=== PATIENT | female | born 1935 | race American Indian/Alaskan Native ===

== ENCOUNTER 2018-01-12 03:11 | Inpatient (IN) | payer MEDICARE ==
[2018-01-12] MEDS ORDERED: NACL 0.9% 1000 ML 1,000 ML IV ONE (03:37)
[2018-01-12 04:26] LABS: Basophils % (Auto) 0.7 % (0.0-1.8); Eosinophils # (Auto) 0.2 K/mm3 (0.0-0.4); Eosinophils % (Auto) 3.3 % (0.0-4.3); Hematocrit 20.9 % (30.3-42.9); Hemoglobin 6.6 gm/dl (10.1-14.3); Lymphocytes # (Auto) 1.4 K/mm3 (1.2-5.4); Lymphocytes % (Auto) 20.7 % (13.4-35.0); Mean Corpuscular HGB Conc 32 % (30-34); Mean Corpuscular Hemoglobin 30 pg (28-32); Mean Corpuscular Volume 96 fl (79-97); Monocytes # (Auto) 0.9 K/mm3 (0.0-0.8); Monocytes % (Auto) 12.6 % (0.0-7.3); Platelet Count 210 K/mm3 (140-440); Red Blood Count 2.19 M/mm3 (3.65-5.03); Red Cell Distribution Width 17.6 % (13.2-15.2)
[2018-01-12] MEDS ORDERED: NACL 0.9% 500 ML 500 ML IV ONE (04:34)
[2018-01-12 04:39] LABS: INR 1.1 (0.87-1.13)
[2018-01-12 04:40] LABS: Partial Thromboplastin Time 26.3 Sec. (24.2-36.6)
[2018-01-12] MEDS ORDERED: NACL 0.9% 250ML 250 ML ONE (04:40)
[2018-01-12] MEDS ORDERED: NACL 0.9% 250ML 250 ML IV ONE (04:44)
[2018-01-12 04:52] LABS: Albumin 3.2 g/dL (3.9-5); Calcium 8.4 mg/dL (8.4-10.2)
--- NOTE | 2018-01-12 05:00 | Emergency Department Report ---
ED GI Bleed HPI - General Chief complaint: GI Bleed Stated complaint: BLOOD IN STOOL Time Seen by Provider: 01/12/18 03:49 Source: patient, EMS Mode of arrival: Wheelchair Limitations: No Limitations - History of Present Illness Initial comments: 82 yo female with past medical history end-stage renal disease on dialysis and hypertension presents to the hospital complaining of bloody bowel movement 5 times prior to tonight. Apparently she was diagnosed with "an inflamed colon 2 months ago" but denies history of rectal bleeding. Patient complains of some lightheadedness and dizziness and mild intermittent abdominal cramping. Previous to abdomen. No vomiting or fever reported. Patient makes very little urine output and is due for dialysis today. Complains of some dyspnea exertion, generalized weakness, and fatigue but denies orthopnea or PND. Patient takes aspirin 81 mg daily but denies other anticoagulation or antiplatelet therapy. - Related Data Allergies Allergy/AdvReac Type Severity Reaction Status Date / Time meperidine [From Demerol] Allergy Itching Verified 01/12/18 03:31 ED Review of Systems ROS: Stated complaint: BLOOD IN STOOL Other details as noted in HPI Comment: All other systems reviewed and negative ED Past Medical Hx - Past Medical History Previous Medical History?: Yes Hx Hypertension: Yes Hx Renal Disease: Yes (Renal failure, on dialysis MWF) - Surgical History Past Surgical History?: Yes Additional Surgical History: bilateral knee replacement. - Social History Smoking Status: Never Smoker Substance Use Type: None ED Physical Exam - General Limitations: No Limitations - Other Other exam information: General: No limitations, patient is alert in no acute distress Head exam: Atraumatic, normocephalic Eyes exam: Normal appearance, pale conjunctiva ENT: Moist mucous membrane, normal oropharynx Neck exam: Normal inspection, full range of motion, no meningismus nontender Respiratory exam: Clear to auscultation bilateral, no wheezes, rales, crackles Cardiovascular: Normal rate and rhythm, systolic murmur Abdomen: Soft, nondistended, very mild diffuse tenderness, with normal bowel sounds, no rebound, or guarding. Vertical suprapubic previous scar noted Rectal: No external hemorrhoids noted. OB is blood/bright red blood output from rectum with bowel movements requiring multiple diaper changes in the ED Extremity: Full range of motion normal inspection no deformity Back: Normal Inspection, full range of motion, no tenderness Neurologic: Alert, oriented x3, cranial nerves intact, no motor or sensory deficit Psychiatric: normal affect, normal mood Skin: Pale skin ED Course Vital Signs 01/12/18 01/12/18 01/12/18 03:17 03:30 03:31 Temperature 97.9 F Pulse Rate 95 H 98 H Respiratory 20 20 Rate Blood Pressure 136/52 129/59 Blood Pressure 129/59 [Right] O2 Sat by Pulse 51 L 97 Oximetry 01/12/18 01/12/18 04:00 04:31 Temperature Pulse Rate 97 H 98 H Respiratory 26 H 26 H Rate Blood Pressure 134/47 79/39 Blood Pressure [Right] O2 Sat by Pulse Oximetry - Reevaluation(s) Reevaluation #1: 01/12/18 05:11 Systolic blood pressure dropped to 79 but improved to greater than 100 with a MAP greater than 65 after 250 NS normal saline bolus. Call was placed to the lab to expedite typing cross so that we may initiate blood transfusion. - Consultations Consultation #1: 01/12/18 4:45a Case discussed with Dr. Florin Aquino. Recommend bowel prep for colonoscopy. will consult Consultation #2: 01/12/18 05:[address] Henry, pt's medical artist. Will consult and manage dialysis - EJ/Peripheral Line Neck L Indications: nurses unable to establis Skin Cleansed in Sterile Fashion: Yes Size: 20 Dressing Placed: Tegaderm Patient Tolerated Procedure: well, no complications ED Medical Decision Making - Lab Data Result diagrams: 01/12/18 04:12 01/12/18 04:12 Lab Results 01/12/18 01/12/18 01/12/18 Range/Units 04:12 04:12 04:12 WBC 6.7 (4.5-11.0) K/mm3 RBC 2.19 L (3.65-5.03) M/mm3 Hgb 6.6 L (10.1-14.3) gm/dl Hct 20.9 L (30.3-42.9) % MCV 96 (79-97) fl MCH 30 (28-32) pg MCHC 32 (30-34) % RDW 17.6 H (13.2-15.2) % Plt Count 210 (140-440) K/mm3 Lymph % (Auto) 20.7 (13.4-35.0) % [place] % (Auto) 12.6 H (0.0-7.3) % Eos % (Auto) 3.3 (0.0-4.3) % Baso % (Auto) 0.7 (0.0-1.8) % Lymph # 1.4 (1.2-5.4) K/mm3 [place] # 0.9 H (0.0-0.8) K/mm3 Eos # 0.2 (0.0-0.4) K/mm3 Baso # 0.0 (0.0-0.1) K/mm3 Seg Neutrophils % 62.7 (40.0-70.0) % Seg Neutrophils # 4.2 (1.8-7.7) K/mm3 PT 14.8 (12.2-14.9) Sec. INR 1.10 (0.87-1.13) APTT 26.3 (24.2-36.6) Sec. Sodium 142 (137-145) mmol/L Potassium 4.3 (3.6-5.0) mmol/L Chloride 98.4 (98-107) mmol/L Carbon Dioxide 26 (22-30) mmol/L Anion Gap 22 mmol/L BUN 59 H (7-17) mg/dL Creatinine 5.9 H (0.7-1.2) mg/dL Estimated GFR 8 ml/min BUN/Creatinine Ratio 10 % Glucose 144 H (65-100) mg/dL Calcium 8.4 (8.4-10.2) mg/dL Total Bilirubin 0.40 (0.1-1.2) mg/dL AST 26 (5-40) units/L ALT 22 (7-56) units/L Alkaline Phosphatase 137 H (35-129) units/L Total Protein 5.1 L (6.3-8.2) g/dL Albumin 3.2 L (3.9-5) g/dL Albumin/Globulin Ratio 1.7 % Lipase 46 (13-60) units/L - EKG Data -: EKG Interpreted by [place] EKG shows normal: sinus rhythm Rate: normal - Medical Decision Making Lower GI bleed Low H&H with associated symptomatic anemia, 2 units of PRBC initiated Hypotensive episode after a bloody bowel movement in the ED for systolic blood pressure greater 100 and may peak greater than 65 after 250 normal saline bolus. 2 units of PRBC ordered to be initiated as soon as available Case discussed with Dr. Aquino GI recommend bowel prep for colonoscopy End-stage renal disease on dialysis Stable without hyperkalemia No orthopnea or signs of volume overload Initial o2 saturation erroneously recorded as 51 on room air but actually 97 case d/w Dr henry, will manage dialysis Hospitalist informed, pt will need ICU admission - Differential Diagnosis symptomatic anemia, diverticulosis, hemorrhoids, cancer, upper GI bleed Critical Care Time: No Critical care attestation.: If time is entered above; I have spent that time in minutes in the direct care of this critically ill patient, excluding procedure time. ED Disposition Clinical Impression: Rectal bleeding, Symptomatic anemia, ESRD (end stage renal disease) on dialysis Disposition: OP ADMIT IP TO THIS HOSP Is pt being admited?: Yes Condition: Serious Time of Disposition: 05:00 (Dr Mirza/hosp)
[2018-01-12] MEDS ORDERED: ZOFRAN IV PRN (06:10)
[2018-01-12] MEDS ORDERED: NACL 0.9% 500 ML 500 ML ONE ×2 (06:41→06:47)
--- NOTE | 2018-01-12 07:29 | History and Physical Report ---
CHIEF COMPLAINT: Rectal bleeding. HISTORY OF PRESENT ILLNESS: The patient is an 82-year-old female with history of end-stage renal disease, on dialysis, who was noted to be having blood in the stool that started yesterday. The patient has had about 5 episodes of bloody stool and was recently diagnosed about 2 months ago with an inflamed colon. There is history of some abdominal cramping. Also, the patient complained of lightheadedness and nausea, but no vomiting. There is also no history of fever or chills. The patient was evaluated and found to have low hemoglobin with arrangement for blood transfusion in progress. PAST MEDICAL HISTORY: Pertinent for hypertension and end-stage renal disease, on dialysis. PAST SURGICAL HISTORY: Pertinent for and bilateral knee replacement. FAMILY HISTORY: Noncontributory. SOCIAL HISTORY: The patient does not smoke, does not drink and does not use illicit drugs. MEDICATIONS: The patient's home medications are not known at this time. ALLERGIES: THE PATIENT IS ALLERGIC TO MEPERIDINE. REVIEW OF SYSTEMS: CONSTITUTIONAL: There is no fever, no chills and no diaphoresis. HEENT: There is no headache or sore throat. CARDIOVASCULAR: There is no chest pain or orthopnea. RESPIRATORY: There is no shortness of breath or cough. GASTROINTESTINAL: Abdominal cramp noted. Nausea noted. No vomiting. Hematochezia and melena noted. No constipation. No diarrhea. NEUROLOGICAL: There is dizziness with no change in mental status. MUSCULOSKELETAL: There is no joint pain or swelling. DERMATOLOGICAL: There is no skin rash or itching. GENITOURINARY: There is no dysuria, hematuria or flank pain. Rest of system review is normal. PHYSICAL EXAMINATION: GENERAL: At the time of exam, the patient was found to be sleeping quietly on her bed and not in acute distress. VITAL SIGNS: Initially at the time of presentation shows temperature of 97.9 degrees Fahrenheit, pulse of 95, respirations 20, blood pressure 136/52 with O2 sat of 97%. HEENT: The patient's pupils were round, equal on both sides and reactive to light and accommodation. NECK: Supple with no JVD or carotid bruit. CARDIOVASCULAR: Showed normal first and second heart sounds with no gallops or murmur. RESPIRATORY: Show good air entry on both sides of the lung with no abnormal breath sounds. GASTROINTESTINAL: Show abdomen to be full, soft and nontender with no organomegaly or rigidity. NEUROLOGICAL: Shows no focal deficits. MUSCULOSKELETAL: Show no joint swelling or tenderness. DERMATOLOGICAL: Show no skin rash. GENITOURINARY: Showing no costovertebral angle tenderness. PERTINENT LABORATORY AND IMAGING STUDIES: The patient had CBC done that shows normal white count with low hemoglobin of 6.6 and low hematocrit of 20.9 with normal platelets. Coagulation studies were unremarkable. The patient's chemistry show elevated BUN of 59 with high creatinine of 5.9, consistent with end-stage renal disease on dialysis. No imaging studies were done at this time. DIAGNOSES: 1. Rectal bleeding. 2. End-stage renal disease, on dialysis. PLAN: 1. The patient will be admitted to telemetry and will continue the order for packed red blood cells transfusion. 5 rubs or sore throat. The patient will also continue the Gastroenterology consult with Dr. Florin Aquino, who will do an endoscopy. 2. The patient will continue Nephrology consult with ____ for management of end-stage renal disease with possible dialysis this morning. The patient will remain n.p.o. until evaluated by the Spinning Room Worker and will be on IV Protonix 40 mg q. 12 hours. So, the patient will be on IV Zofran 4 mg every 8 hours as needed for nausea and vomiting and will be on oxygen by nasal cannula 2 liters per minute. The patient will have hemoglobin and hematocrit monitored every 6 hours x3 more ____. JOB# [id number] OCN/NTS
--- NOTE | 2018-01-12 09:04 | Gastroenterology Consultation ---
<VERONA MACIEL SEBASTIAN - Last Filed: 01/12/18 09:04> History of Present Illness - Reason for Consult Consult date: 01/12/18 Gi bleeding Requesting physician: RAYSA FRIEND - History of Present Illness Ms. Chavez is an 82 y/o female admitted with reports of rectal bleeding x 5 starting yesterday. She denies abdominal pain, but caregiver noted that pt has been loosing weight. She has just taken over care of the patient and does not have a detailed hx. The patient states she was seen at [facility] within the last 3-4 weeks with a diagnosis of " inflamed colon", however those records are unavailable to me and no visits in our office system at this time. She was noted to have and H/H of 6.6/20.9 on admission and is currently receiving blood products. She is on a daily ASA. She states she had bleeding one time in the past that resolved. Unclear when last colonoscopy was. She has ESRD on HD. Past History Past Medical History: diabetes, hypertension Past Surgical History: , total knee replacement Social history: lives with family Family history: no significant family history Medications and Allergies Allergies Allergy/AdvReac Type Severity Reaction Status Date / Time meperidine [From Demerol] Allergy Itching Verified 01/12/18 03:31 Active Meds: Active Medications Ondansetron HCl (Zofran) 4 mg IV Q8H PRN PRN Reason: Nausea And Vomiting Pantoprazole Sodium (Protonix) 40 mg IV Q12HR CECILIO Review of Systems - Review of Systems All systems: negative Constitutional: weight loss Gastrointestinal: BRBPR Exam - Constitutional Vital Signs: Temp Pulse Resp BP Pulse Ox 97.7 F 102 H 17 123/60 98 01/12/18 08:35 01/12/18 08:35 01/12/18 08:35 01/12/18 08:35 01/12/18 08:35 General appearance: no acute distress - EENT Eyes: EOM intact ENT: hearing intact - Neck Neck: supple - Respiratory Respiratory: bilateral: diminished - Cardiovascular Rhythm: regular Heart Sounds: Present: S1 & S2, systolic murmur Extremities: pulses intact - Gastrointestinal General gastrointestinal: Present: soft, non-tender, non-distended - Integumentary Integumentary: Present: warm, dry - Neurologic Neurological: other (drowsy) - Labs CBC & Chem 7: 01/12/18 04:12 01/12/18 04:12 Lab Results: Laboratory Results - last 24 hr 01/12/18 01/12/18 01/12/18 04:12 04:12 04:12 WBC 6.7 RBC 2.19 L Hgb 6.6 L Hct 20.9 L MCV 96 MCH 30 MCHC 32 RDW 17.6 H Plt Count 210 Lymph % (Auto) 20.7 Gem % (Auto) 12.6 H Eos % (Auto) 3.3 Baso % (Auto) 0.7 Lymph # 1.4 Gem # 0.9 H Eos # 0.2 Baso # 0.0 Seg Neutrophils % 62.7 Seg Neutrophils # 4.2 PT 14.8 INR 1.10 APTT 26.3 Sodium 142 Potassium 4.3 Chloride 98.4 Carbon Dioxide 26 Anion Gap 22 BUN 59 H Creatinine 5.9 H Estimated GFR 8 BUN/Creatinine Ratio 10 Glucose 144 H Calcium 8.4 Total Bilirubin 0.40 AST 26 ALT 22 Alkaline Phosphatase 137 H Total Protein 5.1 L Albumin 3.2 L Albumin/Globulin Ratio 1.7 Lipase 46 Blood Type Antibody Screen Crossmatch 01/12/18 04:12 WBC RBC Hgb Hct MCV MCH MCHC RDW Plt Count Lymph % (Auto) Gem % (Auto) Eos % (Auto) Baso % (Auto) Lymph # Gem # Eos # Baso # Seg Neutrophils % Seg Neutrophils # PT INR APTT Sodium Potassium Chloride Carbon Dioxide Anion Gap BUN Creatinine Estimated GFR BUN/Creatinine Ratio Glucose Calcium Total Bilirubin AST ALT Alkaline Phosphatase Total Protein Albumin Albumin/Globulin Ratio Lipase Blood Type O POSITIVE Antibody Screen Negative Crossmatch See Detail Assessment and Plan 1. GI bleeding -Agree with transfusion, Monitor H/H and transfuse as needed. -PPI daily -Pt did not receive prep will plan for colonoscopy tomorrow. Prep this PM. Clear liquids today. No blood thinning meds. Hold ASA -NPO after MN. <CIRA SANABRIA - Last Filed: 01/12/18 20:19> Medications and Allergies Active Meds: Active Medications Epoetin Kristopher (Procrit) 10,000 unit SUB-Q MOWEFR CECILIO Sodium Chloride (Nacl 0.9%) 100 mls @ 999 mls/hr IV CHARI PRN PRN Reason: Hypotension Morphine Sulfate (Morphine) 2 mg IV Q4H PRN PRN Reason: Pain, Moderate (4-6) Last Admin: 01/12/18 18:21 Dose: 2 mg Ondansetron HCl (Zofran) 4 mg IV Q8H PRN PRN Reason: Nausea And Vomiting Last Admin: 01/12/18 12:20 Dose: 4 mg Pantoprazole Sodium (Protonix) 40 mg IV Q12HR CECILIO Last Admin: 01/12/18 10:15 Dose: 40 mg Exam - Constitutional Vital Signs: Temp Pulse Resp BP Pulse Ox 97.5 F L 98 H 20 149/71 97 01/12/18 13:20 01/12/18 15:08 01/12/18 16:00 01/12/18 13:20 01/12/18 16:00 - Labs CBC & Chem 7: 01/12/18 14:42 01/12/18 04:12 Lab Results: Laboratory Results - last 24 hr 01/12/18 01/12/18 01/12/18 04:12 04:12 04:12 WBC 6.7 RBC 2.19 L Hgb 6.6 L Hct 20.9 L MCV 96 MCH 30 MCHC 32 RDW 17.6 H Plt Count 210 Lymph % (Auto) 20.7 Gem % (Auto) 12.6 H Eos % (Auto) 3.3 Baso % (Auto) 0.7 Lymph # 1.4 Gem # 0.9 H Eos # 0.2 Baso # 0.0 Seg Neutrophils % 62.7 Seg Neutrophils # 4.2 PT 14.8 INR 1.10 APTT 26.3 Sodium 142 Potassium 4.3 Chloride 98.4 Carbon Dioxide 26 Anion Gap 22 BUN 59 H Creatinine 5.9 H Estimated GFR 8 BUN/Creatinine Ratio 10 Glucose 144 H Calcium 8.4 Iron TIBC Ferritin Total Bilirubin 0.40 AST 26 ALT 22 Alkaline Phosphatase 137 H Total Protein 5.1 L Albumin 3.2 L Albumin/Globulin Ratio 1.7 Lipase 46 Blood Type Antibody Screen Crossmatch 01/12/18 01/12/18 01/12/18 04:12 14:42 16:39 WBC RBC Hgb 9.6 L D Hct 30.3 D MCV MCH MCHC RDW Plt Count Lymph % (Auto) Gem % (Auto) Eos % (Auto) Baso % (Auto) Lymph # Gem # Eos # Baso # Seg Neutrophils % Seg Neutrophils # PT INR APTT Sodium Potassium Chloride Carbon Dioxide Anion Gap BUN Creatinine Estimated GFR BUN/Creatinine Ratio Glucose Calcium Iron 37 TIBC 156 L Ferritin Total Bilirubin AST ALT Alkaline Phosphatase Total Protein Albumin Albumin/Globulin Ratio Lipase Blood Type O POSITIVE Antibody Screen Negative Crossmatch See Detail 01/12/18 16:39 WBC RBC Hgb Hct MCV MCH MCHC RDW Plt Count Lymph % (Auto) [place] % (Auto) Eos % (Auto) Baso % (Auto) Lymph # Gem # Eos # Baso # Seg Neutrophils % Seg Neutrophils # PT INR APTT Sodium Potassium Chloride Carbon Dioxide Anion Gap BUN Creatinine Estimated GFR BUN/Creatinine Ratio Glucose Calcium Iron TIBC Ferritin 3520.0 H Total Bilirubin AST ALT Alkaline Phosphatase Total Protein Albumin Albumin/Globulin Ratio Lipase Blood Type Antibody Screen Crossmatch Assessment and Plan - Patient Problems (1) Rectal bleeding Current Visit: Yes Status: Acute Plan to address problem: The patient was seen and examined. She is known to me from care some years ago. She is stable and has passed no blood since yesterday. Diverticular disease is the likely cause although neoplasia cannot be excluded. After a long discussion she has decided against colonoscopy because if a cancer was present, she would not want any surgery or therapy. Will plan conservative care.
[2018-01-12] MEDS ORDERED: GOLYTELY PO NR (10:00)
[2018-01-12] MEDS: PROTONIX IV SCH ×2 (10:15→21:09)
--- NOTE | 2018-01-12 11:41 | Event Note ---
Date: 01/12/18 Patient with GI bleed with resulting anemia. recheck H/H after 2 Units PRBC. For colonoscopy tomorrow.
[2018-01-12] MEDS: MORPHINE IV PRN ×2 (12:20→18:21)
--- NOTE | 2018-01-12 14:47 | Consultation ---
History of Present Illness - Reason for Consult Consult date: 01/12/18 end stage renal disease - History of Present Illness Ms Chavez is a 82 y/o lady with a PMH of ESRD on HD via LUE AVF MWF who has been admitted to the [facility] with rectal bleeding. Pt has been found to have anemia on labs. She denies CP, SHOB, N/V, fever, cough. She was last dialyzed Monday. She is on MWF HD OP. Dr Rubio is her transliterator. ROS: As in HPI otherwise 12 point review of systems -ve Past History Past Medical History: diabetes, hypertension Past Surgical History: , total knee replacement Social history: lives with family Family history: no significant family history Medications and Allergies Allergies Allergy/AdvReac Type Severity Reaction Status Date / Time meperidine [From Demerol] Allergy Itching Verified 01/12/18 03:31 Home Medications Medication Instructions Recorded Confirmed Last Taken Type Amlodipine Besylate [Norvasc] 10 mg PO QDAY 01/12/18 01/12/18 Unknown History Aspirin [Aspirin TAB] 325 mg PO QDAY 01/12/18 01/12/18 Unknown History B Complex 11/Folic/C/Biot/Zinc 1 each PO DAILY 01/12/18 01/12/18 Unknown History [Dialyvite with Zinc Tablet] Calcitriol [Rocaltrol] 0.5 mcg PO QDAY 01/12/18 01/12/18 Unknown History Carvedilol [Coreg] 3.125 mg PO BID 01/12/18 01/12/18 Unknown History Colesevelam [Welchol] 625 mg PO DAILY 01/12/18 01/12/18 Unknown History Esomeprazole Magnesium [NexIUM] 40 mg PO QDAY 01/12/18 01/12/18 Unknown History Levothyroxine [Synthroid] 125 mcg PO QAM 01/12/18 01/12/18 Unknown History Loperamide [Imodium] 2 mg PO QID PRN 01/12/18 01/12/18 Unknown History Phosphorus #1 [K-Phos Neutral] 250 mg PO BID 01/12/18 01/12/18 Unknown History Potassium Chloride [K-Dur] 20 meq PO BID 01/12/18 01/12/18 Unknown History Silver Sulfadiazine [Silvadene] 1 applic TP DAILY 01/12/18 01/12/18 Unknown History Active Meds: Active Medications Morphine Sulfate (Morphine) 2 mg IV Q4H PRN PRN Reason: Pain, Moderate (4-6) Last Admin: 01/12/18 12:20 Dose: 2 mg Ondansetron HCl (Zofran) 4 mg IV Q8H PRN PRN Reason: Nausea And Vomiting Last Admin: 01/12/18 12:20 Dose: 4 mg Pantoprazole Sodium (Protonix) 40 mg IV Q12HR CECILIO Last Admin: 01/12/18 10:15 Dose: 40 mg Polyethylene Glycol/Electrolytes (Golytely) 4,000 ml PO ONCE NR Stop: 01/12/18 15:00 Exam - Vital Signs Vital signs: Vital Signs Pulse Ox 51 L 01/12/18 03:17 - Physical Exam Narrative exam: GE:AAOX3 HEENT:Normocephalic Neck:No JVD CVS:RRR Abd:Soft/NT/ND/BS+ Ext:trace BLE edema, LUE AVF with good thrill UG:No randall Results - Lab Results 01/12/18 14:42 01/12/18 04:12 Most recent lab results Calcium 8.4 mg/dL (8.4-10.2) 01/12/18 04:12 Assessment and Plan ESRD on HD: -MWF OP via LUE AVF -No acute HD indication today, will do HD tommorow -Eval for HD need daily -Check BMP/Mg/Phos daily GI bleed with blood loss anemia: 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 Abel Montanez MD [phone]
[2018-01-12 15:39] LABS: Hematocrit 30.3 % (30.3-42.9); Hemoglobin 9.6 gm/dl (10.1-14.3)
[2018-01-12] MEDS ORDERED: NACL 0.9% 100 ML IV PRN (16:20)
--- NOTE | 2018-01-12 16:20 | XRay Report ---
FINAL REPORT EXAM: XR CHEST 1V AP HISTORY: volume status/SOB TECHNIQUE: Single, portable chest x-ray. PRIORS: None. FINDINGS: Diffusely calcified thoracic aorta. Mild cardiomegaly. Lungs are hyperinflated, with mildly increased interstitial markings centrally. Possible mild elevation or focal eventration of right hemidiaphragm. No focal consolidation or apparent pneumothorax. Vascular stent projects over the left axillary region and/or medial upper extremity. IMPRESSION: 1. Findings which may represent pulmonary venous hypertension. No evidence of overt CHF. 2. No acute consolidation.
[2018-01-12] MEDS ORDERED: PROCRIT SUB-Q SCH (17:00)
[2018-01-12 17:27] LABS: Iron 37 ug/dL (37-170); Total Iron Binding Capacity 156 mcg/dL (250-450)
[2018-01-12 22:59] LABS: Hematocrit 27.7 % (30.3-42.9); Hemoglobin 9.2 gm/dl (10.1-14.3)
[2018-01-13 01:14] LABS: Hematocrit 24.7 % (30.3-42.9); Hemoglobin 8.1 gm/dl (10.1-14.3)
[2018-01-13] MEDS: MORPHINE IV PRN ×2 (02:50→16:46)
[2018-01-13 05:01] LABS: Hemoglobin 7.9 gm/dl (10.1-14.3)
[2018-01-13] MEDS ORDERED: NACL 0.45% 1000 ML 1,000 ML IV ONE (08:18)
[2018-01-13] MEDS ORDERED: NACL 0.9% 1000 ML 1,000 ML ONE (08:20)
[2018-01-13] MEDS: PROTONIX IV SCH (10:00)
[2018-01-13] MEDS ORDERED: BENADRYL IV ONE (11:27)
[2018-01-13] MEDS ORDERED: NACL 0.9 (PRIMING MACHINE ONLY DIALYSIS) MC ONE (11:33)
--- NOTE | 2018-01-13 14:06 | Gastroenterology Progress Note ---
Assessment and Plan 1. Gi bleed 2. ESRD 3. Anemia - no further bleeding episodes since admission, mild drop in H/H with repeat check stable. on dialysis at time of exam. pt wishes to hold off on colonoscopy as bleeding has resolved. will sign off, please call as needed or with questions. pt should f/u in gi clinic in ~ 2 weeks Subjective Date of service: 01/13/18 Principal diagnosis: gi bleed Interval history: pt seen in dialysis. no new complaints, denies further bleeding episodes since admission. denies abd pain Objective - Exam Narrative Exam: Gen: NAD, in dialysis CV: RRR Lungs: CTAB Abd: soft, nt, nd, +bs Ext: no edema - Constitutional Vitals: Temp Pulse Resp BP Pulse Ox 98.1 F 100 H 18 148/67 98 01/13/18 10:45 01/13/18 12:00 01/13/18 10:45 01/13/18 12:00 01/13/18 07:11 - Labs CBC & Chem 7: 01/13/18 04:14 01/12/18 04:12 Labs: Laboratory Results - last 24 hr 01/12/18 01/12/18 01/12/18 14:42 16:39 16:39 Hgb 9.6 L D Hct 30.3 D Iron 37 TIBC 156 L Ferritin 3520.0 H 01/12/18 01/13/18 01/13/18 22:46 00:18 04:14 Hgb 9.2 L 8.1 L 7.9 L Hct 27.7 L 24.7 L 24.0 L Iron TIBC Ferritin
[2018-01-13 15:07] VITALS: BP 148/68
[2018-01-13 15:57] LABS: Hematocrit 26.3 % (30.3-42.9); Hemoglobin 8.7 gm/dl (10.1-14.3)
--- NOTE | 2018-01-13 16:04 | Progress Note ---
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 Objective - Vital Signs Vital signs: Vital Signs - 12hr 01/13/18 01/13/18 01/13/18 07:11 10:45 11:00 Temperature 98.5 F 98.1 F Pulse Rate 104 H 102 H 95 H Respiratory 20 18 Rate Blood Pressure 136/70 123/62 Blood Pressure 146/71 [Right] O2 Sat by Pulse 98 Oximetry 01/13/18 01/13/18 01/13/18 11:15 11:30 11:45 Temperature Pulse Rate 94 H 96 H 99 H Respiratory Rate Blood Pressure 131/64 140/70 134/69 Blood Pressure [Right] O2 Sat by Pulse Oximetry 01/13/18 01/13/18 01/13/18 12:00 12:15 12:30 Temperature Pulse Rate 100 H 91 H 92 H Respiratory Rate Blood Pressure 148/67 128/75 115/64 Blood Pressure [Right] O2 Sat by Pulse Oximetry 01/13/18 01/13/18 01/13/18 12:45 13:00 13:15 Temperature Pulse Rate 94 H 96 H 94 H Respiratory Rate Blood Pressure 128/73 133/73 132/58 Blood Pressure [Right] O2 Sat by Pulse Oximetry 01/13/18 01/13/18 01/13/18 13:30 13:45 14:00 Temperature Pulse Rate 91 H 98 H 98 H Respiratory Rate Blood Pressure 140/64 148/63 144/68 Blood Pressure [Right] O2 Sat by Pulse Oximetry 01/13/18 01/13/18 14:15 15:05 Temperature 98.1 F 98.5 F Pulse Rate 98 H 103 H Respiratory 18 20 Rate Blood Pressure 138/67 Blood Pressure 148/68 [Right] O2 Sat by Pulse 99 Oximetry - General Appearance General appearance: frail EENT: ATNC Neck: no JVD Respiratory: Present: Other (Lung sounds decreased bilaterally, unlabored) Cardiology: regular, S1S2, other (ACCESS: Left AVF with positive thrill and bruit noted) Gastrointestinal: normoactive bowel sounds Integumentary: warm and dry (chronic skin rashes/eczema ) Neurologic: alert and oriented x3 Musculoskeletal: other (no edema to both lower extremities) Psychiatric: mood/affect appropriate - Lab 01/13/18 15:24 01/12/18 04:12 Most recent lab results Calcium 8.4 mg/dL (8.4-10.2) 01/12/18 04:12
--- NOTE | 2018-01-13 17:23 | Discharge Summary ---
Providers - Providers Date of Admission: 01/12/18 06:06 Date of discharge: 01/13/18 Attending physician: RAYSA FRIEND 01/12/18 04:45 Consult to Physician [CONS] Urgent Comment: DR LANDAVERDE NOTIFIED Consulting Provider: RUBI LANDAVERDE Physician Instructions: Reason For Exam: rectal bleeding, anemia, hypotension 01/12/18 05:09 Consult to Physician [CONS] Urgent Comment: DR GRIGGS NOTIFIED Consulting Provider: ARUNA GRIGGS Physician Instructions: Reason For Exam: esrd, rectal bleeding, anemia, hypotension 01/12/18 16:41 Consult to Wound/ET Nurse [CONS] Routine Reason For Exam: wound eval Primary care physician: BIOMEDICAL SCIENTIST Hospitalization Condition: Fair Disposition: DC-01 TO HOME OR SELFCARE Core Measure Documentation - Palliative Care Palliative Care/ Comfort Measures: Not Applicable Exam - Constitutional Vitals: Temp Pulse Resp BP Pulse Ox 98.5 F 103 H 20 148/68 99 01/13/18 15:05 01/13/18 15:05 01/13/18 15:05 01/13/18 15:05 01/13/18 15:05 Plan Activity: no restrictions Diet: other (soft diet) Additional Instructions: 1.Follow up with PCP in 3-5 days. 2.Follow up with Dr. Horton GI in 3-5 days in office. 3.Please go to nearest ED if any more bleeding Follow up with: PRIMARY CARE, [Primary Care Provider] - 7 Days Prescriptions: traMADol [Ultram 50 MG tab] 50 mg PO Q6HR PRN #20 tablet PRN Reason: Pain
--- NOTE | 2018-01-13 17:29 | Progress Note ---
Hospitalist Physical - Constitutional Vitals: Temp Pulse Resp BP Pulse Ox 98.5 F 103 H 20 148/68 99 01/13/18 15:05 01/13/18 15:05 01/13/18 15:05 01/13/18 15:05 01/13/18 15:05 Results - Labs CBC & Chem 7: 01/13/18 15:24 01/12/18 04:12 Labs: Laboratory Last Values WBC 6.7 K/mm3 (4.5-11.0) 01/12/18 04:12 RBC 2.19 M/mm3 (3.65-5.03) L 01/12/18 04:12 Hgb 8.7 gm/dl (10.1-14.3) L 01/13/18 15:24 Hct 26.3 % (30.3-42.9) L 01/13/18 15:24 MCV 96 fl (79-97) 01/12/18 04:12 MCH 30 pg (28-32) 01/12/18 04:12 MCHC 32 % (30-34) 01/12/18 04:12 RDW 17.6 % (13.2-15.2) H 01/12/18 04:12 Plt Count 210 K/mm3 (140-440) 01/12/18 04:12 Lymph % (Auto) 20.7 % (13.4-35.0) 01/12/18 04:12 [place] % (Auto) 12.6 % (0.0-7.3) H 01/12/18 04:12 Eos % (Auto) 3.3 % (0.0-4.3) 01/12/18 04:12 Baso % (Auto) 0.7 % (0.0-1.8) 01/12/18 04:12 Lymph # 1.4 K/mm3 (1.2-5.4) 01/12/18 04:12 [place] # 0.9 K/mm3 (0.0-0.8) H 01/12/18 04:12 Eos # 0.2 K/mm3 (0.0-0.4) 01/12/18 04:12 Baso # 0.0 K/mm3 (0.0-0.1) 01/12/18 04:12 Seg Neutrophils % 62.7 % (40.0-70.0) 01/12/18 04:12 Seg Neutrophils # 4.2 K/mm3 (1.8-7.7) 01/12/18 04:12 PT 14.8 Sec. (12.2-14.9) 01/12/18 04:12 INR 1.10 (0.87-1.13) 01/12/18 04:12 APTT 26.3 Sec. (24.2-36.6) 01/12/18 04:12 Sodium 142 mmol/L (137-145) 01/12/18 04:12 Potassium 4.3 mmol/L (3.6-5.0) 01/12/18 04:12 Chloride 98.4 mmol/L (98-107) 01/12/18 04:12 Carbon Dioxide 26 mmol/L (22-30) 01/12/18 04:12 Anion Gap 22 mmol/L 01/12/18 04:12 BUN 59 mg/dL (7-17) H 01/12/18 04:12 Creatinine 5.9 mg/dL (0.7-1.2) H 01/12/18 04:12 Estimated GFR 8 ml/min 01/12/18 04:12 BUN/Creatinine Ratio 10 % 01/12/18 04:12 Glucose 144 mg/dL (65-100) H 01/12/18 04:12 Calcium 8.4 mg/dL (8.4-10.2) 01/12/18 04:12 Iron 37 ug/dL (37-170) 01/12/18 16:39 TIBC 156 mcg/dL (250-450) L 01/12/18 16:39 Ferritin 3520.0 ng/mL (13.0-400.0) H 01/12/18 16:39 Total Bilirubin 0.40 mg/dL (0.1-1.2) 01/12/18 04:12 AST 26 units/L (5-40) 01/12/18 04:12 ALT 22 units/L (7-56) 01/12/18 04:12 Alkaline Phosphatase 137 units/L (35-129) H 01/12/18 04:12 Total Protein 5.1 g/dL (6.3-8.2) L 01/12/18 04:12 Albumin 3.2 g/dL (3.9-5) L 01/12/18 04:12 Albumin/Globulin Ratio 1.7 % 01/12/18 04:12 Lipase 46 units/L (13-60) 01/12/18 04:12 Blood Type O POSITIVE 01/12/18 04:12 Antibody Screen Negative 01/12/18 04:12 Crossmatch See Detail 01/12/18 04:12
[2018-01-13] MEDS ORDERED: GOLYTELY PO ONE (17:43)
== END 2018-01-13 19:05 | disposition home or self-care (01) | DRG 377 ==
LOC: ED 03:11 → 4A 06:06 → 2B-ACE 11:07
PROVIDERS: ADMIT Internal Medicine; ATTEND Internal Medicine
PROC: 30233N1 Transfusion of Nonautologous Red Blood Cells into Peripheral Vein, Percutaneous Approach (ICD-10-PCS; principal; 2018-01-12)
DX: K92.2 Gastrointestinal hemorrhage, unspecified (principal); N18.6 End stage renal disease; I12.0 Hypertensive chronic kidney disease with stage 5 chronic kidney disease or end stage renal disease; D62 Acute posthemorrhagic anemia; N25.81 Secondary hyperparathyroidism of renal origin; Z96.653 Presence of artificial knee joint, bilateral; E11.22 Type 2 diabetes mellitus with diabetic chronic kidney disease; D63.1 Anemia in chronic kidney disease; E03.9 Hypothyroidism, unspecified; Z88.8 Allergy status to other drugs, medicaments and biological substances; Z99.2 Dependence on renal dialysis
CPT/HCPCS: 36415; 71045; 80053; 82728; 83550; 83690; 85014; 85018; 85025; 85610; 85730; 86850; 86900; 86901; 86920; 87116; 93005; 93010; 94760; C9113; J0885; J1200; J2270; J2405; J7030; J7040; J7050; P9016

== ENCOUNTER 2018-09-24 00:57 | Inpatient (IN) | payer MEDICARE ==
[2018-09-24] MEDS ORDERED: PROVENTIL IH ONE (01:00)
[2018-09-24] MEDS ORDERED: MAGNESIUM SULFATE 2GM/50ML 2 GM/50 ML BAG IV ONE (01:00)
--- NOTE | 2018-09-24 01:00 | Emergency Department Report ---
ED Shortness of Breath HPI - General Chief Complaint: Dyspnea/Respdistress Stated Complaint: NADINE Time Seen by Provider: 09/24/18 00:59 Source: family, EMS Mode of arrival: Stretcher Limitations: Altered Mental Status - History of Present Illness MD Complaint: shortness of breath -: Sudden, This evening Known History Of: COPD Associated Symptoms: cough Treatments Prior to Arrival: oxygen, bronchodilator - Related Data Home Oxygen Therapy: Yes Home Oxygen Amount: 2 Liters Home Medications Medication Instructions Recorded Confirmed Last Taken Amlodipine Besylate [Norvasc] 10 mg PO QDAY 01/12/18 06/12/18 Unknown B Complex 11/Folic/C/Biot/Zinc 1 each PO DAILY 01/12/18 06/12/18 Unknown [Dialyvite with Zinc Tablet] Calcitriol [Rocaltrol] 0.5 mcg PO QDAY 01/12/18 06/12/18 Unknown Carvedilol [Coreg] 6.25 mg PO BID 01/12/18 06/12/18 Unknown Esomeprazole Magnesium [NexIUM] 40 mg PO QDAY 01/12/18 06/12/18 Unknown Levothyroxine [Synthroid] 125 mcg PO QAM 01/12/18 06/12/18 Unknown ALBUTEROL Inhaler(NF) 90 mcg INHALATION Q6H PRN 06/12/18 06/12/18 Unknown Cozaar 50 mg PO DAILY 06/12/18 06/12/18 Unknown Loperamide [Imodium] 4 mg PO QID PRN 06/12/18 06/12/18 Unknown Allergies Allergy/AdvReac Type Severity Reaction Status Date / Time meperidine [From Demerol] Allergy Itching Verified 01/12/18 03:31 ED Review of Systems ROS: Stated complaint: NADINE Other details as noted in HPI Comment: Unobtainable due to pts medical conditions (Patient is altered and se verely short of breath.) Constitutional: fever ED Past Medical Hx - Past Medical History Hx Hypertension: Yes Hx Diabetes: No Hx Renal Disease: Yes (Renal failure, on dialysis MWF) Hx Arthritis: Yes (ELODIA KNEES) Hx COPD: No - Surgical History Hx Pacemaker: No Additional Surgical History: bilateral knee replacement. - Social History Smoking Status: Never Smoker - Medications Home Medications: Home Medications Medication Instructions Recorded Confirmed Last Taken Type Amlodipine Besylate [Norvasc] 10 mg PO QDAY 01/12/18 06/12/18 Unknown History B Complex 11/Folic/C/Biot/Zinc 1 each PO DAILY 01/12/18 06/12/18 Unknown History [Dialyvite with Zinc Tablet] Calcitriol [Rocaltrol] 0.5 mcg PO QDAY 01/12/18 06/12/18 Unknown History Carvedilol [Coreg] 6.25 mg PO BID 01/12/18 06/12/18 Unknown History Esomeprazole Magnesium [NexIUM] 40 mg PO QDAY 01/12/18 06/12/18 Unknown History Levothyroxine [Synthroid] 125 mcg PO QAM 01/12/18 06/12/18 Unknown History ALBUTEROL Inhaler(NF) 90 mcg INHALATION Q6H PRN 06/12/18 06/12/18 Unknown History Cozaar 50 mg PO DAILY 06/12/18 06/12/18 Unknown History Loperamide [Imodium] 4 mg PO QID PRN 06/12/18 06/12/18 Unknown History ED Physical Exam - General General appearance: lethargic, in distress - Head Head exam: Present: atraumatic, normal inspection - Eye Eye exam: Present: normal appearance, PERRL - ENT ENT exam: Present: mucous membranes moist - Neck Neck exam: Present: normal inspection, full ROM - Respiratory Respiratory exam: Present: wheezes, rales, accessory muscle use, decreased breath sounds - Cardiovascular Cardiovascular Exam: Present: tachycardia - GI/Abdominal GI/Abdominal exam: Present: soft, normal bowel sounds. Absent: distended, tenderness - Extremities Exam Extremities exam: Present: full ROM, normal capillary refill, pedal edema - Back Exam Back exam: Present: normal inspection - Neurological Exam Neurological exam: Present: altered - Psychiatric Psychiatric exam: Present: flat affect - Skin Skin exam: Present: warm, dry, intact ED Course Vital Signs 09/24/18 09/24/18 09/24/18 01:04 01:06 01:50 Temperature 97.1 F L Pulse Rate 114 H 118 H Pulse Rate [ Bilateral] Respiratory 28 H 27 H 28 H Rate Respiratory Rate [Bilateral ] Blood Pressure 160/89 Blood Pressure 160/89 [Right] O2 Sat by Pulse 93 Oximetry 09/24/18 01:58 Temperature Pulse Rate Pulse Rate [ 101 H Bilateral] Respiratory Rate Respiratory 18 Rate [Bilateral ] Blood Pressure Blood Pressure [Right] O2 Sat by Pulse Oximetry - Consultations Consultation #1: 09/24/18 02:19 I consulted the Student Counselor neonatologist Dr. Villalobos. He will arrange for hemodialysis immediately. He wants patient to be admitted by the hospitalist. Patient will be admitted by Dr. Squires for further management. ED Medical Decision Making - Lab Data Result diagrams: 09/24/18 01:05 09/24/18 01:08 Lab Results 09/24/18 09/24/18 09/24/18 Range/Units 01:05 01:05 01:05 WBC 14.1 H (4.5-11.0) K/mm3 RBC 4.04 (3.65-5.03) M/mm3 Hgb 12.5 (10.1-14.3) gm/dl Hct 38.3 (30.3-42.9) % MCV 95 (79-97) fl MCH 31 (28-32) pg MCHC 33 (30-34) % RDW 18.0 H (13.2-15.2) % Plt Count 168 (140-440) K/mm3 Lymph % (Auto) 14.1 (13.4-35.0) % [place] % (Auto) 7.9 H (0.0-7.3) % Eos % (Auto) 3.4 (0.0-4.3) % Baso % (Auto) 0.4 (0.0-1.8) % Lymph # 2.0 (1.2-5.4) K/mm3 [place] # 1.1 H (0.0-0.8) K/mm3 Eos # 0.5 H (0.0-0.4) K/mm3 Baso # 0.1 (0.0-0.1) K/mm3 Seg Neutrophils % 74.2 H (40.0-70.0) % Seg Neutrophils # 10.5 H (1.8-7.7) K/mm3 PT 12.7 (12.2-14.9) Sec. INR 0.90 (0.87-1.13) APTT 22.9 L (24.2-36.6) Sec. Sodium (137-145) mmol/L Potassium (3.6-5.0) mmol/L Chloride (98-107) mmol/L Carbon Dioxide (22-30) mmol/L Anion Gap mmol/L BUN (7-17) mg/dL Creatinine (0.7-1.2) mg/dL Estimated GFR ml/min BUN/Creatinine Ratio % Glucose (65-100) mg/dL Lactic Acid (0.7-2.0) mmol/L Calcium (8.4-10.2) mg/dL Magnesium (1.7-2.3) mg/dL Total Bilirubin (0.1-1.2) mg/dL AST (5-40) units/L ALT (7-56) units/L Alkaline Phosphatase (35-129) units/L Total Creatine Kinase 69 (30-135) units/L CK-MB (CK-2) 3.4 (0.0-4.0) ng/mL CK-MB (CK-2) Rel Index 4.9 H (0-4) Troponin T 0.021 (0.00-0.029) ng/mL NT-Pro-B Natriuret Pep (0-900) pg/mL Total Protein (6.3-8.2) g/dL Albumin (3.9-5) g/dL Albumin/Globulin Ratio % Lipase (13-60) units/L 09/24/18 09/24/18 Range/Units 01:08 01:08 WBC (4.5-11.0) K/mm3 RBC (3.65-5.03) M/mm3 Hgb (10.1-14.3) gm/dl Hct (30.3-42.9) % MCV (79-97) fl MCH (28-32) pg MCHC (30-34) % RDW (13.2-15.2) % Plt Count (140-440) K/mm3 Lymph % (Auto) (13.4-35.0) % [place] % (Auto) (0.0-7.3) % Eos % (Auto) (0.0-4.3) % Baso % (Auto) (0.0-1.8) % Lymph # (1.2-5.4) K/mm3 [place] # (0.0-0.8) K/mm3 Eos # (0.0-0.4) K/mm3 Baso # (0.0-0.1) K/mm3 Seg Neutrophils % (40.0-70.0) % Seg Neutrophils # (1.8-7.7) K/mm3 PT (12.2-14.9) Sec. INR (0.87-1.13) APTT (24.2-36.6) Sec. Sodium 146 H (137-145) mmol/L Potassium 5.5 H (3.6-5.0) mmol/L Chloride 102.3 (98-107) mmol/L Carbon Dioxide 26 (22-30) mmol/L Anion Gap 23 mmol/L BUN 56 H (7-17) mg/dL Creatinine 6.1 H (0.7-1.2) mg/dL Estimated GFR 8 ml/min BUN/Creatinine Ratio 9 % Glucose 182 H (65-100) mg/dL Lactic Acid 1.10 (0.7-2.0) mmol/L Calcium 8.7 (8.4-10.2) mg/dL Magnesium 2.60 H (1.7-2.3) mg/dL Total Bilirubin 0.40 (0.1-1.2) mg/dL AST 143 H (5-40) units/L ALT 77 H (7-56) units/L Alkaline Phosphatase 311 H (35-129) units/L Total Creatine Kinase (30-135) units/L CK-MB (CK-2) (0.0-4.0) ng/mL CK-MB (CK-2) Rel Index (0-4) Troponin T (0.00-0.029) ng/mL NT-Pro-B Natriuret Pep > 50471 H (0-900) pg/mL Total Protein 6.2 L (6.3-8.2) g/dL Albumin 4.1 (3.9-5) g/dL Albumin/Globulin Ratio 2.0 % Lipase 66 H (13-60) units/L - EKG Data -: EKG Interpreted by Nv EKG shows normal: sinus rhythm Rate: tachycardia (103) - EKG Data When compared to previous EKG there are: previous EKG unavailable Interpretation: nonspecific ST-T wave max, LVH 09/24/18 02:01 Prolonged QT. Q waves in the anterior leads. No STEMI. - Radiology Data Radiology results: report reviewed, image reviewed CXR showed bilateral infiltrates and COPD. Critical Care Time: Yes Critical care time in (mins) excluding proc time.: 60 Critical care attestation.: If time is entered above; I have spent that time in minutes in the direct care of this critically ill patient, excluding procedure time. ED Disposition Clinical Impression: ESRD (end stage renal disease) on dialysis, Hypoxia, Acute respiratory failure with hypoxia, Acute hyperkalemia Bilateral pneumonia Qualifiers: Pneumonia type: due to unspecified organism Lung location: lower lobe of lung Qualified Code(s): J18.1 - Lobar pneumonia, unspecified organism Volume overload Qualifiers: Hypervolemia type: unspecified Qualified Code(s): E87.70 - Fluid overload, unspecified Pulmonary edema Qualifiers: Chronicity: acute Qualified Code(s): J81.0 - Acute pulmonary edema Disposition: 09 OP ADMIT IP TO THIS HOSP Is pt being admited?: Yes Does the pt Need Aspirin: No Condition: Stable Instructions: Pulmonary Edema (ED), Bacterial Pneumonia (ED) Time of Disposition: 02:04
[2018-09-24 01:21] LABS: Basophils # (Auto) 0.1 K/mm3 (0.0-0.1); Basophils % (Auto) 0.4 % (0.0-1.8); Eosinophils # (Auto) 0.5 K/mm3 (0.0-0.4); Eosinophils % (Auto) 3.4 % (0.0-4.3); Hematocrit 38.3 % (30.3-42.9); Hemoglobin 12.5 gm/dl (10.1-14.3); Lymphocytes % (Auto) 14.1 % (13.4-35.0); Mean Corpuscular HGB Conc 33 % (30-34); Mean Corpuscular Volume 95 fl (79-97); Monocytes # (Auto) 1.1 K/mm3 (0.0-0.8); Monocytes % (Auto) 7.9 % (0.0-7.3); Platelet Count 168 K/mm3 (140-440); Red Blood Count 4.04 M/mm3 (3.65-5.03)
[2018-09-24] MEDS ORDERED: LEVAQUIN 750MG/150ML 750 MG/150 ML BAG IV ONE (01:22)
[2018-09-24 01:34] LABS: INR 0.9 (0.87-1.13)
[2018-09-24 01:35] LABS: Partial Thromboplastin Time 22.9 Sec. (24.2-36.6)
--- NOTE | 2018-09-24 01:35 | XRay Report ---
FINAL REPORT PROCEDURE: XR CHEST 1V AP TECHNIQUE: Chest radiograph anteroposterior view. CPT 78819 HISTORY: Dyspnea COMPARISON: 06/12/2018 FINDINGS: Heart: Normal. Mediastinum/Vessels: Normal. Lungs/Pleural space: Mild infiltrates bilateral lower lungs. No effusion or pneumothorax. Mild underl kay chronic obstructive changes. Bony thorax: No acute osseous abnormality. Life support devices: None. IMPRESSION: Slight infiltrates bilateral lower lungs. Mild COPD..
[2018-09-24 01:38] LABS: Creatine Kinase MB 3.4 ng/mL (0.0-4.0)
[2018-09-24 01:48] LABS: Alanine Aminotransferase 77 units/L (7-56); Albumin 4.1 g/dL (3.9-5); BUN/Creatinine Ratio 9; Blood Urea Nitrogen 56 mg/dL (7-17); Calcium 8.7 mg/dL (8.4-10.2); Hemolysis Index 38
[2018-09-24] MEDS ORDERED: ATROVENT IH ONE (01:56)
[2018-09-24] MEDS ORDERED: HumuLIN R SUB-Q ONE (02:32)
[2018-09-24] MEDS ORDERED: D50W (25GM) Syringe IV ONE (02:32)
[2018-09-24] MEDS ORDERED: SODIUM BICARBONATE IV ONE (02:32)
[2018-09-24] MEDS ORDERED: CALCIUM CHLORIDE 1,000 MG in NACL 0.9% 100 ML IV ONE (02:33)
--- NOTE | 2018-09-24 02:34 | History and Physical Report ---
History of Present Illness Date of examination: 09/24/18 History of present illness: This is a 83-year-old lady with a history of end-stage renal disease on dialysis Monday, COPD, emergency room with complaints of shortness of breath that started at 11 PM. In the emergency room she was placed on BiPAP, her potassium was elevated and renal was consulted emergently for dialysis Review of systems Constitutional: no weight loss, chills, fever Ears, eyes, nose, mouth and throat: no nasal congestion, no nasal discharge, no sinus pressure, no vision change, no red eye. Neck: No neck pain or rigidity. Cardiovascular: no palpitations, chest pain Respiratory: no cough, +shortness of breath Gastrointestinal: no hematochezia, abdominal pain Genitourinary : no frequency , no hematuria Musculoskeletal: no joint swelling or muscle ache Integumentary: no rash, no pruritis Neurological: no parathesias, no focal weakness Endocrine: no cold or heat intolerance, no polyuria or polydipsia Hematologic/Lymphatic: no easy bruising, no easy bleeding, no gland swelling Allergic/Immunologic: no urticaria, no angioedema. PAST MEDICAL HISTORY: end-stage renal disease on dialysis Monday, COPD PAST SURGICAL HISTORY: Bilateral knee replacement SOCIAL HISTORY: Denies alcohol, drugs, tobacco FAMILY HISTORY: Hypertension Medications and Allergies Allergies Allergy/AdvReac Type Severity Reaction Status Date / Time meperidine [From Demerol] Allergy Itching Verified 01/12/18 03:31 Home Medications Medication Instructions Recorded Confirmed Last Taken Type Amlodipine Besylate [Norvasc] 10 mg PO QDAY 01/12/18 06/12/18 Unknown History B Complex 11/Folic/C/Biot/Zinc 1 each PO DAILY 01/12/18 06/12/18 Unknown History [Dialyvite with Zinc Tablet] Calcitriol [Rocaltrol] 0.5 mcg PO QDAY 01/12/18 06/12/18 Unknown History Carvedilol [Coreg] 6.25 mg PO BID 01/12/18 06/12/18 Unknown History Esomeprazole Magnesium [NexIUM] 40 mg PO QDAY 01/12/18 06/12/18 Unknown History Levothyroxine [Synthroid] 125 mcg PO QAM 01/12/18 06/12/18 Unknown History ALBUTEROL Inhaler(NF) 90 mcg INHALATION Q6H PRN 06/12/18 06/12/18 Unknown History Cozaar 50 mg PO DAILY 06/12/18 06/12/18 Unknown History Loperamide [Imodium] 4 mg PO QID PRN 06/12/18 06/12/18 Unknown History Active Meds: Active Medications Dextrose (D50w (25gm) Syringe) 50 ml IV ONCE ONE Stop: 09/24/18 02:33 Enoxaparin Sodium (Lovenox) 30 mg SUB-Q QDAY CECILIO Levofloxacin/Dextrose (Levaquin 750mg/150ml) 750 mg in 150 mls @ 100 mls/hr IV ONCE ONE Stop: 09/24/18 02:51 Last Admin: 09/24/18 02:20 Dose: 100 mls/hr Documented by: Insulin Human Regular (Humulin R) 4 units SUB-Q ONCE ONE Stop: 09/24/18 02:33 Sodium Bicarbonate (Sodium Bicarbonate 50meq Syringe) 50 meq IV ONCE ONE Stop: 09/24/18 02:33 Exam - Physical Exam Narrative exam: General Apperance: The patient lying in bed, breathing comfortable HEENT: Normocephalic, atraumatic. Pupils equally round and reactive to light, EOMI, no sclericterus or JVD or thyromegaly or nodule. , no carotid bruit, mucous membranes moist, no exudate or erythema Heart: S1-S2, regular is rhythm Lungs: Crackles at the bases bilaterally, breathing comfortable Abdomen: Positive bowel sounds, soft, nontender, nondistended, no organomegaly Extremities: No edema cyanosis clubbing Skin: no rash, nodule, warm and dry Neuro: cranial nerves 2-12 intact, speech is fluent, motor/sensory intact - Constitutional Vitals: Temp Pulse Resp BP Pulse Ox 97.1 F L 101 H 18 160/89 93 09/24/18 01:04 09/24/18 01:58 09/24/18 01:58 09/24/18 01:04 09/24/18 01:06 Results - Labs CBC & Chem 7: 09/24/18 01:05 09/24/18 01:08 Labs: Abnormal lab results 09/24/18 09/24/18 09/24/18 Range/Units 01:05 01:05 01:05 WBC 14.1 H (4.5-11.0) K/mm3 RDW 18.0 H (13.2-15.2) % [place] % (Auto) 7.9 H (0.0-7.3) % [place] # 1.1 H (0.0-0.8) K/mm3 Eos # 0.5 H (0.0-0.4) K/mm3 Seg Neutrophils % 74.2 H (40.0-70.0) % Seg Neutrophils # 10.5 H (1.8-7.7) K/mm3 APTT 22.9 L (24.2-36.6) Sec. Sodium (137-145) mmol/L Potassium (3.6-5.0) mmol/L BUN (7-17) mg/dL Creatinine (0.7-1.2) mg/dL Glucose (65-100) mg/dL Magnesium (1.7-2.3) mg/dL AST (5-40) units/L ALT (7-56) units/L Alkaline Phosphatase (35-129) units/L CK-MB (CK-2) Rel Index 4.9 H (0-4) NT-Pro-B Natriuret Pep (0-900) pg/mL Total Protein (6.3-8.2) g/dL Lipase (13-60) units/L 09/24/18 Range/Units 01:08 WBC (4.5-11.0) K/mm3 RDW (13.2-15.2) % [place] % (Auto) (0.0-7.3) % [place] # (0.0-0.8) K/mm3 Eos # (0.0-0.4) K/mm3 Seg Neutrophils % (40.0-70.0) % Seg Neutrophils # (1.8-7.7) K/mm3 APTT (24.2-36.6) Sec. Sodium 146 H (137-145) mmol/L Potassium 5.5 H (3.6-5.0) mmol/L BUN 56 H (7-17) mg/dL Creatinine 6.1 H (0.7-1.2) mg/dL Glucose 182 H (65-100) mg/dL Magnesium 2.60 H (1.7-2.3) mg/dL AST 143 H (5-40) units/L ALT 77 H (7-56) units/L Alkaline Phosphatase 311 H (35-129) units/L CK-MB (CK-2) Rel Index (0-4) NT-Pro-B Natriuret Pep > 07051 H (0-900) pg/mL Total Protein 6.2 L (6.3-8.2) g/dL Lipase 66 H (13-60) units/L - Imaging and Cardiology EKG: image reviewed Chest x-ray: report reviewed Assessment and Plan Assessment Community-acquired pneumonia Hyperkalemia Incision renal disease on dialysis COPD Plan Start IV Levaquin, renal was consulted for dialysis Check cardiac enzymes, DVT prophylaxis
[2018-09-24] MEDS ORDERED: ZOFRAN IV PRN (05:42)
[2018-09-24] MEDS ORDERED: TYLENOL PO PRN (05:42)
[2018-09-24] MEDS ORDERED: SODIUM CHLORIDE FLUSH SYRINGE 10 ML IV PRN (05:42)
[2018-09-24] MEDS ORDERED: BENADRYL IV ONE (05:44)
[2018-09-24] MEDS ORDERED: IMODIUM PO PRN (05:46)
[2018-09-24] MEDS ORDERED: SYNTHROID PO SCH (06:00)
[2018-09-24] MEDS ORDERED: NACL 0.9 (PRIMING MACHINE ONLY DIALYSIS) MC ONE (06:39)
[2018-09-24] MEDS ORDERED: NACL 0.9% 100 ML IV PRN (07:30)
[2018-09-24 09:31] LABS: Chol/HDL Ratio 2.36 %
[2018-09-24] MEDS ORDERED: LOVENOX SUB-Q SCH (10:00)
[2018-09-24] MEDS ORDERED: ROCALTROL PO SCH (10:00)
[2018-09-24] MEDS ORDERED: PROTONIX PO SCH (10:00)
[2018-09-24] MEDS ORDERED: NORVASC PO SCH (10:00)
[2018-09-24] MEDS ORDERED: NON-FORMULARY (Esomeprazole Magnesium [Nexium] 40 MG) PO SCH (10:00)
[2018-09-24] MEDS ORDERED: SODIUM CHLORIDE FLUSH SYRINGE 10 ML IV SCH (10:00)
[2018-09-24] MEDS ORDERED: COREG PO SCH (10:00)
[2018-09-24 10:27] VITALS: BP 166/89
--- NOTE | 2018-09-24 10:33 | Consultation ---
History of Present Illness - Reason for Consult Consult date: 09/24/18 end stage renal disease Requesting physician: MAX BEAVER - History of Present Illness 83-year-old lady who is known to me with history of end-stage renal disease on hemodialysis on a Monday, Monday and Monday schedule. Patient was admitted on account of shortness of breath which started since 11 AM. She went to the [facility] and then went to [facility]. When she left dialysis on Monday her weight was 44.7 kg which is 0.7 kg above her dry weight. Shortness of breath kept worsening and so she came to the hospital for evaluation. Potassium was high at 5.5 mmol per liter. I'm consulted to assist in managing this. ProBNP was also high at 135,000. Patient received dialysis early this morning and feels better already. 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 denies: smoking (ex-smoker), alcohol abuse, prescription drug abuse, IV drug use Family history: hypertension (mother had hypertension) Medications and Allergies Allergies Allergy/AdvReac Type Severity Reaction Status Date / Time meperidine [From Demerol] Allergy Itching Verified 01/12/18 03:31 Home Medications Medication Instructions Recorded Confirmed Last Taken Type Amlodipine Besylate [Norvasc] 10 mg PO QDAY 01/12/18 06/12/18 Unknown History B Complex 11/Folic/C/Biot/Zinc 1 each PO DAILY 01/12/18 06/12/18 Unknown History [Dialyvite with Zinc Tablet] Calcitriol [Rocaltrol] 0.5 mcg PO QDAY 01/12/18 06/12/18 Unknown History Carvedilol [Coreg] 6.25 mg PO BID 01/12/18 06/12/18 Unknown History Esomeprazole Magnesium [NexIUM] 40 mg PO QDAY 01/12/18 06/12/18 Unknown History Levothyroxine [Synthroid] 125 mcg PO QAM 01/12/18 06/12/18 Unknown History ALBUTEROL Inhaler(NF) 90 mcg INHALATION Q6H PRN 06/12/18 06/12/18 Unknown History Cozaar 50 mg PO DAILY 06/12/18 06/12/18 Unknown History Loperamide [Imodium] 4 mg PO QID PRN 06/12/18 06/12/18 Unknown History Acetaminophen [Acetaminophen TAB] 650 mg PO Q4H PRN #15 tablet 09/24/18 Unknown Rx Active Meds: Active Medications Acetaminophen (Tylenol) 650 mg PO Q4H PRN PRN Reason: Pain MILD(1-3)/Fever >100.5/WYNNE Last Admin: 09/24/18 08:14 Dose: 650 mg Documented by: Amlodipine Besylate (Norvasc) 10 mg PO QDAY [facility] Calcitriol (Rocaltrol) 0.5 mcg PO QDAY CECILIO Carvedilol (Coreg) 6.25 mg PO BID CECILIO Enoxaparin Sodium (Lovenox) 30 mg SUB-Q QDAY CECILIO Levofloxacin/Dextrose (Levaquin 500mg/100ml) 500 mg in 100 mls @ 100 mls/hr IV Q48HR CECILIO; Protocol Sodium Chloride (Nacl 0.9%) 100 mls @ 999 mls/hr IV CHARI PRN PRN Reason: Hypotension Levothyroxine Sodium (Synthroid) 125 mcg PO QAM@0600 CECILIO Loperamide HCl (Imodium) 4 mg PO QID PRN PRN Reason: Diarrhea Ondansetron HCl (Zofran) 4 mg IV Q8H PRN PRN Reason: Nausea And Vomiting Pantoprazole Sodium (Protonix) 40 mg PO DAILY [facility] Sodium Chloride (Sodium Chloride Flush Syringe 10 Ml) 10 ml IV BID CECILIO Sodium Chloride (Sodium Chloride Flush Syringe 10 Ml) 10 ml IV PRN PRN PRN Reason: LINE FLUSH Review of Systems All systems: negative (Constitutional: no fever or chills. No anorexia or weight loss. HEENT: No sore throat or sinus drainage no hearing or vision impairment . Cardiovascular: No chest pain, shortness of breath, palpitations, lower extremi ty swelling or dizziness. Respiratory: Admits to nonproductive cough. No sputum, shortness of breath, hemoptysis or wheezing. Gastrointestinal: No nausea, vomiting, abdominal pain, hematemesis or melena. Had diarrhea which is resolving. Genitourinary: No frequency urgency dysuria or hematuria. hematologic: No abnormal bleeding or bruising. Integumentary: Admits to itching and rash Neurological: Admits to headache no focal weakness or numbness, no syncope or seizures. Musculoskeletal: No joint pains no stiffness. Psychiatry: Admits to anxiety but no depression) Exam - Vital Signs Vital signs: Vital Signs Temp Pulse Resp BP 97.1 F L 114 H 28 H 160/89 09/24/18 01:04 09/24/18 01:04 09/24/18 01:04 09/24/18 01:04 - Physical Exam Narrative exam: Frail Elderly -Slovenian female lying in bed in no acute distress HEENT: NCAT, pink oral mucous membrane Neck: Supple, no venous distention CVS: S1S2 RRR with no murmur, rub or gallop Chest: Clear to auscultation but breath sounds diminished in the lower zones Abdomen: Protuberant, soft, nontender, no organomegaly, bowel sounds are present Extremities: No edema Neuro: Awake, alert no focal deficits Results - Lab Results 09/24/18 01:05 09/24/18 01:08 Most recent lab results Calcium 8.7 mg/dL (8.4-10.2) 09/24/18 01:08 Magnesium 2.60 mg/dL (1.7-2.3) H 09/24/18 01:08 Assessment and Plan - Patient Problems (1) Fluid overload Status: Acute Plan to address problem: End-stage renal disease with fluid overload secondary to poor adherence to sodium/fluid restriction (2) Acute pulmonary edema Status: Acute Plan to address problem: Hemodialysis for fluid removal (3) Acute respiratory failure with hypoxia Status: Acute Plan to address problem: Improved post fluid removal on dialysis (4) Anemia, chronic disease Status: Acute Plan to address problem: Give Erythropoetin on dialysis (5) ESRD (end stage renal disease) on dialysis Status: Acute Plan to address problem: Hemodialysis again in the morning and possible discharge after dialysis (6) Hypertensive chronic kidney disease with stage 5 chronic kidney disease or end stage renal disease Status: Acute Plan to address problem: Follow blood pressure on current medications after fluid removal on dialysis
[2018-09-24 11:10] LABS: Hepatitis B Surface Antigen Non-Reactive (Negative); Hepatitis C Virus Antibody Non-Reactive (NonReactive)
--- NOTE | 2018-09-24 12:16 | Discharge Summary ---
Providers - Providers Date of Admission: 09/24/18 02:30 Attending physician: YULI GONZALEZ 09/24/18 01:57 Consult to Physician [CONS] Stat Comment: Dr. Mitchell spoke to Dr. Villalobos @ [id number] Consulting Provider: CARMINE LONG Physician Instructions: Reason For Exam: ESRD on Hemodialysis Primary care physician: ANTONETTE WELLINGTON Hospitalization Condition: Fair Hospital course: Patient is a 83 yo woman with a history of ESRD on HD MWF, hypertension and COPD on home O2 prn who presented to [facility] ED today with sob. She was found have fluid overloaded with potassium level of 5.5. She was admitted for respiratory failure on bipap. pCXR showed bilateral infiltrates at the bases and mild copd. Currently, she is on NRB and treathening to go home. She refused stress test. -Acute on chronic hypoxic respiratory failure, poa: try wean down O2 -ESRD needing hemodialysis: HD with increase ultrafiltration -Hyperkalemia, mild: address with HD -Bilateral lower lobe CAP: treat with abx -Hyperglycemia, not Known to me DM: check a1c -Elevated Transaminases with elevated lipase, wide diff: recommend Abd u/s -elevated troponin, elevated proBNP: Consult Cardiology Patient leaving A, i tried to convince her otherwise, she states, "i don't like it here...I wait in dialysis one and half hours to come back to the room" She says she is going to [facility] prolonged inpatient services 31 minutes Disposition: DC-[id number] LEFT AGAINST MED ADVICE Time spent for discharge: 35 minutes Core Measure Documentation - Palliative Care Palliative Care/ Comfort Measures: Not Applicable - Core Measures Any of the following diagnoses?: none - VTE Discharge Requirements Deep Vein Thrombosis/Pulmonary Embolism Present on Admission: No Has pt received <5 days of overlap therapy or INR<2.0: No Anticoagulant overlap therapy prescribed at discharge: No Contraindication No Overlap Therapy order at DC: Not Indicated Exam - Physical Exam Narrative exam: Gen: WDWN, NAD, Awake, Alert, Orientated HEENT: NCAT, EOMI, PERRL, OP Clear Neck: supple, no adenopathy, no thyromegaly, no JVD CVS/Heart: RRR, normal S1S2, pulses present bilaterally Chest/Lungs: CTA B, Symmetrical chest expansion, good air entry bilaterally GI/Abdomen: soft, NTND, good bowel sounds, no guarding or rebound /Bladder: no suprapubic tenderness, no CVA or paraspinal tenderness Extermity/Skin: no c/c/e, no obvious rash MSK: FROM x 4 Neuro: CN 2-12 grossly intact, no new focal deficits Psych: calm - Constitutional Vitals: Temp Pulse Resp BP Pulse Ox 97.7 F 105 H 16 166/89 100 09/24/18 10:10 09/24/18 10:10 09/24/18 10:10 09/24/18 10:10 09/24/18 10:10 Plan Activity: other Diet: renal Special Instructions: record daily BP diary, record blood sugar diary Follow up with: ANTONETTE WELLINGTON MD [Primary Care Provider] - 7 Days CARMINE LONG MD [Staff Physician] - 7 Days
[2018-09-25] MEDS ORDERED: LEVAQUIN 500MG/100ML 500 MG/100 ML BAG IV SCH (10:00)
[2018-09-25] MEDS ORDERED: LEVAQUIN 250MG/50ML 250 MG/50 ML BAG IV SCH (10:00)
== END 2018-09-24 12:30 | disposition left against medical advice (07) | DRG 871 ==
LOC: ED 00:57 → 4A 02:30
PROVIDERS: ADMIT Internal Medicine; ATTEND Internal Medicine
PROC: 4A033R1 Measurement of Arterial Saturation, Peripheral, Percutaneous Approach (ICD-10-PCS; principal; 2018-09-24)
PROC: 5A09357 Assistance with Respiratory Ventilation, Less than 24 Consecutive Hours, Continuous Positive Airway Pressure (ICD-10-PCS; 2018-09-24)
PROC: 5A1D70Z Performance of Urinary Filtration, Intermittent, Less than 6 Hours Per Day (ICD-10-PCS; 2018-09-24)
DX: A41.9 Sepsis, unspecified organism (principal); N18.6 End stage renal disease; J96.21 Acute and chronic respiratory failure with hypoxia; J18.1 Lobar pneumonia, unspecified organism; Z96.653 Presence of artificial knee joint, bilateral; R73.9 Hyperglycemia, unspecified; I10 Essential (primary) hypertension; E87.70 Fluid overload, unspecified; Z53.21 Procedure and treatment not carried out due to patient leaving prior to being seen by health care provider; E87.5 Hyperkalemia; Z79.51 Long term (current) use of inhaled steroids; Z79.899 Other long term (current) drug therapy; Z88.8 Allergy status to other drugs, medicaments and biological substances; Z99.2 Dependence on renal dialysis; Z82.49 Family history of ischemic heart disease and other diseases of the circulatory system
CPT/HCPCS: 36415; 71045; 80053; 80061; 80074; 82140; 82550; 82553; 82962; 83690; 83735; 83880; 84484; 85025; 85610; 85730; 87040; 93005; 93010; 94640; G0378; J1200; J1815; J1956; J3475; J7030

== ENCOUNTER 2018-11-05 06:43 | Inpatient (IN) | payer MEDICARE ==
--- NOTE | 2018-11-05 07:04 | Emergency Department Report ---
HPI - General Chief Complaint: Dyspnea/Respdistress Time Seen by Provider: 11/05/18 06:57 - HPI HPI: Room 19 The patient is an 83-year-old female presenting with a chief complaint of respiratory failure. Per EMS the patient was at hemodialysis when she was found to be hypoxic. Dialysis was not performed and EMS was called. Per EMS the patient was satting approximately 92% on 8 L nasal cannula. Upon arrival to the ED the patient was nonverbal with guppy respirations, subsequently the decision to intubate using RSI was made. Location: [See above] Duration: [See above] Quality: [See above] Severity: [See above] Modifying factors: [see above] Context: [see above] Mode of transportation: [not driving] ED Past Medical Hx - Past Medical History Previous Medical History?: Yes Hx Hypertension: Yes Hx Renal Disease: Yes (Renal failure, on dialysis MWF) Hx Arthritis: Yes (ELODIA KNEES) Hx COPD: Yes - Surgical History Past Surgical History?: Yes Additional Surgical History: bilateral knee replacement. - Family History Family history: no significant - Social History Smoking Status: Never Smoker Substance Use Type: None - Medications Home Medications: Home Medications Medication Instructions Recorded Confirmed Last Taken Type Amlodipine Besylate [Norvasc] 10 mg PO QDAY 01/12/18 06/12/18 Unknown History B Complex 11/Folic/C/Biot/Zinc 1 each PO DAILY 01/12/18 06/12/18 Unknown History [Dialyvite with Zinc Tablet] Calcitriol [Rocaltrol] 0.5 mcg PO QDAY 01/12/18 06/12/18 Unknown History Carvedilol [Coreg] 6.25 mg PO BID 01/12/18 06/12/18 Unknown History Esomeprazole Magnesium [NexIUM] 40 mg PO QDAY 01/12/18 06/12/18 Unknown History Levothyroxine [Synthroid] 125 mcg PO QAM 01/12/18 06/12/18 Unknown History ALBUTEROL Inhaler(NF) 90 mcg INHALATION Q6H PRN 06/12/18 06/12/18 Unknown History Cozaar 50 mg PO DAILY 06/12/18 06/12/18 Unknown History Loperamide [Imodium] 4 mg PO QID PRN 06/12/18 06/12/18 Unknown History Acetaminophen [Acetaminophen TAB] 650 mg PO Q4H PRN #15 tablet 09/24/18 Unknown Rx ED Review of Systems ROS: Stated complaint: NADINE Other details as noted in HPI Comment: Unobtainable due to pts medical conditions Physical Exam - Physical Exam Physical Exam: GENERAL: The patient is well-developed well-nourished female lying on stretcher with guppy respirations, nonverbal. [] HEENT: Normocephalic. Atraumatic. Patient has moist mucous membranes. NECK: Trachea midline CHEST/LUNGS: guppy respirations HEART/CARDIOVASCULAR: Regular. There is tachycardia. There is no gallop rub or murmur. ABDOMEN: Abdomen is soft, nontender. Patient has normal bowel sounds. There is no abdominal distention. SKIN: There is no edema. NEURO: The patient is obtunded MUSCULOSKELETAL: There is no evidence of acute injury. ED Course - Consultations Consultation #1: 11/05/18 08:23 Nephrology paged 11/05/18 08:[address] Villalobos - Intubation Time Out Performed: No Sedative: Etomidate Mg Given: 20 Paralytic: Succinylcholine Mg Given: 100 Laryngoscope: Beena Size: 3 ET Tube Size: 7 Tube Secured Depth (cm): 21 Tube Secured Location: lips Tube Placement Confirmation: visualized tube passing t, equal breath sounds bilat, no breath sounds over epi, confirmation by capnometr Patient Tolerated Procedure: no complications Intubation Complications: none ED Medical Decision Making - Lab Data Result diagrams: 11/05/18 07:09 11/05/18 07:09 Laboratory Tests 11/05/18 11/05/18 11/05/18 07:09 07:09 07:09 WBC 14.7 H RBC 3.42 L Hgb 10.6 Hct 34.0 MCV 99 H MCH 31 MCHC 31 RDW 20.1 H Plt Count 344 Lymph % (Auto) 16.1 [place] % (Auto) 9.3 H Eos % (Auto) 3.3 Baso % (Auto) 1.2 Lymph # 2.4 [place] # 1.4 H Eos # 0.5 H Baso # 0.2 H Seg Neutrophils % 70.1 H Seg Neutrophils # 10.3 H PT 13.2 INR 0.95 APTT 27.7 Sodium 145 Potassium 6.8 H* Chloride 99.1 Carbon Dioxide 27 Anion Gap 26 BUN 74 H Creatinine 6.9 H Estimated GFR 7 BUN/Creatinine Ratio 11 Glucose 226 H POC Glucose Calcium 9.5 Total Bilirubin 0.40 AST 80 H ALT 46 Alkaline Phosphatase 236 H CK-MB (CK-2) 3.3 Troponin T 0.224 H* Total Protein 7.0 Albumin 3.9 Albumin/Globulin Ratio 1.3 11/05/18 07:09 WBC RBC Hgb Hct MCV MCH MCHC RDW Plt Count Lymph % (Auto) [place] % (Auto) Eos % (Auto) Baso % (Auto) Lymph # [place] # Eos # Baso # Seg Neutrophils % Seg Neutrophils # PT INR APTT Sodium Potassium Chloride Carbon Dioxide Anion Gap BUN Creatinine Estimated GFR BUN/Creatinine Ratio Glucose POC Glucose 206 H Calcium Total Bilirubin AST ALT Alkaline Phosphatase CK-MB (CK-2) Troponin T Total Protein Albumin Albumin/Globulin Ratio - EKG Data -: EKG Interpreted by Me EKG shows normal: sinus rhythm Rate: tachycardia (116 bpm) - EKG Data When compared to previous EKG there are: previous EKG unavailable Interpretation: nonspecific ST-T wave max (ST depression in leads V4, V5, V6. T-wave inversions in leads 1, V2 and aVL) - Radiology Data Radiology results: report reviewed (chest x-ray), image reviewed (chest x-ray) interpreted by me: Chest x-ray-ET tube in appropriate position. Interstitial edema [address] [address] XRay Report Signed Patient: ERIC CALVERT MR#: [id number] : 1935 Acct:[id number] Age/Sex: 83 / F ADM Date: 11/05/18 Loc: ED Attending Dr: Ordering Physician: HIEU CHATMAN MD Date of Service: 11/05/18 Procedure(s): XR chest 1V ap Accession Number(s): [id number] cc: HIEU CHATMAN MD Fluoro Time In Minutes: PROCEDURE: XR CHEST 1V AP TECHNIQUE: A portable supine view of the chest was obtained. HISTORY: respiratory failure. Status post intubation COMPARISONS: 01/12/2018 FINDINGS: The heart is mild to moderately enlarged. The lungs are congested with extensive bilateral interstitial edema and airspace disease. Pleural fluid is not seen. The tip of the ET tube is 3 cm above the roberth. The skeletal structures do not show any acute changes. IMPRESSION: Cardiomegaly with pulmonary congestion and interstitial edema. Superimposed pneumonia cannot be excluded.. Satisfactory intubation.. This document is electronically signed by Edison Farias MD., November 05 2018 07:17:33 AM ET Transcribed By: AJIT Dictated By: EDISON FARIAS MD Electronically Authenticated By: EDISON FARIAS MD Signed Date/Time: 11/05/18718 DD/ 1 TD/TT: 11/05/18711 - Differential Diagnosis respiratory failure, volume overload Critical care attestation.: If time is entered above; I have spent that time in minutes in the direct care of this critically ill patient, excluding procedure time. ED Disposition Clinical Impression: Respiratory failure, Hyperkalemia Disposition: 09 OP ADMIT IP TO THIS HOSP Is pt being admited?: Yes Does the pt Need Aspirin: Yes Condition: Serious Referrals: PRIMARY CARE, [Primary Care Provider] - 3-5 Days Time of Disposition: 08:43 (hospitalist paged)
--- NOTE | 2018-11-05 07:19 | XRay Report ---
PROCEDURE: XR CHEST 1V AP TECHNIQUE: A portable supine view of the chest was obtained. HISTORY: respiratory failure. Status post intubation COMPARISONS: 01/12/2018 FINDINGS: The heart is mild to moderately enlarged. The lungs are congested with extensive bilateral interstiti al edema and airspace disease. Pleural fluid is not seen. The tip of the ET tube is 3 cm above the ca nicol. The skeletal structures do not show any acute changes. IMPRESSION: Cardiomegaly with pulmonary congestion and interstitial edema. Superimposed pneumonia cannot be exclu ded.. Satisfactory intubation.. This document is electronically signed by Leland Farias MD., November 05 2018 07:17:33 AM ET
[2018-11-05] MEDS ORDERED: VERSED IV PRN (07:28)
[2018-11-05] MEDS ORDERED: VASELINE LIP THERAPY TP PRN (07:28)
[2018-11-05 07:53] LABS: Basophils # (Auto) 0.2 K/mm3 (0.0-0.1); Basophils % (Auto) 1.2 % (0.0-1.8); Eosinophils # (Auto) 0.5 K/mm3 (0.0-0.4); Eosinophils % (Auto) 3.3 % (0.0-4.3); Hemoglobin 10.6 gm/dl (10.1-14.3); Lymphocytes # (Auto) 2.4 K/mm3 (1.2-5.4); Lymphocytes % (Auto) 16.1 % (13.4-35.0); Mean Corpuscular HGB Conc 31 % (30-34); Mean Corpuscular Volume 99 fl (79-97); Monocytes # (Auto) 1.4 K/mm3 (0.0-0.8); Monocytes % (Auto) 9.3 % (0.0-7.3); Platelet Count 344 K/mm3 (140-440); Red Blood Count 3.42 M/mm3 (3.65-5.03)
[2018-11-05] MEDS ORDERED: MIDAZOLAM 100 MG in NACL 0.9% 80 ML IV SCH (08:00)
[2018-11-05 08:04] LABS: INR 0.95 (0.87-1.13)
[2018-11-05 08:05] LABS: Partial Thromboplastin Time 27.7 Sec. (24.2-36.6); Red Cell Distribution Width 20.1 % (13.2-15.2)
[2018-11-05 08:07] LABS: Creatine Kinase MB 3.3 ng/mL (0.0-4.0)
[2018-11-05 08:09] LABS: Alanine Aminotransferase 46 units/L (7-56); Albumin 3.9 g/dL (3.9-5); BUN/Creatinine Ratio 11; Blood Urea Nitrogen 74 mg/dL (7-17); Calcium 9.5 mg/dL (8.4-10.2); Hemolysis Index 9
[2018-11-05] MEDS ORDERED: D50W (25GM) Syringe IV ONE (08:21)
[2018-11-05] MEDS ORDERED: HumuLIN R IV ONE (08:21)
[2018-11-05] MEDS ORDERED: ASPIRIN PR ONE (08:24)
[2018-11-05] MEDS ORDERED: CALCIUM GLUCONATE 1,000 MG in NACL 0.9% 100 ML IV ONE (09:00)
[2018-11-05 09:01] LABS: LDL Cholesterol,Direct 116 mg/dL (50-130)
--- NOTE | 2018-11-05 09:24 | History and Physical Report ---
History of Present Illness Date of examination: 11/05/18 Date of admission: 11/05/18 Chief complaint: Worsening shortness of breath /Acute respiratory failure History of present illness: 83-year-old -M[place] female patient with significant history of end- stage renal disease on hemodialysis hypertension dyslipidemia hypothyroidism went to her usual dialysis, today she suddenly developed severe respiratory distress with hypoxia. Dialysis was canceled and patient was brought to the emergency room. Noted to be hypoxic in severe distress, promptly intubated placed on ventilatory support Patient has severe hyperkalemia Past History Past Medical History: COPD, diabetes, ESRD, hypertension, hypothyroidism Past Surgical History: Other (AV graft) Social history: lives with family, full code. denies: smoking, alcohol abuse Family history: hypertension Medications and Allergies Allergies Allergy/AdvReac Type Severity Reaction Status Date / Time meperidine [From Demerol] Allergy Itching Verified 01/12/18 03:31 Home Medications Medication Instructions Recorded Confirmed Last Taken Type Amlodipine Besylate [Norvasc] 10 mg PO QDAY 01/12/18 06/12/18 Unknown History B Complex 11/Folic/C/Biot/Zinc 1 each PO DAILY 01/12/18 06/12/18 Unknown History [Dialyvite with Zinc Tablet] Calcitriol [Rocaltrol] 0.5 mcg PO QDAY 01/12/18 06/12/18 Unknown History Carvedilol [Coreg] 6.25 mg PO BID 01/12/18 06/12/18 Unknown History Esomeprazole Magnesium [NexIUM] 40 mg PO QDAY 01/12/18 06/12/18 Unknown History Levothyroxine [Synthroid] 125 mcg PO QAM 01/12/18 06/12/18 Unknown History ALBUTEROL Inhaler(NF) 90 mcg INHALATION Q6H PRN 06/12/18 06/12/18 Unknown History Cozaar 50 mg PO DAILY 06/12/18 06/12/18 Unknown History Loperamide [Imodium] 4 mg PO QID PRN 06/12/18 06/12/18 Unknown History Acetaminophen [Acetaminophen TAB] 650 mg PO Q4H PRN #15 tablet 09/24/18 Unknown Rx Active Meds: Active Medications Hydrophilic Ointment (Vaseline Lip Therapy) 1 applic TP Q2HR PRN PRN Reason: Dry Lips Midazolam HCl 100 mg/ Sodium (Chloride) 100 mls @ 2 mls/hr IV TITR CECILIO; Protocol Last Titration: 11/05/18 08:52 Dose: 3 mg/hr, 3 mls/hr Documented by: Midazolam HCl (Versed) 2 mg IV Q10MIN PRN PRN Reason: Sedation Review of Systems ROS unobtainable: due to mental status Exam - Constitutional Vitals: Temp Pulse Resp BP Pulse Ox 97.8 F 109 H 20 144/70 100 11/05/18 08:02 11/05/18 08:15 11/05/18 08:15 11/05/18 08:15 11/05/18 08:15 General appearance: Present: mild distress, cachectic, other (intubated on ventilatory support) - EENT Eyes: Present: PERRL, EOM intact - Neck Neck: Present: supple, normal ROM - Respiratory Respiratory effort: normal Respiratory: bilateral: diminished, rales, negative: rhonchi, wheezing - Cardiovascular Rhythm: regular - Extremities Extremities: no ischemia, No edema - Abdominal General gastrointestinal: Present: soft, non-tender, non-distended, normal bowel sounds - Integumentary Integumentary: Present: clear, warm - Musculoskeletal Musculoskeletal: strength equal bilaterally - Psychiatric Psychiatric: other (intubated on vent) - Neurologic Neurologic: other (intubated on vent) Results - Labs CBC & Chem 7: 11/05/18 07:09 11/05/18 07:09 Labs: Abnormal lab results 11/05/18 11/05/18 11/05/18 Range/Units 07:09 07:09 07:09 WBC 14.7 H (4.5-11.0) K/mm3 RBC 3.42 L (3.65-5.03) M/mm3 MCV 99 H (79-97) fl RDW 20.1 H (13.2-15.2) % [place] % (Auto) 9.3 H (0.0-7.3) % [place] # 1.4 H (0.0-0.8) K/mm3 Eos # 0.5 H (0.0-0.4) K/mm3 Baso # 0.2 H (0.0-0.1) K/mm3 Seg Neutrophils % 70.1 H (40.0-70.0) % Seg Neutrophils # 10.3 H (1.8-7.7) K/mm3 Potassium 6.8 H* (3.6-5.0) mmol/L BUN 74 H (7-17) mg/dL Creatinine 6.9 H (0.7-1.2) mg/dL Glucose 226 H (65-100) mg/dL POC Glucose 206 H (70-105) AST 80 H (5-40) units/L Alkaline Phosphatase 236 H (35-129) units/L CK-MB (CK-2) Rel Index 8.2 H (0-4) Troponin T 0.224 H* (0.00-0.029) ng/mL NT-Pro-B Natriuret Pep > 14378 H (0-900) pg/mL Assessment and Plan --Acute hypoxic respiratory failure; requiring intubation Secondary to fluid overload ,Ventilatory support, nebulizers, IV steroids, antibiotics Pulmonary critical evaluation Wean as tolerated and extubate --Severe hyperkalemia; secondary to end-stage renal disease Stat hemodialysis, nephrology consultation --End-stage renal disease; hemodialysis per schedule Nephrology following --Hypertension; moderate control, continue current antihypertensives and when necessary medications --Hyperglycemia/type 2 diabetes mellitus. Accu-Chek sliding scale coverage and ADA diet Insulin As Needed, hemoglobin A1c --History of hypothyroidism; resume Synthroid --DVT prophylaxis; heparin renal dose --Full CODE STATUS Admit to ICU, consult pulmonary critical nephrology Critical care time 35 minutes
[2018-11-05 09:53] LABS: Chol/HDL Ratio 2.95 %; HDL Cholesterol 61 mg/dL (40-59)
[2018-11-05] MEDS ORDERED: SODIUM BICARBONATE FEEDTUBE PRN ×2 (10:00→11:27)
[2018-11-05] MEDS ORDERED: PANCREAZE DR 10,500 UNIT FEEDTUBE PRN ×2 (10:00→11:27)
[2018-11-05] MEDS ORDERED: SIMPLE SYRUP FEEDTUBE PRN ×3 (10:00→11:27)
[2018-11-05] MEDS ORDERED: COZAAR 50 MG PO SCH (10:00)
[2018-11-05] MEDS ORDERED: COREG PO SCH (10:00)
[2018-11-05] MEDS ORDERED: PROVENTIL IH PRN (12:00)
--- NOTE | 2018-11-05 12:22 | Consultation ---
History of Present Illness Consult date: 11/05/18 Requesting physician: AIDA TANG History of present illness: 83-year-old -Thai female patient with significant history of end-stag e renal disease on hemodialysis hypertension dyslipidemia hypothyroidism went to her usual dialysis, today she suddenly developed severe respiratory distress with hypoxia. Dialysis was canceled and patient was brought to the emergency room. Noted to be hypoxic in severe distress, promptly intubated placed on ventilatory support Patient has severe hyperkalemia I have been consulted for critical care and ventilator management. History as documented. Patient seen and examined. Vitals, labs, medications, chart and imaging reviewed Orally intubated, getting HD Past History Past Medical History: COPD, diabetes, ESRD, hypertension, hypothyroidism Past Surgical History: Other (AV graft) Social history: lives with family, full code. denies: smoking, alcohol abuse Family history: hypertension Medications and Allergies Allergies Allergy/AdvReac Type Severity Reaction Status Date / Time meperidine [From Demerol] Allergy Itching Verified 01/12/18 03:31 Home Medications Medication Instructions Recorded Confirmed Last Taken Type Amlodipine Besylate [Norvasc] 10 mg PO QDAY 01/12/18 06/12/18 Unknown History B Complex 11/Folic/C/Biot/Zinc 1 each PO DAILY 01/12/18 06/12/18 Unknown History [Dialyvite with Zinc Tablet] Calcitriol [Rocaltrol] 0.5 mcg PO QDAY 01/12/18 06/12/18 Unknown History Carvedilol [Coreg] 6.25 mg PO BID 01/12/18 06/12/18 Unknown History Esomeprazole Magnesium [NexIUM] 40 mg PO QDAY 01/12/18 06/12/18 Unknown History Levothyroxine [Synthroid] 125 mcg PO QAM 01/12/18 06/12/18 Unknown History ALBUTEROL Inhaler(NF) 90 mcg INHALATION Q6H PRN 06/12/18 06/12/18 Unknown History Cozaar 50 mg PO DAILY 06/12/18 06/12/18 Unknown History Loperamide [Imodium] 4 mg PO QID PRN 06/12/18 06/12/18 Unknown History Acetaminophen [Acetaminophen TAB] 650 mg PO Q4H PRN #15 tablet 09/24/18 Unknown Rx Active Meds: Active Medications Albuterol (Proventil) 2.5 mg IH QIDRT [facility] Albuterol (Proventil) 2.5 mg IH Q4HRT PRN PRN Reason: Shortness Of Breath Amlodipine Besylate (Norvasc) 10 mg PO QDAY [facility] Lipase/Protease/Amylase (Pancreaze Dr 10,500 Unit) 1 each FEEDTUBE PRN PRN PRN Reason: For Clogged Feeding Tube Lipase/Protease/Amylase (Pancreaze Dr 10,500 Unit) 1 each FEEDTUBE PRN PRN PRN Reason: For Clogged Feeding Tube Calcitriol (Rocaltrol) 0.5 mcg PO QDAY REPLACED BY [facility] Carvedilol (Coreg) 6.25 mg PO BID REPLACED BY [facility] Hydrophilic Ointment (Vaseline Lip Therapy) 1 applic TP Q2HR PRN PRN Reason: Dry Lips Midazolam HCl 100 mg/ Sodium (Chloride) 100 mls @ 2 mls/hr IV TITR CECILIO; Protocol Last Titration: 11/05/18 08:52 Dose: 3 mg/hr, 3 mls/hr Documented by: Levothyroxine Sodium (Synthroid) 125 mcg PO DAILY@0600 REPLACED BY [facility] Losartan Potassium (Cozaar) 50 mg PO QDAY REPLACED BY [facility] Midazolam HCl (Versed) 2 mg IV Q10MIN PRN PRN Reason: Sedation Pneumococcal Polyvalent Vaccine (Pneumovax 23) 0.5 ml IM .ONCE ONE Stop: 11/06/18 12:01 Simple Syrup (Simple Syrup) 15 ml FEEDTUBE PRN PRN PRN Reason: Hypoglycemia Simple Syrup (Simple Syrup) 30 ml FEEDTUBE PRN PRN PRN Reason: Hypoglycemia Simple Syrup (Simple Syrup) 15 ml FEEDTUBE PRN PRN PRN Reason: Hypoglycemia Simple Syrup (Simple Syrup) 30 ml FEEDTUBE PRN PRN PRN Reason: Hypoglycemia Sodium Bicarbonate (Sodium Bicarbonate) 325 mg FEEDTUBE PRN PRN PRN Reason: For Clogged Feeding Tube Sodium Bicarbonate (Sodium Bicarbonate) 325 mg FEEDTUBE PRN PRN PRN Reason: For Clogged Feeding Tube Review of Systems ROS unobtainable: due to endotracheal tube, due to mental status Physical Examination Vital signs: Vital Signs Pulse Resp BP Pulse Ox 115 H 13 168/89 100 11/05/18 06:51 11/05/18 06:51 11/05/18 06:51 11/05/18 06:51 General appearance: no acute distress, other (sedated, thin chronically ill looking) Eyes: non-icteric ENT: oropharynx moist, other (ETT in place, 23cm at the lips, frothy pink trach eal secretions) Neck: supple, no lymphadenopathy Effort: normal Ascultation: Bilateral: diminished breath sounds, rales, rhonchi Cardiovascular: regular rate and rhythm, other (s1, s2, ) Gastrointestinal: normoactive bowel sounds, soft, non-tender, non-distended, other (no guarding, no hepato-splenomegaly) Extremities: no cyanosis, no edema, no ischemia or petechiae other (sedated) other (sedated) Results - Laboratory Findings CBC and BMP: 11/06/18 06:59 11/06/18 06:59 ABG POC ABG pH 7.367 (7.35-7.45) 11/05/18 08:03 POC ABG pCO2 51.2 (35-45) H 11/05/18 08:03 POC ABG pO2 167 (80-105) H 11/05/18 08:03 POC ABG HCO3 29.4 (22-26 mml/L) 11/05/18 08:03 POC ABG Total CO2 31 (23-27mmol/L) 11/05/18 08:03 POC ABG O2 Sat 99 11/05/18 08:03 PT/INR, D-dimer PT 13.2 Sec. (12.2-14.9) 11/05/18 07:09 INR 0.95 (0.87-1.13) 11/05/18 07:09 Abnormal lab findings: Abnormal Labs 11/05/18 11/05/18 11/05/18 07:09 07:09 07:09 WBC 14.7 H RBC 3.42 L MCV 99 H RDW 20.1 H E[place] % (Auto) 9.3 H [place] # 1.4 H Eos # 0.5 H Baso # 0.2 H Seg Neutrophils % 70.1 H Seg Neutrophils # 10.3 H POC ABG pCO2 POC ABG pO2 Potassium 6.8 H* BUN 74 H Creatinine 6.9 H Glucose 226 H POC Glucose 206 H AST 80 H Alkaline Phosphatase 236 H CK-MB (CK-2) Rel Index 8.2 H Troponin T 0.224 H* NT-Pro-B Natriuret Pep > 50382 H HDL Cholesterol 61 H 11/05/18 08:03 WBC RBC MCV RDW Erie % (Auto) Erie # Eos # Baso # Seg Neutrophils % Seg Neutrophils # POC ABG pCO2 51.2 H POC ABG pO2 167 H Potassium BUN Creatinine Glucose POC Glucose AST Alkaline Phosphatase CK-MB (CK-2) Rel Index Troponin T NT-Pro-B Natriuret Pep HDL Cholesterol Assessment and Plan -Acute hypercapnic-hypoxic respiratory failure -Hyperkalemia -Pulmonary edema -BNP 3500 -Troponinemia, possible NSTEMI -ESRD on HD -Type 2 DM,poorly controlled -h/o Hypothyroidism -Continue full MVS -Lung protective strategies -Wean supplemental oxygen to keep O2 sats >90% -VAP bundle addressed -Daily SAT's & SBT's -daily ABG and CXR for 3 days, then PRN -Sedation target for RASS 0 to -1, avoid benzodiazepines -Fentanyl, discontinue midazolam infusion -Stress ulcer prophylaxis -VTE prophylaxis -Place NGT/OGT for medications and initiation of enteral feeding -Nutrition consult for tube feedings -Aspiration precautions, HOB>40 -Accuchecks with glycemic control. Target glucose of 140-180 mg/dL -Continue bronchodilators with pulmonary hygiene per RT -Supportive HD/UF -Serial troponin with EKG -Maintenance of sleep -wake cycle -Get 2D echocardiogram to evaluate LVEF, pulm HTN and wall motion abnormalities PROGNOSIS: GUARDERD CONDITION: CRITICAL CODE STATUS: FULL CODE The high probability of a clinically significant, sudden or life-threatening deterioration of the [respiratory,renal, cardiovascular] system(s) required my full and direct attention, intervention and personal management. The aggregate critical care time was [65] minutes without overlap. Time includes spent on; [x] Data Review and interpretation [x] Patient assessment and monitoring of vital signs [x] Documentation [x] Medication orders and management
--- NOTE | 2018-11-05 14:31 | Consultation ---
History of Present Illness - Reason for Consult chronic renal failure, end stage renal disease, hyperkalemia - History of Present Illness Elderly female well known to our practice, with h/o ESRD in the setting of HTN, presented to the ER secondary to worsening shortness of breath, and evidence of pulmonary edema on initial chest xray. She was promptly intubated secondary to worsening shortness of breath. Labs also indicated significant hyperkalemia. Nephrology consulted for chronic dialysis needs. Patient dialyzes on a MWF schedule. She was evaluated in the ER as she was receiving dialysis session. She remains intubated, on versed. No acute issues per title i teacher, but UF goal had to be decreased to 2.5L UF from 3L goal based on drop in blood pressure. Past History Past Medical History: COPD, diabetes, ESRD, hypertension, hypothyroidism Past Surgical History: Other (AV graft) Social history: lives with family, full code. denies: smoking, alcohol abuse Family history: hypertension Medications and Allergies Allergies Allergy/AdvReac Type Severity Reaction Status Date / Time meperidine [From Demerol] Allergy Itching Verified 01/12/18 03:31 Home Medications Medication Instructions Recorded Confirmed Last Taken Type Amlodipine Besylate [Norvasc] 10 mg PO QDAY 01/12/18 06/12/18 Unknown History B Complex 11/Folic/C/Biot/Zinc 1 each PO DAILY 01/12/18 06/12/18 Unknown History [Dialyvite with Zinc Tablet] Calcitriol [Rocaltrol] 0.5 mcg PO QDAY 01/12/18 06/12/18 Unknown History Carvedilol [Coreg] 6.25 mg PO BID 01/12/18 06/12/18 Unknown History Esomeprazole Magnesium [NexIUM] 40 mg PO QDAY 01/12/18 06/12/18 Unknown History Levothyroxine [Synthroid] 125 mcg PO QAM 01/12/18 06/12/18 Unknown History ALBUTEROL Inhaler(NF) 90 mcg INHALATION Q6H PRN 06/12/18 06/12/18 Unknown History Cozaar 50 mg PO DAILY 06/12/18 06/12/18 Unknown History Loperamide [Imodium] 4 mg PO QID PRN 06/12/18 06/12/18 Unknown History Acetaminophen [Acetaminophen TAB] 650 mg PO Q4H PRN #15 tablet 09/24/18 Unknown Rx Active Meds: Active Medications Albuterol (Proventil) 2.5 mg IH QIDRT CECILIO Albuterol (Proventil) 2.5 mg IH Q4HRT PRN PRN Reason: Shortness Of Breath Amlodipine Besylate (Norvasc) 10 mg PO QDAY [facility] Lipase/Protease/Amylase (Pancreaze Dr 10,500 Unit) 1 each FEEDTUBE PRN PRN PRN Reason: For Clogged Feeding Tube Lipase/Protease/Amylase (Pancreaze Dr 10,500 Unit) 1 each FEEDTUBE PRN PRN PRN Reason: For Clogged Feeding Tube Calcitriol (Rocaltrol) 0.5 mcg PO QDAY [facility] Carvedilol (Coreg) 6.25 mg PO BID [facility] Hydrophilic Ointment (Vaseline Lip Therapy) 1 applic TP Q2HR PRN PRN Reason: Dry Lips Midazolam HCl 100 mg/ Sodium (Chloride) 100 mls @ 2 mls/hr IV TITR CECILIO; Protocol Last Titration: 11/05/18 08:52 Dose: 3 mg/hr, 3 mls/hr Documented by: Levothyroxine Sodium (Synthroid) 125 mcg PO DAILY@0600 [facility] Losartan Potassium (Cozaar) 50 mg PO QDAY [facility] Midazolam HCl (Versed) 2 mg IV Q10MIN PRN PRN Reason: Sedation Pneumococcal Polyvalent Vaccine (Pneumovax 23) 0.5 ml IM .ONCE ONE Stop: 11/06/18 12:01 Simple Syrup (Simple Syrup) 15 ml FEEDTUBE PRN PRN PRN Reason: Hypoglycemia Simple Syrup (Simple Syrup) 30 ml FEEDTUBE PRN PRN PRN Reason: Hypoglycemia Simple Syrup (Simple Syrup) 15 ml FEEDTUBE PRN PRN PRN Reason: Hypoglycemia Simple Syrup (Simple Syrup) 30 ml FEEDTUBE PRN PRN PRN Reason: Hypoglycemia Sodium Bicarbonate (Sodium Bicarbonate) 325 mg FEEDTUBE PRN PRN PRN Reason: For Clogged Feeding Tube Sodium Bicarbonate (Sodium Bicarbonate) 325 mg FEEDTUBE PRN PRN PRN Reason: For Clogged Feeding Tube Review of Systems ROS unobtainable: due to endotracheal tube Exam - Vital Signs Vital signs: Vital Signs Pulse Resp BP Pulse Ox 115 H 13 168/89 100 11/05/18 06:51 11/05/18 06:51 11/05/18 06:51 11/05/18 06:51 - General Appearance General appearance: appears stated age, chronically ill, intubated, frail EENT: ATNC, PERRL Neck: Present: neck supple, trachea midline Respiratory: Decreased Breath Sounds Heart: regular, S1S2 Gastrointestinal: Present: normal, normoactive bowel sounds Integumentary: no rash, warm and dry Neurologic: no focal deficit Musculoskeletal: Present: other (-edema) Psychiatric: cooperative Results - Lab Results 11/05/18 07:09 11/05/18 07:09 Most recent lab results Calcium 9.5 mg/dL (8.4-10.2) 11/05/18 07:09 Assessment and Plan - Patient Problems (1) ESRD (end stage renal disease) on dialysis Current Visit: No Status: Chronic Plan to address problem: Orders wrote for HD session today. Will maintain on MWF inpatient schedule, with daily assessment for extra isolated UF sessions to optimize her volume status. (2) Fluid overload Current Visit: No Status: Acute Plan to address problem: Challenge with UF removal during HD sessions. Assess daily for needs of extra sessions for optimal UF removal. (3) Acute and chronic respiratory failure with hypoxia Current Visit: Yes Status: Acute Plan to address problem: Patient intubated at present time. Further management per pulmonology/ICU attending. Optimize UF with HD session today. (4) Hyperkalemia Current Visit: Yes Status: Acute Plan to address problem: Will dialyze today on a low 2K bath. (5) Hypertensive chronic kidney disease with stage 5 chronic kidney disease or end stage renal disease Current Visit: No Status: Acute Plan to address problem: Maintain on current antihypertensive regimen. (6) Anemia, chronic disease Current Visit: No Status: Chronic Plan to address problem: Epogen with HD (7) Secondary hyperparathyroidism (of renal origin) Current Visit: No Status: Chronic Plan to address problem: Maintain on home phosphate binders.
--- NOTE | 2018-11-05 15:20 | XRay Report ---
AP ABDOMEN: HISTORY: Placement of OG tube. No OG tube is identified in the lower chest or abdomen. The abdominal gas pattern is unremarkable. No masses or organomegaly is identified and there is no gross evidence of free air or fluid. Diffuse arterial calcifications are noted. IMPRESSION: Unremarkable abdomen. The OG tube is not identified. Recommend replacement and reverification.
[2018-11-05] MEDS: NORVASC PO SCH (15:27)
[2018-11-05] MEDS: COREG PO SCH ×2 (15:27→22:10)
[2018-11-05] MEDS: COZAAR PO SCH (15:27)
[2018-11-05] MEDS: SYNTHROID PO SCH (15:28)
[2018-11-05] MEDS: ROCALTROL PO SCH (15:28)
[2018-11-05] MEDS ORDERED: DUONEB *Not for PRN Use IH ONE (16:15)
[2018-11-05] MEDS: PROVENTIL IH SCH ×4 (16:17→23:28)
[2018-11-05] MEDS ORDERED: PROVENTIL IH ONE (16:17)
[2018-11-05] MEDS ORDERED: VERSED IV ONE (16:18)
--- NOTE | 2018-11-05 17:43 | XRay Report ---
PROCEDURE: Abdomen. TECHNIQUE: Portable AP supine view. HISTORY: Orogastric tube placement. COMPARISONS: Abdomen done earlier today. FINDINGS: There is a tube that terminates in the stomach. The bowel gas pattern is unremarkable. There is dense atherosclerotic calcification in the aortoiliac system. The regional skeleton appears intact. IMPRESSION: Tube entering stomach. This document is electronically signed by Damaso Zarco MD., November 05 2018 05:41:18 PM ET
[2018-11-05 21:06] LABS: Creatine Kinase MB 5.6 ng/mL (0.0-4.0)
[2018-11-06] MEDS: SYNTHROID PO SCH (05:45)
[2018-11-06 07:28] LABS: Hematocrit 35.5 % (30.3-42.9); Hemoglobin 11.4 gm/dl (10.1-14.3); Mean Corpuscular HGB Conc 32 % (30-34); Mean Corpuscular Volume 96 fl (79-97); Platelet Count 225 K/mm3 (140-440); Red Blood Count 3.72 M/mm3 (3.65-5.03); Red Cell Distribution Width 19.2 % (13.2-15.2)
[2018-11-06 07:59] LABS: Creatine Kinase MB 3.2 ng/mL (0.0-4.0)
[2018-11-06 08:01] LABS: Albumin 3.7 g/dL (3.9-5); Calcium 9.6 mg/dL (8.4-10.2)
--- NOTE | 2018-11-06 08:16 | Progress Note ---
Assessment and Plan -Acute hypercapnic-hypoxic respiratory failure -Right upper lobe atelectasis -Hyperkalemia -Pulmonary edema -BNP 3500 -Troponinemia, possible NSTEMI -ESRD on HD -Type 2 DM,poorly controlled -h/o Hypothyroidism -Continue full MVS -Lung protective strategies -Medical management of atelectasis -Wean supplemental oxygen to keep O2 sats >90% -VAP bundle addressed -Daily SAT's & SBT's -daily ABG and CXR for 3 days, then PRN -Sedation target for RASS 0 to -1, avoid benzodiazepines -Fentanyl, discontinue midazolam infusion -Stress ulcer prophylaxis -VTE prophylaxis -Place NGT/OGT to LIS, keep NPO for the next 24 hours -Nutrition consult for tube feedings -Aspiration precautions, HOB>40 -Accuchecks with glycemic control. Target glucose of 140-180 mg/dL -Continue bronchodilators with pulmonary hygiene per RT -Supportive HD/UF -Serial troponin with EKG -Maintenance of sleep -wake cycle -Follow 2D echocardiogram to evaluate LVEF, pulm HTN and wall motion abnormalities PROGNOSIS: GUARDERD CONDITION: CRITICAL CODE STATUS: FULL CODE The high probability of a clinically significant, sudden or life-threatening deterioration of the [respiratory,renal, cardiovascular] system(s) required my full and direct attention, intervention and personal management. The aggregate critical care time was [35] minutes without overlap. Time includes spent on; [x] Data Review and interpretation [x] Patient assessment and monitoring of vital signs [x] Documentation [x] Medication orders and management Subjective Date of service: 11/06/18 Interval history: Patient is seen today for: acute hypoxic-hypercapnic respiratory failure, Pul monary edema, ESRD on HD, Elevated troponin, Seen and examined at bedside; 24hour events reviewed; nursing and respiratory care staff consulted; no adverse overnight events reported to me; No fevers, had tube feeding in the oral cavity, feedings held for fear of aspiration. No vomiting. Remains of full mechanical ventilatory support, for HD today. Objective - Exam Narrative Exam: General appearance: no acute distress, other (sedated, thin chronically ill looking) Eyes: non-icteric ENT: oropharynx moist, other (ETT in place, 23cm at the lips, frothy pink tracheal secretions) Neck: supple, no lymphadenopathy Effort: normal Ascultation: Bilateral: diminished breath sounds, rales, rhonchi Cardiovascular: regular rate and rhythm, other (s1, s2, ) Gastrointestinal: normoactive bowel sounds, soft, non-tender, non-distended, other (no guarding, no hepato-splenomegaly) Extremities: no cyanosis, no edema, no ischemia or petechiae other (sedated) other (sedated) Vital Signs - 12hr 11/05/18 11/05/18 11/05/18 20:30 20:45 21:00 Pulse Rate 109 H 105 H 108 H Pulse Rate [ Anterior Bilateral Throughout] Respiratory 20 20 19 Rate Respiratory Rate [Anterior Bilateral Throughout] Blood Pressure 155/74 145/70 154/73 O2 Sat by Pulse 99 100 100 Oximetry 11/05/18 11/05/18 11/05/18 21:15 21:30 21:45 Pulse Rate 104 H 107 H 113 H Pulse Rate [ Anterior Bilateral Throughout] Respiratory 20 19 12 Rate Respiratory Rate [Anterior Bilateral Throughout] Blood Pressure 137/64 151/75 159/78 O2 Sat by Pulse 100 100 100 Oximetry 11/05/18 11/05/18 11/05/18 22:00 22:15 22:30 Pulse Rate 111 H 111 H 109 H Pulse Rate [ Anterior Bilateral Throughout] Respiratory 20 19 11 L Rate Respiratory Rate [Anterior Bilateral Throughout] Blood Pressure 161/80 161/81 158/76 O2 Sat by Pulse 100 94 100 Oximetry 11/05/18 11/05/18 11/05/18 22:45 23:00 23:04 Pulse Rate 107 H 106 H Pulse Rate [ Anterior Bilateral Throughout] Respiratory 17 Rate Respiratory Rate [Anterior Bilateral Throughout] Blood Pressure 160/78 165/82 165/82 O2 Sat by Pulse 100 100 100 Oximetry 11/05/18 11/05/18 11/05/18 23:15 23:17 23:30 Pulse Rate 108 H 108 H 104 H Pulse Rate [ Anterior Bilateral Throughout] Respiratory 20 21 20 Rate Respiratory Rate [Anterior Bilateral Throughout] Blood Pressure 158/80 153/77 O2 Sat by Pulse 100 100 100 Oximetry 11/05/18 11/06/18 11/06/18 23:45 00:00 00:15 Pulse Rate 99 H 106 H 100 H Pulse Rate [ 126 H Anterior Bilateral Throughout] Respiratory 20 21 20 Rate Respiratory 20 Rate [Anterior Bilateral Throughout] Blood Pressure 153/72 163/85 135/69 O2 Sat by Pulse 100 100 100 Oximetry 11/06/18 11/06/18 11/06/18 00:30 00:45 01:00 Pulse Rate 103 H 111 H 108 H Pulse Rate [ Anterior Bilateral Throughout] Respiratory 20 18 19 Rate Respiratory Rate [Anterior Bilateral Throughout] Blood Pressure 148/75 167/89 169/89 O2 Sat by Pulse 100 100 100 Oximetry 11/06/18 11/06/18 11/06/18 01:15 01:30 01:45 Pulse Rate 111 H 108 H 108 H Pulse Rate [ Anterior Bilateral Throughout] Respiratory 21 20 20 Rate Respiratory Rate [Anterior Bilateral Throughout] Blood Pressure 170/89 165/80 155/80 O2 Sat by Pulse Oximetry 11/06/18 11/06/18 11/06/18 02:00 02:15 02:30 Pulse Rate 110 H 111 H 113 H Pulse Rate [ Anterior Bilateral Throughout] Respiratory 20 20 20 Rate Respiratory Rate [Anterior Bilateral Throughout] Blood Pressure 169/89 170/88 166/88 O2 Sat by Pulse 100 100 Oximetry 11/06/18 11/06/18 11/06/18 02:45 03:00 03:15 Pulse Rate 114 H 109 H 108 H Pulse Rate [ Anterior Bilateral Throughout] Respiratory 20 20 20 Rate Respiratory Rate [Anterior Bilateral Throughout] Blood Pressure 164/86 154/75 148/77 O2 Sat by Pulse 100 Oximetry 11/06/18 11/06/18 11/06/18 03:30 03:45 04:00 Pulse Rate 122 H 113 H 111 H Pulse Rate [ 124 H Anterior Bilateral Throughout] Respiratory 20 20 20 Rate Respiratory 20 Rate [Anterior Bilateral Throughout] Blood Pressure 177/96 153/79 153/79 O2 Sat by Pulse 95 96 98 Oximetry 11/06/18 11/06/18 11/06/18 04:30 04:45 05:00 Pulse Rate 119 H 120 H 116 H Pulse Rate [ Anterior Bilateral Throughout] Respiratory 21 19 17 Rate Respiratory Rate [Anterior Bilateral Throughout] Blood Pressure 170/91 172/92 168/90 O2 Sat by Pulse 97 Oximetry 11/06/18 11/06/18 11/06/18 05:15 05:30 05:45 Pulse Rate 119 H 122 H 116 H Pulse Rate [ Anterior Bilateral Throughout] Respiratory 20 20 20 Rate Respiratory Rate [Anterior Bilateral Throughout] Blood Pressure 173/91 177/94 158/81 O2 Sat by Pulse 97 Oximetry 11/06/18 11/06/18 06:00 06:15 Pulse Rate 135 H 117 H Pulse Rate [ Anterior Bilateral Throughout] Respiratory 20 20 Rate Respiratory Rate [Anterior Bilateral Throughout] Blood Pressure 168/94 158/85 O2 Sat by Pulse 97 Oximetry CBC and BMP: 11/06/18 06:59 11/06/18 06:59 ABG, PT/INR, D-dimer: ABG POC ABG pH 7.612 (7.35-7.45) H 11/06/18 03:29 POC ABG pCO2 31.3 (35-45) L 11/06/18 03:29 POC ABG pO2 117 (80-105) H 11/06/18 03:29 POC ABG HCO3 31.6 (22-26 mml/L) 11/06/18 03:29 POC ABG Total CO2 33 (23-27mmol/L) 11/06/18 03:29 POC ABG O2 Sat 99 11/06/18 03:29 PT/INR, D-dimer PT 13.2 Sec. (12.2-14.9) 11/05/18 07:09 INR 0.95 (0.87-1.13) 11/05/18 07:09 Abnormal lab findings: Abnormal Labs 11/05/18 11/05/18 11/05/18 07:09 07:09 07:09 WBC 14.7 H RBC 3.42 L MCV 99 H RDW 20.1 H [place] % (Auto) 9.3 H Garrett # 1.4 H Eos # 0.5 H Baso # 0.2 H Seg Neutrophils % 70.1 H Seg Neutrophils # 10.3 H POC ABG pH POC ABG pCO2 POC ABG pO2 Potassium 6.8 H* BUN 74 H Creatinine 6.9 H Glucose 226 H POC Glucose 206 H AST 80 H Alkaline Phosphatase 236 H CK-MB (CK-2) CK-MB (CK-2) Rel Index 8.2 H Troponin T 0.224 H* NT-Pro-B Natriuret Pep > 21568 H Albumin HDL Cholesterol 61 H 11/05/18 11/05/18 11/06/18 08:03 19:45 03:29 WBC RBC MCV RDW [place] % (Auto) Garrett # Eos # Baso # Seg Neutrophils % Seg Neutrophils # POC ABG pH 7.612 H POC ABG pCO2 51.2 H 31.3 L POC ABG pO2 167 H 117 H Potassium BUN Creatinine Glucose POC Glucose AST Alkaline Phosphatase CK-MB (CK-2) 5.6 H CK-MB (CK-2) Rel Index 5.2 H Troponin T 0.321 H* D NT-Pro-B Natriuret Pep Albumin HDL Cholesterol 11/06/18 11/06/18 06:59 06:59 WBC RBC MCV RDW 19.2 H Garrett % (Auto) Garrett # Eos # Baso # Seg Neutrophils % Seg Neutrophils # POC ABG pH POC ABG pCO2 POC ABG pO2 Potassium 5.2 H D BUN 33 H Creatinine 4.4 H Glucose POC Glucose AST 52 H Alkaline Phosphatase 170 H CK-MB (CK-2) CK-MB (CK-2) Rel Index Troponin T 0.289 H* NT-Pro-B Natriuret Pep Albumin 3.7 L HDL Cholesterol Chest x-ray: image reviewed (right upper lobe atelectasis)
[2018-11-06 08:17] LABS: Basophils % (Manual) 0 % (0.0-1.8); Eosinophils % (Manual) 0 % (0.0-4.3); Total Cells Counted 100
[2018-11-06 08:19] LABS: Anisocytosis Few; Ovalocytes Rare; Platelet Estimate Consistent w Auto; Poikilocytosis Few; Target Cells Rare
--- NOTE | 2018-11-06 08:27 | Progress Note ---
Assessment and Plan Assessment and plan: --Acute hypoxic respiratory failure; requiring intubation Secondary to fluid overload ,Ventilatory support, nebulizers, IV steroids, antibiotics Pulmonary critical evaluation Wean as tolerated and extubate --Severe hyperkalemia; secondary to end-stage renal disease Stat hemodialysis, nephrology consultation --End-stage renal disease; hemodialysis per schedule Nephrology following --Hypertension; moderate control, continue current antihypertensives and when necessary medications --Hyperglycemia/type 2 diabetes mellitus. Accu-Chek sliding scale coverage and ADA diet Insulin As Needed, hemoglobin A1c --History of hypothyroidism; resume Synthroid --DVT prophylaxis; heparin renal dose --Full CODE STATUS Awaiting ICU admission, Pulmonary critical nephrology following Critical care time 32 minutes History Interval history: Patient seen and examined medical records reviewed Patient remains intubated on ventilatory support No new events reported by the nursing staff Vital signs noted Hospitalist Physical - Constitutional Vitals: Temp Pulse Resp BP Pulse Ox 97.8 F 117 H 20 158/85 97 11/05/18 14:14 11/06/18 06:15 11/06/18 06:15 11/06/18 06:15 11/06/18 06:00 General appearance: Present: mild distress, cachectic, other (intubated on ventilatory support) - EENT Eyes: Present: PERRL, EOM intact - Neck Neck: Present: supple, normal ROM - Respiratory Respiratory effort: normal Respiratory: bilateral: diminished, negative: rales, rhonchi, wheezing - Cardiovascular Rhythm: regular Heart Sounds: Present: S1 & S2 - Extremities Extremities: no ischemia Extremity abnormal: edema - Abdominal General gastrointestinal: soft, non-tender, non-distended, normal bowel sounds - Integumentary Integumentary: Present: clear, warm - Psychiatric Psychiatric: other (intubated on vent) - Neurologic Neurologic: other (intubated on vent) Results - Labs CBC & Chem 7: 11/06/18 06:59 11/06/18 06:59 Labs: Laboratory Last Values WBC 10.4 K/mm3 (4.5-11.0) 11/06/18 06:59 RBC 3.72 M/mm3 (3.65-5.03) 11/06/18 06:59 Hgb 11.4 gm/dl (10.1-14.3) 11/06/18 06:59 Hct 35.5 % (30.3-42.9) 11/06/18 06:59 MCV 96 fl (79-97) 11/06/18 06:59 MCH 31 pg (28-32) 11/06/18 06:59 MCHC 32 % (30-34) 11/06/18 06:59 RDW 19.2 % (13.2-15.2) H 11/06/18 06:59 Plt Count 225 K/mm3 (140-440) 11/06/18 06:59 Lymph % (Auto) 16.1 % (13.4-35.0) 11/05/18 07:09 [place] % (Auto) [employer] 11/06/18 06:59 Eos % (Auto) 3.3 % (0.0-4.3) 11/05/18 07:09 Baso % (Auto) 1.2 % (0.0-1.8) 11/05/18 07:09 Lymph # 2.4 K/mm3 (1.2-5.4) 11/05/18 07:09 [place] # 1.4 K/mm3 (0.0-0.8) H 11/05/18 07:09 Eos # 0.5 K/mm3 (0.0-0.4) H 11/05/18 07:09 Baso # 0.2 K/mm3 (0.0-0.1) H 11/05/18 07:09 Add Manual Diff Complete 11/06/18 06:59 Total Counted 100 11/06/18 06:59 Seg Neutrophils % 70.1 % (40.0-70.0) H 11/05/18 07:09 Seg Neuts % (Manual) 82.0 % (40.0-70.0) H 11/06/18 06:59 Band Neutrophils % 0 % 11/06/18 06:59 Lymphocytes % (Manual) 5.0 % (13.4-35.0) L 11/06/18 06:59 Reactive Lymphs % (Man) 0 % 11/06/18 06:59 Monocytes % (Manual) 13.0 % (0.0-7.3) H 11/06/18 06:59 Eosinophils % (Manual) 0 % (0.0-4.3) 11/06/18 06:59 Basophils % (Manual) 0 % (0.0-1.8) 11/06/18 06:59 Metamyelocytes % 0 % 11/06/18 06:59 Myelocytes % 0 % 11/06/18 06:59 Promyelocytes % 0 % 11/06/18 06:59 Blast Cells % 0 % 11/06/18 06:59 Nucleated RBC % Not Reportable 11/06/18 06:59 Seg Neutrophils # 10.3 K/mm3 (1.8-7.7) H 11/05/18 07:09 Seg Neutrophils # Man 8.5 K/mm3 (1.8-7.7) H 11/06/18 06:59 Band Neutrophils # 0.0 K/mm3 11/06/18 06:59 Lymphocytes # (Manual) 0.5 K/mm3 (1.2-5.4) L 11/06/18 06:59 Abs React Lymphs (Man) 0.0 K/mm3 11/06/18 06:59 Monocytes # (Manual) 1.4 K/mm3 (0.0-0.8) H 11/06/18 06:59 Eosinophils # (Manual) 0.0 K/mm3 (0.0-0.4) 11/06/18 06:59 Basophils # (Manual) 0.0 K/mm3 (0.0-0.1) 11/06/18 06:59 Metamyelocytes # 0.0 K/mm3 11/06/18 06:59 Myelocytes # 0.0 K/mm3 11/06/18 06:59 Promyelocytes # 0.0 K/mm3 11/06/18 06:59 Blast Cells # 0.0 K/mm3 11/06/18 06:59 WBC Morphology Not Reportable 11/06/18 06:59 Hypersegmented Neuts Not Reportable 11/06/18 06:59 Hyposegmented Neuts Not Reportable 11/06/18 06:59 Hypogranular Neuts Not Reportable 11/06/18 06:59 Smudge Cells Not Reportable 11/06/18 06:59 Toxic Granulation Not Reportable 11/06/18 06:59 Toxic Vacuolation Not Reportable 11/06/18 06:59 Dohle Bodies Not Reportable 11/06/18 06:59 Pelger-Huet Anomaly Not Reportable 11/06/18 06:59 Omar Rods Not Reportable 11/06/18 06:59 Platelet Estimate Consistent w auto 11/06/18 06:59 Clumped Platelets Not Reportable 11/06/18 06:59 Plt Clumps, EDTA Not Reportable 11/06/18 06:59 Large Platelets Not Reportable 11/06/18 06:59 Giant Platelets Not Reportable 11/06/18 06:59 Platelet Satelliting Not Reportable 11/06/18 06:59 Plt Morphology Comment Not Reportable 11/06/18 06:59 RBC Morphology Not Reportable 11/06/18 06:59 Dimorphic RBCs Not Reportable 11/06/18 06:59 Polychromasia Not Reportable 11/06/18 06:59 Hypochromasia Not Reportable 11/06/18 06:59 Poikilocytosis Few 11/06/18 06:59 Anisocytosis Few 11/06/18 06:59 Microcytosis Not Reportable 11/06/18 06:59 Macrocytosis Not Reportable 11/06/18 06:59 Spherocytes Not Reportable 11/06/18 06:59 Pappenheimer Bodies Not Reportable 11/06/18 06:59 Sickle Cells Not Reportable 11/06/18 06:59 Target Cells Rare 11/06/18 06:59 Tear Drop Cells Not Reportable 11/06/18 06:59 Ovalocytes Rare 11/06/18 06:59 Helmet Cells Not Reportable 11/06/18 06:59 Espinal-Lucas Bodies Not Reportable 11/06/18 06:59 [place] Rings Not Reportable 11/06/18 06:59 Mackenzie Cells Not Reportable 11/06/18 06:59 Bite Cells Not Reportable 11/06/18 06:59 Crenated Cell Not Reportable 11/06/18 06:59 Elliptocytes Not Reportable 11/06/18 06:59 Acanthocytes (Spur) Not Reportable 11/06/18 06:59 Rouleaux Not Reportable 11/06/18 06:59 Hemoglobin C Crystals Not Reportable 11/06/18 06:59 Schistocytes Not Reportable 11/06/18 06:59 Malaria parasites Not Reportable 11/06/18 06:59 Evangelista Bodies Not Reportable 11/06/18 06:59 Hem Pathologist Commnt No 11/06/18 06:59 PT 13.2 Sec. (12.2-14.9) 11/05/18 07:09 INR 0.95 (0.87-1.13) 11/05/18 07:09 APTT 27.7 Sec. (24.2-36.6) 11/05/18 07:09 POC ABG pH 7.612 (7.35-7.45) H 11/06/18 03:29 POC ABG pCO2 31.3 (35-45) L 11/06/18 03:29 POC ABG pO2 117 (80-105) H 11/06/18 03:29 POC ABG HCO3 31.6 (22-26 mml/L) 11/06/18 03:29 POC ABG Total CO2 33 (23-27mmol/L) 11/06/18 03:29 POC ABG O2 Sat 99 11/06/18 03:29 POC ABG Base Excess 10 ((-2) - (+3)mmol/L) 11/06/18 03:29 FiO2 50 % 11/06/18 03:29 Sodium 145 mmol/L (137-145) 11/06/18 06:59 Potassium 5.2 mmol/L (3.6-5.0) H D 11/06/18 06:59 Chloride 98.3 mmol/L (98-107) 11/06/18 06:59 Carbon Dioxide 26 mmol/L (22-30) 11/06/18 06:59 Anion Gap 26 mmol/L 11/06/18 06:59 BUN 33 mg/dL (7-17) H 11/06/18 06:59 Creatinine 4.4 mg/dL (0.7-1.2) H 11/06/18 06:59 Estimated GFR 12 ml/min 11/06/18 06:59 BUN/Creatinine Ratio 8 % 11/06/18 06:59 Glucose 99 mg/dL (65-100) 11/06/18 06:59 POC Glucose 206 (70-105) H 11/05/18 07:09 Calcium 9.6 mg/dL (8.4-10.2) 11/06/18 06:59 Total Bilirubin 0.60 mg/dL (0.1-1.2) 11/06/18 06:59 AST 52 units/L (5-40) H 11/06/18 06:59 ALT 33 units/L (7-56) 11/06/18 06:59 Alkaline Phosphatase 170 units/L (35-129) H 11/06/18 06:59 Total Creatine Kinase 104 units/L (30-135) 11/06/18 06:59 CK-MB (CK-2) 3.2 ng/mL (0.0-4.0) 11/06/18 06:59 CK-MB (CK-2) Rel Index 3.0 (0-4) 11/06/18 06:59 Troponin T 0.289 ng/mL (0.00-0.029) H* 11/06/18 06:59 NT-Pro-B Natriuret Pep > 91246 pg/mL (0-900) H 11/05/18 07:09 Total Protein 6.8 g/dL (6.3-8.2) 11/06/18 06:59 Albumin 3.7 g/dL (3.9-5) L 11/06/18 06:59 Albumin/Globulin Ratio 1.2 % 11/06/18 06:59 Triglycerides 101 mg/dL (2-149) 11/05/18 07:09 Cholesterol 180 mg/dL (50-199) 11/05/18 07:09 LDL Cholesterol Direct 116 mg/dL (50-130) 11/05/18 07:09 HDL Cholesterol 61 mg/dL (40-59) H 11/05/18 07:09 Cholesterol/HDL Ratio 2.95 % 11/05/18 07:09 Active Medications - Current Medications Current Medications: Generic Name Dose Route Start Last Admin Trade Name Freq PRN Reason Stop Dose Admin Albuterol 2.5 mg 11/05/18 12:00 11/05/18 23:28 Proventil IH 2.5 mg QIDRT CECILIO Administration Albuterol 2.5 mg 11/05/18 12:00 Proventil IH Q4HRT PRN Shortness Of Breath Amlodipine Besylate 10 mg 11/05/18 11:00 11/05/18 15:27 Norvasc PO Not Given QDAY CECILIO Lipase/Protease/Amylase 1 each 11/05/18 10:00 Roque He 10,500 Unit FEEDTUBE PRN PRN For Clogged Feeding Tube Lipase/Protease/Amylase 1 each 11/05/18 11:27 Pancreaze 10,500 Unit FEEDTUBE PRN PRN For Clogged Feeding Tube Calcitriol 0.5 mcg 11/05/18 11:00 11/05/18 15:28 Rocaltrol PO Not Given QDAY [facility] Carvedilol 6.25 mg 11/05/18 11:00 11/05/18 22:10 Coreg PO Not Given BID CECILIO Hydrophilic Ointment 1 applic 11/05/18 07:28 Vaseline Lip Therapy TP Q2HR PRN Dry Lips Midazolam HCl 100 mg/ Sodium 100 mls @ 2 mls/hr 11/05/18 08:00 11/05/18 08:52 Chloride IV 3 mg/hr TITR CECILIO 3 mls/hr Titration Protocol 2 MG/HR Levothyroxine Sodium 125 mcg 11/05/18 11:00 11/06/18 05:45 Synthroid PO Not Given DAILY@0600 CECILIO Losartan Potassium 50 mg 11/05/18 11:00 11/05/18 15:27 Cozaar PO Not Given QDAY [facility] Midazolam HCl 2 mg 11/05/18 07:28 11/05/18 16:15 Versed IV 2 mg Q10MIN PRN Administration Sedation Pneumococcal Polyvalent Vaccine 0.5 ml 11/06/18 12:00 Pneumovax 23 IM 11/06/18 12:01 .ONCE ONE Simple Syrup 15 ml 11/05/18 10:00 Simple Syrup FEEDTUBE PRN PRN Hypoglycemia Simple Syrup 30 ml 11/05/18 10:00 Simple Syrup FEEDTUBE PRN PRN Hypoglycemia Simple Syrup 15 ml 11/05/18 11:27 Simple Syrup FEEDTUBE PRN PRN Hypoglycemia Simple Syrup 30 ml 11/05/18 11:27 Simple Syrup FEEDTUBE PRN PRN Hypoglycemia Sodium Bicarbonate 325 mg 11/05/18 10:00 Sodium Bicarbonate FEEDTUBE PRN PRN For Clogged Feeding Tube Sodium Bicarbonate 325 mg 11/05/18 11:27 Sodium Bicarbonate FEEDTUBE PRN PRN For Clogged Feeding Tube Nutrition/Malnutrition Assess - Dietary Evaluation Nutrition/Malnutrition Findings: Nutrition Notes Start: 11/05/18 11:22 Freq: Status: Active Protocol: Document 11/05/18 11:22 OL (Rec: 11/05/18 11:26 OL [id number]) Nutrition Notes Need for Assessment generated from: MD Order Initial or Follow up Assessment Current Diagnosis CKD (stage V CKD),Hypertension Other Pertinent Diagnosis dyslipidemia Current Diet TF Labs/Tests K 6.8 BUN 74 Cr 6.9 glucose 226 Pertinent Medications Reviewed Height 5 ft 5 in Weight 49.895 kg [place] Body Weight (kg) 56.81 BMI 18.3 Subjective/Other Information RD consult for TF. Pt. on vent . #1 Nutrition Diagnosis Inadequate oral intake [facility] As Evidenced by Signs and Symptoms TF consult, NPO status Is patient on ventilator? Yes Is Patient Ambulatory and/or Out of Bed No REE-([facility]-confined to bed) 1141.356 Kcal/Kg value to use for calculation 30 Approximate Energy Requirements Using 1497 kcal/Kg Calculation Used for Recommendations [facility] Additional Notes protein (1.2-2g/kg): 60-100g fluid: 1mL/kcal or per Nutrition Intervention Change Diet Order: TF Nutrition Support: Nepro at 35mL/hr with 150mL flush q4h or per MD Kcal 1,512 Protein (gm) 68 Fluid (mL) 611 Goal #1 TF to meet 75-100% of estimated kcal and protein needs Goal #2 TF tolerance Anticipated Discharge Needs: Unable to determine at this time. Follow-Up By: 11/07/18 Additional Comments f/u: new TF
[2018-11-06] MEDS ORDERED: DUONEB *Not for PRN Use IH ONE (08:53)
[2018-11-06] MEDS: PROVENTIL IH SCH ×3 (08:54→21:13)
--- NOTE | 2018-11-06 09:30 | Progress Note ---
Assessment and Plan - Patient Problems (1) ESRD (end stage renal disease) on dialysis Current Visit: No Status: Chronic Plan to address problem: Orders wrote for isolated UF session today. Will maintain on MWF inpatient schedule, with daily assessment for extra isolated UF sessions to optimize her volume status. (2) Fluid overload Current Visit: No Status: Acute Plan to address problem: Challenge with UF removal during HD sessions. Plan for extra session of isolated UF today. (3) Acute and chronic respiratory failure with hypoxia Current Visit: Yes Status: Acute Plan to address problem: Patient remains intubated at present time. Further management per pulmonology/ICU attending. Optimize fluid removal/volume status with isolated UF session today. (4) Hyperkalemia Current Visit: Yes Status: Acute Plan to address problem: Will dialyze today on a low 2K bath during her HD sessions. (5) Hypertensive chronic kidney disease with stage 5 chronic kidney disease or end stage renal disease Current Visit: No Status: Acute Plan to address problem: Maintain on current antihypertensive regimen. (6) Anemia, chronic disease Current Visit: No Status: Chronic Plan to address problem: Epogen with HD (7) Secondary hyperparathyroidism (of renal origin) Current Visit: No Status: Chronic Plan to address problem: Maintain on home phosphate binders. Subjective Date of service: 11/06/18 Interval history: No acute events overnight, she remains intubated in the ER awaiting ICU bed. She was dialyzed yesterday with removal of 2.5L UF. Objective - Vital Signs Vital signs: Vital Signs - 12hr 11/05/18 11/05/18 11/05/18 21:30 21:45 22:00 Pulse Rate 107 H 113 H 111 H Pulse Rate [ Anterior Bilateral Throughout] Respiratory 19 12 20 Rate Respiratory Rate [Anterior Bilateral Throughout] Blood Pressure 151/75 159/78 161/80 O2 Sat by Pulse 100 100 100 Oximetry 11/05/18 11/05/18 11/05/18 22:15 22:30 22:45 Pulse Rate 111 H 109 H 107 H Pulse Rate [ Anterior Bilateral Throughout] Respiratory 19 11 L 17 Rate Respiratory Rate [Anterior Bilateral Throughout] Blood Pressure 161/81 158/76 160/78 O2 Sat by Pulse 94 100 100 Oximetry 11/05/18 11/05/18 11/05/18 23:00 23:04 23:15 Pulse Rate 106 H 108 H Pulse Rate [ Anterior Bilateral Throughout] Respiratory 20 Rate Respiratory Rate [Anterior Bilateral Throughout] Blood Pressure 165/82 165/82 158/80 O2 Sat by Pulse 100 100 100 Oximetry 11/05/18 11/05/18 11/05/18 23:17 23:30 23:45 Pulse Rate 108 H 104 H 99 H Pulse Rate [ Anterior Bilateral Throughout] Respiratory 21 20 20 Rate Respiratory Rate [Anterior Bilateral Throughout] Blood Pressure 153/77 153/72 O2 Sat by Pulse 100 100 100 Oximetry 11/06/18 11/06/18 11/06/18 00:00 00:15 00:30 Pulse Rate 106 H 100 H 103 H Pulse Rate [ 126 H Anterior Bilateral Throughout] Respiratory 21 20 20 Rate Respiratory 20 Rate [Anterior Bilateral Throughout] Blood Pressure 163/85 135/69 148/75 O2 Sat by Pulse 100 100 100 Oximetry 11/06/18 11/06/18 11/06/18 00:45 01:00 01:15 Pulse Rate 111 H 108 H 111 H Pulse Rate [ Anterior Bilateral Throughout] Respiratory 18 19 21 Rate Respiratory Rate [Anterior Bilateral Throughout] Blood Pressure 167/89 169/89 170/89 O2 Sat by Pulse 100 100 Oximetry 11/06/18 11/06/18 11/06/18 01:30 01:45 02:00 Pulse Rate 108 H 108 H 110 H Pulse Rate [ Anterior Bilateral Throughout] Respiratory 20 20 20 Rate Respiratory Rate [Anterior Bilateral Throughout] Blood Pressure 165/80 155/80 169/89 O2 Sat by Pulse 100 Oximetry 11/06/18 11/06/18 11/06/18 02:15 02:30 02:45 Pulse Rate 111 H 113 H 114 H Pulse Rate [ Anterior Bilateral Throughout] Respiratory 20 20 20 Rate Respiratory Rate [Anterior Bilateral Throughout] Blood Pressure 170/88 166/88 164/86 O2 Sat by Pulse 100 Oximetry 11/06/18 11/06/18 11/06/18 03:00 03:15 03:30 Pulse Rate 109 H 108 H 122 H Pulse Rate [ Anterior Bilateral Throughout] Respiratory 20 20 20 Rate Respiratory Rate [Anterior Bilateral Throughout] Blood Pressure 154/75 148/77 177/96 O2 Sat by Pulse 100 95 Oximetry 11/06/18 11/06/18 11/06/18 03:45 04:00 04:30 Pulse Rate 113 H 111 H 119 H Pulse Rate [ 124 H Anterior Bilateral Throughout] Respiratory 20 20 21 Rate Respiratory 20 Rate [Anterior Bilateral Throughout] Blood Pressure 153/79 153/79 170/91 O2 Sat by Pulse 96 98 Oximetry 11/06/18 11/06/18 11/06/18 04:45 05:00 05:15 Pulse Rate 120 H 116 H 119 H Pulse Rate [ Anterior Bilateral Throughout] Respiratory 19 17 20 Rate Respiratory Rate [Anterior Bilateral Throughout] Blood Pressure 172/92 168/90 173/91 O2 Sat by Pulse 97 Oximetry 11/06/18 11/06/18 11/06/18 05:30 05:45 06:00 Pulse Rate 122 H 116 H 135 H Pulse Rate [ Anterior Bilateral Throughout] Respiratory 20 20 20 Rate Respiratory Rate [Anterior Bilateral Throughout] Blood Pressure 177/94 158/81 168/94 O2 Sat by Pulse 97 97 Oximetry 11/06/18 11/06/18 11/06/18 06:15 07:00 08:00 Pulse Rate 117 H 121 H Pulse Rate [ 121 H Anterior Bilateral Throughout] Respiratory 20 Rate Respiratory 20 Rate [Anterior Bilateral Throughout] Blood Pressure 158/85 171/90 O2 Sat by Pulse 98 Oximetry 11/06/18 08:58 Pulse Rate Pulse Rate [ 121 H Anterior Bilateral Throughout] Respiratory Rate Respiratory 20 Rate [Anterior Bilateral Throughout] Blood Pressure O2 Sat by Pulse Oximetry - General Appearance General appearance: chronically ill, intubated, frail EENT: ATNC, PERRL Neck: no JVD Respiratory: Present: Decreased Breath Sounds Cardiology: regular, S1S2 Gastrointestinal: normal, normoactive bowel sounds Integumentary: no rash, warm and dry Neurologic: other (minimally responsive ) - Lab 11/06/18 06:59 11/06/18 06:59 Most recent lab results Calcium 9.6 mg/dL (8.4-10.2) 11/06/18 06:59 - Imaging Chest x-ray: report reviewed - Allied health notes Allied health notes reviewed: nursing Medications & Allergies - Medications Allergies/Adverse Reactions: Allergies meperidine [From Demerol] Allergy (Verified 01/12/18 03:31) Itching Home Medications: Home Medications Medication Instructions Recorded Confirmed Last Taken Type Amlodipine Besylate [Norvasc] 10 mg PO QDAY 01/12/18 06/12/18 Unknown History B Complex 11/Folic/C/Biot/Zinc 1 each PO DAILY 01/12/18 06/12/18 Unknown History [Dialyvite with Zinc Tablet] Calcitriol [Rocaltrol] 0.5 mcg PO QDAY 01/12/18 06/12/18 Unknown History Carvedilol [Coreg] 6.25 mg PO BID 01/12/18 06/12/18 Unknown History Esomeprazole Magnesium [NexIUM] 40 mg PO QDAY 01/12/18 06/12/18 Unknown History Levothyroxine [Synthroid] 125 mcg PO QAM 01/12/18 06/12/18 Unknown History ALBUTEROL Inhaler(NF) 90 mcg INHALATION Q6H PRN 06/12/18 06/12/18 Unknown History Cozaar 50 mg PO DAILY 06/12/18 06/12/18 Unknown History Loperamide [Imodium] 4 mg PO QID PRN 06/12/18 06/12/18 Unknown History Acetaminophen [Acetaminophen TAB] 650 mg PO Q4H PRN #15 tablet 09/24/18 Unknown Rx Active Medications: Generic Name Dose Route Start Last Admin Trade Name Freq PRN Reason Stop Dose Admin Albuterol 2.5 mg 11/05/18 12:00 11/06/18 08:54 Proventil IH 2.5 mg QIDRT CECILIO Administration Albuterol 2.5 mg 11/05/18 12:00 Proventil IH Q4HRT PRN Shortness Of Breath Amlodipine Besylate 10 mg 11/05/18 11:00 11/05/18 15:27 Norvasc PO Not Given QDAY CECILIO Lipase/Protease/Amylase 1 each 11/05/18 10:00 Roque He 10,500 Unit FEEDTUBE PRN PRN For Clogged Feeding Tube Lipase/Protease/Amylase 1 each 11/05/18 11:27 Roque He 10,500 Unit FEEDTUBE PRN PRN For Clogged Feeding Tube Calcitriol 0.5 mcg 11/05/18 11:00 11/05/18 15:28 Rocaltrol PO Not Given QDAY CECILIO Carvedilol 6.25 mg 11/05/18 11:00 11/05/18 22:10 Coreg PO Not Given BID [facility] Hydrophilic Ointment 1 applic 11/05/18 07:28 Vaseline Lip Therapy TP Q2HR PRN Dry Lips Midazolam HCl 100 mg/ Sodium 100 mls @ 2 mls/hr 11/05/18 08:00 11/05/18 08:52 Chloride IV 3 mg/hr TITR CECILIO 3 mls/hr Titration Protocol 2 MG/HR Levothyroxine Sodium 125 mcg 11/05/18 11:00 11/06/18 05:45 Synthroid PO Not Given DAILY@0600 CECILIO Losartan Potassium 50 mg 11/05/18 11:00 11/05/18 15:27 Cozaar PO Not Given QDAY CECILIO Midazolam HCl 2 mg 11/05/18 07:28 11/05/18 16:15 Versed IV 2 mg Q10MIN PRN Administration Sedation Pneumococcal Polyvalent Vaccine 0.5 ml 11/06/18 12:00 Pneumovax 23 IM 11/06/18 12:01 .ONCE ONE Simple Syrup 15 ml 11/05/18 10:00 Simple Syrup FEEDTUBE PRN PRN Hypoglycemia Simple Syrup 30 ml 11/05/18 10:00 Simple Syrup FEEDTUBE PRN PRN Hypoglycemia Simple Syrup 15 ml 11/05/18 11:27 Simple Syrup FEEDTUBE PRN PRN Hypoglycemia Simple Syrup 30 ml 11/05/18 11:27 Simple Syrup FEEDTUBE PRN PRN Hypoglycemia Sodium Bicarbonate 325 mg 11/05/18 10:00 Sodium Bicarbonate FEEDTUBE PRN PRN For Clogged Feeding Tube Sodium Bicarbonate 325 mg 11/05/18 11:27 Sodium Bicarbonate FEEDTUBE PRN PRN For Clogged Feeding Tube
[2018-11-06] MEDS ORDERED: SUBLIMAZE ONE (09:38)
[2018-11-06] MEDS ORDERED: fentaNYL DRIP Premix 2,000 MCG/100 ML BAG IV ONE (09:38)
[2018-11-06] MEDS ORDERED: SUBLIMAZE IV ONE (10:00)
[2018-11-06] MEDS ORDERED: NACL 0.9% 100 ML IV PRN (10:00)
[2018-11-06] MEDS ORDERED: VASELINE LIP THERAPY TP PRN (10:00)
[2018-11-06] MEDS: fentaNYL DRIP Premix 2,000 MCG/100 ML BAG IV SCH (10:17)
--- NOTE | 2018-11-06 10:53 | XRay Report ---
AP CHEST: HISTORY: Endotracheal tube placement Compared to 11/05/18. The endotracheal tube terminates 3.5 cm superior to the roberth. A nasogastric tube is followed to the stomach. Patchy infiltrates or edema in the lower lungs lungs has nearly resolved since 11/05/18 at 0700 hrs. There is new partial atelectasis of the right upper lobe. No evidence for pleural effusion or pneumothorax. Mild cardiomegaly is stable. Pulmonary venous congestion has resolved. IMPRESSION: There is better aeration of both lungs suggesting decrease pulmonary edema or infiltrate since yesterday's exam. However, there is new partial atelectasis in the right upper lobe. Stable mild cardiomegaly. Adequate endotracheal tube placement and nasogastric tube.
[2018-11-06] MEDS ORDERED: AFLURIA QUAD 2018-2019 SYRINGE IM ONE (12:00)
[2018-11-06] MEDS ORDERED: PNEUMOVAX 23 IM ONE (12:00)
[2018-11-06] MEDS: COREG PO SCH (12:01)
[2018-11-06] MEDS: COZAAR PO SCH (12:01)
[2018-11-06] MEDS: NORVASC PO SCH (12:02)
[2018-11-06] MEDS: ROCALTROL PO SCH (12:02)
[2018-11-06] MEDS ORDERED: PROVENTIL IH ONE (13:59)
[2018-11-06] MEDS ORDERED: LEVOPHED DRIP 4 MG/NS 250 ML 4 MG/250 ML BAG IV ONE (17:30)
[2018-11-06] MEDS: LEVOPHED DRIP 4 MG/NS 250 ML 4 MG/250 ML BAG IV SCH (17:39)
[2018-11-06] MEDS ORDERED: VERSED IV ONE (18:20)
--- NOTE | 2018-11-06 18:26 | Procedure Note ---
Date of procedure: 11/06/18 - Central Line Placement Right Femoral Consent Obtained: emergent situation Time Out Performed: Yes Patient Placed on Monitor/Pulse Ox: Yes MD Prep: mask, gown, gloves Central Line Prep: Chlorhexidine scrub, sterile drapes applied Local Anesthesia Used: Lidocaine 1% Amount of Anesthesia Used (mls): 5 Ultrasound Used for Placement: Yes Central Line Lumen Inserted: triple Central Line Position: good blood return, sutured in place with nyl Dressing Applied: Tegaderm Patient Tolerated Procedure: well Complications: none
--- NOTE | 2018-11-06 18:38 | Event Note ---
Date: 11/06/18 Patient is hypertensive, requiring pressors ER physician placed a central line, start levo fed per protocol Discussed with patient's nurse and critical care physician
--- NOTE | 2018-11-07 04:40 | XRay Report ---
PROCEDURE: XR CHEST 1V AP TECHNIQUE: A portable upright view the chest was obtained. HISTORY: follow up respiratory failure COMPARISONS: 11/06/2018 FINDINGS: The heart is mildly enlarged. The lungs are not congested. Pleural fluid is not seen. There are atele ctatic changes in the right upper lobe the ET tube is in good position above the roberth. The NG tube is coursing well into the stomach. The skeletal structures do not show any acute changes. IMPRESSION: Atelectatic changes in the right upper lobe with slight improvement since the previous study. No new infiltrates or effusions.. This document is electronically signed by Leland Farias MD., November 07 2018 04:37:33 AM ET
[2018-11-07 04:46] LABS: Basophils # (Auto) 0.1 K/mm3 (0.0-0.1); Basophils % (Auto) 0.6 % (0.0-1.8); Eosinophils # (Auto) 0.1 K/mm3 (0.0-0.4); Eosinophils % (Auto) 1.2 % (0.0-4.3); Hemoglobin 10.3 gm/dl (10.1-14.3); Lymphocytes # (Auto) 0.9 K/mm3 (1.2-5.4); Lymphocytes % (Auto) 8.9 % (13.4-35.0); Mean Corpuscular HGB Conc 32 % (30-34); Mean Corpuscular Volume 97 fl (79-97); Monocytes # (Auto) 1.5 K/mm3 (0.0-0.8); Monocytes % (Auto) 14.6 % (0.0-7.3); Platelet Count 260 K/mm3 (140-440); Red Blood Count 3.31 M/mm3 (3.65-5.03); Red Cell Distribution Width 18.9 % (13.2-15.2)
[2018-11-07 05:13] LABS: Albumin 3.3 g/dL (3.9-5)
[2018-11-07] MEDS: PROVENTIL IH SCH ×5 (07:34→21:07)
[2018-11-07] MEDS ORDERED: PROVENTIL IH ONE ×3 (08:21→17:54)
--- NOTE | 2018-11-07 08:59 | Progress Note ---
Assessment and Plan -Acute hypercapnic-hypoxic respiratory failure -Right upper lobe atelectasis -Hyperkalemia -Pulmonary edema -BNP 3500 -Troponinemia, possible NSTEMI -ESRD on HD -Type 2 DM,poorly controlled -h/o Hypothyroidism -Continue full MVS -Vasopressor support to keep MAP >65 -Lung protective strategies -Medical management of atelectasis, CXR shows re-expansion -Wean supplemental oxygen to keep O2 sats >90% -VAP bundle addressed -Daily SAT's & SBT's -daily ABG and CXR for 3 days, then PRN -Sedation target for RASS 0 to -1, avoid benzodiazepines -Fentanyl, -Stress ulcer prophylaxis -VTE prophylaxis -Place NGT/OGT to LIS, keep NPO for the next 24 hours -Nutrition consult for tube feedings -Aspiration precautions, HOB>40 -Accuchecks with glycemic control. Target glucose of 140-180 mg/dL -Continue bronchodilators with pulmonary hygiene per RT -Supportive HD/UF -Serial troponin with EKG -Maintenance of sleep -wake cycle -Follow 2D echocardiogram to evaluate LVEF, pulm HTN and wall motion abnormalities PROGNOSIS: GUARDERD CONDITION: CRITICAL CODE STATUS: FULL CODE Spent 30 minutes with the 2 daughters and the son in law, discussing prognosis and all their questions were answered. The high probability of a clinically significant, sudden or life-threatening deterioration of the [respiratory,renal, cardiovascular] system(s) required my full and direct attention, intervention and personal management. The aggregate critical care time was [35] minutes without overlap. Time includes spent on; [x] Data Review and interpretation [x] Patient assessment and monitoring of vital signs [x] Documentation [x] Medication orders and management Subjective Date of service: 11/07/18 Interval history: Patient is seen today for: acute hypoxic-hypercapnic respiratory failure, Pulmonary edema, ESRD on HD, Elevated troponin, Seen and examined at bedside; 24hour events reviewed; nursing and respiratory care staff consulted; no adverse overnight events reported to me; No fevers, had tube feeding in the oral cavity, feedings held for fear of aspiration. No vomiting. Remains of full mechanical ventilatory support, for HD today. Central venous access placed yesterday for vasopressor support Objective Vital Signs - 12hr 11/06/18 11/06/18 11/06/18 21:07 21:17 22:15 Temperature Pulse Rate 102 H 105 H Pulse Rate [ 102 H 103 H Anterior Bilateral Throughout] Respiratory 20 Rate Respiratory 19 18 Rate [Anterior Bilateral Throughout] Blood Pressure 121/61 134/72 O2 Sat by Pulse 100 Oximetry 11/06/18 11/06/18 11/06/18 22:20 22:25 22:30 Temperature Pulse Rate 106 H 107 H 115 H Pulse Rate [ Anterior Bilateral Throughout] Respiratory 18 19 14 Rate Respiratory Rate [Anterior Bilateral Throughout] Blood Pressure 139/70 137/71 137/71 O2 Sat by Pulse 95 Oximetry 11/06/18 11/06/18 11/06/18 22:35 22:40 22:45 Temperature Pulse Rate 110 H 105 H 109 H Pulse Rate [ Anterior Bilateral Throughout] Respiratory 20 16 21 Rate Respiratory Rate [Anterior Bilateral Throughout] Blood Pressure 158/80 142/71 118/63 O2 Sat by Pulse 100 100 92 Oximetry 11/06/18 11/06/18 11/06/18 22:50 22:55 23:00 Temperature Pulse Rate 107 H 105 H 105 H Pulse Rate [ Anterior Bilateral Throughout] Respiratory 16 15 16 Rate Respiratory Rate [Anterior Bilateral Throughout] Blood Pressure 118/63 120/62 112/58 O2 Sat by Pulse 92 94 94 Oximetry 11/06/18 11/06/18 11/06/18 23:05 23:10 23:15 Temperature Pulse Rate 105 H 107 H 108 H Pulse Rate [ Anterior Bilateral Throughout] Respiratory 20 20 20 Rate Respiratory Rate [Anterior Bilateral Throughout] Blood Pressure 118/62 117/64 106/70 O2 Sat by Pulse 93 94 Oximetry 11/06/18 11/06/18 11/06/18 23:20 23:25 23:30 Temperature Pulse Rate 106 H 109 H 108 H Pulse Rate [ Anterior Bilateral Throughout] Respiratory 20 20 20 Rate Respiratory Rate [Anterior Bilateral Throughout] Blood Pressure 113/60 109/60 117/63 O2 Sat by Pulse 93 93 94 Oximetry 11/06/18 11/06/18 11/06/18 23:35 23:40 23:45 Temperature Pulse Rate 108 H 107 H 107 H Pulse Rate [ Anterior Bilateral Throughout] Respiratory 20 20 20 Rate Respiratory Rate [Anterior Bilateral Throughout] Blood Pressure 117/62 108/59 109/62 O2 Sat by Pulse 96 Oximetry 11/06/18 11/06/18 11/07/18 23:50 23:55 00:00 Temperature Pulse Rate 107 H 107 H 106 H Pulse Rate [ Anterior Bilateral Throughout] Respiratory 20 20 20 Rate Respiratory Rate [Anterior Bilateral Throughout] Blood Pressure 114/61 114/66 119/63 O2 Sat by Pulse 95 98 Oximetry 11/07/18 11/07/18 11/07/18 00:05 00:10 00:15 Temperature Pulse Rate 105 H 106 H 104 H Pulse Rate [ Anterior Bilateral Throughout] Respiratory 20 20 20 Rate Respiratory Rate [Anterior Bilateral Throughout] Blood Pressure 116/63 134/68 121/66 O2 Sat by Pulse 96 98 96 Oximetry 11/07/18 11/07/18 11/07/18 00:20 00:25 00:30 Temperature Pulse Rate 104 H 104 H 104 H Pulse Rate [ Anterior Bilateral Throughout] Respiratory 20 20 20 Rate Respiratory Rate [Anterior Bilateral Throughout] Blood Pressure 120/63 122/65 126/68 O2 Sat by Pulse 98 100 98 Oximetry 11/07/18 11/07/18 11/07/18 00:35 00:40 00:45 Temperature Pulse Rate 103 H 104 H 104 H Pulse Rate [ Anterior Bilateral Throughout] Respiratory 20 20 20 Rate Respiratory Rate [Anterior Bilateral Throughout] Blood Pressure 122/63 123/63 125/66 O2 Sat by Pulse 100 100 Oximetry 11/07/18 11/07/18 11/07/18 00:50 00:55 00:57 Temperature Pulse Rate 108 H 104 H 101 H Pulse Rate [ Anterior Bilateral Throughout] Respiratory 20 20 Rate Respiratory Rate [Anterior Bilateral Throughout] Blood Pressure 125/66 124/64 O2 Sat by Pulse 78 L 98 99 Oximetry 11/07/18 11/07/18 11/07/18 01:00 01:05 01:10 Temperature Pulse Rate 104 H 103 H 103 H Pulse Rate [ Anterior Bilateral Throughout] Respiratory 20 20 20 Rate Respiratory Rate [Anterior Bilateral Throughout] Blood Pressure 128/65 119/59 112/62 O2 Sat by Pulse 98 98 98 Oximetry 11/07/18 11/07/18 11/07/18 01:15 01:20 01:25 Temperature Pulse Rate 104 H 103 H 104 H Pulse Rate [ Anterior Bilateral Throughout] Respiratory 20 20 20 Rate Respiratory Rate [Anterior Bilateral Throughout] Blood Pressure 105/62 115/63 116/62 O2 Sat by Pulse 97 97 Oximetry 11/07/18 11/07/18 11/07/18 01:30 01:36 01:40 Temperature Pulse Rate 103 H 112 H 117 H Pulse Rate [ Anterior Bilateral Throughout] Respiratory 20 22 20 Rate Respiratory Rate [Anterior Bilateral Throughout] Blood Pressure 113/63 113/63 193/116 O2 Sat by Pulse 96 41 L 97 Oximetry 11/07/18 11/07/18 11/07/18 01:46 01:50 01:55 Temperature Pulse Rate 108 H 111 H 111 H Pulse Rate [ Anterior Bilateral Throughout] Respiratory 20 20 20 Rate Respiratory Rate [Anterior Bilateral Throughout] Blood Pressure 71/43 62/40 69/47 O2 Sat by Pulse 98 97 95 Oximetry 11/07/18 11/07/18 11/07/18 02:00 02:05 02:10 Temperature Pulse Rate 110 H 105 H 102 H Pulse Rate [ Anterior Bilateral Throughout] Respiratory 20 20 20 Rate Respiratory Rate [Anterior Bilateral Throughout] Blood Pressure 105/58 107/58 100/55 O2 Sat by Pulse 97 Oximetry 11/07/18 11/07/18 11/07/18 02:15 02:20 04:06 Temperature Pulse Rate 101 H 99 H 103 H Pulse Rate [ Anterior Bilateral Throughout] Respiratory 20 24 Rate Respiratory Rate [Anterior Bilateral Throughout] Blood Pressure 94/53 103/59 O2 Sat by Pulse 98 Oximetry 11/07/18 11/07/18 11/07/18 04:50 07:00 07:05 Temperature Pulse Rate 96 H 100 H 102 H Pulse Rate [ Anterior Bilateral Throughout] Respiratory 20 20 20 Rate Respiratory Rate [Anterior Bilateral Throughout] Blood Pressure 106/57 103/51 99/50 O2 Sat by Pulse 98 98 Oximetry 11/07/18 11/07/18 11/07/18 07:10 07:15 07:20 Temperature Pulse Rate 101 H 100 H 102 H Pulse Rate [ Anterior Bilateral Throughout] Respiratory 20 20 20 Rate Respiratory Rate [Anterior Bilateral Throughout] Blood Pressure 106/52 96/51 97/54 O2 Sat by Pulse 98 Oximetry 11/07/18 11/07/18 11/07/18 07:25 07:30 07:35 Temperature Pulse Rate 101 H 103 H 101 H Pulse Rate [ Anterior Bilateral Throughout] Respiratory 20 20 20 Rate Respiratory Rate [Anterior Bilateral Throughout] Blood Pressure 101/51 100/54 107/54 O2 Sat by Pulse 98 Oximetry 11/07/18 11/07/18 11/07/18 07:40 07:45 07:50 Temperature Pulse Rate 103 H 101 H 102 H Pulse Rate [ Anterior Bilateral Throughout] Respiratory 20 20 20 Rate Respiratory Rate [Anterior Bilateral Throughout] Blood Pressure 107/54 106/56 92/49 O2 Sat by Pulse 96 97 98 Oximetry 11/07/18 11/07/18 11/07/18 07:55 08:00 08:05 Temperature Pulse Rate 101 H 101 H 101 H Pulse Rate [ 107 H Anterior Bilateral Throughout] Respiratory 21 20 21 Rate Respiratory 21 Rate [Anterior Bilateral Throughout] Blood Pressure 97/50 102/48 90/51 O2 Sat by Pulse 98 97 Oximetry 11/07/18 11/07/18 11/07/18 08:10 08:15 08:20 Temperature Pulse Rate 102 H 101 H 104 H Pulse Rate [ Anterior Bilateral Throughout] Respiratory 20 20 19 Rate Respiratory Rate [Anterior Bilateral Throughout] Blood Pressure 95/52 102/53 102/53 O2 Sat by Pulse 97 99 Oximetry 11/07/18 11/07/18 11/07/18 08:21 08:25 08:29 Temperature 100.2 F H Pulse Rate 102 H Pulse Rate [ 108 H Anterior Bilateral Throughout] Respiratory 20 Rate Respiratory 20 Rate [Anterior Bilateral Throughout] Blood Pressure 106/53 O2 Sat by Pulse 99 Oximetry Constitutional: no acute distress, other (sedated, thin chronically ill looking) Eyes: non-icteric ENT: oropharynx moist, other (ETT in place, 23cm at the lips, frothy pink tracheal secretions) Neck: supple, no lymphadenopathy Effort: normal Ascultation: Bilateral: diminished breath sounds, rales, rhonchi Cardiovascular: regular rate and rhythm, other (s1, s2, ) Gastrointestinal: normoactive bowel sounds, soft, non-tender, non-distended, ot her (no guarding, no hepato-splenomegaly) Extremities: no cyanosis, no edema, no ischemia or petechiae, other (right femoral CVC) Neurologic: other (sedated) Psychiatric: other (sedated) CBC and BMP: 11/16/18 07:56 11/16/18 07:56 ABG, PT/INR, D-dimer: ABG POC ABG pH 7.550 (7.35-7.45) H 11/07/18 05:39 POC ABG pCO2 32.6 (35-45) L 11/07/18 05:39 POC ABG pO2 63 (80-105) L 11/07/18 05:39 POC ABG HCO3 28.6 (22-26 mml/L) 11/07/18 05:39 POC ABG Total CO2 30 (23-27mmol/L) 11/07/18 05:39 POC ABG O2 Sat 95 11/07/18 05:39 PT/INR, D-dimer PT 13.2 Sec. (12.2-14.9) 11/05/18 07:09 INR 0.95 (0.87-1.13) 11/05/18 07:09 Abnormal lab findings: Abnormal Labs 11/05/18 11/05/18 11/05/18 07:09 07:09 07:09 WBC 14.7 H RBC 3.42 L MCV 99 H RDW 20.1 H Lymph % (Auto) [place] % (Auto) 9.3 H Lymph # [place] # 1.4 H Eos # 0.5 H Baso # 0.2 H Seg Neutrophils % 70.1 H Seg Neuts % (Manual) Lymphocytes % (Manual) Monocytes % (Manual) Seg Neutrophils # 10.3 H Seg Neutrophils # Man Lymphocytes # (Manual) Monocytes # (Manual) POC ABG pH POC ABG pCO2 POC ABG pO2 Sodium Potassium 6.8 H* BUN 74 H Creatinine 6.9 H Glucose 226 H POC Glucose 206 H AST 80 H Alkaline Phosphatase 236 H CK-MB (CK-2) CK-MB (CK-2) Rel Index 8.2 H Troponin T 0.224 H* NT-Pro-B Natriuret Pep > 17856 H Total Protein Albumin HDL Cholesterol 61 H 11/05/18 11/05/18 11/06/18 08:03 19:45 03:29 WBC RBC MCV RDW Lymph % (Auto) [place] % (Auto) Lymph # [place] # Eos # Baso # Seg Neutrophils % Seg Neuts % (Manual) Lymphocytes % (Manual) Monocytes % (Manual) Seg Neutrophils # Seg Neutrophils # Man Lymphocytes # (Manual) Monocytes # (Manual) POC ABG pH 7.612 H POC ABG pCO2 51.2 H 31.3 L POC ABG pO2 167 H 117 H Sodium Potassium BUN Creatinine Glucose POC Glucose AST Alkaline Phosphatase CK-MB (CK-2) 5.6 H CK-MB (CK-2) Rel Index 5.2 H Troponin T 0.321 H* D NT-Pro-B Natriuret Pep Total Protein Albumin HDL Cholesterol 11/06/18 11/06/18 11/06/18 06:59 06:59 14:16 WBC RBC MCV RDW 19.2 H Lymph % (Auto) [place] % (Auto) Lymph # [place] # Eos # Baso # Seg Neutrophils % Seg Neuts % (Manual) 82.0 H Lymphocytes % (Manual) 5.0 L Monocytes % (Manual) 13.0 H Seg Neutrophils # Seg Neutrophils # Man 8.5 H Lymphocytes # (Manual) 0.5 L Monocytes # (Manual) 1.4 H POC ABG pH POC ABG pCO2 POC ABG pO2 Sodium Potassium 5.2 H D BUN 33 H Creatinine 4.4 H Glucose POC Glucose 139 H AST 52 H Alkaline Phosphatase 170 H CK-MB (CK-2) CK-MB (CK-2) Rel Index Troponin T 0.289 H* NT-Pro-B Natriuret Pep Total Protein Albumin 3.7 L HDL Cholesterol 11/07/18 11/07/18 11/07/18 04:11 04:11 05:39 WBC RBC 3.31 L MCV RDW 18.9 H Lymph % (Auto) 8.9 L [place] % (Auto) 14.6 H Lymph # 0.9 L [place] # 1.5 H Eos # Baso # Seg Neutrophils % 74.7 H Seg Neuts % (Manual) Lymphocytes % (Manual) Monocytes % (Manual) Seg Neutrophils # 7.9 H Seg Neutrophils # Man Lymphocytes # (Manual) Monocytes # (Manual) POC ABG pH 7.550 H POC ABG pCO2 32.6 L POC ABG pO2 63 L Sodium 146 H Potassium BUN 36 H Creatinine 4.7 H Glucose 109 H POC Glucose AST 42 H Alkaline Phosphatase 138 H CK-MB (CK-2) CK-MB (CK-2) Rel Index Troponin T NT-Pro-B Natriuret Pep Total Protein 5.8 L Albumin 3.3 L HDL Cholesterol Chest x-ray: image reviewed Allied health notes reviewed: nursing
--- NOTE | 2018-11-07 10:15 | Progress Note ---
Assessment and Plan - Patient Problems (1) ESRD (end stage renal disease) on dialysis Current Visit: No Status: Chronic Plan to address problem: . Will maintain on MWF inpatient schedule, with daily assessment for extra isolated UF sessions to optimize her volume status. (2) Fluid overload Current Visit: No Status: Acute Plan to address problem: Challenge with UF removal during HD sessions. . (3) Acute and chronic respiratory failure with hypoxia Current Visit: Yes Status: Acute Plan to address problem: Patient remains intubated at present time. Further management per pulmonology/ICU attending. (4) Hyperkalemia Current Visit: Yes Status: Acute Plan to address problem: Will dialyze today on a low 2K bath during her HD sessions. (5) Hypertensive chronic kidney disease with stage 5 chronic kidney disease or end stage renal disease Current Visit: No Status: Acute Plan to address problem: Maintain on current antihypertensive regimen. (6) Anemia, chronic disease Current Visit: No Status: Chronic Plan to address problem: Epogen with HD (7) Secondary hyperparathyroidism (of renal origin) Current Visit: No Status: Chronic Plan to address problem: Maintain on home phosphate binders. Subjective Date of service: 11/07/18 Interval history: Patient unable to tolerate extra session of isolated UF yesterday with blood pressure drop noted. Will plan for HD today and will decrease UF goal to 2L as tolerated. Objective - Vital Signs Vital signs: Vital Signs - 12hr 11/06/18 11/06/18 11/06/18 22:15 22:20 22:25 Temperature Pulse Rate 105 H 106 H 107 H Pulse Rate [ Anterior Bilateral Throughout] Respiratory 20 18 19 Rate Respiratory Rate [Anterior Bilateral Throughout] Blood Pressure 134/72 139/70 137/71 O2 Sat by Pulse Oximetry 11/06/18 11/06/18 11/06/18 22:30 22:35 22:40 Temperature Pulse Rate 115 H 110 H 105 H Pulse Rate [ Anterior Bilateral Throughout] Respiratory 14 20 16 Rate Respiratory Rate [Anterior Bilateral Throughout] Blood Pressure 137/71 158/80 142/71 O2 Sat by Pulse 95 100 100 Oximetry 11/06/18 11/06/18 11/06/18 22:45 22:50 22:55 Temperature Pulse Rate 109 H 107 H 105 H Pulse Rate [ Anterior Bilateral Throughout] Respiratory 21 16 15 Rate Respiratory Rate [Anterior Bilateral Throughout] Blood Pressure 118/63 118/63 120/62 O2 Sat by Pulse 92 92 94 Oximetry 11/06/18 11/06/18 11/06/18 23:00 23:05 23:10 Temperature Pulse Rate 105 H 105 H 107 H Pulse Rate [ Anterior Bilateral Throughout] Respiratory 16 20 20 Rate Respiratory Rate [Anterior Bilateral Throughout] Blood Pressure 112/58 118/62 117/64 O2 Sat by Pulse 94 93 94 Oximetry 11/06/18 11/06/18 11/06/18 23:15 23:20 23:25 Temperature Pulse Rate 108 H 106 H 109 H Pulse Rate [ Anterior Bilateral Throughout] Respiratory 20 20 20 Rate Respiratory Rate [Anterior Bilateral Throughout] Blood Pressure 106/70 113/60 109/60 O2 Sat by Pulse 93 93 Oximetry 11/06/18 11/06/18 11/06/18 23:30 23:35 23:40 Temperature Pulse Rate 108 H 108 H 107 H Pulse Rate [ Anterior Bilateral Throughout] Respiratory 20 20 20 Rate Respiratory Rate [Anterior Bilateral Throughout] Blood Pressure 117/63 117/62 108/59 O2 Sat by Pulse 94 96 Oximetry 11/06/18 11/06/18 11/06/18 23:45 23:50 23:55 Temperature Pulse Rate 107 H 107 H 107 H Pulse Rate [ Anterior Bilateral Throughout] Respiratory 20 20 20 Rate Respiratory Rate [Anterior Bilateral Throughout] Blood Pressure 109/62 114/61 114/66 O2 Sat by Pulse 95 Oximetry 11/07/18 11/07/18 11/07/18 00:00 00:05 00:10 Temperature Pulse Rate 106 H 105 H 106 H Pulse Rate [ Anterior Bilateral Throughout] Respiratory 20 20 20 Rate Respiratory Rate [Anterior Bilateral Throughout] Blood Pressure 119/63 116/63 134/68 O2 Sat by Pulse 98 96 98 Oximetry 11/07/18 11/07/18 11/07/18 00:15 00:20 00:25 Temperature Pulse Rate 104 H 104 H 104 H Pulse Rate [ Anterior Bilateral Throughout] Respiratory 20 20 20 Rate Respiratory Rate [Anterior Bilateral Throughout] Blood Pressure 121/66 120/63 122/65 O2 Sat by Pulse 96 98 100 Oximetry 11/07/18 11/07/18 11/07/18 00:30 00:35 00:40 Temperature Pulse Rate 104 H 103 H 104 H Pulse Rate [ Anterior Bilateral Throughout] Respiratory 20 20 20 Rate Respiratory Rate [Anterior Bilateral Throughout] Blood Pressure 126/68 122/63 123/63 O2 Sat by Pulse 98 100 100 Oximetry 11/07/18 11/07/18 11/07/18 00:45 00:50 00:55 Temperature Pulse Rate 104 H 108 H 104 H Pulse Rate [ Anterior Bilateral Throughout] Respiratory 20 20 20 Rate Respiratory Rate [Anterior Bilateral Throughout] Blood Pressure 125/66 125/66 124/64 O2 Sat by Pulse 78 L 98 Oximetry 11/07/18 11/07/18 11/07/18 00:57 01:00 01:05 Temperature Pulse Rate 101 H 104 H 103 H Pulse Rate [ Anterior Bilateral Throughout] Respiratory 20 20 Rate Respiratory Rate [Anterior Bilateral Throughout] Blood Pressure 128/65 119/59 O2 Sat by Pulse 99 98 98 Oximetry 11/07/18 11/07/18 11/07/18 01:10 01:15 01:20 Temperature Pulse Rate 103 H 104 H 103 H Pulse Rate [ Anterior Bilateral Throughout] Respiratory 20 20 20 Rate Respiratory Rate [Anterior Bilateral Throughout] Blood Pressure 112/62 105/62 115/63 O2 Sat by Pulse 98 97 Oximetry 11/07/18 11/07/18 11/07/18 01:25 01:30 01:36 Temperature Pulse Rate 104 H 103 H 112 H Pulse Rate [ Anterior Bilateral Throughout] Respiratory 20 20 22 Rate Respiratory Rate [Anterior Bilateral Throughout] Blood Pressure 116/62 113/63 113/63 O2 Sat by Pulse 97 96 41 L Oximetry 11/07/18 11/07/18 11/07/18 01:40 01:46 01:50 Temperature Pulse Rate 117 H 108 H 111 H Pulse Rate [ Anterior Bilateral Throughout] Respiratory 20 20 20 Rate Respiratory Rate [Anterior Bilateral Throughout] Blood Pressure 193/116 71/43 62/40 O2 Sat by Pulse 97 98 97 Oximetry 11/07/18 11/07/18 11/07/18 01:55 02:00 02:05 Temperature Pulse Rate 111 H 110 H 105 H Pulse Rate [ Anterior Bilateral Throughout] Respiratory 20 20 20 Rate Respiratory Rate [Anterior Bilateral Throughout] Blood Pressure 69/47 105/58 107/58 O2 Sat by Pulse 95 Oximetry 11/07/18 11/07/18 11/07/18 02:10 02:15 02:20 Temperature Pulse Rate 102 H 101 H 99 H Pulse Rate [ Anterior Bilateral Throughout] Respiratory 20 20 24 Rate Respiratory Rate [Anterior Bilateral Throughout] Blood Pressure 100/55 94/53 103/59 O2 Sat by Pulse 97 Oximetry 11/07/18 11/07/18 11/07/18 04:06 04:50 07:00 Temperature Pulse Rate 103 H 96 H 100 H Pulse Rate [ Anterior Bilateral Throughout] Respiratory 20 20 Rate Respiratory Rate [Anterior Bilateral Throughout] Blood Pressure 106/57 103/51 O2 Sat by Pulse 98 98 Oximetry 11/07/18 11/07/18 11/07/18 07:05 07:10 07:15 Temperature Pulse Rate 102 H 101 H 100 H Pulse Rate [ Anterior Bilateral Throughout] Respiratory 20 20 20 Rate Respiratory Rate [Anterior Bilateral Throughout] Blood Pressure 99/50 106/52 96/51 O2 Sat by Pulse 98 98 Oximetry 11/07/18 11/07/18 11/07/18 07:20 07:25 07:30 Temperature Pulse Rate 102 H 101 H 103 H Pulse Rate [ Anterior Bilateral Throughout] Respiratory 20 20 20 Rate Respiratory Rate [Anterior Bilateral Throughout] Blood Pressure 97/54 101/51 100/54 O2 Sat by Pulse Oximetry 11/07/18 11/07/18 11/07/18 07:35 07:40 07:45 Temperature Pulse Rate 101 H 103 H 101 H Pulse Rate [ Anterior Bilateral Throughout] Respiratory 20 20 20 Rate Respiratory Rate [Anterior Bilateral Throughout] Blood Pressure 107/54 107/54 106/56 O2 Sat by Pulse 98 96 97 Oximetry 11/07/18 11/07/18 11/07/18 07:50 07:55 08:00 Temperature Pulse Rate 102 H 101 H 101 H Pulse Rate [ 107 H Anterior Bilateral Throughout] Respiratory 20 21 20 Rate Respiratory 21 Rate [Anterior Bilateral Throughout] Blood Pressure 92/49 97/50 102/48 O2 Sat by Pulse 98 98 97 Oximetry 11/07/18 11/07/18 11/07/18 08:05 08:10 08:15 Temperature Pulse Rate 101 H 102 H 101 H Pulse Rate [ Anterior Bilateral Throughout] Respiratory 21 20 20 Rate Respiratory Rate [Anterior Bilateral Throughout] Blood Pressure 90/51 95/52 102/53 O2 Sat by Pulse 97 Oximetry 11/07/18 11/07/18 11/07/18 08:20 08:21 08:25 Temperature Pulse Rate 104 H 102 H Pulse Rate [ 108 H Anterior Bilateral Throughout] Respiratory 19 20 Rate Respiratory 20 Rate [Anterior Bilateral Throughout] Blood Pressure 102/53 106/53 O2 Sat by Pulse 99 99 Oximetry 11/07/18 11/07/18 11/07/18 08:29 08:30 08:36 Temperature 100.2 F H Pulse Rate 102 H 119 H Pulse Rate [ Anterior Bilateral Throughout] Respiratory 20 13 Rate Respiratory Rate [Anterior Bilateral Throughout] Blood Pressure 103/56 155/79 O2 Sat by Pulse 98 Oximetry 11/07/18 11/07/18 11/07/18 08:40 08:45 08:50 Temperature Pulse Rate Pulse Rate [ Anterior Bilateral Throughout] Respiratory Rate Respiratory Rate [Anterior Bilateral Throughout] Blood Pressure 185/89 168/81 147/77 O2 Sat by Pulse 98 98 93 Oximetry 11/07/18 11/07/18 11/07/18 08:55 09:00 09:05 Temperature Pulse Rate 122 H 123 H 124 H Pulse Rate [ Anterior Bilateral Throughout] Respiratory 14 15 15 Rate Respiratory Rate [Anterior Bilateral Throughout] Blood Pressure 155/80 167/85 165/86 O2 Sat by Pulse Oximetry 11/07/18 11/07/18 11/07/18 09:10 09:15 09:20 Temperature Pulse Rate 122 H 120 H 119 H Pulse Rate [ Anterior Bilateral Throughout] Respiratory 15 13 11 L Rate Respiratory Rate [Anterior Bilateral Throughout] Blood Pressure 163/81 157/74 147/72 O2 Sat by Pulse Oximetry 11/07/18 11/07/18 11/07/18 09:25 09:30 09:35 Temperature Pulse Rate 118 H 119 H 123 H Pulse Rate [ Anterior Bilateral Throughout] Respiratory 12 11 L 15 Rate Respiratory Rate [Anterior Bilateral Throughout] Blood Pressure 135/66 136/68 128/74 O2 Sat by Pulse 98 Oximetry 11/07/18 11/07/18 11/07/18 09:40 09:45 09:50 Temperature Pulse Rate 130 H 124 H 125 H Pulse Rate [ Anterior Bilateral Throughout] Respiratory 13 10 L 11 L Rate Respiratory Rate [Anterior Bilateral Throughout] Blood Pressure 128/74 133/63 116/59 O2 Sat by Pulse 98 99 98 Oximetry 11/07/18 11/07/18 11/07/18 09:55 10:00 10:05 Temperature Pulse Rate 126 H 127 H 127 H Pulse Rate [ Anterior Bilateral Throughout] Respiratory 15 12 12 Rate Respiratory Rate [Anterior Bilateral Throughout] Blood Pressure 115/60 114/61 104/55 O2 Sat by Pulse 96 96 96 Oximetry 11/07/18 10:10 Temperature Pulse Rate 130 H Pulse Rate [ Anterior Bilateral Throughout] Respiratory 15 Rate Respiratory Rate [Anterior Bilateral Throughout] Blood Pressure 114/55 O2 Sat by Pulse 95 Oximetry - General Appearance General appearance: intubated, frail EENT: ATNC, PERRL Neck: no JVD Respiratory: Present: Decreased Breath Sounds Cardiology: regular, S1S2 Gastrointestinal: normal Integumentary: warm and dry Neurologic: no focal deficit Musculoskeletal: other (-edema ) - Lab 11/07/18 04:11 11/07/18 04:11 Most recent lab results Calcium 9.0 mg/dL (8.4-10.2) 11/07/18 04:11 - Imaging Chest x-ray: image reviewed - Allied health notes Allied health notes reviewed: nursing Medications & Allergies - Medications Allergies/Adverse Reactions: Allergies meperidine [From Demerol] Allergy (Verified 01/12/18 03:31) Itching Home Medications: Home Medications Medication Instructions Recorded Confirmed Last Taken Type Amlodipine Besylate [Norvasc] 10 mg PO QDAY 01/12/18 06/12/18 Unknown History B Complex 11/Folic/C/Biot/Zinc 1 each PO DAILY 01/12/18 06/12/18 Unknown History [Dialyvite with Zinc Tablet] Calcitriol [Rocaltrol] 0.5 mcg PO QDAY 01/12/18 06/12/18 Unknown History Carvedilol [Coreg] 6.25 mg PO BID 01/12/18 06/12/18 Unknown History Esomeprazole Magnesium [NexIUM] 40 mg PO QDAY 01/12/18 06/12/18 Unknown History Levothyroxine [Synthroid] 125 mcg PO QAM 01/12/18 06/12/18 Unknown History ALBUTEROL Inhaler(NF) 90 mcg INHALATION Q6H PRN 06/12/18 06/12/18 Unknown History Cozaar 50 mg PO DAILY 06/12/18 06/12/18 Unknown History Loperamide [Imodium] 4 mg PO QID PRN 06/12/18 06/12/18 Unknown History Acetaminophen [Acetaminophen TAB] 650 mg PO Q4H PRN #15 tablet 09/24/18 Unknown Rx Active Medications: Generic Name Dose Route Start Last Admin Trade Name Freq PRN Reason Stop Dose Admin Albuterol 2.5 mg 11/05/18 12:00 11/07/18 08:20 Proventil IH 2.5 mg QIDRT CECILIO Administration Albuterol 2.5 mg 11/05/18 12:00 Proventil IH Q4HRT PRN Shortness Of Breath Amlodipine Besylate 10 mg 11/05/18 11:00 11/06/18 12:02 Norvasc PO Not Given QDAY [facility] Lipase/Protease/Amylase 1 each 11/05/18 11:[address] 10,500 Unit FEEDTUBE PRN PRN For Clogged Feeding Tube Calcitriol 0.5 mcg 11/05/18 11:00 11/06/18 12:02 Rocaltrol PO Not Given QDAY [facility] Carvedilol 6.25 mg 11/05/18 11:00 11/06/18 12:01 Coreg PO Not Given BID [facility] Fentanyl 50 mcg 11/06/18 10:00 Sublimaze IV Q10MIN PRN ANALGESIA Hydrophilic Ointment 1 applic 11/06/18 10:00 Vaseline Lip Therapy TP Q2HR PRN Dry Lips Midazolam HCl 100 mg/ Sodium 100 mls @ 2 mls/hr 11/05/18 08:00 11/06/18 17:10 Chloride IV 0 mg/hr TITR CECILIO 0 mls/hr Titration Protocol 2 MG/HR Sodium Chloride 100 mls @ 999 mls/hr 11/06/18 10:00 Nacl 0.9% IV CHARI PRN Hypotension Fentanyl Citrate 2,000 mcg in 100 mls @ 2.495 mls/hr 11/06/18 10:00 11/07/18 08:25 Fentanyl Drip Premix IV 0 mcg/kg/hr TITR CECILIO 0 mls/hr Titration Protocol 1 MCG/KG/HR Norepinephrine 4 mg in 250 mls @ 7.5 mls/hr 11/06/18 19:00 11/07/18 09:42 Levophed Drip 4 Mg/Ns 250 Ml IV 0 mcg/min TITR CECILIO 0 mls/hr Titration Protocol 2 MCG/MIN Levothyroxine Sodium 125 mcg 11/05/18 11:00 11/06/18 05:45 Synthroid PO Not Given DAILY@0600 [facility] Losartan Potassium 50 mg 11/05/18 11:00 11/06/18 12:01 Cozaar PO Not Given QDAY [facility] Midazolam HCl 2 mg 11/05/18 07:28 11/05/18 16:15 Versed IV 2 mg Q10MIN PRN Administration Sedation Multi-Ingred Cream/Lotion/Oil/Oint 1 applic 11/06/18 10:00 Artificial Tears Ophth Oint OU Q4HR PRN Dry Eye(s) Simple Syrup 15 ml 11/05/18 11:27 Simple Syrup FEEDTUBE PRN PRN Hypoglycemia Simple Syrup 30 ml 11/05/18 11:27 Simple Syrup FEEDTUBE PRN PRN Hypoglycemia Sodium Bicarbonate 325 mg 11/05/18 11:27 Sodium Bicarbonate FEEDTUBE PRN PRN For Clogged Feeding Tube
[2018-11-07] MEDS: COREG PO SCH (10:28)
[2018-11-07] MEDS: SYNTHROID PO SCH (10:28)
[2018-11-07] MEDS: NORVASC PO SCH (10:29)
[2018-11-07] MEDS: COZAAR PO SCH (10:29)
[2018-11-07] MEDS ORDERED: NACL 0.9% 100 ML IV PRN (10:30)
[2018-11-07] MEDS: ROCALTROL PO SCH (10:30)
[2018-11-07] MEDS ORDERED: fentaNYL DRIP Premix 2,000 MCG/100 ML BAG IV ONE (12:17)
--- NOTE | 2018-11-07 17:11 | Progress Note ---
Assessment and Plan Assessment and plan: --Acute hypoxic respiratory failure; intubated on vent Secondary to fluid overload ,nebulizers, antibiotics Pulmonary critical following Wean as tolerated and extubate --Right atelectasis versus pneumonia; Empiric antibiotics flank associated, cultures --Possible septic shock; continue Levophed Cultures, empiric IV antibiotics --Nonspecific elevation of troponin; probably secondary to End-stage renal disease, closely monitor, consider cardiology evaluation If needed --Severe hyperkalemia; resolved --End-stage renal disease; hemodialysis per schedule Nephrology following --History of Hypertension; patient is hypotensive and in shock Hold all the blood pressure medications --Hyperglycemia/type 2 diabetes mellitus. Accu-Chek sliding scale coverage and ADA diet Insulin As Needed, hemoglobin A1c --History of hypothyroidism; resume Synthroid --DVT prophylaxis; heparin renal dose --Tube feeds per protocol --Full CODE STATUS Patient is critically ill, with very poor prognosis Discussed with daughter and friend at the bedside They verbalized understanding Awaiting ICU bed assignment Consults and recommendations noted and appreciated Critical care time 33 minutes History Interval history: Patient Seen and examined medical records reviewed Remains intubated on ventilator support Family members at the bedside Vital signs noted Hospitalist Physical - Constitutional Vitals: Temp Pulse Resp BP Pulse Ox 99.0 F 114 H 12 102/49 96 11/07/18 14:48 11/07/18 16:00 11/07/18 16:00 11/07/18 16:00 11/07/18 15:45 General appearance: Present: mild distress, cachectic, other (intubated on ventilatory support) - EENT Eyes: Present: PERRL, EOM intact - Neck Neck: Present: supple, normal ROM - Respiratory Respiratory effort: normal Respiratory: bilateral: diminished, rhonchi, negative: rales, wheezing - Cardiovascular Rhythm: regular Heart Sounds: Present: S1 & S2 - Extremities Extremities: no ischemia, No edema - Abdominal General gastrointestinal: soft, non-tender, non-distended, normal bowel sounds - Integumentary Integumentary: Present: clear, warm - Psychiatric Psychiatric: other (intubated on vent) - Neurologic Neurologic: other ( intubated on vent) Results - Labs CBC & Chem 7: 11/07/18 04:11 11/07/18 04:11 Labs: Laboratory Last Values WBC 10.6 K/mm3 (4.5-11.0) 11/07/18 04:11 RBC 3.31 M/mm3 (3.65-5.03) L 11/07/18 04:11 Hgb 10.3 gm/dl (10.1-14.3) 11/07/18 04:11 Hct 32.0 % (30.3-42.9) 11/07/18 04:11 MCV 97 fl (79-97) 11/07/18 04:11 MCH 31 pg (28-32) 11/07/18 04:11 MCHC 32 % (30-34) 11/07/18 04:11 RDW 18.9 % (13.2-15.2) H 11/07/18 04:11 Plt Count 260 K/mm3 (140-440) 11/07/18 04:11 Lymph % (Auto) 8.9 % (13.4-35.0) L 11/07/18 04:11 [place] % (Auto) 14.6 % (0.0-7.3) H 11/07/18 04:11 Eos % (Auto) 1.2 % (0.0-4.3) 11/07/18 04:11 Baso % (Auto) 0.6 % (0.0-1.8) 11/07/18 04:11 Lymph # 0.9 K/mm3 (1.2-5.4) L 11/07/18 04:11 [place] # 1.5 K/mm3 (0.0-0.8) H 11/07/18 04:11 Eos # 0.1 K/mm3 (0.0-0.4) 11/07/18 04:11 Baso # 0.1 K/mm3 (0.0-0.1) 11/07/18 04:11 Add Manual Diff Complete 11/06/18 06:59 Total Counted 100 11/06/18 06:59 Seg Neutrophils % 74.7 % (40.0-70.0) H 11/07/18 04:11 Seg Neuts % (Manual) 82.0 % (40.0-70.0) H 11/06/18 06:59 Band Neutrophils % 0 % 11/06/18 06:59 Lymphocytes % (Manual) 5.0 % (13.4-35.0) L 11/06/18 06:59 Reactive Lymphs % (Man) 0 % 11/06/18 06:59 Monocytes % (Manual) 13.0 % (0.0-7.3) H 11/06/18 06:59 Eosinophils % (Manual) 0 % (0.0-4.3) 11/06/18 06:59 Basophils % (Manual) 0 % (0.0-1.8) 11/06/18 06:59 Metamyelocytes % 0 % 11/06/18 06:59 Myelocytes % 0 % 11/06/18 06:59 Promyelocytes % 0 % 11/06/18 06:59 Blast Cells % 0 % 11/06/18 06:59 Nucleated RBC % Not Reportable 11/06/18 06:59 Seg Neutrophils # 7.9 K/mm3 (1.8-7.7) H 11/07/18 04:11 Seg Neutrophils # Man 8.5 K/mm3 (1.8-7.7) H 11/06/18 06:59 Band Neutrophils # 0.0 K/mm3 11/06/18 06:59 Lymphocytes # (Manual) 0.5 K/mm3 (1.2-5.4) L 11/06/18 06:59 Abs React Lymphs (Man) 0.0 K/mm3 11/06/18 06:59 Monocytes # (Manual) 1.4 K/mm3 (0.0-0.8) H 11/06/18 06:59 Eosinophils # (Manual) 0.0 K/mm3 (0.0-0.4) 11/06/18 06:59 Basophils # (Manual) 0.0 K/mm3 (0.0-0.1) 11/06/18 06:59 Metamyelocytes # 0.0 K/mm3 11/06/18 06:59 Myelocytes # 0.0 K/mm3 11/06/18 06:59 Promyelocytes # 0.0 K/mm3 11/06/18 06:59 Blast Cells # 0.0 K/mm3 11/06/18 06:59 WBC Morphology Not Reportable 11/06/18 06:59 Hypersegmented Neuts Not Reportable 11/06/18 06:59 Hyposegmented Neuts Not Reportable 11/06/18 06:59 Hypogranular Neuts Not Reportable 11/06/18 06:59 Smudge Cells Not Reportable 11/06/18 06:59 Toxic Granulation Not Reportable 11/06/18 06:59 Toxic Vacuolation Not Reportable 11/06/18 06:59 Dohle Bodies Not Reportable 11/06/18 06:59 Pelger-Huet Anomaly Not Reportable 11/06/18 06:59 Omar Rods Not Reportable 11/06/18 06:59 Platelet Estimate Consistent w auto 11/06/18 06:59 Clumped Platelets Not Reportable 11/06/18 06:59 Plt Clumps, EDTA Not Reportable 11/06/18 06:59 Large Platelets Not Reportable 11/06/18 06:59 Giant Platelets Not Reportable 11/06/18 06:59 Platelet Satelliting Not Reportable 11/06/18 06:59 Plt Morphology Comment Not Reportable 11/06/18 06:59 RBC Morphology Not Reportable 11/06/18 06:59 Dimorphic RBCs Not Reportable 11/06/18 06:59 Polychromasia Not Reportable 11/06/18 06:59 Hypochromasia Not Reportable 11/06/18 06:59 Poikilocytosis Few 11/06/18 06:59 Anisocytosis Few 11/06/18 06:59 Microcytosis Not Reportable 11/06/18 06:59 Macrocytosis Not Reportable 11/06/18 06:59 Spherocytes Not Reportable 11/06/18 06:59 Pappenheimer Bodies Not Reportable 11/06/18 06:59 Sickle Cells Not Reportable 11/06/18 06:59 Target Cells Rare 11/06/18 06:59 Tear Drop Cells Not Reportable 11/06/18 06:59 Ovalocytes Rare 11/06/18 06:59 Helmet Cells Not Reportable 11/06/18 06:59 Espinal-[place] Bodies Not Reportable 11/06/18 06:59 [place] Rings Not Reportable 11/06/18 06:59 Mackenzie Cells Not Reportable 11/06/18 06:59 Bite Cells Not Reportable 11/06/18 06:59 Crenated Cell Not Reportable 11/06/18 06:59 Elliptocytes Not Reportable 11/06/18 06:59 Acanthocytes (Spur) Not Reportable 11/06/18 06:59 Rouleaux Not Reportable 11/06/18 06:59 Hemoglobin C Crystals Not Reportable 11/06/18 06:59 Schistocytes Not Reportable 11/06/18 06:59 Malaria parasites Not Reportable 11/06/18 06:59 Evangelista Bodies Not Reportable 11/06/18 06:59 Hem Pathologist Commnt No 11/06/18 06:59 PT 13.2 Sec. (12.2-14.9) 11/05/18 07:09 INR 0.95 (0.87-1.13) 11/05/18 07:09 APTT 27.7 Sec. (24.2-36.6) 11/05/18 07:09 POC ABG pH 7.550 (7.35-7.45) H 11/07/18 05:39 POC ABG pCO2 32.6 (35-45) L 11/07/18 05:39 POC ABG pO2 63 (80-105) L 11/07/18 05:39 POC ABG HCO3 28.6 (22-26 mml/L) 11/07/18 05:39 POC ABG Total CO2 30 (23-27mmol/L) 11/07/18 05:39 POC ABG O2 Sat 95 11/07/18 05:39 POC ABG Base Excess 6 ((-2) - (+3)mmol/L) 11/07/18 05:39 FiO2 40 % 11/07/18 05:39 Sodium 146 mmol/L (137-145) H 11/07/18 04:11 Potassium 4.7 mmol/L (3.6-5.0) 11/07/18 04:11 Chloride 100.3 mmol/L (98-107) 11/07/18 04:11 Carbon Dioxide 25 mmol/L (22-30) 11/07/18 04:11 Anion Gap 25 mmol/L 11/07/18 04:11 BUN 36 mg/dL (7-17) H 11/07/18 04:11 Creatinine 4.7 mg/dL (0.7-1.2) H 11/07/18 04:11 Estimated GFR 11 ml/min 11/07/18 04:11 BUN/Creatinine Ratio 8 % 11/07/18 04:11 Glucose 109 mg/dL (65-100) H 11/07/18 04:11 POC Glucose 139 (70-105) H 11/06/18 14:16 Calcium 9.0 mg/dL (8.4-10.2) 11/07/18 04:11 Total Bilirubin 0.50 mg/dL (0.1-1.2) 11/07/18 04:11 AST 42 units/L (5-40) H 11/07/18 04:11 ALT 24 units/L (7-56) 11/07/18 04:11 Alkaline Phosphatase 138 units/L (35-129) H 11/07/18 04:11 Total Creatine Kinase 104 units/L (30-135) 11/06/18 06:59 CK-MB (CK-2) 3.2 ng/mL (0.0-4.0) 11/06/18 06:59 CK-MB (CK-2) Rel Index 3.0 (0-4) 11/06/18 06:59 Troponin T 0.289 ng/mL (0.00-0.029) H* 11/06/18 06:59 NT-Pro-B Natriuret Pep > 13295 pg/mL (0-900) H 11/05/18 07:09 Total Protein 5.8 g/dL (6.3-8.2) L 11/07/18 04:11 Albumin 3.3 g/dL (3.9-5) L 11/07/18 04:11 Albumin/Globulin Ratio 1.3 % 11/07/18 04:11 Triglycerides 101 mg/dL (2-149) 11/05/18 07:09 Cholesterol 180 mg/dL (50-199) 11/05/18 07:09 LDL Cholesterol Direct 116 mg/dL (50-130) 11/05/18 07:09 HDL Cholesterol 61 mg/dL (40-59) H 11/05/18 07:09 Cholesterol/HDL Ratio 2.95 % 11/05/18 07:09 Active Medications - Current Medications Current Medications: Generic Name Dose Route Start Last Admin Trade Name Freq PRN Reason Stop Dose Admin Albuterol 2.5 mg 11/05/18 12:00 11/07/18 14:06 Proventil IH 2.5 mg QIDRT CECILIO Administration Albuterol 2.5 mg 11/05/18 12:00 Proventil IH Q4HRT PRN Shortness Of Breath Amlodipine Besylate 10 mg 11/05/18 11:00 11/07/18 10:29 Norvasc PO Not Given QDAY [facility] Lipase/Protease/Amylase 1 each 11/05/18 11:[address] 10,500 Unit FEEDTUBE PRN PRN For Clogged Feeding Tube Calcitriol 0.5 mcg 11/05/18 11:00 11/07/18 10:30 Rocaltrol PO Not Given QDAY [facility] Carvedilol 6.25 mg 11/05/18 11:00 11/07/18 10:28 Coreg PO Not Given BID [facility] Fentanyl 50 mcg 11/06/18 10:00 Sublimaze IV Q10MIN PRN ANALGESIA Hydrophilic Ointment 1 applic 11/06/18 10:00 Vaseline Lip Therapy TP Q2HR PRN Dry Lips Midazolam HCl 100 mg/ Sodium 100 mls @ 2 mls/hr 11/05/18 08:00 11/06/18 17:10 Chloride IV 0 mg/hr TITR CECILIO 0 mls/hr Titration Protocol 2 MG/HR Fentanyl Citrate 2,000 mcg in 100 mls @ 2.495 mls/hr 11/06/18 10:00 11/07/18 12:25 Fentanyl Drip Premix IV 3 mcg/kg/hr TITR CECILIO 7.484 mls/hr Titration Protocol 1 MCG/KG/HR Norepinephrine 4 mg in 250 mls @ 7.5 mls/hr 11/06/18 19:00 11/07/18 16:05 Levophed Drip 4 Mg/Ns 250 Ml IV 6 mcg/min TITR CECILIO 22.5 mls/hr Titration Protocol 2 MCG/MIN Sodium Chloride 100 mls @ 999 mls/hr 11/07/18 10:30 Nacl 0.9% IV CHARI PRN Hypotension Levothyroxine Sodium 125 mcg 11/05/18 11:00 11/07/18 10:28 Synthroid PO Not Given DAILY@0600 [facility] Losartan Potassium 50 mg 11/05/18 11:00 11/07/18 10:29 Cozaar PO Not Given QDAY [facility] Midazolam HCl 2 mg 11/05/18 07:28 11/05/18 16:15 Versed IV 2 mg Q10MIN PRN Administration Sedation Multi-Ingred Cream/Lotion/Oil/Oint 1 applic 11/06/18 10:00 Artificial Tears Ophth Oint OU Q4HR PRN Dry Eye(s) Simple Syrup 15 ml 11/05/18 11:27 Simple Syrup FEEDTUBE PRN PRN Hypoglycemia Simple Syrup 30 ml 11/05/18 11:27 Simple Syrup FEEDTUBE PRN PRN Hypoglycemia Sodium Bicarbonate 325 mg 11/05/18 11:27 Sodium Bicarbonate FEEDTUBE PRN PRN For Clogged Feeding Tube Nutrition/Malnutrition Assess - Dietary Evaluation Nutrition/Malnutrition Findings: Nutrition Notes Start: 11/05/18 11:22 Freq: Status: Active Protocol: Document 11/07/18 13:43 OL (Rec: 11/07/18 13:44 OL [id number]) Nutrition Notes Initial or Follow up Brief Note Current Diet Nepro at 35mL/hr Subjective/Other Information TF on hold for possible extubation. Nutrition Intervention Follow-Up By: 11/08/18 Additional Comments f/u: TF status
[2018-11-07] MEDS ORDERED: LEVOPHED DRIP 4 MG/NS 250 ML 4 MG/250 ML BAG IV ONE (17:35)
[2018-11-07] MEDS: LEVOPHED DRIP 4 MG/NS 250 ML 4 MG/250 ML BAG IV SCH (17:37)
[2018-11-07] MEDS ORDERED: VANCOMYCIN/NS 1 GM/250 ML 1 GM/250 ML BAG IV ONE (19:14)
[2018-11-07] MEDS ORDERED: VANCOMYCIN PHARMACY TO DOSE IV SCH (20:00)
[2018-11-08] MEDS ORDERED: LEVOPHED DRIP 4 MG/NS 250 ML 4 MG/250 ML BAG IV ONE ×2 (02:01→11:22)
[2018-11-08] MEDS: LEVOPHED DRIP 4 MG/NS 250 ML 4 MG/250 ML BAG IV SCH ×2 (02:06→22:01)
[2018-11-08] MEDS: COREG PO SCH ×2 (02:16→10:15)
[2018-11-08] MEDS: NACL 0.9% IV SCH (02:17)
[2018-11-08] MEDS: ZOSYN/NS 2.25 GM/50ML 2.25 GM/50 ML BAG IV SCH ×3 (02:17→18:00)
[2018-11-08] MEDS: ZOSYN IV SCH (02:17)
--- NOTE | 2018-11-08 03:15 | XRay Report ---
PROCEDURE: XR CHEST 1V AP TECHNIQUE: A portable upright view the chest was obtained. HISTORY: follow up respiratory failure COMPARISONS: 11/07/2018 FINDINGS: The heart is slightly enlarged. The lungs are clear and expanded. There are no infiltrates, effusions or pneumothoraces. The endotracheal tube is in the mid trachea. NG tube is in the stomach. Bony and soft tissue structures are normal. IMPRESSION: Lungs are expanded and clear. ET tube and NG tube are in proper position. This document is electronically signed by Joe Osborne MD., November 08 2018 03:13:12 AM ET
[2018-11-08 03:59] LABS: Calcium 8.3 mg/dL (8.4-10.2)
[2018-11-08] MEDS: SYNTHROID PO SCH (07:07)
[2018-11-08] MEDS ORDERED: fentaNYL DRIP Premix 2,000 MCG/100 ML BAG IV ONE ×2 (07:10→15:25)
--- NOTE | 2018-11-08 08:36 | Progress Note ---
Assessment and Plan Assessment and plan: --Acute hypoxic respiratory failure; intubated on vent Secondary to fluid overload ,nebulizers, antibiotics Pulmonary critical following Wean as tolerated and extubate --Right atelectasis versus pneumonia; Empiric antibiotics flank associated, cultures --Possible septic shock; continue Levophed Cultures, empiric IV antibiotics --Nonspecific elevation of troponin; probably secondary to End-stage renal disease, closely monitor, consider cardiology evaluation If needed --Severe hyperkalemia; resolved --End-stage renal disease; hemodialysis per schedule Nephrology following --History of Hypertension; patient is hypotensive and in shock Hold all the blood pressure medications --Hyperglycemia/type 2 diabetes mellitus. Accu-Chek sliding scale coverage and ADA diet Insulin As Needed, hemoglobin A1c --History of hypothyroidism; resume Synthroid --DVT prophylaxis; heparin renal dose --Tube feeds per protocol --Full CODE STATUS Patient is critically ill, with very poor prognosis Discussed with daughter and friend at the bedside They verbalized understanding Awaiting ICU bed assignment Consults and recommendations noted and appreciated Critical care time 33 minutes History Interval history: patient seen and examined medical records reviewed No new events reported by the nursing Remains intubated on ventilatory support Mild distress Vital signs noted Hospitalist Physical - Constitutional Vitals: Temp Pulse Resp BP Pulse Ox 99.0 F 90 20 135/57 100 11/07/18 14:48 11/08/18 07:00 11/08/18 07:00 11/08/18 07:00 11/08/18 07:00 General appearance: Present: mild distress, cachectic, other (intubated on ventilatory support) - EENT Eyes: Present: PERRL, EOM intact - Neck Neck: Present: supple, normal ROM - Respiratory Respiratory effort: normal Respiratory: bilateral: diminished, rhonchi, negative: rales, wheezing - Cardiovascular Rhythm: regular Heart Sounds: Present: S1 & S2 - Extremities Extremities: no ischemia, No edema - Abdominal General gastrointestinal: soft, non-tender, non-distended, normal bowel sounds - Integumentary Integumentary: Present: clear, warm - Psychiatric Psychiatric: other (intubated on vent) - Neurologic Neurologic: other (intubated on vent) Results - Labs CBC & Chem 7: 11/07/18 04:11 11/08/18 03:19 Labs: Laboratory Last Values WBC 10.6 K/mm3 (4.5-11.0) 11/07/18 04:11 RBC 3.31 M/mm3 (3.65-5.03) L 11/07/18 04:11 Hgb 10.3 gm/dl (10.1-14.3) 11/07/18 04:11 Hct 32.0 % (30.3-42.9) 11/07/18 04:11 MCV 97 fl (79-97) 11/07/18 04:11 MCH 31 pg (28-32) 11/07/18 04:11 MCHC 32 % (30-34) 11/07/18 04:11 RDW 18.9 % (13.2-15.2) H 11/07/18 04:11 Plt Count 260 K/mm3 (140-440) 11/07/18 04:11 Lymph % (Auto) 8.9 % (13.4-35.0) L 11/07/18 04:11 [place] % (Auto) 14.6 % (0.0-7.3) H 11/07/18 04:11 Eos % (Auto) 1.2 % (0.0-4.3) 11/07/18 04:11 Baso % (Auto) 0.6 % (0.0-1.8) 11/07/18 04:11 Lymph # 0.9 K/mm3 (1.2-5.4) L 11/07/18 04:11 [place] # 1.5 K/mm3 (0.0-0.8) H 11/07/18 04:11 Eos # 0.1 K/mm3 (0.0-0.4) 11/07/18 04:11 Baso # 0.1 K/mm3 (0.0-0.1) 11/07/18 04:11 Add Manual Diff Complete 11/06/18 06:59 Total Counted 100 11/06/18 06:59 Seg Neutrophils % 74.7 % (40.0-70.0) H 11/07/18 04:11 Seg Neuts % (Manual) 82.0 % (40.0-70.0) H 11/06/18 06:59 Band Neutrophils % 0 % 11/06/18 06:59 Lymphocytes % (Manual) 5.0 % (13.4-35.0) L 11/06/18 06:59 Reactive Lymphs % (Man) 0 % 11/06/18 06:59 Monocytes % (Manual) 13.0 % (0.0-7.3) H 11/06/18 06:59 Eosinophils % (Manual) 0 % (0.0-4.3) 11/06/18 06:59 Basophils % (Manual) 0 % (0.0-1.8) 11/06/18 06:59 Metamyelocytes % 0 % 11/06/18 06:59 Myelocytes % 0 % 11/06/18 06:59 Promyelocytes % 0 % 11/06/18 06:59 Blast Cells % 0 % 11/06/18 06:59 Nucleated RBC % Not Reportable 11/06/18 06:59 Seg Neutrophils # 7.9 K/mm3 (1.8-7.7) H 11/07/18 04:11 Seg Neutrophils # Man 8.5 K/mm3 (1.8-7.7) H 11/06/18 06:59 Band Neutrophils # 0.0 K/mm3 11/06/18 06:59 Lymphocytes # (Manual) 0.5 K/mm3 (1.2-5.4) L 11/06/18 06:59 Abs React Lymphs (Man) 0.0 K/mm3 11/06/18 06:59 Monocytes # (Manual) 1.4 K/mm3 (0.0-0.8) H 11/06/18 06:59 Eosinophils # (Manual) 0.0 K/mm3 (0.0-0.4) 11/06/18 06:59 Basophils # (Manual) 0.0 K/mm3 (0.0-0.1) 11/06/18 06:59 Metamyelocytes # 0.0 K/mm3 11/06/18 06:59 Myelocytes # 0.0 K/mm3 11/06/18 06:59 Promyelocytes # 0.0 K/mm3 11/06/18 06:59 Blast Cells # 0.0 K/mm3 11/06/18 06:59 WBC Morphology Not Reportable 11/06/18 06:59 Hypersegmented Neuts Not Reportable 11/06/18 06:59 Hyposegmented Neuts Not Reportable 11/06/18 06:59 Hypogranular Neuts Not Reportable 11/06/18 06:59 Smudge Cells Not Reportable 11/06/18 06:59 Toxic Granulation Not Reportable 11/06/18 06:59 Toxic Vacuolation Not Reportable 11/06/18 06:59 Dohle Bodies Not Reportable 11/06/18 06:59 Pelger-Huet Anomaly Not Reportable 11/06/18 06:59 Omar Rods Not Reportable 11/06/18 06:59 Platelet Estimate Consistent w auto 11/06/18 06:59 Clumped Platelets Not Reportable 11/06/18 06:59 Plt Clumps, EDTA Not Reportable 11/06/18 06:59 Large Platelets Not Reportable 11/06/18 06:59 Giant Platelets Not Reportable 11/06/18 06:59 Platelet Satelliting Not Reportable 11/06/18 06:59 Plt Morphology Comment Not Reportable 11/06/18 06:59 RBC Morphology Not Reportable 11/06/18 06:59 Dimorphic RBCs Not Reportable 11/06/18 06:59 Polychromasia Not Reportable 11/06/18 06:59 Hypochromasia Not Reportable 11/06/18 06:59 Poikilocytosis Few 11/06/18 06:59 Anisocytosis Few 11/06/18 06:59 Microcytosis Not Reportable 11/06/18 06:59 Macrocytosis Not Reportable 11/06/18 06:59 Spherocytes Not Reportable 11/06/18 06:59 Pappenheimer Bodies Not Reportable 11/06/18 06:59 Sickle Cells Not Reportable 11/06/18 06:59 Target Cells Rare 11/06/18 06:59 Tear Drop Cells Not Reportable 11/06/18 06:59 Ovalocytes Rare 11/06/18 06:59 Helmet Cells Not Reportable 11/06/18 06:[address] [place] Bodies Not Reportable 11/06/18 06:59 [place] Rings Not Reportable 11/06/18 06:59 [place] Cells Not Reportable 11/06/18 06:59 Bite Cells Not Reportable 11/06/18 06:59 Crenated Cell Not Reportable 11/06/18 06:59 Elliptocytes Not Reportable 11/06/18 06:59 Acanthocytes (Spur) Not Reportable 11/06/18 06:59 Rouleaux Not Reportable 11/06/18 06:59 Hemoglobin C Crystals Not Reportable 11/06/18 06:59 Schistocytes Not Reportable 11/06/18 06:59 Malaria parasites Not Reportable 11/06/18 06:59 Evangelista Bodies Not Reportable 11/06/18 06:59 Hem Pathologist Commnt No 11/06/18 06:59 PT 13.2 Sec. (12.2-14.9) 11/05/18 07:09 INR 0.95 (0.87-1.13) 11/05/18 07:09 APTT 27.7 Sec. (24.2-36.6) 11/05/18 07:09 POC ABG pH 7.468 (7.35-7.45) H 11/08/18 04:38 POC ABG pCO2 34.3 (35-45) L 11/08/18 04:38 POC ABG pO2 132 (80-105) H 11/08/18 04:38 POC ABG HCO3 24.9 (22-26 mml/L) 11/08/18 04:38 POC ABG Total CO2 26 (23-27mmol/L) 11/08/18 04:38 POC ABG O2 Sat 99 11/08/18 04:38 POC ABG Base Excess 1 ((-2) - (+3)mmol/L) 11/08/18 04:38 FiO2 40 % 11/08/18 04:38 Sodium 148 mmol/L (137-145) H 11/08/18 03:19 Potassium 5.2 mmol/L (3.6-5.0) H 11/08/18 03:19 Chloride 102.0 mmol/L (98-107) 11/08/18 03:19 Carbon Dioxide 23 mmol/L (22-30) 11/08/18 03:19 Anion Gap 28 mmol/L 11/08/18 03:19 BUN 50 mg/dL (7-17) H 11/08/18 03:19 Creatinine 6.4 mg/dL (0.7-1.2) H 11/08/18 03:19 Estimated GFR 7 ml/min 11/08/18 03:19 BUN/Creatinine Ratio 8 % 11/08/18 03:19 Glucose 89 mg/dL (65-100) 11/08/18 03:19 POC Glucose 139 (70-105) H 11/06/18 14:16 Calcium 8.3 mg/dL (8.4-10.2) L 11/08/18 03:19 Total Bilirubin 0.50 mg/dL (0.1-1.2) 11/07/18 04:11 AST 42 units/L (5-40) H 11/07/18 04:11 ALT 24 units/L (7-56) 11/07/18 04:11 Alkaline Phosphatase 138 units/L (35-129) H 11/07/18 04:11 Total Creatine Kinase 104 units/L (30-135) 11/06/18 06:59 CK-MB (CK-2) 3.2 ng/mL (0.0-4.0) 11/06/18 06:59 CK-MB (CK-2) Rel Index 3.0 (0-4) 11/06/18 06:59 Troponin T 0.289 ng/mL (0.00-0.029) H* 11/06/18 06:59 NT-Pro-B Natriuret Pep > 66226 pg/mL (0-900) H 11/05/18 07:09 Total Protein 5.8 g/dL (6.3-8.2) L 11/07/18 04:11 Albumin 3.3 g/dL (3.9-5) L 11/07/18 04:11 Albumin/Globulin Ratio 1.3 % 11/07/18 04:11 Triglycerides 101 mg/dL (2-149) 11/05/18 07:09 Cholesterol 180 mg/dL (50-199) 11/05/18 07:09 LDL Cholesterol Direct 116 mg/dL (50-130) 11/05/18 07:09 HDL Cholesterol 61 mg/dL (40-59) H 11/05/18 07:09 Cholesterol/HDL Ratio 2.95 % 11/05/18 07:09 Active Medications - Current Medications Current Medications: Generic Name Dose Route Start Last Admin Trade Name Freq PRN Reason Stop Dose Admin Albuterol 2.5 mg 11/05/18 12:00 11/07/18 21:07 Proventil IH 2.5 mg QIDRT CECILIO Administration Albuterol 2.5 mg 11/05/18 12:00 Proventil IH Q4HRT PRN Shortness Of Breath Amlodipine Besylate 10 mg 11/05/18 11:00 11/07/18 10:29 Norvasc PO Not Given QDAY [facility] Lipase/Protease/Amylase 1 each 11/05/18 11:27 Pancrerosey He 10,500 Unit FEEDTUBE PRN PRN For Clogged Feeding Tube Calcitriol 0.5 mcg 11/05/18 11:00 11/07/18 10:30 Rocaltrol PO Not Given QDAY [facility] Carvedilol 6.25 mg 11/05/18 11:00 11/08/18 02:16 Coreg PO Not Given BID [facility] Fentanyl 50 mcg 11/06/18 10:00 Sublimaze IV Q10MIN PRN ANALGESIA Hydrophilic Ointment 1 applic 11/06/18 10:00 Vaseline Lip Therapy TP Q2HR PRN Dry Lips Midazolam HCl 100 mg/ Sodium 100 mls @ 2 mls/hr 11/05/18 08:00 11/06/18 17:10 Chloride IV 0 mg/hr TITR CECILIO 0 mls/hr Titration Protocol 2 MG/HR Fentanyl Citrate 2,000 mcg in 100 mls @ 2.495 mls/hr 11/06/18 10:00 11/07/18 12:25 Fentanyl Drip Premix IV 3 mcg/kg/hr TITR CECILIO 7.484 mls/hr Titration Protocol 1 MCG/KG/HR Norepinephrine 4 mg in 250 mls @ 7.5 mls/hr 11/06/18 19:00 11/08/18 07:55 Levophed Drip 4 Mg/Ns 250 Ml IV 6 mcg/min TITR CECILIO 22.5 mls/hr Titration Protocol 2 MCG/MIN Sodium Chloride 100 mls @ 999 mls/hr 11/07/18 10:30 Nacl 0.9% IV CHARI PRN Hypotension Piperacillin Sod/Tazobactam 50 mls @ 100 mls/hr 11/07/18 22:00 11/08/18 02:17 Sod 0.75 gm/ Sodium Chloride IV Not Given [id number] [facility] Protocol Piperacillin Sod/Tazobactam Sod 2.25 gm in 50 mls @ 100 mls/hr 11/07/18 22:00 11/08/18 02:17 Zosyn/Ns 2.25 Gm/50ml IV 100 mls/hr Q8HR CECILIO Administration Vancomycin HCl 750 mg/ Sodium 265 mls @ 166.667 mls/hr 11/09/18 22:00 Chloride IV MoWeFr [facility] Levothyroxine Sodium 125 mcg 11/05/18 11:00 11/08/18 07:07 Synthroid PO Not Given DAILY@0600 [facility] Losartan Potassium 50 mg 11/05/18 11:00 11/07/18 10:29 Cozaar PO Not Given QDAY [facility] Midazolam HCl 2 mg 11/05/18 07:28 11/05/18 16:15 Versed IV 2 mg Q10MIN PRN Administration Sedation Multi-Ingred Cream/Lotion/Oil/Oint 1 applic 11/06/18 10:00 Artificial Tears Ophth Oint OU Q4HR PRN Dry Eye(s) Simple Syrup 15 ml 11/05/18 11:27 Simple Syrup FEEDTUBE PRN PRN Hypoglycemia Simple Syrup 30 ml 11/05/18 11:27 Simple Syrup FEEDTUBE PRN PRN Hypoglycemia Sodium Bicarbonate 325 mg 11/05/18 11:27 Sodium Bicarbonate FEEDTUBE PRN PRN For Clogged Feeding Tube Nutrition/Malnutrition Assess - Dietary Evaluation Nutrition/Malnutrition Findings: Nutrition Notes Start: 11/05/18 1 1:22 Freq: Status: Active Protocol: Document 11/07/18 13:43 OL (Rec: 11/07/18 13:44 OL [id number]) Nutrition Notes Initial or Follow up Brief Note Current Diet Nepro at 35mL/hr Subjective/Other Information TF on hold for possible extubation. Nutrition Intervention Follow-Up By: 11/08/18 Additional Comments f/u: TF status
[2018-11-08] MEDS: PROVENTIL IH SCH ×4 (08:50→19:50)
[2018-11-08] MEDS ORDERED: PROVENTIL IH ONE ×3 (09:13→16:21)
--- NOTE | 2018-11-08 10:13 | Progress Note ---
Assessment and Plan - Patient Problems (1) ESRD (end stage renal disease) on dialysis Current Visit: No Status: Chronic Plan to address problem: . Will maintain on MWF inpatient schedule, with daily assessment for extra isolated UF sessions to optimize her volume status. (2) Fluid overload Current Visit: No Status: Acute Plan to address problem: Challenge with UF removal during HD sessions. . (3) Acute and chronic respiratory failure with hypoxia Current Visit: Yes Status: Acute Plan to address problem: Patient remains intubated at present time. Further management per pulmonology/ICU attending. (4) Hyperkalemia Current Visit: Yes Status: Acute Plan to address problem: Will dialyze on a low 2K bath during her HD sessions. (5) Hypertensive chronic kidney disease with stage 5 chronic kidney disease or end stage renal disease Current Visit: No Status: Acute Plan to address problem: Currently on levophed, off all antihypertensive medications, would recommend ordering 2D ECHO for further evaluation. (6) Anemia, chronic disease Current Visit: No Status: Chronic Plan to address problem: Epogen with HD (7) Secondary hyperparathyroidism (of renal origin) Current Visit: No Status: Chronic Plan to address problem: Maintain on home phosphate binders. Subjective Date of service: 11/08/18 Interval history: Patient was able to be dialyzed for 2 hours before becoming hypotensive again, and was only able to remove 2L fluid. She will likely need ECHO evaluation given her persistent issues with hypotension on dialysis during this admission. remains intubated. Objective - Vital Signs Vital signs: Vital Signs - 12hr 11/07/18 11/07/18 11/07/18 22:15 22:30 22:45 Pulse Rate 105 H 107 H 107 H Pulse Rate [ Anterior Bilateral Throughout] Respiratory 20 20 20 Rate Respiratory Rate [Anterior Bilateral Throughout] Blood Pressure 119/56 105/55 126/53 O2 Sat by Pulse 82 L 80 L 100 Oximetry 11/07/18 11/07/18 11/07/18 23:00 23:15 23:31 Pulse Rate 105 H 102 H 101 H Pulse Rate [ Anterior Bilateral Throughout] Respiratory 20 20 20 Rate Respiratory Rate [Anterior Bilateral Throughout] Blood Pressure 100/51 104/50 115/53 O2 Sat by Pulse 100 100 100 Oximetry 11/07/18 11/08/18 11/08/18 23:45 00:01 00:15 Pulse Rate 100 H 99 H 98 H Pulse Rate [ Anterior Bilateral Throughout] Respiratory 20 20 20 Rate Respiratory Rate [Anterior Bilateral Throughout] Blood Pressure 126/53 107/51 119/51 O2 Sat by Pulse 100 100 100 Oximetry 11/08/18 11/08/18 11/08/18 00:31 00:45 00:55 Pulse Rate 97 H 107 H 100 H Pulse Rate [ Anterior Bilateral Throughout] Respiratory 20 20 Rate Respiratory Rate [Anterior Bilateral Throughout] Blood Pressure 115/52 73/40 116/56 O2 Sat by Pulse 100 100 100 Oximetry 11/08/18 11/08/18 11/08/18 01:01 01:15 01:31 Pulse Rate 99 H 98 H 97 H Pulse Rate [ Anterior Bilateral Throughout] Respiratory 20 20 20 Rate Respiratory Rate [Anterior Bilateral Throughout] Blood Pressure 124/54 109/56 126/55 O2 Sat by Pulse 100 100 100 Oximetry 11/08/18 11/08/18 11/08/18 01:45 02:00 02:15 Pulse Rate 116 H 103 H 102 H Pulse Rate [ Anterior Bilateral Throughout] Respiratory 22 18 20 Rate Respiratory Rate [Anterior Bilateral Throughout] Blood Pressure 124/56 136/55 108/54 O2 Sat by Pulse 100 100 100 Oximetry 11/08/18 11/08/18 11/08/18 02:30 02:45 03:00 Pulse Rate 99 H 97 H 96 H Pulse Rate [ Anterior Bilateral Throughout] Respiratory 20 20 20 Rate Respiratory Rate [Anterior Bilateral Throughout] Blood Pressure 101/49 111/50 120/51 O2 Sat by Pulse 100 100 100 Oximetry 11/08/18 11/08/18 11/08/18 03:15 03:30 03:45 Pulse Rate 96 H 96 H 96 H Pulse Rate [ Anterior Bilateral Throughout] Respiratory 20 24 20 Rate Respiratory Rate [Anterior Bilateral Throughout] Blood Pressure 111/51 126/56 122/55 O2 Sat by Pulse 100 100 100 Oximetry 11/08/18 11/08/18 11/08/18 04:00 04:15 04:20 Pulse Rate 94 H 93 H 92 H Pulse Rate [ Anterior Bilateral Throughout] Respiratory 20 20 Rate Respiratory Rate [Anterior Bilateral Throughout] Blood Pressure 119/51 129/55 129/56 O2 Sat by Pulse 100 100 100 Oximetry 11/08/18 11/08/18 11/08/18 04:30 04:45 05:00 Pulse Rate 112 H 101 H 97 H Pulse Rate [ Anterior Bilateral Throughout] Respiratory 18 22 20 Rate Respiratory Rate [Anterior Bilateral Throughout] Blood Pressure 178/76 92/50 108/51 O2 Sat by Pulse 87 79 L Oximetry 11/08/18 11/08/18 11/08/18 05:15 05:30 05:45 Pulse Rate 94 H 92 H 92 H Pulse Rate [ Anterior Bilateral Throughout] Respiratory 20 20 20 Rate Respiratory Rate [Anterior Bilateral Throughout] Blood Pressure 114/52 121/52 121/51 O2 Sat by Pulse 78 L Oximetry 11/08/18 11/08/18 11/08/18 06:00 06:15 06:31 Pulse Rate 92 H 91 H 91 H Pulse Rate [ Anterior Bilateral Throughout] Respiratory 20 20 20 Rate Respiratory Rate [Anterior Bilateral Throughout] Blood Pressure 136/54 131/54 137/58 O2 Sat by Pulse 75 L 100 100 Oximetry 11/08/18 11/08/18 11/08/18 06:45 07:00 08:50 Pulse Rate 93 H 90 Pulse Rate [ 96 H Anterior Bilateral Throughout] Respiratory 20 20 Rate Respiratory 20 Rate [Anterior Bilateral Throughout] Blood Pressure 133/56 135/57 O2 Sat by Pulse 100 100 Oximetry - General Appearance General appearance: cachectic, chronically ill, frail EENT: ATNC Neck: no JVD, no thyromegaly Respiratory: Present: Decreased Breath Sounds Cardiology: regular, S1S2 Gastrointestinal: normal, normoactive bowel sounds Integumentary: warm and dry Neurologic: other (sedated on ventilator ) Musculoskeletal: other (-edema ) Psychiatric: other (sedated on ventilator) - Lab 11/07/18 04:11 11/08/18 03:19 Most recent lab results Calcium 8.3 mg/dL (8.4-10.2) L 11/08/18 03:19 - Imaging Chest x-ray: report reviewed - Allied health notes Allied health notes reviewed: nursing Medications & Allergies - Medications Allergies/Adverse Reactions: Allergies meperidine [From Demerol] Allergy (Verified 01/12/18 03:31) Itching Home Medications: Home Medications Medication Instructions Recorded Confirmed Last Taken Type Amlodipine Besylate [Norvasc] 10 mg PO QDAY 01/12/18 06/12/18 Unknown History B Complex 11/Folic/C/Biot/Zinc 1 each PO DAILY 01/12/18 06/12/18 Unknown History [Dialyvite with Zinc Tablet] Calcitriol [Rocaltrol] 0.5 mcg PO QDAY 01/12/18 06/12/18 Unknown History Carvedilol [Coreg] 6.25 mg PO BID 01/12/18 06/12/18 Unknown History Esomeprazole Magnesium [NexIUM] 40 mg PO QDAY 01/12/18 06/12/18 Unknown History Levothyroxine [Synthroid] 125 mcg PO QAM 01/12/18 06/12/18 Unknown History ALBUTEROL Inhaler(NF) 90 mcg INHALATION Q6H PRN 06/12/18 06/12/18 Unknown History Cozaar 50 mg PO DAILY 06/12/18 06/12/18 Unknown History Loperamide [Imodium] 4 mg PO QID PRN 06/12/18 06/12/18 Unknown History Acetaminophen [Acetaminophen TAB] 650 mg PO Q4H PRN #15 tablet 09/24/18 Unknown Rx Active Medications: Generic Name Dose Route Start Last Admin Trade Name Freq PRN Reason Stop Dose Admin Albuterol 2.5 mg 11/05/18 12:00 11/08/18 08:50 Proventil IH 2.5 mg QIDRT [facility] Administration Albuterol 2.5 mg 11/05/18 12:00 Proventil IH Q4HRT PRN Shortness Of Breath Amlodipine Besylate 10 mg 11/05/18 11:00 11/07/18 10:29 Norvasc PO Not Given QDAY [facility] Lipase/Protease/Amylase 1 each 11/05/18 11:[address] 10,500 Unit FEEDTUBE PRN PRN For Clogged Feeding Tube Calcitriol 0.5 mcg 11/05/18 11:00 11/07/18 10:30 Rocaltrol PO Not Given QDAY [facility] Carvedilol 6.25 mg 11/05/18 11:00 11/08/18 02:16 Coreg PO Not Given BID [facility] Fentanyl 50 mcg 11/06/18 10:00 Sublimaze IV Q10MIN PRN ANALGESIA Hydrophilic Ointment 1 applic 11/06/18 10:00 Vaseline Lip Therapy TP Q2HR PRN Dry Lips Midazolam HCl 100 mg/ Sodium 100 mls @ 2 mls/hr 11/05/18 08:00 11/06/18 17:10 Chloride IV 0 mg/hr TITR CECILIO 0 mls/hr Titration Protocol 2 MG/HR Fentanyl Citrate 2,000 mcg in 100 mls @ 2.495 mls/hr 11/06/18 10:00 11/07/18 12:25 Fentanyl Drip Premix IV 3 mcg/kg/hr TITR CECILIO 7.484 mls/hr Titration Protocol 1 MCG/KG/HR Norepinephrine 4 mg in 250 mls @ 7.5 mls/hr 11/06/18 19:00 11/08/18 07:55 Levophed Drip 4 Mg/Ns 250 Ml IV 6 mcg/min TITR CECILIO 22.5 mls/hr Titration Protocol 2 MCG/MIN Sodium Chloride 100 mls @ 999 mls/hr 11/07/18 10:30 Nacl 0.9% IV CHARI PRN Hypotension Piperacillin Sod/Tazobactam 50 mls @ 100 mls/hr 11/07/18 22:00 11/08/18 02:17 Sod 0.75 gm/ Sodium Chloride IV Not Given [id number] [facility] Protocol Piperacillin Sod/Tazobactam Sod 2.25 gm in 50 mls @ 100 mls/hr 11/07/18 22:00 11/08/18 08:20 Zosyn/Ns 2.25 Gm/50ml IV 100 mls/hr Q8HR [facility] Administration Vancomycin HCl 750 mg/ Sodium 265 mls @ 166.667 mls/hr 11/09/18 22:00 Chloride IV MoWeFr [facility] Levothyroxine Sodium 125 mcg 11/05/18 11:00 11/08/18 07:07 Synthroid PO Not Given DAILY@0600 [facility] Losartan Potassium 50 mg 11/05/18 11:00 11/07/18 10:29 Cozaar PO Not Given QDAY [facility] Midazolam HCl 2 mg 11/05/18 07:28 11/05/18 16:15 Versed IV 2 mg Q10MIN PRN Administration Sedation Multi-Ingred Cream/Lotion/Oil/Oint 1 applic 11/06/18 10:00 Artificial Tears Ophth Oint OU Q4HR PRN Dry Eye(s) Simple Syrup 15 ml 11/05/18 11:27 Simple Syrup FEEDTUBE PRN PRN Hypoglycemia Simple Syrup 30 ml 11/05/18 11:27 Simple Syrup FEEDTUBE PRN PRN Hypoglycemia Sodium Bicarbonate 325 mg 11/05/18 11:27 Sodium Bicarbonate FEEDTUBE PRN PRN For Clogged Feeding Tube
[2018-11-08] MEDS: COZAAR PO SCH (10:15)
[2018-11-08] MEDS: NORVASC PO SCH (10:15)
[2018-11-08] MEDS ORDERED: SUBLIMAZE ONE ×3 (10:38→18:01)
[2018-11-08] MEDS: SUBLIMAZE IV PRN ×3 (10:48→18:10)
--- NOTE | 2018-11-08 13:31 | Progress Note ---
Assessment and Plan -Acute hypercapnic-hypoxic respiratory failure -Right upper lobe atelectasis -Hyperkalemia -Pulmonary edema -BNP 3500 -Troponinemia, possible NSTEMI -ESRD on HD -Type 2 DM,poorly controlled -h/o Hypothyroidism -Wean vasopressor support for MAP>65 -Continue full MVS -Lung protective strategies -Medical management of atelectasis, resolved -Wean supplemental oxygen to keep O2 sats >90% -VAP bundle addressed -Daily SAT's & SBT's -ABG and CXR as indicated -Sedation target for RASS 0 to -1 -Fentanyl infusion -Stress ulcer prophylaxis -VTE prophylaxis -Tube feedings with aspiration precautions -Aspiration precautions, HOB>40 -Accuchecks with glycemic control. Target glucose of 140-180 mg/dL -Continue bronchodilators with pulmonary hygiene per RT -Supportive HD/UF as tolerated by hemodynamics -Maintenance of sleep -wake cycle -Delirium prevention Updated daughter at the bedside PROGNOSIS: GUARDED CONDITION: CRITICAL CODE STATUS: FULL CODE The high probability of a clinically significant, sudden or life-threatening deterioration of the [respiratory,renal, cardiovascular] system(s) required my full and direct attention, intervention and personal management. The aggregate critical care time was [35] minutes without overlap. Time includes spent on; [x] Data Review and interpretation [x] Patient assessment and monitoring of vital signs [x] Documentation [x] Medication orders and management Subjective Date of service: 11/08/18 Interval history: Patient is seen today for: acute hypoxic-hypercapnic respiratory failure, Pulmonary edema, ESRD on HD, Elevated troponin, Seen and examined at bedside; 24hour events reviewed; nursing and respiratory care staff consulted; no adverse overnight events reported to me; No fevers, had tube feeding in the oral cavity, feedings held for fear of aspiration. No vomiting. Remains of full mechanical ventilatory support, continues to require vasopressor support, antibiotics per ID Objective Vital Signs - 12hr 11/08/18 11/08/18 11/08/18 01:31 01:45 02:00 Pulse Rate 97 H 116 H 103 H Pulse Rate [ Anterior Bilateral Throughout] Respiratory 20 22 18 Rate Respiratory Rate [Anterior Bilateral Throughout] Blood Pressure 126/55 124/56 136/55 O2 Sat by Pulse 100 100 100 Oximetry 11/08/18 11/08/18 11/08/18 02:15 02:30 02:45 Pulse Rate 102 H 99 H 97 H Pulse Rate [ Anterior Bilateral Throughout] Respiratory 20 20 20 Rate Respiratory Rate [Anterior Bilateral Throughout] Blood Pressure 108/54 101/49 111/50 O2 Sat by Pulse 100 100 100 Oximetry 11/08/18 11/08/18 11/08/18 03:00 03:15 03:30 Pulse Rate 96 H 96 H 96 H Pulse Rate [ Anterior Bilateral Throughout] Respiratory 20 20 24 Rate Respiratory Rate [Anterior Bilateral Throughout] Blood Pressure 120/51 111/51 126/56 O2 Sat by Pulse 100 100 100 Oximetry 11/08/18 11/08/18 11/08/18 03:45 04:00 04:15 Pulse Rate 96 H 94 H 93 H Pulse Rate [ Anterior Bilateral Throughout] Respiratory 20 20 20 Rate Respiratory Rate [Anterior Bilateral Throughout] Blood Pressure 122/55 119/51 129/55 O2 Sat by Pulse 100 100 100 Oximetry 11/08/18 11/08/18 11/08/18 04:20 04:30 04:45 Pulse Rate 92 H 112 H 101 H Pulse Rate [ Anterior Bilateral Throughout] Respiratory 18 22 Rate Respiratory Rate [Anterior Bilateral Throughout] Blood Pressure 129/56 178/76 92/50 O2 Sat by Pulse 100 87 Oximetry 11/08/18 11/08/18 11/08/18 05:00 05:15 05:30 Pulse Rate 97 H 94 H 92 H Pulse Rate [ Anterior Bilateral Throughout] Respiratory 20 20 20 Rate Respiratory Rate [Anterior Bilateral Throughout] Blood Pressure 108/51 114/52 121/52 O2 Sat by Pulse 79 L 78 L Oximetry 11/08/18 11/08/18 11/08/18 05:45 06:00 06:15 Pulse Rate 92 H 92 H 91 H Pulse Rate [ Anterior Bilateral Throughout] Respiratory 20 20 20 Rate Respiratory Rate [Anterior Bilateral Throughout] Blood Pressure 121/51 136/54 131/54 O2 Sat by Pulse 75 L 100 Oximetry 11/08/18 11/08/18 11/08/18 06:31 06:45 07:00 Pulse Rate 91 H 93 H 90 Pulse Rate [ Anterior Bilateral Throughout] Respiratory 20 20 20 Rate Respiratory Rate [Anterior Bilateral Throughout] Blood Pressure 137/58 133/56 135/57 O2 Sat by Pulse 100 100 100 Oximetry 11/08/18 11/08/18 11/08/18 08:50 09:05 10:15 Pulse Rate 127 H 99 H Pulse Rate [ 96 H 93 H Anterior Bilateral Throughout] Respiratory Rate Respiratory 20 20 Rate [Anterior Bilateral Throughout] Blood Pressure 148/62 112/52 O2 Sat by Pulse 98 Oximetry 11/08/18 11/08/18 12:27 12:33 Pulse Rate 91 H Pulse Rate [ 91 H Anterior Bilateral Throughout] Respiratory Rate Respiratory 20 Rate [Anterior Bilateral Throughout] Blood Pressure 118/45 O2 Sat by Pulse 95 Oximetry Constitutional: no acute distress, other (sedated, thin chronically ill looking) Eyes: non-icteric ENT: oropharynx moist, other (ETT in place, 23cm at the lips, frothy pink tracheal secretions) Neck: supple, no lymphadenopathy Effort: normal Ascultation: Bilateral: diminished breath sounds, rales, rhonchi Cardiovascular: regular rate and rhythm, other (s1, s2, ) Gastrointestinal: normoactive bowel sounds, soft, non-tender, non-distended, other (no guarding, no hepato-splenomegaly) Extremities: no cyanosis, no edema, no ischemia or petechiae Neurologic: other (sedated) Psychiatric: other (sedated) CBC and BMP: 11/16/18 07:56 11/16/18 07:56 ABG, PT/INR, D-dimer: ABG POC ABG pH 7.468 (7.35-7.45) H 11/08/18 04:38 POC ABG pCO2 34.3 (35-45) L 11/08/18 04:38 POC ABG pO2 132 (80-105) H 11/08/18 04:38 POC ABG HCO3 24.9 (22-26 mml/L) 11/08/18 04:38 POC ABG Total CO2 26 (23-27mmol/L) 11/08/18 04:38 POC ABG O2 Sat 99 11/08/18 04:38 PT/INR, D-dimer PT 13.2 Sec. (12.2-14.9) 11/05/18 07:09 INR 0.95 (0.87-1.13) 11/05/18 07:09 Abnormal lab findings: Abnormal Labs 11/05/18 11/05/18 11/05/18 07:09 07:09 07:09 WBC 14.7 H RBC 3.42 L MCV 99 H RDW 20.1 H Lymph % (Auto) Clark % (Auto) 9.3 H Lymph # Clark # 1.4 H Eos # 0.5 H Baso # 0.2 H Seg Neutrophils % 70.1 H Seg Neuts % (Manual) Lymphocytes % (Manual) Monocytes % (Manual) Seg Neutrophils # 10.3 H Seg Neutrophils # Man Lymphocytes # (Manual) Monocytes # (Manual) POC ABG pH POC ABG pCO2 POC ABG pO2 Sodium Potassium 6.8 H* BUN 74 H Creatinine 6.9 H Glucose 226 H POC Glucose 206 H Calcium AST 80 H Alkaline Phosphatase 236 H CK-MB (CK-2) CK-MB (CK-2) Rel Index 8.2 H Troponin T 0.224 H* NT-Pro-B Natriuret Pep > 62078 H Total Protein Albumin HDL Cholesterol 61 H 11/05/18 11/05/18 11/06/18 08:03 19:45 03:29 WBC RBC MCV RDW Lymph % (Auto) Clark % (Auto) Lymph # Clark # Eos # Baso # Seg Neutrophils % Seg Neuts % (Manual) Lymphocytes % (Manual) Monocytes % (Manual) Seg Neutrophils # Seg Neutrophils # Man Lymphocytes # (Manual) Monocytes # (Manual) POC ABG pH 7.612 H POC ABG pCO2 51.2 H 31.3 L POC ABG pO2 167 H 117 H Sodium Potassium BUN Creatinine Glucose POC Glucose Calcium AST Alkaline Phosphatase CK-MB (CK-2) 5.6 H CK-MB (CK-2) Rel Index 5.2 H Troponin T 0.321 H* D NT-Pro-B Natriuret Pep Total Protein Albumin HDL Cholesterol 11/06/18 11/06/18 11/06/18 06:59 06:59 14:16 WBC RBC MCV RDW 19.2 H Lymph % (Auto) Clark % (Auto) Lymph # Clark # Eos # Baso # Seg Neutrophils % Seg Neuts % (Manual) 82.0 H Lymphocytes % (Manual) 5.0 L Monocytes % (Manual) 13.0 H Seg Neutrophils # Seg Neutrophils # Man 8.5 H Lymphocytes # (Manual) 0.5 L Monocytes # (Manual) 1.4 H POC ABG pH POC ABG pCO2 POC ABG pO2 Sodium Potassium 5.2 H D BUN 33 H Creatinine 4.4 H Glucose POC Glucose 139 H Calcium AST 52 H Alkaline Phosphatase 170 H CK-MB (CK-2) CK-MB (CK-2) Rel Index Troponin T 0.289 H* NT-Pro-B Natriuret Pep Total Protein Albumin 3.7 L HDL Cholesterol 11/07/18 11/07/18 11/07/18 04:11 04:11 05:39 WBC RBC 3.31 L MCV RDW 18.9 H Lymph % (Auto) 8.9 L Clark % (Auto) 14.6 H Lymph # 0.9 L Clark # 1.5 H Eos # Baso # Seg Neutrophils % 74.7 H Seg Neuts % (Manual) Lymphocytes % (Manual) Monocytes % (Manual) Seg Neutrophils # 7.9 H Seg Neutrophils # Man Lymphocytes # (Manual) Monocytes # (Manual) POC ABG pH 7.550 H POC ABG pCO2 32.6 L POC ABG pO2 63 L Sodium 146 H Potassium BUN 36 H Creatinine 4.7 H Glucose 109 H POC Glucose Calcium AST 42 H Alkaline Phosphatase 138 H CK-MB (CK-2) CK-MB (CK-2) Rel Index Troponin T NT-Pro-B Natriuret Pep Total Protein 5.8 L Albumin 3.3 L HDL Cholesterol 11/08/18 11/08/18 03:19 04:38 WBC RBC MCV RDW Lymph % (Auto) Clark % (Auto) Lymph # Clark # Eos # Baso # Seg Neutrophils % Seg Neuts % (Manual) Lymphocytes % (Manual) Monocytes % (Manual) Seg Neutrophils # Seg Neutrophils # Man Lymphocytes # (Manual) Monocytes # (Manual) POC ABG pH 7.468 H POC ABG pCO2 34.3 L POC ABG pO2 132 H Sodium 148 H Potassium 5.2 H BUN 50 H Creatinine 6.4 H Glucose POC Glucose Calcium 8.3 L AST Alkaline Phosphatase CK-MB (CK-2) CK-MB (CK-2) Rel Index Troponin T NT-Pro-B Natriuret Pep Total Protein Albumin HDL Cholesterol Allied health notes reviewed: nursing
[2018-11-08] MEDS: ROCALTROL PO SCH (14:23)
--- NOTE | 2018-11-08 20:19 | XRay Report ---
PROCEDURE: XR ABDOMEN 1V AP TECHNIQUE: AP portable view of the upper abdomen HISTORY: Ajay Veliz OGT COMPARISONS: 11/05/2018 FINDINGS: Enteric tube tip projects over the lower left abdomen, likely within the stomach. Bowel gas pattern i s nonobstructive. No infiltrates are seen in the lower lungs. IMPRESSION: Enteric tube tip is in the abdomen, likely within the stomach. This document is electronically signed by Debbie Farr MD., November 08 2018 08:17:13 PM ET
--- NOTE | 2018-11-09 04:44 | XRay Report ---
PROCEDURE: XR CHEST 1V AP TECHNIQUE: A portable upright view the chest was obtained. HISTORY: follow up respiratory failure COMPARISONS: 11/07/2018 FINDINGS: There are new infiltrates at the right lung base. The lungs are well expanded. There is no pleural ef fusion or pneumothorax. The heart size is normal. Endotracheal tube is in the mid trachea. NG tube is in the stomach. Bony and soft tissue structures are normal. IMPRESSION: There are new infiltrates at the right lung base. The lungs are well expanded. There is no pleural ef fusion or pneumothorax. The heart size is normal. Endotracheal tube is in the mid trachea. NG tube is in the stomach. Bony and soft tissue structures are normal. This document is electronically signed by Joe Osborne MD., November 09 2018 04:42:20 AM ET
[2018-11-09] MEDS: SYNTHROID PO SCH (06:10)
[2018-11-09] MEDS: ZOSYN/NS 2.25 GM/50ML 2.25 GM/50 ML BAG IV SCH ×4 (06:10→23:14)
[2018-11-09] MEDS: fentaNYL DRIP Premix 2,000 MCG/100 ML BAG IV SCH ×2 (06:44→23:12)
--- NOTE | 2018-11-09 07:57 | Progress Note ---
Assessment and Plan - Patient Problems (1) ESRD (end stage renal disease) on dialysis Current Visit: No Status: Chronic Plan to address problem: . Will maintain on MWF inpatient schedule, with daily assessment for extra isolated UF sessions to optimize her volume status. (2) Fluid overload Current Visit: No Status: Acute Plan to address problem: Challenge with UF removal during HD sessions. . (3) Acute and chronic respiratory failure with hypoxia Current Visit: Yes Status: Acute Plan to address problem: Patient remains intubated at present time. Further management per pulmonology/ICU attending. (4) Hyperkalemia Current Visit: Yes Status: Acute Plan to address problem: Will dialyze on a low 2K bath during her HD sessions. (5) Hypertensive chronic kidney disease with stage 5 chronic kidney disease or end stage renal disease Current Visit: No Status: Acute Plan to address problem: Currently off levophed, off all antihypertensive medications, would recommend ordering 2D ECHO for further evaluation. (6) Anemia, chronic disease Current Visit: No Status: Chronic Plan to address problem: Epogen with HD (7) Secondary hyperparathyroidism (of renal origin) Current Visit: No Status: Chronic Plan to address problem: Maintain on home phosphate binders. Subjective Date of service: 11/09/18 Interval history: Remains intubated, on fentanyl. Levophed on hold. Chest xray noted, plan for HD today. Objective - Vital Signs Vital signs: Vital Signs - 12hr 11/08/18 11/08/18 11/08/18 19:58 20:00 22:00 Temperature 98.1 F Pulse Rate 100 H Pulse Rate [ 97 H Anterior Bilateral Throughout] Pulse Rate [ 99 H From Monitor] Respiratory 20 Rate [Anterior Bilateral Throughout] O2 Sat by Pulse 100 Oximetry 11/08/18 11/09/18 11/09/18 23:06 00:00 03:41 Temperature 97.2 F L Pulse Rate 109 H 103 H Pulse Rate [ Anterior Bilateral Throughout] Pulse Rate [ From Monitor] Respiratory Rate [Anterior Bilateral Throughout] O2 Sat by Pulse 98 98 98 Oximetry 11/09/18 11/09/18 11/09/18 04:00 04:23 05:09 Temperature 97.4 F L Pulse Rate Pulse Rate [ Anterior Bilateral Throughout] Pulse Rate [ 96 H From Monitor] Respiratory Rate [Anterior Bilateral Throughout] O2 Sat by Pulse 98 96 Oximetry - General Appearance General appearance: cachectic, sedated on ventilator, intubated, frail EENT: ATNC Neck: no JVD, no thyromegaly Respiratory: Present: Decreased Breath Sounds Cardiology: regular, S1S2 Gastrointestinal: normal, normoactive bowel sounds Integumentary: warm and dry Neurologic: other (sedated on ventilator ) Musculoskeletal: other (-edema ) - Lab 11/07/18 04:11 11/08/18 03:19 Most recent lab results Calcium 8.3 mg/dL (8.4-10.2) L 11/08/18 03:19 - Imaging Chest x-ray: report reviewed - Allied health notes Allied health notes reviewed: nursing Medications & Allergies - Medications Allergies/Adverse Reactions: Allergies meperidine [From Demerol] Allergy (Verified 01/12/18 03:31) Itching Home Medications: Home Medications Medication Instructions Recorded Confirmed Last Taken Type Amlodipine Besylate [Norvasc] 10 mg PO QDAY 01/12/18 06/12/18 Unknown History B Complex 11/Folic/C/Biot/Zinc 1 each PO DAILY 01/12/18 06/12/18 Unknown History [Dialyvite with Zinc Tablet] Calcitriol [Rocaltrol] 0.5 mcg PO QDAY 01/12/18 06/12/18 Unknown History Carvedilol [Coreg] 6.25 mg PO BID 01/12/18 06/12/18 Unknown History Esomeprazole Magnesium [NexIUM] 40 mg PO QDAY 01/12/18 06/12/18 Unknown History Levothyroxine [Synthroid] 125 mcg PO QAM 01/12/18 06/12/18 Unknown History ALBUTEROL Inhaler(NF) 90 mcg INHALATION Q6H PRN 06/12/18 06/12/18 Unknown His tory Cozaar 50 mg PO DAILY 06/12/18 06/12/18 Unknown History Loperamide [Imodium] 4 mg PO QID PRN 06/12/18 06/12/18 Unknown History Acetaminophen [Acetaminophen TAB] 650 mg PO Q4H PRN #15 tablet 09/24/18 Unknown Rx Active Medications: Generic Name Dose Route Start Last Admin Trade Name Freq PRN Reason Stop Dose Admin Albuterol 2.5 mg 11/05/18 12:00 11/08/18 19:50 Proventil IH 2.5 mg QIDRT CECILIO Administration Albuterol 2.5 mg 11/05/18 12:00 Proventil IH Q4HRT PRN Shortness Of Breath Amlodipine Besylate 10 mg 11/05/18 11:00 11/08/18 10:15 Norvasc PO Not Given QDAY CECILIO Lipase/Protease/Amylase 1 each 11/05/18 11:[address] 10,500 Unit FEEDTUBE PRN PRN For Clogged Feeding Tube Calcitriol 0.5 mcg 11/05/18 11:00 11/08/18 14:23 Rocaltrol PO 0.5 mcg QDAY [facility] Administration Carvedilol 6.25 mg 11/05/18 11:00 11/08/18 10:15 Coreg PO Not Given BID [facility] Fentanyl 50 mcg 11/06/18 10:00 11/08/18 18:10 Sublimaze IV 50 mcg Q10MIN PRN Administration ANALGESIA Hydrophilic Ointment 1 applic 11/06/18 10:00 Vaseline Lip Therapy TP Q2HR PRN Dry Lips Midazolam HCl 100 mg/ Sodium 100 mls @ 2 mls/hr 11/05/18 08:00 11/06/18 17:10 Chloride IV 0 mg/hr TITR CECILIO 0 mls/hr Titration Protocol 2 MG/HR Fentanyl Citrate 2,000 mcg in 100 mls @ 2.495 mls/hr 11/06/18 10:00 11/09/18 06:44 Fentanyl Drip Premix IV 3 mcg/kg/hr TITR CECILIO 7.484 mls/hr Administration Protocol 1 MCG/KG/HR Norepinephrine 4 mg in 250 mls @ 7.5 mls/hr 11/06/18 19:00 11/09/18 06:35 Levophed Drip 4 Mg/Ns 250 Ml IV 0 mcg/min TITR CECILIO 0 mls/hr Titration Protocol 2 MCG/MIN Sodium Chloride 100 mls @ 999 mls/hr 11/07/18 10:30 Nacl 0.9% IV CHARI PRN Hypotension Piperacillin Sod/Tazobactam 50 mls @ 100 mls/hr 11/07/18 22:00 11/08/18 02:17 Sod 0.75 gm/ Sodium Chloride IV Not Given MoWeFr@2200 CECILIO Protocol Vancomycin HCl 750 mg/ Sodium 265 mls @ 166.667 mls/hr 11/09/18 22:00 Chloride IV MoWeFr CECILIO Piperacillin Sod/Tazobactam Sod 2.25 gm in 50 mls @ 100 mls/hr 11/08/18 18:00 11/09/18 06:10 Zosyn/Ns 2.25 Gm/50ml IV 100 mls/hr Q8HR CECILIO Administration Levothyroxine Sodium 125 mcg 11/05/18 11:00 11/09/18 06:10 Synthroid PO 125 mcg DAILY@0600 CECILIO Administration Losartan Potassium 50 mg 11/05/18 11:00 11/08/18 10:15 Cozaar PO Not Given QDAY CECILIO Midazolam HCl 2 mg 11/05/18 07:28 11/05/18 16:15 Versed IV 2 mg Q10MIN PRN Administration Sedation Multi-Ingred Cream/Lotion/Oil/Oint 1 applic 11/06/18 10:00 Artificial Tears Ophth Oint OU Q4HR PRN Dry Eye(s) Simple Syrup 15 ml 11/05/18 11:27 Simple Syrup FEEDTUBE PRN PRN Hypoglycemia Simple Syrup 30 ml 11/05/18 11:27 Simple Syrup FEEDTUBE PRN PRN Hypoglycemia Sodium Bicarbonate 325 mg 11/05/18 11:27 Sodium Bicarbonate FEEDTUBE PRN PRN For Clogged Feeding Tube
[2018-11-09] MEDS: PROVENTIL IH SCH ×4 (08:58→20:10)
[2018-11-09] MEDS: NORVASC PO SCH (09:40)
[2018-11-09] MEDS: COZAAR PO SCH (09:41)
[2018-11-09] MEDS: COREG PO SCH ×3 (10:16→23:30)
[2018-11-09] MEDS: ROCALTROL PO SCH (10:25)
--- NOTE | 2018-11-09 10:45 | Progress Note ---
Assessment and Plan Assessment and plan: --Right lower lobe pneumonia/aspiration pneumonia Continue vancomycin and Zosyn, add Flagyl F/u cultures, consider ID evaluation if needed --Sepsis secondary to pneumonia, --Septic shock; continue Levophed Titrate systolic blood pressure to 100 --Acute hypoxic respiratory failure; intubated on vent Secondary to fluid overload , pneumonia ,nebulizers, antibiotics Pulmonary critical following Wean as tolerated and extubate --Nonspecific elevation of troponin; probably secondary to End-stage renal disease, medical management --Severe hyperkalemia; resolved --End-stage renal disease; hemodialysis per schedule Nephrology following --History of Hypertension; patient is hypotensive and in shock Hold all the blood pressure medications --Hyperglycemia/type 2 diabetes mellitus. Accu-Chek sliding scale coverage and ADA diet Insulin As Needed, hemoglobin A1c --History of hypothyroidism; resume Synthroid --DVT prophylaxis; heparin renal dose --Tube feeds per protocol --Full CODE STATUS Patient is critically ill, with very poor prognosis Family aware, Critical care time 32 minutes History Interval history: Patient seen and examined this morning medical records reviewed Admitted with acute respiratory failure intubated on ventilator support Also has aspiration pneumonia and septic shock on Levophed No new events reported by the nursing staff Patient is comfortable sedated and not in acute distress Vital signs reviewed, mild tachycardia Hospitalist Physical - Constitutional Vitals: Temp Pulse Resp BP Pulse Ox 97.4 F L 90 20 113/63 96 11/09/18 04:00 11/09/18 09:15 11/09/18 09:15 11/09/18 09:02 11/09/18 09:02 General appearance: Present: no acute distress, cachectic, disheveled, other (intubated on ventilatory support) - EENT Eyes: Present: PERRL, EOM intact - Neck Neck: Present: supple, normal ROM - Respiratory Respiratory effort: normal Respiratory: bilateral: diminished, negative: rales, rhonchi, wheezing - Cardiovascular Rhythm: regular Heart Sounds: Present: S1 & S2 (tachycardia) - Extremities Extremities: no ischemia, No edema - Abdominal General gastrointestinal: soft, non-tender, non-distended, normal bowel sounds - Integumentary Integumentary: Present: clear, warm - Psychiatric Psychiatric: other (intubated and sedated) - Neurologic Neurologic: other (intubated and sedated) Results - Labs CBC & Chem 7: 11/10/18 04:37 11/10/18 04:37 Labs: Laboratory Last Values WBC 10.6 K/mm3 (4.5-11.0) 11/07/18 04:11 RBC 3.31 M/mm3 (3.65-5.03) L 11/07/18 04:11 Hgb 10.3 gm/dl (10.1-14.3) 11/07/18 04:11 Hct 32.0 % (30.3-42.9) 11/07/18 04:11 MCV 97 fl (79-97) 11/07/18 04:11 MCH 31 pg (28-32) 11/07/18 04:11 MCHC 32 % (30-34) 11/07/18 04:11 RDW 18.9 % (13.2-15.2) H 11/07/18 04:11 Plt Count 260 K/mm3 (140-440) 11/07/18 04:11 Lymph % (Auto) 8.9 % (13.4-35.0) L 11/07/18 04:11 [place] % (Auto) 14.6 % (0.0-7.3) H 11/07/18 04:11 Eos % (Auto) 1.2 % (0.0-4.3) 11/07/18 04:11 Baso % (Auto) 0.6 % (0.0-1.8) 11/07/18 04:11 Lymph # 0.9 K/mm3 (1.2-5.4) L 11/07/18 04:11 [place] # 1.5 K/mm3 (0.0-0.8) H 11/07/18 04:11 Eos # 0.1 K/mm3 (0.0-0.4) 11/07/18 04:11 Baso # 0.1 K/mm3 (0.0-0.1) 11/07/18 04:11 Add Manual Diff Complete 11/06/18 06:59 Total Counted 100 11/06/18 06:59 Seg Neutrophils % 74.7 % (40.0-70.0) H 11/07/18 04:11 Seg Neuts % (Manual) 82.0 % (40.0-70.0) H 11/06/18 06:59 Band Neutrophils % 0 % 11/06/18 06:59 Lymphocytes % (Manual) 5.0 % (13.4-35.0) L 11/06/18 06:59 Reactive Lymphs % (Man) 0 % 11/06/18 06:59 Monocytes % (Manual) 13.0 % (0.0-7.3) H 11/06/18 06:59 Eosinophils % (Manual) 0 % (0.0-4.3) 11/06/18 06:59 Basophils % (Manual) 0 % (0.0-1.8) 11/06/18 06:59 Metamyelocytes % 0 % 11/06/18 06:59 Myelocytes % 0 % 11/06/18 06:59 Promyelocytes % 0 % 11/06/18 06:59 Blast Cells % 0 % 11/06/18 06:59 Nucleated RBC % Not Reportable 11/06/18 06:59 Seg Neutrophils # 7.9 K/mm3 (1.8-7.7) H 11/07/18 04:11 Seg Neutrophils # Man 8.5 K/mm3 (1.8-7.7) H 11/06/18 06:59 Band Neutrophils # 0.0 K/mm3 11/06/18 06:59 Lymphocytes # (Manual) 0.5 K/mm3 (1.2-5.4) L 11/06/18 06:59 Abs React Lymphs (Man) 0.0 K/mm3 11/06/18 06:59 Monocytes # (Manual) 1.4 K/mm3 (0.0-0.8) H 11/06/18 06:59 Eosinophils # (Manual) 0.0 K/mm3 (0.0-0.4) 11/06/18 06:59 Basophils # (Manual) 0.0 K/mm3 (0.0-0.1) 11/06/18 06:59 Metamyelocytes # 0.0 K/mm3 11/06/18 06:59 Myelocytes # 0.0 K/mm3 11/06/18 06:59 Promyelocytes # 0.0 K/mm3 11/06/18 06:59 Blast Cells # 0.0 K/mm3 11/06/18 06:59 WBC Morphology Not Reportable 11/06/18 06:59 Hypersegmented Neuts Not Reportable 11/06/18 06:59 Hyposegmented Neuts Not Reportable 11/06/18 06:59 Hypogranular Neuts Not Reportable 11/06/18 06:59 Smudge Cells Not Reportable 11/06/18 06:59 Toxic Granulation Not Reportable 11/06/18 06:59 Toxic Vacuolation Not Reportable 11/06/18 06:59 Dohle Bodies Not Reportable 11/06/18 06:59 Pelger-Huet Anomaly Not Reportable 11/06/18 06:59 Omar Rods Not Reportable 11/06/18 06:59 Platelet Estimate Consistent w auto 11/06/18 06:59 Clumped Platelets Not Reportable 11/06/18 06:59 Plt Clumps, EDTA Not Reportable 11/06/18 06:59 Large Platelets Not Reportable 11/06/18 06:59 Giant Platelets Not Reportable 11/06/18 06:59 Platelet Satelliting Not Reportable 11/06/18 06:59 Plt Morphology Comment Not Reportable 11/06/18 06:59 RBC Morphology Not Reportable 11/06/18 06:59 Dimorphic RBCs Not Reportable 11/06/18 06:59 Polychromasia Not Reportable 11/06/18 06:59 Hypochromasia Not Reportable 11/06/18 06:59 Poikilocytosis Few 11/06/18 06:59 Anisocytosis Few 11/06/18 06:59 Microcytosis Not Reportable 11/06/18 06:59 Macrocytosis Not Reportable 11/06/18 06:59 Spherocytes Not Reportable 11/06/18 06:59 Pappenheimer Bodies Not Reportable 11/06/18 06:59 Sickle Cells Not Reportable 11/06/18 06:59 Target Cells Rare 11/06/18 06:59 Tear Drop Cells Not Reportable 11/06/18 06:59 Ovalocytes Rare 11/06/18 06:59 Helmet Cells Not Reportable 11/06/18 06:59 Espinal-[place]ala[place] Bodies Not Reportable 11/06/18 06:59 [place] Rings Not Reportable 11/06/18 06:59 [place] Cells Not Reportable 11/06/18 06:59 Bite Cells Not Reportable 11/06/18 06:59 Crenated Cell Not Reportable 11/06/18 06:59 Elliptocytes Not Reportable 11/06/18 06:59 Acanthocytes (Spur) Not Reportable 11/06/18 06:59 Rouleaux Not Reportable 11/06/18 06:59 Hemoglobin C Crystals Not Reportable 11/06/18 06:59 Schistocytes Not Reportable 11/06/18 06:59 Malaria parasites Not Reportable 11/06/18 06:59 Evangelista Bodies Not Reportable 11/06/18 06:59 Hem Pathologist Commnt No 11/06/18 06:59 PT 13.2 Sec. (12.2-14.9) 11/05/18 07:09 INR 0.95 (0.87-1.13) 11/05/18 07:09 APTT 27.7 Sec. (24.2-36.6) 11/05/18 07:09 POC ABG pH 7.301 (7.35-7.45) L 11/09/18 04:56 POC ABG pCO2 46.3 (35-45) H 11/09/18 04:56 POC ABG pO2 63 (80-105) L 11/09/18 04:56 POC ABG HCO3 22.8 (22-26 mml/L) 11/09/18 04:56 POC ABG Total CO2 24 (23-27mmol/L) 11/09/18 04:56 POC ABG O2 Sat 89 11/09/18 04:56 POC ABG Base Excess -4 ((-2) - (+3)mmol/L) 11/09/18 04:56 FiO2 40 % 11/09/18 04:56 Sodium 148 mmol/L (137-145) H 11/08/18 03:19 Potassium 5.2 mmol/L (3.6-5.0) H 11/08/18 03:19 Chloride 102.0 mmol/L (98-107) 11/08/18 03:19 Carbon Dioxide 23 mmol/L (22-30) 11/08/18 03:19 Anion Gap 28 mmol/L 11/08/18 03:19 BUN 50 mg/dL (7-17) H 11/08/18 03:19 Creatinine 6.4 mg/dL (0.7-1.2) H 11/08/18 03:19 Estimated GFR 7 ml/min 11/08/18 03:19 BUN/Creatinine Ratio 8 % 11/08/18 03:19 Glucose 89 mg/dL (65-100) 11/08/18 03:19 POC Glucose 139 (70-105) H 11/06/18 14:16 Calcium 8.3 mg/dL (8.4-10.2) L 11/08/18 03:19 Total Bilirubin 0.50 mg/dL (0.1-1.2) 11/07/18 04:11 AST 42 units/L (5-40) H 11/07/18 04:11 ALT 24 units/L (7-56) 11/07/18 04:11 Alkaline Phosphatase 138 units/L (35-129) H 11/07/18 04:11 Total Creatine Kinase 104 units/L (30-135) 11/06/18 06:59 CK-MB (CK-2) 3.2 ng/mL (0.0-4.0) 11/06/18 06:59 CK-MB (CK-2) Rel Index 3.0 (0-4) 11/06/18 06:59 Troponin T 0.289 ng/mL (0.00-0.029) H* 11/06/18 06:59 NT-Pro-B Natriuret Pep > 65584 pg/mL (0-900) H 11/05/18 07:09 Total Protein 5.8 g/dL (6.3-8.2) L 11/07/18 04:11 Albumin 3.3 g/dL (3.9-5) L 11/07/18 04:11 Albumin/Globulin Ratio 1.3 % 11/07/18 04:11 Triglycerides 101 mg/dL (2-149) 11/05/18 07:09 Cholesterol 180 mg/dL (50-199) 11/05/18 07:09 LDL Cholesterol Direct 116 mg/dL (50-130) 11/05/18 07:09 HDL Cholesterol 61 mg/dL (40-59) H 11/05/18 07:09 Cholesterol/HDL Ratio 2.95 % 11/05/18 07:09 Active Medications - Current Medications Current Medications: Generic Name Dose Route Start Last Admin Trade Name Freq PRN Reason Stop Dose Admin Albuterol 2.5 mg 11/05/18 12:00 11/09/18 08:58 Proventil IH 2.5 mg QIDRT CECILIO Administration Albuterol 2.5 mg 11/05/18 12:00 Proventil IH Q4HRT PRN Shortness Of Breath Amlodipine Besylate 10 mg 11/05/18 11:00 11/09/18 09:40 Norvasc PO Not Given QDAY CECILIO Lipase/Protease/Amylase 1 each 11/05/18 11:[address] 10,500 Unit FEEDTUBE PRN PRN For Clogged Feeding Tube Calcitriol 0.5 mcg 11/05/18 11:00 11/08/18 14:23 Rocaltrol PO 0.5 mcg QDAY COUNTS INCLUDE 234 BEDS AT THE [facility] Administration Carvedilol 6.25 mg 11/05/18 11:00 11/08/18 10:15 Coreg PO Not Given BID COUNTS INCLUDE 234 BEDS AT THE [facility] Epoetin Kristopher 5,000 unit 11/09/18 08:00 Procrit IV CHARI CECILIO Fentanyl 50 mcg 11/06/18 10:00 11/08/18 18:10 Sublimaze IV 50 mcg Q10MIN PRN Administration ANALGESIA Hydrophilic Ointment 1 applic 11/06/18 10:00 Vaseline Lip Therapy TP Q2HR PRN Dry Lips Midazolam HCl 100 mg/ Sodium 100 mls @ 2 mls/hr 11/05/18 08:00 11/06/18 17:10 Chloride IV 0 mg/hr TITR CECILIO 0 mls/hr Titration Protocol 2 MG/HR Fentanyl Citrate 2,000 mcg in 100 mls @ 2.495 mls/hr 11/06/18 10:00 11/09/18 06:44 Fentanyl Drip Premix IV 3 mcg/kg/hr TITR CECILIO 7.484 mls/hr Administration Protocol 1 MCG/KG/HR Norepinephrine 4 mg in 250 mls @ 7.5 mls/hr 11/06/18 19:00 11/09/18 10:17 Levophed Drip 4 Mg/Ns 250 Ml IV 2 mcg/min TITR CECILIO 7.5 mls/hr Titration Protocol 2 MCG/MIN Sodium Chloride 100 mls @ 999 mls/hr 11/07/18 10:30 Nacl 0.9% IV CHARI PRN Hypotension Piperacillin Sod/Tazobactam 50 mls @ 100 mls/hr 11/07/18 22:00 11/08/18 02:17 Sod 0.75 gm/ Sodium Chloride IV Not Given MoWeFr@2200 COUNTS INCLUDE 234 BEDS AT THE [facility] Protocol Vancomycin HCl 750 mg/ Sodium 265 mls @ 166.667 mls/hr 11/09/18 22:00 Chloride IV MoWeFr COUNTS INCLUDE 234 BEDS AT THE [facility] Piperacillin Sod/Tazobactam Sod 2.25 gm in 50 mls @ 100 mls/hr 11/08/18 18:00 11/09/18 06:10 Zosyn/Ns 2.25 Gm/50ml IV 100 mls/hr Q8HR CECILIO Administration Metronidazole 500 mg in 100 mls @ 100 mls/hr 11/09/18 14:00 Flagyl 500 Mg/100 Ml IV Q8HR COUNTS INCLUDE 234 BEDS AT THE [facility] Protocol Levothyroxine Sodium 125 mcg 11/05/18 11:00 11/09/18 06:10 Synthroid PO 125 mcg DAILY@0600 COUNTS INCLUDE 234 BEDS AT THE [facility] Administration Losartan Potassium 50 mg 11/05/18 11:00 11/09/18 09:41 Cozaar PO Not Given QDAY CECILIO Midazolam HCl 2 mg 11/05/18 07:28 11/05/18 16:15 Versed IV 2 mg Q10MIN PRN Administration Sedation Multi-Ingred Cream/Lotion/Oil/Oint 1 applic 11/06/18 10:00 Artificial Tears Ophth Oint OU Q4HR PRN Dry Eye(s) Simple Syrup 15 ml 11/05/18 11:27 Simple Syrup FEEDTUBE PRN PRN Hypoglycemia Simple Syrup 30 ml 11/05/18 11:27 Simple Syrup FEEDTUBE PRN PRN Hypoglycemia Sodium Bicarbonate 325 mg 11/05/18 11:27 Sodium Bicarbonate FEEDTUBE PRN PRN For Clogged Feeding Tube Nutrition/Malnutrition Assess - Dietary Evaluation Nutrition/Malnutrition Findings: Nutrition Notes Start: 11/05/18 11:22 Freq: Status: Active Protocol: Document 11/08/18 15:34 OL (Rec: 11/08/18 15:35 OL [id number]) Nutrition Notes Initial or Follow up Brief Note Current Diet Nepro at 35mL/hr Subjective/Other Information Pt. with transfer orders to CCU. Pt. still in ED this afternoon. RD will continue to follow. Nutrition Intervention Follow-Up By: 11/09/18 Additional Comments f/u: TF status
[2018-11-09] MEDS ORDERED: D50W (25GM) Syringe IV PRN (11:03)
[2018-11-09 11:43] LABS: Basophils # (Auto) 0.1 K/mm3 (0.0-0.1); Basophils % (Auto) 0.5 % (0.0-1.8); Eosinophils # (Auto) 0.2 K/mm3 (0.0-0.4); Eosinophils % (Auto) 1.3 % (0.0-4.3); Hematocrit 31.6 % (30.3-42.9); Lymphocytes # (Auto) 0.8 K/mm3 (1.2-5.4); Lymphocytes % (Auto) 5.3 % (13.4-35.0); Mean Corpuscular HGB Conc 32 % (30-34); Mean Corpuscular Volume 95 fl (79-97); Monocytes # (Auto) 1.1 K/mm3 (0.0-0.8); Monocytes % (Auto) 7.3 % (0.0-7.3); Platelet Count 197 K/mm3 (140-440); Red Blood Count 3.33 M/mm3 (3.65-5.03); Red Cell Distribution Width 19.1 % (13.2-15.2)
[2018-11-09 12:00] LABS: Calcium 7.6 mg/dL (8.4-10.2)
--- NOTE | 2018-11-09 13:41 | Progress Note ---
Assessment and Plan -Acute hypercapnic-hypoxic respiratory failure -Right upper lobe atelectasis -Hyperkalemia -Pulmonary edema -BNP 3500 -Troponinemia, possible NSTEMI -ESRD on HD -Type 2 DM,poorly controlled -h/o Hypothyroidism Hypernatrmia -Continue full MVS -Lung protective strategies -Wean supplemental oxygen to keep O2 sats >90% -VAP bundle addressed -Daily SAT's & SBT's from today -daily ABG and CXR PRN -Sedation target for RASS 0 to -1, avoid benzodiazepines -Fentanyl, discontinue midazolam infusion -Stress ulcer prophylaxis -VTE prophylaxis -Continue tube feeding -Femoral CVC care -Aspiration precautions, HOB>40 -Accuchecks with glycemic control. Target glucose of 140-180 mg/dL -Continue bronchodilators with pulmonary hygiene per RT -Supportive HD/UF -Maintenance of sleep -wake cycle PROGNOSIS: GUARDED CONDITION: CRITICAL CODE STATUS: FULL CODE The high probability of a clinically significant, sudden or life-threatening deterioration of the [respiratory,renal, cardiovascular] system(s) required my full and direct attention, intervention and personal management. The aggregate critical care time was [35] minutes without overlap. Time includes spent on; [x] Data Review and interpretation [x] Patient assessment and monitoring of vital signs [x] Documentation [x] Medication orders and management Subjective Date of service: 11/09/18 Interval history: Patient is seen today for: acute hypoxic-hypercapnic respiratory failure, Pulmonary edema, ESRD on HD, Elevated troponin, Seen and examined at bedside; 24hour events reviewed; nursing and respiratory care staff consulted; no adverse overnight events reported to me; No fevers, remains on vasopressor support, No vomiting, no new overnight events. Remains critically ill, on full mechanical ventilatory support. Objective - Exam Narrative Exam: General appearance: no acute distress, other (sedated, thin chronically ill looking) Flaking, peeling skin Eyes: non-icteric ENT: oropharynx moist, other (ETT in place, 23cm at the lips, frothy pink tracheal secretions) Neck: supple, no lymphadenopathy Effort: normal Ascultation: Bilateral: diminished breath sounds, rales, rhonchi Cardiovascular: regular rate and rhythm, other (s1, s2, ) Gastrointestinal: normoactive bowel sounds, soft, non-tender, non-distended, other (no guarding, no hepato-splenomegaly) Extremities: no cyanosis, no edema, no ischemia or petechiae other (sedated) other (sedated) Vital Signs - 12hr 11/09/18 11/09/18 11/09/18 03:41 04:00 04:23 Temperature 97.4 F L Pulse Rate 103 H Pulse Rate [ Anterior Bilateral Throughout] Pulse Rate [ 96 H From Monitor] Respiratory Rate [Anterior Bilateral Throughout] Blood Pressure O2 Sat by Pulse 98 98 Oximetry 11/09/18 11/09/18 11/09/18 05:09 08:00 08:58 Temperature Pulse Rate Pulse Rate [ 85 Anterior Bilateral Throughout] Pulse Rate [ 96 H From Monitor] Respiratory 21 Rate [Anterior Bilateral Throughout] Blood Pressure O2 Sat by Pulse 96 98 Oximetry 11/09/18 11/09/18 11/09/18 09:02 09:15 10:00 Temperature Pulse Rate 95 H 103 H Pulse Rate [ 90 Anterior Bilateral Throughout] Pulse Rate [ From Monitor] Respiratory 20 Rate [Anterior Bilateral Throughout] Blood Pressure 113/63 O2 Sat by Pulse 96 Oximetry 11/09/18 12:00 Temperature 97.8 F Pulse Rate Pulse Rate [ Anterior Bilateral Throughout] Pulse Rate [ 96 H From Monitor] Respiratory Rate [Anterior Bilateral Throughout] Blood Pressure O2 Sat by Pulse 98 Oximetry Constitutional: no acute distress, other (sedated, thin chronically ill looking) Eyes: non-icteric ENT: oropharynx moist, other (ETT in place, 23cm at the lip) Neck: supple, no lymphadenopathy Effort: normal Ascultation: Bilateral: diminished breath sounds, rales, rhonchi Cardiovascular: regular rate and rhythm, other (s1, s2, ) Gastrointestinal: normoactive bowel sounds, soft, non-tender, non-distended, other (no guarding, no hepato-splenomegaly) Extremities: no cyanosis, no edema, no ischemia or petechiae Neurologic: other (sedated) Psychiatric: other (sedated) CBC and BMP: 11/16/18 07:56 11/16/18 07:56 ABG, PT/INR, D-dimer: ABG POC ABG pH 7.301 (7.35-7.45) L 11/09/18 04:56 POC ABG pCO2 46.3 (35-45) H 11/09/18 04:56 POC ABG pO2 63 (80-105) L 11/09/18 04:56 POC ABG HCO3 22.8 (22-26 mml/L) 11/09/18 04:56 POC ABG Total CO2 24 (23-27mmol/L) 11/09/18 04:56 POC ABG O2 Sat 89 11/09/18 04:56 PT/INR, D-dimer PT 13.2 Sec. (12.2-14.9) 11/05/18 07:09 INR 0.95 (0.87-1.13) 11/05/18 07:09 Abnormal lab findings: Abnormal Labs 11/05/18 11/05/18 11/05/18 07:09 07:09 07:09 WBC 14.7 H RBC 3.42 L Hgb MCV 99 H RDW 20.1 H Lymph % (Auto) [place] % (Auto) 9.3 H Lymph # [place] # 1.4 H Eos # 0.5 H Baso # 0.2 H Seg Neutrophils % 70.1 H Seg Neuts % (Manual) Lymphocytes % (Manual) Monocytes % (Manual) Seg Neutrophils # 10.3 H Seg Neutrophils # Man Lymphocytes # (Manual) Monocytes # (Manual) POC ABG pH POC ABG pCO2 POC ABG pO2 Sodium Potassium 6.8 H* Chloride Carbon Dioxide BUN 74 H Creatinine 6.9 H Glucose 226 H POC Glucose 206 H Calcium AST 80 H Alkaline Phosphatase 236 H CK-MB (CK-2) CK-MB (CK-2) Rel Index 8.2 H Troponin T 0.224 H* NT-Pro-B Natriuret Pep > 38560 H Total Protein Albumin HDL Cholesterol 61 H 11/05/18 11/05/18 11/06/18 08:03 19:45 03:29 WBC RBC Hgb MCV RDW Lymph % (Auto) [place] % (Auto) Lymph # [place] # Eos # Baso # Seg Neutrophils % Seg Neuts % (Manual) Lymphocytes % (Manual) Monocytes % (Manual) Seg Neutrophils # Seg Neutrophils # Man Lymphocytes # (Manual) Monocytes # (Manual) POC ABG pH 7.612 H POC ABG pCO2 51.2 H 31.3 L POC ABG pO2 167 H 117 H Sodium Potassium Chloride Carbon Dioxide BUN Creatinine Glucose POC Glucose Calcium AST Alkaline Phosphatase CK-MB (CK-2) 5.6 H CK-MB (CK-2) Rel Index 5.2 H Troponin T 0.321 H* D NT-Pro-B Natriuret Pep Total Protein Albumin HDL Cholesterol 11/06/18 11/06/18 11/06/18 06:59 06:59 14:16 WBC RBC Hgb MCV RDW 19.2 H Lymph % (Auto) [place] % (Auto) Lymph # [place] # Eos # Baso # Seg Neutrophils % Seg Neuts % (Manual) 82.0 H Lymphocytes % (Manual) 5.0 L Monocytes % (Manual) 13.0 H Seg Neutrophils # Seg Neutrophils # Man 8.5 H Lymphocytes # (Manual) 0.5 L Monocytes # (Manual) 1.4 H POC ABG pH POC ABG pCO2 POC ABG pO2 Sodium Potassium 5.2 H D Chloride Carbon Dioxide BUN 33 H Creatinine 4.4 H Glucose POC Glucose 139 H Calcium AST 52 H Alkaline Phosphatase 170 H CK-MB (CK-2) CK-MB (CK-2) Rel Index Troponin T 0.289 H* NT-Pro-B Natriuret Pep Total Protein Albumin 3.7 L HDL Cholesterol 11/07/18 11/07/18 11/07/18 04:11 04:11 05:39 WBC RBC 3.31 L Hgb MCV RDW 18.9 H Lymph % (Auto) 8.9 L [place] % (Auto) 14.6 H Lymph # 0.9 L [place] # 1.5 H Eos # Baso # Seg Neutrophils % 74.7 H Seg Neuts % (Manual) Lymphocytes % (Manual) Monocytes % (Manual) Seg Neutrophils # 7.9 H Seg Neutrophils # Man Lymphocytes # (Manual) Monocytes # (Manual) POC ABG pH 7.550 H POC ABG pCO2 32.6 L POC ABG pO2 63 L Sodium 146 H Potassium Chloride Carbon Dioxide BUN 36 H Creatinine 4.7 H Glucose 109 H POC Glucose Calcium AST 42 H Alkaline Phosphatase 138 H CK-MB (CK-2) CK-MB (CK-2) Rel Index Troponin T NT-Pro-B Natriuret Pep Total Protein 5.8 L Albumin 3.3 L HDL Cholesterol 11/08/18 11/08/18 11/09/18 03:19 04:38 04:56 WBC RBC Hgb MCV RDW Lymph % (Auto) [place] % (Auto) Lymph # [place] # Eos # Baso # Seg Neutrophils % Seg Neuts % (Manual) Lymphocytes % (Manual) Monocytes % (Manual) Seg Neutrophils # Seg Neutrophils # Man Lymphocytes # (Manual) Monocytes # (Manual) POC ABG pH 7.468 H 7.301 L POC ABG pCO2 34.3 L 46.3 H POC ABG pO2 132 H 63 L Sodium 148 H Potassium 5.2 H Chloride Carbon Dioxide BUN 50 H Creatinine 6.4 H Glucose POC Glucose Calcium 8.3 L AST Alkaline Phosphatase CK-MB (CK-2) CK-MB (CK-2) Rel Index Troponin T NT-Pro-B Natriuret Pep Total Protein Albumin HDL Cholesterol 11/09/18 11/09/18 11/09/18 11:26 11:26 12:54 WBC 15.0 H RBC 3.33 L Hgb 10.0 L MCV RDW 19.1 H Lymph % (Auto) 5.3 L [place] % (Auto) Lymph # 0.8 L [place] # 1.1 H Eos # Baso # Seg Neutrophils % 85.6 H Seg Neuts % (Manual) Lymphocytes % (Manual) Monocytes % (Manual) Seg Neutrophils # 12.8 H Seg Neutrophils # Man Lymphocytes # (Manual) Monocytes # (Manual) POC ABG pH POC ABG pCO2 POC ABG pO2 Sodium 150 H Potassium 5.3 H Chloride 108.4 H Carbon Dioxide 20 L BUN 79 H Creatinine 7.6 H Glucose 111 H POC Glucose 115 H Calcium 7.6 L AST Alkaline Phosphatase CK-MB (CK-2) CK-MB (CK-2) Rel Index Troponin T NT-Pro-B Natriuret Pep Total Protein Albumin HDL Cholesterol Chest x-ray: image reviewed (Resolved atelectasis, right lower lobe infiltrates, ETT in good position) Allied health notes reviewed: RT
[2018-11-09] MEDS: FLAGYL 500 MG/100 ML 500 MG/100 ML BAG IV SCH ×2 (14:45→23:14)
[2018-11-09] MEDS: HumuLIN R SUB-Q SCH (20:00)
[2018-11-09] MEDS ORDERED: VANCOMYCIN 750 MG in NACL 0.9% 250ML 250 ML IV SCH (22:00)
[2018-11-09] MEDS: LEVOPHED DRIP 4 MG/NS 250 ML 4 MG/250 ML BAG IV SCH (23:13)
[2018-11-09] MEDS: ZOSYN IV SCH (23:33)
[2018-11-09] MEDS: NACL 0.9% IV SCH (23:33)
[2018-11-10 05:01] LABS: Basophils # (Auto) 0.1 K/mm3 (0.0-0.1); Basophils % (Auto) 0.4 % (0.0-1.8); Eosinophils # (Auto) 0.4 K/mm3 (0.0-0.4); Eosinophils % (Auto) 2.5 % (0.0-4.3); Hematocrit 29.8 % (30.3-42.9); Hemoglobin 9.5 gm/dl (10.1-14.3); Lymphocytes # (Auto) 0.5 K/mm3 (1.2-5.4); Lymphocytes % (Auto) 3.9 % (13.4-35.0); Mean Corpuscular HGB Conc 32 % (30-34); Mean Corpuscular Volume 96 fl (79-97); Monocytes # (Auto) 1.4 K/mm3 (0.0-0.8); Monocytes % (Auto) 9.9 % (0.0-7.3); Platelet Count 238 K/mm3 (140-440); Red Blood Count 3.13 M/mm3 (3.65-5.03); Red Cell Distribution Width 19.2 % (13.2-15.2)
[2018-11-10] MEDS: ZOSYN/NS 2.25 GM/50ML 2.25 GM/50 ML BAG IV SCH ×5 (07:36→21:58)
[2018-11-10] MEDS: SYNTHROID PO SCH (07:37)
[2018-11-10] MEDS: FLAGYL 500 MG/100 ML 500 MG/100 ML BAG IV SCH ×3 (07:37→21:49)
--- NOTE | 2018-11-10 07:53 | XRay Report ---
PROCEDURE: XR CHEST 1V AP TECHNIQUE: A portable upright view the chest was obtained. HISTORY: follow up respiratory failure COMPARISONS: 11/09/2018 FINDINGS: The lungs are well expanded. There are currently no acute infiltrates. There is no pleural effusion o r pneumothorax. The heart size is normal. Endotracheal tube is in the mid trachea. NG tube is in the stomach. Bony and soft tissue structures are normal. IMPRESSION: The lungs are well expanded. There are currently no acute infiltrates. There is no pleural effusion o r pneumothorax. The heart size is normal. Endotracheal tube is in the mid trachea. NG tube is in the stomach. This document is electronically signed by Joe Osborne MD., November 10 2018 07:51:56 AM ET
[2018-11-10] MEDS: PROVENTIL IH SCH ×4 (08:24→19:45)
[2018-11-10] MEDS: ROCALTROL PO SCH (10:14)
--- NOTE | 2018-11-10 10:19 | Progress Note ---
Assessment and Plan Assessment and plan: --Acute hypoxic respiratory failure; intubated on vent Secondary to fluid overload , pneumonia ,nebulizers, antibiotics Pulmonary critical following Wean as tolerated and extubate --Right lower lobe pneumonia/aspiration pneumonia Follow-up chest x-ray today; pneumonia /infiltrates resolved Continue vancomycin and Zosyn, add Flagyl F/u cultures, consider ID evaluation if needed --Sepsis secondary to pneumonia, --Septic shock; continue Levophed Titrate systolic blood pressure to 100 --Nonspecific elevation of troponin; probably secondary to End-stage renal disease, medical management --Severe hyperkalemia; resolved --End-stage renal disease; hemodialysis per schedule Nephrology following --History of Hypertension; patient is hypotensive and in shock Hold all the blood pressure medications --Hyperglycemia/type 2 diabetes mellitus. Accu-Chek sliding scale coverage and ADA diet Insulin As Needed, hemoglobin A1c --History of hypothyroidism; resume Synthroid --DVT prophylaxis; heparin renal dose --Tube feeds per protocol --Full CODE STATUS Patient is critically ill, with very poor prognosis Family aware, Patient's condition. Poor prognosis and treatment plan discussed in detail With the daughter Percy Louise , and another daughter, they had many questions, I answered all of them I also discussed the CODE STATUS, they reported that they would discuss with the family and inform. Patient is full code . Critical care time 32 minutes History Interval history: Patient seen and examined medical records reviewed Remains intubated on ventilator support Patient looks chronically ill and cachectic On Levophed, remains hypotensive Mild distress Vital signs noted Hospitalist Physical - Constitutional Vitals: Temp Pulse Resp BP Pulse Ox 97.3 F L 93 H 20 129/51 100 11/10/18 08:00 11/10/18 09:06 11/10/18 09:06 11/10/18 08:14 11/10/18 08:14 General appearance: Present: no acute distress, cachectic, disheveled, other (intubated on ventilatory support) - EENT Eyes: Present: PERRL ENT: other (ET tube and Dobbhoff in place) - Neck Neck: Present: supple, normal ROM - Respiratory Respiratory effort: normal Respiratory: bilateral: diminished, negative: rales, rhonchi, wheezing - Cardiovascular Rhythm: regular Heart Sounds: Present: S1 & S2 - Extremities Extremities: no ischemia, pulses intact - Abdominal General gastrointestinal: soft, non-tender, non-distended, normal bowel sounds - Integumentary Integumentary: Present: clear, warm - Psychiatric Psychiatric: other (intubated on vent) - Neurologic Neurologic: other (intubated on vent) Results - Labs CBC & Chem 7: 11/10/18 04:37 11/10/18 04:37 Labs: Laboratory Last Values WBC 14.2 K/mm3 (4.5-11.0) H 11/10/18 04:37 RBC 3.13 M/mm3 (3.65-5.03) L 11/10/18 04:37 Hgb 9.5 gm/dl (10.1-14.3) L 11/10/18 04:37 Hct 29.8 % (30.3-42.9) L 11/10/18 04:37 MCV 96 fl (79-97) 11/10/18 04:37 MCH 31 pg (28-32) 11/10/18 04:37 MCHC 32 % (30-34) 11/10/18 04:37 RDW 19.2 % (13.2-15.2) H 11/10/18 04:37 Plt Count 238 K/mm3 (140-440) 11/10/18 04:37 Lymph % (Auto) 3.9 % (13.4-35.0) L 11/10/18 04:37 [place] % (Auto) 9.9 % (0.0-7.3) H 11/10/18 04:37 Eos % (Auto) 2.5 % (0.0-4.3) 11/10/18 04:37 Baso % (Auto) 0.4 % (0.0-1.8) 11/10/18 04:37 Lymph # 0.5 K/mm3 (1.2-5.4) L 11/10/18 04:37 [place] # 1.4 K/mm3 (0.0-0.8) H 11/10/18 04:37 Eos # 0.4 K/mm3 (0.0-0.4) 11/10/18 04:37 Baso # 0.1 K/mm3 (0.0-0.1) 11/10/18 04:37 Add Manual Diff Complete 11/06/18 06:59 Total Counted 100 11/06/18 06:59 Seg Neutrophils % 83.3 % (40.0-70.0) H 11/10/18 04:37 Seg Neuts % (Manual) 82.0 % (40.0-70.0) H 11/06/18 06:59 Band Neutrophils % 0 % 11/06/18 06:59 Lymphocytes % (Manual) 5.0 % (13.4-35.0) L 11/06/18 06:59 Reactive Lymphs % (Man) 0 % 11/06/18 06:59 Monocytes % (Manual) 13.0 % (0.0-7.3) H 11/06/18 06:59 Eosinophils % (Manual) 0 % (0.0-4.3) 11/06/18 06:59 Basophils % (Manual) 0 % (0.0-1.8) 11/06/18 06:59 Metamyelocytes % 0 % 11/06/18 06:59 Myelocytes % 0 % 11/06/18 06:59 Promyelocytes % 0 % 11/06/18 06:59 Blast Cells % 0 % 11/06/18 06:59 Nucleated RBC % Not Reportable 11/06/18 06:59 Seg Neutrophils # 11.8 K/mm3 (1.8-7.7) H 11/10/18 04:37 Seg Neutrophils # Man 8.5 K/mm3 (1.8-7.7) H 11/06/18 06:59 Band Neutrophils # 0.0 K/mm3 11/06/18 06:59 Lymphocytes # (Manual) 0.5 K/mm3 (1.2-5.4) L 11/06/18 06:59 Abs React Lymphs (Man) 0.0 K/mm3 11/06/18 06:59 Monocytes # (Manual) 1.4 K/mm3 (0.0-0.8) H 11/06/18 06:59 Eosinophils # (Manual) 0.0 K/mm3 (0.0-0.4) 11/06/18 06:59 Basophils # (Manual) 0.0 K/mm3 (0.0-0.1) 11/06/18 06:59 Metamyelocytes # 0.0 K/mm3 11/06/18 06:59 Myelocytes # 0.0 K/mm3 11/06/18 06:59 Promyelocytes # 0.0 K/mm3 11/06/18 06:59 Blast Cells # 0.0 K/mm3 11/06/18 06:59 WBC Morphology Not Reportable 11/06/18 06:59 Hypersegmented Neuts Not Reportable 11/06/18 06:59 Hyposegmented Neuts Not Reportable 11/06/18 06:59 Hypogranular Neuts Not Reportable 11/06/18 06:59 Smudge Cells Not Reportable 11/06/18 06:59 Toxic Granulation Not Reportable 11/06/18 06:59 Toxic Vacuolation Not Reportable 11/06/18 06:59 Dohle Bodies Not Reportable 11/06/18 06:59 Pelger-Huet Anomaly Not Reportable 11/06/18 06:59 Omar Rods Not Reportable 11/06/18 06:59 Platelet Estimate Consistent w auto 11/06/18 06:59 Clumped Platelets Not Reportable 11/06/18 06:59 Plt Clumps, EDTA Not Reportable 11/06/18 06:59 Large Platelets Not Reportable 11/06/18 06:59 Giant Platelets Not Reportable 11/06/18 06:59 Platelet Satelliting Not Reportable 11/06/18 06:59 Plt Morphology Comment Not Reportable 11/06/18 06:59 RBC Morphology Not Reportable 11/06/18 06:59 Dimorphic RBCs Not Reportable 11/06/18 06:59 Polychromasia Not Reportable 11/06/18 06:59 Hypochromasia Not Reportable 11/06/18 06:59 Poikilocytosis Few 11/06/18 06:59 Anisocytosis Few 11/06/18 06:59 Microcytosis Not Reportable 11/06/18 06:59 Macrocytosis Not Reportable 11/06/18 06:59 Spherocytes Not Reportable 11/06/18 06:59 Pappenheimer Bodies Not Reportable 11/06/18 06:59 Sickle Cells Not Reportable 11/06/18 06:59 Target Cells Rare 11/06/18 06:59 Tear Drop Cells Not Reportable 11/06/18 06:59 Ovalocytes Rare 11/06/18 06:59 Helmet Cells Not Reportable 11/06/18 06:59 [place] Bodies Not Reportable 11/06/18 06:59 [place] Rings Not Reportable 11/06/18 06:59 [place] Cells Not Reportable 11/06/18 06:59 Bite Cells Not Reportable 11/06/18 06:59 Crenated Cell Not Reportable 11/06/18 06:59 Elliptocytes Not Reportable 11/06/18 06:59 Acanthocytes (Spur) Not Reportable 11/06/18 06:59 Rouleaux Not Reportable 11/06/18 06:59 Hemoglobin C Crystals Not Reportable 11/06/18 06:59 Schistocytes Not Reportable 11/06/18 06:59 Malaria parasites Not Reportable 11/06/18 06:59 Evangelista Bodies Not Reportable 11/06/18 06:59 Hem Pathologist Commnt No 11/06/18 06:59 PT 13.2 Sec. (12.2-14.9) 11/05/18 07:09 INR 0.95 (0.87-1.13) 11/05/18 07:09 APTT 27.7 Sec. (24.2-36.6) 11/05/18 07:09 POC ABG pH 7.475 (7.35-7.45) H 11/10/18 05:51 POC ABG pCO2 35.1 (35-45) 11/10/18 05:51 POC ABG pO2 67 (80-105) L 11/10/18 05:51 POC ABG HCO3 25.8 (22-26 mml/L) 11/10/18 05:51 POC ABG Total CO2 27 (23-27mmol/L) 11/10/18 05:51 POC ABG O2 Sat 94 11/10/18 05:51 POC ABG Base Excess 2 ((-2) - (+3)mmol/L) 11/10/18 05:51 FiO2 45 % 11/10/18 05:51 Sodium 150 mmol/L (137-145) H 11/10/18 04:37 Potassium 5.0 mmol/L (3.6-5.0) 11/10/18 04:37 Chloride 106.0 mmol/L (98-107) 11/10/18 04:37 Carbon Dioxide 23 mmol/L (22-30) 11/10/18 04:37 Anion Gap 26 mmol/L 11/10/18 04:37 BUN 65 mg/dL (7-17) H 11/10/18 04:37 Creatinine 6.8 mg/dL (0.7-1.2) H 11/10/18 04:37 Estimated GFR 7 ml/min 11/10/18 04:37 BUN/Creatinine Ratio 10 % 11/10/18 04:37 Glucose 111 mg/dL (65-100) H 11/10/18 04:37 POC Glucose 110 (70-105) H 11/10/18 04:24 Calcium 8.0 mg/dL (8.4-10.2) L 11/10/18 04:37 Total Bilirubin 0.50 mg/dL (0.1-1.2) 11/07/18 04:11 AST 42 units/L (5-40) H 11/07/18 04:11 ALT 24 units/L (7-56) 11/07/18 04:11 Alkaline Phosphatase 138 units/L (35-129) H 11/07/18 04:11 Total Creatine Kinase 104 units/L (30-135) 11/06/18 06:59 CK-MB (CK-2) 3.2 ng/mL (0.0-4.0) 11/06/18 06:59 CK-MB (CK-2) Rel Index 3.0 (0-4) 11/06/18 06:59 Troponin T 0.289 ng/mL (0.00-0.029) H* 11/06/18 06:59 NT-Pro-B Natriuret Pep > 03503 pg/mL (0-900) H 11/05/18 07:09 Total Protein 5.8 g/dL (6.3-8.2) L 11/07/18 04:11 Albumin 3.3 g/dL (3.9-5) L 11/07/18 04:11 Albumin/Globulin Ratio 1.3 % 11/07/18 04:11 Triglycerides 101 mg/dL (2-149) 11/05/18 07:09 Cholesterol 180 mg/dL (50-199) 11/05/18 07:09 LDL Cholesterol Direct 116 mg/dL (50-130) 11/05/18 07:09 HDL Cholesterol 61 mg/dL (40-59) H 11/05/18 07:09 Cholesterol/HDL Ratio 2.95 % 11/05/18 07:09 Vancomycin Trough 13.1 ug/mL (5.0-20.0) 11/09/18 11:26 Active Medications - Current Medications Current Medications: Generic Name Dose Route Start Last Admin Trade Name Freq PRN Reason Stop Dose Admin Albuterol 2.5 mg 11/05/18 12:00 11/10/18 08:24 Proventil IH 2.5 mg QIDRT CECILIO Administration Albuterol 2.5 mg 11/05/18 12:00 Proventil IH Q4HRT PRN Shortness Of Breath Amlodipine Besylate 10 mg 11/05/18 11:00 11/09/18 09:40 Norvasc PO Not Given QDAY CECILIO Lipase/Protease/Amylase 1 each 11/05/18 11:[address] 10,500 Unit FEEDTUBE PRN PRN For Clogged Feeding Tube Calcitriol 0.5 mcg 11/05/18 11:00 11/09/18 10:25 Rocaltrol PO 0.5 mcg QDAY CECILIO Administration Carvedilol 6.25 mg 11/05/18 11:00 11/09/18 23:30 Coreg PO 6.25 mg BID CECILIO Administration Dextrose 50 ml 11/09/18 11:03 D50w (25gm) Syringe IV PRN PRN Hypoglycemia Epoetin Kristopher 5,000 unit 11/09/18 08:00 Procrit IV CHARI CECILIO Fentanyl 50 mcg 11/06/18 10:00 11/08/18 18:10 Sublimaze IV 50 mcg Q10MIN PRN Administration ANALGESIA Hydrophilic Ointment 1 applic 11/06/18 10:00 Vaseline Lip Therapy TP Q2HR PRN Dry Lips Midazolam HCl 100 mg/ Sodium 100 mls @ 2 mls/hr 11/05/18 08:00 11/06/18 17:10 Chloride IV 0 mg/hr TITR CECILIO 0 mls/hr Titration Protocol 2 MG/HR Fentanyl Citrate 2,000 mcg in 100 mls @ 2.495 mls/hr 11/06/18 10:00 11/09/18 23:12 Fentanyl Drip Premix IV 3 mcg/kg/hr TITR CECILIO 7.484 mls/hr Administration Protocol 1 MCG/KG/HR Norepinephrine 4 mg in 250 mls @ 7.5 mls/hr 11/06/18 19:00 11/09/18 23:13 Levophed Drip 4 Mg/Ns 250 Ml IV 4 mcg/min TITR CECILIO 15 mls/hr Administration Protocol 2 MCG/MIN Sodium Chloride 100 mls @ 999 mls/hr 11/07/18 10:30 Nacl 0.9% IV CHARI PRN Hypotension Piperacillin Sod/Tazobactam 50 mls @ 100 mls/hr 11/07/18 22:00 11/09/18 23:33 Sod 0.75 gm/ Sodium Chloride IV Not Given [id number]@[id number] [facility] Protocol Vancomycin HCl 750 mg/ Sodium 265 mls @ 166.667 mls/hr 11/09/18 22:00 Chloride IV MoWeFr CECILIO Piperacillin Sod/Tazobactam Sod 2.25 gm in 50 mls @ 100 mls/hr 11/08/18 18:00 11/10/18 07:36 Zosyn/Ns 2.25 Gm/50ml IV 100 mls/hr Q8HR CECILIO Administration Metronidazole 500 mg in 100 mls @ 100 mls/hr 11/09/18 14:00 11/10/18 07:37 Flagyl 500 Mg/100 Ml IV 100 mls/hr Q8HR [facility] Administration Protocol Insulin Human Regular 0 units 11/09/18 22:00 11/09/18 20:00 Humulin R SUB-Q Not Given QHS [facility] Protocol Levothyroxine Sodium 125 mcg 11/05/18 11:00 11/10/18 07:37 Synthroid PO 125 mcg DAILY@0600 [facility] Administration Losartan Potassium 50 mg 11/05/18 11:00 11/09/18 09:41 Cozaar PO Not Given QDAY [facility] Midazolam HCl 2 mg 11/05/18 07:28 11/05/18 16:15 Versed IV 2 mg Q10MIN PRN Administration Sedation Multi-Ingred Cream/Lotion/Oil/Oint 1 applic 11/06/18 10:00 Artificial Tears Ophth Oint OU Q4HR PRN Dry Eye(s) Simple Syrup 15 ml 11/05/18 11:27 Simple Syrup FEEDTUBE PRN PRN Hypoglycemia Simple Syrup 30 ml 11/05/18 11:27 Simple Syrup FEEDTUBE PRN PRN Hypoglycemia Sodium Bicarbonate 325 mg 11/05/18 11:27 Sodium Bicarbonate FEEDTUBE PRN PRN For Clogged Feeding Tube Nutrition/Malnutrition Assess - Dietary Evaluation Nutrition/Malnutrition Findings: Nutrition Notes Start: 11/05/18 11:22 Freq: Status: Active Protocol: Document 11/09/18 11:05 BOBBI (Rec: 11/09/18 11:12 [id number] [email or web address]) Nutrition Notes Initial or Follow up Reassessment Current Diagnosis CKD (stage V CKD),Diabetes, Hypertension,Respiratory Failure Current Diet TF - Nepro at 35ml/hr Labs/Tests Na 148 K 5.2 BUN 50 Cr 6.4 Pertinent Medications Reviewed Height 5 ft 5 in Weight 49.895 kg [place] Body Weight (kg) 56.81 BMI 18.3 Subjective/Other Information Pt remains on vent support. Observed TF infusing at 25ml/ hr. Percent of energy/protein needs met: 95% energy 82% pro #1 Nutrition Diagnosis Inadequate oral intake Diagnosis Progress(for reassessment Continues documentation) Is patient on ventilator? Yes Is Patient Ambulatory and/or Out of Bed No REE-([facility]-confined to bed) 1141.356 Kcal/Kg value to use for calculation 30 Approximate Energy Requirements Using 1497 kcal/Kg Calculation Used for Recommendations Kcal/kg Additional Notes Pro needs 1.2-2g/k-100g/ day Fluid needs 1-1.5L/day Nutrition Intervention Nutrition Support: Continue TF to goal rate: Nepro at 35ml/hr Kcal 1,512 Protein (gm) 68 Fluid (mL) 611 Goal #1 TF tolerance Goal #2 TF to meet 100% energy and pro needs Goal #3 Wt maintenance and/or gain Follow-Up By: 11/10/18 Additional Comments F/U: TF goal rate
[2018-11-10] MEDS: COREG PO SCH ×2 (10:50→21:23)
[2018-11-10] MEDS: NORVASC PO SCH (10:58)
[2018-11-10] MEDS: COZAAR PO SCH (10:58)
[2018-11-10] MEDS: fentaNYL DRIP Premix 2,000 MCG/100 ML BAG IV SCH (13:33)
--- NOTE | 2018-11-10 14:17 | Progress Note ---
Assessment and Plan - Patient Problems (1) ESRD (end stage renal disease) on dialysis Current Visit: No Status: Chronic Plan to address problem: The patient has not been tolerating dialysis since hospitalization. Treatments have been abbreviated due to hypotension limiting fluid removal. Patient still on Levophed today. FiO2 requirement is not high but potassium is high normal. Had a long discussion with patient's family regarding benefits and risks of dialysis. I'm concerned that her risk is becoming almost prohibitive given the hemodynamic instability. Discussed what patient would've wanted if she could speak now regarding continuing dialysis with her increase in risk. We also discussed the need to consider switching to DO NOT RESUSCITATE status since patient had indicated not too long ago to her daughters that she was tired and states got to a point where her heart stopped she would like to be left alone. Patient's daughter as we'll discuss further and let us to know their decision regarding resuscitation and tomorrow regarding continuing dialysis (2) Acute and chronic respiratory failure with hypoxia Current Visit: Yes Status: Acute Plan to address problem: Continue ventilator management by primary attending/breastfeeding program coordinator. FiO2 35% (3) Hyperkalemia Current Visit: Yes Status: Acute Plan to address problem: Potassium is high normal. Follow up in the morning (4) Hypertensive chronic kidney disease with stage 5 chronic kidney disease or end stage renal disease Current Visit: No Status: Acute Plan to address problem: Patient is now hypotensive on Levophed. Wean vasopressors as tolerated (5) Anemia, chronic disease Current Visit: No Status: Chronic Plan to address problem: Continue Erythropoetin on dialysis Subjective Date of service: 11/10/18 Principal diagnosis: end-stage renal disease, hypotension Interval history: Patient seen lying in bed. Intubated and on ventilator. On Levophed at 4 mcg per minute. Family at bedside including 2 daughters. Objective - Exam Narrative Exam: Frail elderly, comfortable lying in bed intubated on ventilator HEENT: NCAT, endotracheal tube intact Neck: Supple, no venous distention CVS: S1S2 RRR with no murmur, rub or gallop Chest: Clear to auscultation though breath sounds diminished in the lower zones Abdomen: Protuberant, soft, nontender, no organomegaly, bowel sounds are present Extremities: Mild edema Genitourinary: deferred Neuro: Unresponsive on the ventilator - Vital Signs Vital signs: Vital Signs - 12hr 11/10/18 11/10/18 11/10/18 02:15 02:30 02:45 Temperature Pulse Rate 103 H 105 H 102 H Pulse Rate [ Anterior Bilateral Throughout] Pulse Rate [ From Monitor] Respiratory 20 20 20 Rate Respiratory Rate [Anterior Bilateral Throughout] Blood Pressure 118/45 110/46 117/47 O2 Sat by Pulse 99 88 89 Oximetry 11/10/18 11/10/18 11/10/18 03:00 03:15 03:30 Temperature Pulse Rate 104 H 104 H 104 H Pulse Rate [ Anterior Bilateral Throughout] Pulse Rate [ From Monitor] Respiratory 16 20 20 Rate Respiratory Rate [Anterior Bilateral Throughout] Blood Pressure 114/46 135/63 96/43 O2 Sat by Pulse 91 96 92 Oximetry 11/10/18 11/10/18 11/10/18 03:45 04:00 04:15 Temperature 99.3 F Pulse Rate 107 H 94 H 93 H Pulse Rate [ Anterior Bilateral Throughout] Pulse Rate [ From Monitor] Respiratory 20 20 20 Rate Respiratory Rate [Anterior Bilateral Throughout] Blood Pressure 116/50 83/43 86/46 O2 Sat by Pulse Oximetry 11/10/18 11/10/18 11/10/18 04:30 04:41 04:45 Temperature Pulse Rate 93 H 94 H Pulse Rate [ Anterior Bilateral Throughout] Pulse Rate [ 96 H From Monitor] Respiratory 20 20 Rate Respiratory Rate [Anterior Bilateral Throughout] Blood Pressure 93/54 108/51 O2 Sat by Pulse 99 Oximetry 11/10/18 11/10/18 11/10/18 05:00 05:16 05:30 Temperature Pulse Rate 101 H 107 H Pulse Rate [ Anterior Bilateral Throughout] Pulse Rate [ From Monitor] Respiratory 20 20 Rate Respiratory Rate [Anterior Bilateral Throughout] Blood Pressure 106/51 143/71 98/77 O2 Sat by Pulse 99 Oximetry 11/10/18 11/10/18 11/10/18 05:46 05:50 06:00 Temperature Pulse Rate 110 H 110 H 96 H Pulse Rate [ Anterior Bilateral Throughout] Pulse Rate [ From Monitor] Respiratory 19 20 Rate Respiratory Rate [Anterior Bilateral Throughout] Blood Pressure 136/70 136/70 114/61 O2 Sat by Pulse 100 94 98 Oximetry 11/10/18 11/10/18 11/10/18 06:15 06:30 06:45 Temperature Pulse Rate 93 H 90 90 Pulse Rate [ Anterior Bilateral Throughout] Pulse Rate [ From Monitor] Respiratory 19 20 20 Rate Respiratory Rate [Anterior Bilateral Throughout] Blood Pressure 112/53 100/47 106/53 O2 Sat by Pulse 100 99 99 Oximetry 11/10/18 11/10/18 11/10/18 07:00 07:15 07:30 Temperature Pulse Rate 90 92 H 90 Pulse Rate [ Anterior Bilateral Throughout] Pulse Rate [ From Monitor] Respiratory 20 20 20 Rate Respiratory Rate [Anterior Bilateral Throughout] Blood Pressure 110/53 126/57 113/55 O2 Sat by Pulse 99 99 98 Oximetry 11/10/18 11/10/18 11/10/18 07:45 08:00 08:14 Temperature 97.3 F L Pulse Rate 94 H 99 H 93 H Pulse Rate [ Anterior Bilateral Throughout] Pulse Rate [ From Monitor] Respiratory 18 13 Rate Respiratory Rate [Anterior Bilateral Throughout] Blood Pressure 139/49 152/63 129/51 O2 Sat by Pulse 100 Oximetry 11/10/18 11/10/18 11/10/18 08:15 08:24 08:30 Temperature Pulse Rate 93 H Pulse Rate [ 98 H Anterior Bilateral Throughout] Pulse Rate [ From Monitor] Respiratory 20 Rate Respiratory 20 Rate [Anterior Bilateral Throughout] Blood Pressure 129/51 118/47 O2 Sat by Pulse 55 L 99 Oximetry 11/10/18 11/10/18 11/10/18 08:45 09:00 09:06 Temperature Pulse Rate 94 H 90 Pulse Rate [ 93 H Anterior Bilateral Throughout] Pulse Rate [ From Monitor] Respiratory 20 20 Rate Respiratory 20 Rate [Anterior Bilateral Throughout] Blood Pressure 116/47 109/50 O2 Sat by Pulse 100 100 Oximetry 11/10/18 11/10/18 11/10/18 09:15 09:30 09:45 Temperature Pulse Rate 90 102 H 95 H Pulse Rate [ Anterior Bilateral Throughout] Pulse Rate [ From Monitor] Respiratory 20 21 18 Rate Respiratory Rate [Anterior Bilateral Throughout] Blood Pressure 115/47 122/53 121/43 O2 Sat by Pulse 98 98 100 Oximetry 11/10/18 11/10/18 11/10/18 10:00 10:16 10:30 Temperature Pulse Rate 95 H 96 H 100 H Pulse Rate [ Anterior Bilateral Throughout] Pulse Rate [ From Monitor] Respiratory 19 20 20 Rate Respiratory Rate [Anterior Bilateral Throughout] Blood Pressure 126/40 134/45 142/56 O2 Sat by Pulse 100 93 99 Oximetry 11/10/18 11/10/18 11/10/18 10:45 11:00 11:16 Temperature Pulse Rate 94 H 89 90 Pulse Rate [ Anterior Bilateral Throughout] Pulse Rate [ From Monitor] Respiratory 15 20 20 Rate Respiratory Rate [Anterior Bilateral Throughout] Blood Pressure 123/54 114/31 110/50 O2 Sat by Pulse 99 99 Oximetry 11/10/18 11/10/18 11/10/18 11:30 11:45 12:00 Temperature 98.4 F Pulse Rate 89 93 H 90 Pulse Rate [ Anterior Bilateral Throughout] Pulse Rate [ From Monitor] Respiratory 20 20 20 Rate Respiratory Rate [Anterior Bilateral Throughout] Blood Pressure 114/50 121/54 117/59 O2 Sat by Pulse 100 98 100 Oximetry 11/10/18 11/10/18 11/10/18 12:15 12:30 12:33 Temperature Pulse Rate 88 88 Pulse Rate [ 88 Anterior Bilateral Throughout] Pulse Rate [ From Monitor] Respiratory 20 21 Rate Respiratory 20 Rate [Anterior Bilateral Throughout] Blood Pressure 107/49 104/51 O2 Sat by Pulse 99 100 Oximetry 11/10/18 11/10/18 11/10/18 12:45 13:00 13:15 Temperature Pulse Rate 89 90 90 Pulse Rate [ Anterior Bilateral Throughout] Pulse Rate [ From Monitor] Respiratory 20 20 20 Rate Respiratory Rate [Anterior Bilateral Throughout] Blood Pressure 104/54 114/57 116/58 O2 Sat by Pulse 100 100 100 Oximetry 11/10/18 11/10/18 11/10/18 13:30 13:45 14:00 Temperature Pulse Rate 92 H 92 H 94 H Pulse Rate [ Anterior Bilateral Throughout] Pulse Rate [ From Monitor] Respiratory 20 20 20 Rate Respiratory Rate [Anterior Bilateral Throughout] Blood Pressure 117/57 115/55 112/51 O2 Sat by Pulse 96 100 100 Oximetry - Lab 11/10/18 04:37 11/10/18 04:37 Most recent lab results Calcium 8.0 mg/dL (8.4-10.2) L 11/10/18 04:37 Medications & Allergies - Medications Allergies/Adverse Reactions: Allergies meperidine [From Demerol] Allergy (Verified 01/12/18 03:31) Itching Home Medications: Home Medications Medication Instructions Recorded Confirmed Last Taken Type Amlodipine Besylate [Norvasc] 10 mg PO QDAY 01/12/18 06/12/18 Unknown History B Complex 11/Folic/C/Biot/Zinc 1 each PO DAILY 01/12/18 06/12/18 Unknown History [Dialyvite with Zinc Tablet] Calcitriol [Rocaltrol] 0.5 mcg PO QDAY 01/12/18 06/12/18 Unknown History Carvedilol [Coreg] 6.25 mg PO BID 01/12/18 06/12/18 Unknown History Esomeprazole Magnesium [NexIUM] 40 mg PO QDAY 01/12/18 06/12/18 Unknown History Levothyroxine [Synthroid] 125 mcg PO QAM 01/12/18 06/12/18 Unknown History ALBUTEROL Inhaler(NF) 90 mcg INHALATION Q6H PRN 06/12/18 06/12/18 Unknown History Cozaar 50 mg PO DAILY 06/12/18 06/12/18 Unknown History Loperamide [Imodium] 4 mg PO QID PRN 06/12/18 06/12/18 Unknown History Acetaminophen [Acetaminophen TAB] 650 mg PO Q4H PRN #15 tablet 09/24/18 Unknown Rx Active Medications: Generic Name Dose Route Start Last Admin Trade Name Freq PRN Reason Stop Dose Admin Albuterol 2.5 mg 11/05/18 12:00 11/10/18 12:33 Proventil IH 2.5 mg QIDRT CECILIO Administration Albuterol 2.5 mg 11/05/18 12:00 Proventil IH Q4HRT PRN Shortness Of Breath Amlodipine Besylate 10 mg 11/05/18 11:00 11/10/18 10:58 Norvasc PO Not Given QDAY CECILIO Lipase/Protease/Amylase 1 each 11/05/18 11:27 Pancrerosey He 10,500 Unit FEEDTUBE PRN PRN For Clogged Feeding Tube Calcitriol 0.5 mcg 11/05/18 11:00 11/09/18 10:25 Rocaltrol PO 0.5 mcg QDAY CECILIO Administration Carvedilol 6.25 mg 11/05/18 11:00 11/10/18 10:50 Coreg PO Not Given BID CECILIO Dextrose 50 ml 11/09/18 11:03 D50w (25gm) Syringe IV PRN PRN Hypoglycemia Epoetin Kristopher 5,000 unit 11/09/18 08:00 Procrit IV CHARI CECILIO Fentanyl 50 mcg 11/06/18 10:00 11/08/18 18:10 Sublimaze IV 50 mcg Q10MIN PRN Administration ANALGESIA Hydrophilic Ointment 1 applic 11/06/18 10:00 Vaseline Lip Therapy TP Q2HR PRN Dry Lips Midazolam HCl 100 mg/ Sodium 100 mls @ 2 mls/hr 11/05/18 08:00 11/06/18 17:10 Chloride IV 0 mg/hr TITR CECILIO 0 mls/hr Titration Protocol 2 MG/HR Fentanyl Citrate 2,000 mcg in 100 mls @ 2.495 mls/hr 11/06/18 10:00 11/10/18 13:33 Fentanyl Drip Premix IV 4 mcg/kg/hr TITR CECILIO 9.979 mls/hr Administration Protocol 1 MCG/KG/HR Norepinephrine 4 mg in 250 mls @ 7.5 mls/hr 11/06/18 19:00 11/09/18 23:13 Levophed Drip 4 Mg/Ns 250 Ml IV 4 mcg/min TITR CECILIO 15 mls/hr Administration Protocol 2 MCG/MIN Sodium Chloride 100 mls @ 999 mls/hr 11/07/18 10:30 Nacl 0.9% IV CHARI PRN Hypotension Piperacillin Sod/Tazobactam 50 mls @ 100 mls/hr 11/07/18 22:00 11/09/18 23:33 Sod 0.75 gm/ Sodium Chloride IV Not Given [id number] [facility] Protocol Vancomycin HCl 750 mg/ Sodium 265 mls @ 166.667 mls/hr 11/09/18 22:00 Chloride IV MoWeFr CECILIO Piperacillin Sod/Tazobactam Sod 2.25 gm in 50 mls @ 100 mls/hr 11/08/18 18:00 11/10/18 07:36 Zosyn/Ns 2.25 Gm/50ml IV 100 mls/hr Q8HR [facility] Administration Metronidazole 500 mg in 100 mls @ 100 mls/hr 11/09/18 14:00 11/10/18 13:37 Flagyl 500 Mg/100 Ml IV 100 mls/hr Q8HR [facility] Administration Protocol Insulin Human Regular 0 units 11/09/18 22:00 11/09/18 20:00 Humulin R SUB-Q Not Given QHS [facility] Protocol Levothyroxine Sodium 125 mcg 11/05/18 11:00 11/10/18 07:37 Synthroid PO 125 mcg DAILY@0600 CECILIO Administration Losartan Potassium 50 mg 11/05/18 11:00 11/10/18 10:58 Cozaar PO Not Given QDAY CECILIO Midazolam HCl 2 mg 11/05/18 07:28 11/05/18 16:15 Versed IV 2 mg Q10MIN PRN Administration Sedation Multi-Ingred Cream/Lotion/Oil/Oint 1 applic 11/06/18 10:00 Artificial Tears Ophth Oint OU Q4HR PRN Dry Eye(s) Simple Syrup 15 ml 11/05/18 11:27 Simple Syrup FEEDTUBE PRN PRN Hypoglycemia Simple Syrup 30 ml 11/05/18 11:27 Simple Syrup FEEDTUBE PRN PRN Hypoglycemia Sodium Bicarbonate 325 mg 11/05/18 11:27 Sodium Bicarbonate FEEDTUBE PRN PRN For Clogged Feeding Tube
[2018-11-10] MEDS: LEVOPHED DRIP 4 MG/NS 250 ML 4 MG/250 ML BAG IV SCH (17:19)
--- NOTE | 2018-11-10 18:40 | Progress Note ---
Assessment and Plan -Acute hypercapnic-hypoxic respiratory failure on mVS -Right upper lobe atelectasis -Hyperkalemia -Pulmonary edema -BNP 3500 -Troponinemia, possible NSTEMI -ESRD on HD -Type 2 DM,poorly controlled -h/o Hypothyroidism Hypernatrmia -Continue full MVS -Lung protective strategies -Medical management of atelectasis -Wean supplemental oxygen to keep O2 sats >90% -VAP bundle addressed -Wean vasopressor support for MAP >65 -Supportive transfusions as indicated -Daily SAT's & SBT's -ABG and CXR PRN -Sedation target for RASS 0 to -1 -Fentanyl infusion, apparently gets very agitated -Stress ulcer prophylaxis -VTE prophylaxis -Tube feedings -Aspiration precautions, HOB>40 -Accuchecks with glycemic control. Target glucose of 140-180 mg/dL -Continue bronchodilators with pulmonary hygiene per RT -Supportive HD/UF -Maintenance of sleep -wake cycle -Avoid delirium -Mobility for pressure ulcer prevention -Femoral CVC care to avoid CLASBI, once she is off vasopressor support, will discontinue femoral line Discussed during ICU-IDT rounds Discussed with hospitalist service and renal service Updated daughter a the the bedside and other daughter over the phone PROGNOSIS: GUARDED CONDITION: CRITICAL CODE STATUS: FULL CODE The high probability of a clinically significant, sudden or life-threatening deterioration of the [respiratory,renal, cardiovascular] system(s) required my full and direct attention, intervention and personal management. The aggregate critical care time was [35] minutes without overlap. Time includes spent on; [x] Data Review and interpretation [x] Patient assessment and monitoring of vital signs [x] Documentation [x] Medication orders and management Subjective Date of service: 11/10/18 Principal diagnosis: end-stage renal disease, hypotension Interval history: Patient is seen today for: acute hypoxic-hypercapnic respiratory failure, Pulmonary edema, ESRD on HD, Elevated troponin, Seen and examined at bedside; 24hour events reviewed; nursing and respiratory care staff consulted; no adverse overnight events reported to me; No fevers, No vomiting. Remains of full mechanical ventilatory support, low dose norepinephrine. Objective Vital Signs - 12hr 11/10/18 11/10/18 11/10/18 06:45 07:00 07:15 Temperature Pulse Rate 90 90 92 H Pulse Rate [ Anterior Bilateral Throughout] Pulse Rate [ From Monitor] Respiratory 20 20 20 Rate Respiratory Rate [Anterior Bilateral Throughout] Blood Pressure 106/53 110/53 126/57 O2 Sat by Pulse 99 99 99 Oximetry 11/10/18 11/10/18 11/10/18 07:30 07:45 08:00 Temperature 97.3 F L Pulse Rate 90 94 H 99 H Pulse Rate [ Anterior Bilateral Throughout] Pulse Rate [ 96 H From Monitor] Respiratory 20 18 13 Rate Respiratory Rate [Anterior Bilateral Throughout] Blood Pressure 113/55 139/49 152/63 O2 Sat by Pulse 98 99 Oximetry 11/10/18 11/10/18 11/10/18 08:14 08:15 08:24 Temperature Pulse Rate 93 H 93 H Pulse Rate [ 98 H Anterior Bilateral Throughout] Pulse Rate [ From Monitor] Respiratory 20 Rate Respiratory 20 Rate [Anterior Bilateral Throughout] Blood Pressure 129/51 129/51 O2 Sat by Pulse 100 55 L Oximetry 11/10/18 11/10/18 11/10/18 08:30 08:45 09:00 Temperature Pulse Rate 94 H 90 Pulse Rate [ Anterior Bilateral Throughout] Pulse Rate [ From Monitor] Respiratory 20 20 Rate Respiratory Rate [Anterior Bilateral Throughout] Blood Pressure 118/47 116/47 109/50 O2 Sat by Pulse 99 100 100 Oximetry 11/10/18 11/10/18 11/10/18 09:06 09:15 09:30 Temperature Pulse Rate 90 102 H Pulse Rate [ 93 H Anterior Bilateral Throughout] Pulse Rate [ From Monitor] Respiratory 20 21 Rate Respiratory 20 Rate [Anterior Bilateral Throughout] Blood Pressure 115/47 122/53 O2 Sat by Pulse 98 98 Oximetry 11/10/18 11/10/18 11/10/18 09:45 10:00 10:16 Temperature Pulse Rate 95 H 92 H 96 H Pulse Rate [ Anterior Bilateral Throughout] Pulse Rate [ From Monitor] Respiratory 18 19 20 Rate Respiratory Rate [Anterior Bilateral Throughout] Blood Pressure 121/43 126/40 134/45 O2 Sat by Pulse 100 100 93 Oximetry 11/10/18 11/10/18 11/10/18 10:30 10:45 11:00 Temperature Pulse Rate 100 H 94 H 89 Pulse Rate [ Anterior Bilateral Throughout] Pulse Rate [ From Monitor] Respiratory 20 15 20 Rate Respiratory Rate [Anterior Bilateral Throughout] Blood Pressure 142/56 123/54 114/31 O2 Sat by Pulse 99 99 Oximetry 11/10/18 11/10/18 11/10/18 11:16 11:30 11:45 Temperature Pulse Rate 90 89 93 H Pulse Rate [ Anterior Bilateral Throughout] Pulse Rate [ From Monitor] Respiratory 20 20 20 Rate Respiratory Rate [Anterior Bilateral Throughout] Blood Pressure 110/50 114/50 121/54 O2 Sat by Pulse 99 100 98 Oximetry 11/10/18 11/10/18 11/10/18 12:00 12:15 12:30 Temperature 98.4 F Pulse Rate 90 88 88 Pulse Rate [ Anterior Bilateral Throughout] Pulse Rate [ 92 H From Monitor] Respiratory 20 20 21 Rate Respiratory Rate [Anterior Bilateral Throughout] Blood Pressure 117/59 107/49 104/51 O2 Sat by Pulse 99 99 100 Oximetry 11/10/18 11/10/18 11/10/18 12:33 12:45 13:00 Temperature Pulse Rate 89 90 Pulse Rate [ 88 Anterior Bilateral Throughout] Pulse Rate [ From Monitor] Respiratory 20 20 Rate Respiratory 20 Rate [Anterior Bilateral Throughout] Blood Pressure 104/54 114/57 O2 Sat by Pulse 100 100 Oximetry 11/10/18 11/10/18 11/10/18 13:04 13:15 13:30 Temperature Pulse Rate 90 92 H Pulse Rate [ 94 H Anterior Bilateral Throughout] Pulse Rate [ From Monitor] Respiratory 20 20 Rate Respiratory 20 Rate [Anterior Bilateral Throughout] Blood Pressure 116/58 117/57 O2 Sat by Pulse 100 96 Oximetry 11/10/18 11/10/18 11/10/18 13:45 14:00 14:15 Temperature Pulse Rate 92 H 94 H 95 H Pulse Rate [ Anterior Bilateral Throughout] Pulse Rate [ From Monitor] Respiratory 20 20 20 Rate Respiratory Rate [Anterior Bilateral Throughout] Blood Pressure 115/55 112/51 113/52 O2 Sat by Pulse 100 100 100 Oximetry 11/10/18 11/10/18 11/10/18 14:30 14:46 15:00 Temperature Pulse Rate 112 H 104 H 101 H Pulse Rate [ Anterior Bilateral Throughout] Pulse Rate [ From Monitor] Respiratory 21 18 16 Rate Respiratory Rate [Anterior Bilateral Throughout] Blood Pressure 121/52 108/51 106/49 O2 Sat by Pulse 99 100 100 Oximetry 11/10/18 11/10/18 11/10/18 15:15 15:29 15:30 Temperature Pulse Rate 100 H 108 H Pulse Rate [ 101 H Anterior Bilateral Throughout] Pulse Rate [ From Monitor] Respiratory 20 20 Rate Respiratory 20 Rate [Anterior Bilateral Throughout] Blood Pressure 110/48 117/48 O2 Sat by Pulse 100 100 Oximetry 11/10/18 11/10/18 11/10/18 15:45 16:00 16:02 Temperature 98.7 F Pulse Rate 101 H 105 H Pulse Rate [ 97 H Anterior Bilateral Throughout] Pulse Rate [ 89 From Monitor] Respiratory 20 18 Rate Respiratory 20 Rate [Anterior Bilateral Throughout] Blood Pressure 120/51 119/67 O2 Sat by Pulse 100 100 Oximetry 11/10/18 11/10/18 11/10/18 16:15 16:30 16:45 Temperature Pulse Rate 107 H 100 H 103 H Pulse Rate [ Anterior Bilateral Throughout] Pulse Rate [ From Monitor] Respiratory 19 20 21 Rate Respiratory Rate [Anterior Bilateral Throughout] Blood Pressure 129/39 127/48 137/41 O2 Sat by Pulse 100 100 100 Oximetry 11/10/18 11/10/18 11/10/18 16:56 17:00 17:15 Temperature Pulse Rate 106 H 113 H 101 H Pulse Rate [ Anterior Bilateral Throughout] Pulse Rate [ From Monitor] Respiratory 14 21 Rate Respiratory Rate [Anterior Bilateral Throughout] Blood Pressure 134/57 134/57 128/84 O2 Sat by Pulse 99 86 98 Oximetry Constitutional: no acute distress, other (sedated, thin chronically ill looking) Eyes: non-icteric ENT: oropharynx moist, other (ETT in place, 23cm at the lips, frothy tracheal secretions) Neck: supple, no lymphadenopathy Effort: normal Ascultation: Bilateral: diminished breath sounds, rales, rhonchi Cardiovascular: regular rate and rhythm, other (s1, s2, ) Gastrointestinal: normoactive bowel sounds, soft, non-tender, non-distended, other (no guarding, no hepato-splenomegaly) Extremities: no cyanosis, no edema, no ischemia or petechiae Neurologic: other (sedated) Psychiatric: other (sedated) CBC and BMP: 11/16/18 07:56 11/16/18 07:56 ABG, PT/INR, D-dimer: ABG POC ABG pH 7.475 (7.35-7.45) H 11/10/18 05:51 POC ABG pCO2 35.1 (35-45) 11/10/18 05:51 POC ABG pO2 67 (80-105) L 11/10/18 05:51 POC ABG HCO3 25.8 (22-26 mml/L) 11/10/18 05:51 POC ABG Total CO2 27 (23-27mmol/L) 11/10/18 05:51 POC ABG O2 Sat 94 11/10/18 05:51 PT/INR, D-dimer PT 13.2 Sec. (12.2-14.9) 11/05/18 07:09 INR 0.95 (0.87-1.13) 11/05/18 07:09 Abnormal lab findings: Abnormal Labs 11/05/18 11/05/18 11/05/18 07:09 07:09 07:09 WBC 14.7 H RBC 3.42 L Hgb Hct MCV 99 H RDW 20.1 H Lymph % (Auto) Stevens % (Auto) 9.3 H Lymph # Stevens # 1.4 H Eos # 0.5 H Baso # 0.2 H Seg Neutrophils % 70.1 H Seg Neuts % (Manual) Lymphocytes % (Manual) Monocytes % (Manual) Seg Neutrophils # 10.3 H Seg Neutrophils # Man Lymphocytes # (Manual) Monocytes # (Manual) POC ABG pH POC ABG pCO2 POC ABG pO2 Sodium Potassium 6.8 H* Chloride Carbon Dioxide BUN 74 H Creatinine 6.9 H Glucose 226 H POC Glucose 206 H Calcium AST 80 H Alkaline Phosphatase 236 H CK-MB (CK-2) CK-MB (CK-2) Rel Index 8.2 H Troponin T 0.224 H* NT-Pro-B Natriuret Pep > 81766 H Total Protein Albumin HDL Cholesterol 61 H 11/05/18 11/05/18 11/06/18 08:03 19:45 03:29 WBC RBC Hgb Hct MCV RDW Lymph % (Auto) Stevens % (Auto) Lymph # Stevens # Eos # Baso # Seg Neutrophils % Seg Neuts % (Manual) Lymphocytes % (Manual) Monocytes % (Manual) Seg Neutrophils # Seg Neutrophils # Man Lymphocytes # (Manual) Monocytes # (Manual) POC ABG pH 7.612 H POC ABG pCO2 51.2 H 31.3 L POC ABG pO2 167 H 117 H Sodium Potassium Chloride Carbon Dioxide BUN Creatinine Glucose POC Glucose Calcium AST Alkaline Phosphatase CK-MB (CK-2) 5.6 H CK-MB (CK-2) Rel Index 5.2 H Troponin T 0.321 H* D NT-Pro-B Natriuret Pep Total Protein Albumin HDL Cholesterol 11/06/18 11/06/18 11/06/18 06:59 06:59 14:16 WBC RBC Hgb Hct MCV RDW 19.2 H Lymph % (Auto) Stevens % (Auto) Lymph # Stevens # Eos # Baso # Seg Neutrophils % Seg Neuts % (Manual) 82.0 H Lymphocytes % (Manual) 5.0 L Monocytes % (Manual) 13.0 H Seg Neutrophils # Seg Neutrophils # Man 8.5 H Lymphocytes # (Manual) 0.5 L Monocytes # (Manual) 1.4 H POC ABG pH POC ABG pCO2 POC ABG pO2 Sodium Potassium 5.2 H D Chloride Carbon Dioxide BUN 33 H Creatinine 4.4 H Glucose POC Glucose 139 H Calcium AST 52 H Alkaline Phosphatase 170 H CK-MB (CK-2) CK-MB (CK-2) Rel Index Troponin T 0.289 H* NT-Pro-B Natriuret Pep Total Protein Albumin 3.7 L HDL Cholesterol 11/07/18 11/07/18 11/07/18 04:11 04:11 05:39 WBC RBC 3.31 L Hgb Hct MCV RDW 18.9 H Lymph % (Auto) 8.9 L Stevens % (Auto) 14.6 H Lymph # 0.9 L Stevens # 1.5 H Eos # Baso # Seg Neutrophils % 74.7 H Seg Neuts % (Manual) Lymphocytes % (Manual) Monocytes % (Manual) Seg Neutrophils # 7.9 H Seg Neutrophils # Man Lymphocytes # (Manual) Monocytes # (Manual) POC ABG pH 7.550 H POC ABG pCO2 32.6 L POC ABG pO2 63 L Sodium 146 H Potassium Chloride Carbon Dioxide BUN 36 H Creatinine 4.7 H Glucose 109 H POC Glucose Calcium AST 42 H Alkaline Phosphatase 138 H CK-MB (CK-2) CK-MB (CK-2) Rel Index Troponin T NT-Pro-B Natriuret Pep Total Protein 5.8 L Albumin 3.3 L HDL Cholesterol 11/08/18 11/08/18 11/09/18 03:19 04:38 04:56 WBC RBC Hgb Hct MCV RDW Lymph % (Auto) Stevens % (Auto) Lymph # Stevens # Eos # Baso # Seg Neutrophils % Seg Neuts % (Manual) Lymphocytes % (Manual) Monocytes % (Manual) Seg Neutrophils # Seg Neutrophils # Man Lymphocytes # (Manual) Monocytes # (Manual) POC ABG pH 7.468 H 7.301 L POC ABG pCO2 34.3 L 46.3 H POC ABG pO2 132 H 63 L Sodium 148 H Potassium 5.2 H Chloride Carbon Dioxide BUN 50 H Creatinine 6.4 H Glucose POC Glucose Calcium 8.3 L AST Alkaline Phosphatase CK-MB (CK-2) CK-MB (CK-2) Rel Index Troponin T NT-Pro-B Natriuret Pep Total Protein Albumin HDL Cholesterol 11/09/18 11/09/18 11/09/18 11:26 11:26 12:54 WBC 15.0 H RBC 3.33 L Hgb 10.0 L Hct MCV RDW 19.1 H Lymph % (Auto) 5.3 L Stevens % (Auto) Lymph # 0.8 L Stevens # 1.1 H Eos # Baso # Seg Neutrophils % 85.6 H Seg Neuts % (Manual) Lymphocytes % (Manual) Monocytes % (Manual) Seg Neutrophils # 12.8 H Seg Neutrophils # Man Lymphocytes # (Manual) Monocytes # (Manual) POC ABG pH POC ABG pCO2 POC ABG pO2 Sodium 150 H Potassium 5.3 H Chloride 108.4 H Carbon Dioxide 20 L BUN 79 H Creatinine 7.6 H Glucose 111 H POC Glucose 115 H Calcium 7.6 L AST Alkaline Phosphatase CK-MB (CK-2) CK-MB (CK-2) Rel Index Troponin T NT-Pro-B Natriuret Pep Total Protein Albumin HDL Cholesterol 11/10/18 11/10/18 11/10/18 04:24 04:37 04:37 WBC 14.2 H RBC 3.13 L Hgb 9.5 L Hct 29.8 L MCV RDW 19.2 H Lymph % (Auto) 3.9 L Stevens % (Auto) 9.9 H Lymph # 0.5 L Stevens # 1.4 H Eos # Baso # Seg Neutrophils % 83.3 H Seg Neuts % (Manual) Lymphocytes % (Manual) Monocytes % (Manual) Seg Neutrophils # 11.8 H Seg Neutrophils # Man Lymphocytes # (Manual) Monocytes # (Manual) POC ABG pH POC ABG pCO2 POC ABG pO2 Sodium 150 H Potassium Chloride Carbon Dioxide BUN 65 H Creatinine 6.8 H Glucose 111 H POC Glucose 110 H Calcium 8.0 L AST Alkaline Phosphatase CK-MB (CK-2) CK-MB (CK-2) Rel Index Troponin T NT-Pro-B Natriuret Pep Total Protein Albumin HDL Cholesterol 11/10/18 11/10/18 11/10/18 05:51 12:53 16:48 WBC RBC Hgb Hct MCV RDW Lymph % (Auto) Stevens % (Auto) Lymph # Stevens # Eos # Baso # Seg Neutrophils % Seg Neuts % (Manual) Lymphocytes % (Manual) Monocytes % (Manual) Seg Neutrophils # Seg Neutrophils # Man Lymphocytes # (Manual) Monocytes # (Manual) POC ABG pH 7.475 H POC ABG pCO2 POC ABG pO2 67 L Sodium Potassium Chloride Carbon Dioxide BUN Creatinine Glucose POC Glucose 131 H 124 H Calcium AST Alkaline Phosphatase CK-MB (CK-2) CK-MB (CK-2) Rel Index Troponin T NT-Pro-B Natriuret Pep Total Protein Albumin HDL Cholesterol Chest x-ray: image reviewed Allied health notes reviewed: nursing
[2018-11-10] MEDS: HumuLIN R SUB-Q SCH (21:59)
[2018-11-11] MEDS: fentaNYL DRIP Premix 2,000 MCG/100 ML BAG IV SCH ×2 (02:30→16:15)
--- NOTE | 2018-11-11 05:06 | XRay Report ---
PROCEDURE: XR CHEST 1V AP TECHNIQUE: A portable upright view the chest was obtained. HISTORY: follow up respiratory failure COMPARISONS: 11/10/2018 FINDINGS: The lungs are well expanded. There are currently no acute infiltrates. There is no pleural effusion o r pneumothorax. The heart size is normal. Endotracheal tube is in the mid trachea. NG tube is in the stomach. Bony and soft tissue structures are normal. IMPRESSION: The lungs are well expanded. There are currently no acute infiltrates. There is no pleural effusion o r pneumothorax. The heart size is normal. Endotracheal tube is in the mid trachea. NG tube is in the stomach. This document is electronically signed by Joe Osborne MD., November 11 2018 05:04:56 AM ET
[2018-11-11] MEDS: FLAGYL 500 MG/100 ML 500 MG/100 ML BAG IV SCH ×3 (05:18→21:42)
[2018-11-11] MEDS: ZOSYN/NS 2.25 GM/50ML 2.25 GM/50 ML BAG IV SCH ×3 (05:18→21:40)
[2018-11-11] MEDS: SYNTHROID PO SCH (05:19)
[2018-11-11 05:24] LABS: Calcium 8.9 mg/dL (8.4-10.2)
[2018-11-11] MEDS: PROVENTIL IH SCH ×4 (08:00→20:01)
--- NOTE | 2018-11-11 08:17 | Progress Note ---
Assessment and Plan Assessment and plan: --Hypernatremia; free water flushes, closely monitor electrolytes Nephrology following --Septic shock; on Levophed Titrate systolic blood pressure to 100 --Acute hypoxic respiratory failure; intubated on vent cont, nebs,antibiotics Pulmonary critical following Wean as tolerated and extubate --Right lower lobe pneumonia/aspiration pneumonia Follow-up chest x-ray today; pneumonia /infiltrates resolved Continue vancomycin and Zosyn, add Flagyl F/u cultures, consider ID evaluation if needed --Sepsis secondary to pneumonia, --Nonspecific elevation of troponin; probably secondary to End-stage renal disease, medical management --Severe hyperkalemia; resolved --End-stage renal disease; hemodialysis per schedule Nephrology following --History of Hypertension; patient is hypotensive and in shock Hold all the blood pressure medications --Hyperglycemia/type 2 diabetes mellitus. Accu-Chek sliding scale coverage and ADA diet Insulin As Needed, hemoglobin A1c --History of hypothyroidism; resume Synthroid --DVT prophylaxis; heparin renal dose --Tube feeds per protocol Patient is critically ill, with very poor prognosis, Family aware, Patient's condition. Poor prognosis and treatment plan discussed in detail With the daughter Percy Louise , and another daughter, they had many questions, I answered all of them I also discussed the CODE STATUS, they reported that they would discuss with the family and inform. Family requested full treatment but DO NOT RESUSCITATE status in the event of cardiac arrest Critical care time 32 minutes History Interval history: Patient seen and examined medical records reviewed Patient remains intubated on ventilatory support On Levophed, critically ill, poor prognosis Vital signs reviewed Hospitalist Physical - Constitutional Vitals: Temp Pulse Resp BP Pulse Ox 97.4 F L 99 H 20 116/57 100 11/11/18 04:00 11/11/18 08:00 11/11/18 08:00 11/11/18 07:39 11/11/18 07:39 General appearance: Present: no acute distress, cachectic, disheveled, other (intubated on ventilatory support) - EENT Eyes: Present: PERRL, EOM intact - Neck Neck: Present: supple, normal ROM - Respiratory Respiratory effort: normal Respiratory: bilateral: diminished, negative: rales, rhonchi, wheezing - Cardiovascular Rhythm: regular Heart Sounds: Present: S1 & S2 - Extremities Extremities: no ischemia, No edema - Abdominal General gastrointestinal: soft, non-tender, non-distended, normal bowel sounds - Integumentary Integumentary: Present: clear, warm - Psychiatric Psychiatric: appropriate mood/affect, cooperative - Neurologic Neurologic: CNII-XII intact, moves all extremities Results - Labs CBC & Chem 7: 11/10/18 04:37 11/11/18 04:25 Labs: Laboratory Last Values WBC 14.2 K/mm3 (4.5-11.0) H 11/10/18 04:37 RBC 3.13 M/mm3 (3.65-5.03) L 11/10/18 04:37 Hgb 9.5 gm/dl (10.1-14.3) L 11/10/18 04:37 Hct 29.8 % (30.3-42.9) L 11/10/18 04:37 MCV 96 fl (79-97) 11/10/18 04:37 MCH 31 pg (28-32) 11/10/18 04:37 MCHC 32 % (30-34) 11/10/18 04:37 RDW 19.2 % (13.2-15.2) H 11/10/18 04:37 Plt Count 238 K/mm3 (140-440) 11/10/18 04:37 Lymph % (Auto) 3.9 % (13.4-35.0) L 11/10/18 04:37 Alcorn % (Auto) 9.9 % (0.0-7.3) H 11/10/18 04:37 Eos % (Auto) 2.5 % (0.0-4.3) 11/10/18 04:37 Baso % (Auto) 0.4 % (0.0-1.8) 11/10/18 04:37 Lymph # 0.5 K/mm3 (1.2-5.4) L 11/10/18 04:37 Alcorn # 1.4 K/mm3 (0.0-0.8) H 11/10/18 04:37 Eos # 0.4 K/mm3 (0.0-0.4) 11/10/18 04:37 Baso # 0.1 K/mm3 (0.0-0.1) 11/10/18 04:37 Add Manual Diff Complete 11/06/18 06:59 Total Counted 100 11/06/18 06:59 Seg Neutrophils % 83.3 % (40.0-70.0) H 11/10/18 04:37 Seg Neuts % (Manual) 82.0 % (40.0-70.0) H 11/06/18 06:59 Band Neutrophils % 0 % 11/06/18 06:59 Lymphocytes % (Manual) 5.0 % (13.4-35.0) L 11/06/18 06:59 Reactive Lymphs % (Man) 0 % 11/06/18 06:59 Monocytes % (Manual) 13.0 % (0.0-7.3) H 11/06/18 06:59 Eosinophils % (Manual) 0 % (0.0-4.3) 11/06/18 06:59 Basophils % (Manual) 0 % (0.0-1.8) 11/06/18 06:59 Metamyelocytes % 0 % 11/06/18 06:59 Myelocytes % 0 % 11/06/18 06:59 Promyelocytes % 0 % 11/06/18 06:59 Blast Cells % 0 % 11/06/18 06:59 Nucleated RBC % Not Reportable 11/06/18 06:59 Seg Neutrophils # 11.8 K/mm3 (1.8-7.7) H 11/10/18 04:37 Seg Neutrophils # Man 8.5 K/mm3 (1.8-7.7) H 11/06/18 06:59 Band Neutrophils # 0.0 K/mm3 11/06/18 06:59 Lymphocytes # (Manual) 0.5 K/mm3 (1.2-5.4) L 11/06/18 06:59 Abs React Lymphs (Man) 0.0 K/mm3 11/06/18 06:59 Monocytes # (Manual) 1.4 K/mm3 (0.0-0.8) H 11/06/18 06:59 Eosinophils # (Manual) 0.0 K/mm3 (0.0-0.4) 11/06/18 06:59 Basophils # (Manual) 0.0 K/mm3 (0.0-0.1) 11/06/18 06:59 Metamyelocytes # 0.0 K/mm3 11/06/18 06:59 Myelocytes # 0.0 K/mm3 11/06/18 06:59 Promyelocytes # 0.0 K/mm3 11/06/18 06:59 Blast Cells # 0.0 K/mm3 11/06/18 06:59 WBC Morphology Not Reportable 11/06/18 06:59 Hypersegmented Neuts Not Reportable 11/06/18 06:59 Hyposegmented Neuts Not Reportable 11/06/18 06:59 Hypogranular Neuts Not Reportable 11/06/18 06:59 Smudge Cells Not Reportable 11/06/18 06:59 Toxic Granulation Not Reportable 11/06/18 06:59 Toxic Vacuolation Not Reportable 11/06/18 06:59 Dohle Bodies Not Reportable 11/06/18 06:59 Pelger-Huet Anomaly Not Reportable 11/06/18 06:59 Omar Rods Not Reportable 11/06/18 06:59 Platelet Estimate Consistent w auto 11/06/18 06:59 Clumped Platelets Not Reportable 11/06/18 06:59 Plt Clumps, EDTA Not Reportable 11/06/18 06:59 Large Platelets Not Reportable 11/06/18 06:59 Giant Platelets Not Reportable 11/06/18 06:59 Platelet Satelliting Not Reportable 11/06/18 06:59 Plt Morphology Comment Not Reportable 11/06/18 06:59 RBC Morphology Not Reportable 11/06/18 06:59 Dimorphic RBCs Not Reportable 11/06/18 06:59 Polychromasia Not Reportable 11/06/18 06:59 Hypochromasia Not Reportable 11/06/18 06:59 Poikilocytosis Few 11/06/18 06:59 Anisocytosis Few 11/06/18 06:59 Microcytosis Not Reportable 11/06/18 06:59 Macrocytosis Not Reportable 11/06/18 06:59 Spherocytes Not Reportable 11/06/18 06:59 Pappenheimer Bodies Not Reportable 11/06/18 06:59 Sickle Cells Not Reportable 11/06/18 06:59 Target Cells Rare 11/06/18 06:59 Tear Drop Cells Not Reportable 11/06/18 06:59 Ovalocytes Rare 11/06/18 06:59 Helmet Cells Not Reportable 11/06/18 06:59 [place] Bodies Not Reportable 11/06/18 06:59 [place] Rings Not Reportable 11/06/18 06:59 [place] Cells Not Reportable 11/06/18 06:59 Bite Cells Not Reportable 11/06/18 06:59 Crenated Cell Not Reportable 11/06/18 06:59 Elliptocytes Not Reportable 11/06/18 06:59 Acanthocytes (Spur) Not Reportable 11/06/18 06:59 Rouleaux Not Reportable 11/06/18 06:59 Hemoglobin C Crystals Not Reportable 11/06/18 06:59 Schistocytes Not Reportable 11/06/18 06:59 Malaria parasites Not Reportable 11/06/18 06:59 Evangelista Bodies Not Reportable 11/06/18 06:59 Hem Pathologist Commnt No 11/06/18 06:59 PT 13.2 Sec. (12.2-14.9) 11/05/18 07:09 INR 0.95 (0.87-1.13) 11/05/18 07:09 APTT 27.7 Sec. (24.2-36.6) 11/05/18 07:09 POC ABG pH 7.334 (7.35-7.45) L 11/11/18 04:23 POC ABG pCO2 46.1 (35-45) H 11/11/18 04:23 POC ABG pO2 83 (80-105) 11/11/18 04:23 POC ABG HCO3 24.6 (22-26 mml/L) 11/11/18 04:23 POC ABG Total CO2 26 (23-27mmol/L) 11/11/18 04:23 POC ABG O2 Sat 95 11/11/18 04:23 POC ABG Base Excess -1 ((-2) - (+3)mmol/L) 11/11/18 04:23 FiO2 35 % 11/11/18 04:23 Sodium 157 mmol/L (137-145) H 11/11/18 04:25 Potassium 4.4 mmol/L (3.6-5.0) 11/11/18 04:25 Chloride 111.2 mmol/L (98-107) H 11/11/18 04:25 Carbon Dioxide 23 mmol/L (22-30) 11/11/18 04:25 Anion Gap 27 mmol/L 11/11/18 04:25 BUN 81 mg/dL (7-17) H 11/11/18 04:25 Creatinine 7.7 mg/dL (0.7-1.2) H 11/11/18 04:25 Estimated GFR 6 ml/min 11/11/18 04:25 BUN/Creatinine Ratio 11 % 11/11/18 04:25 Glucose 139 mg/dL (65-100) H 11/11/18 04:25 POC Glucose 129 (70-105) H 11/11/18 05:42 Calcium 8.9 mg/dL (8.4-10.2) 11/11/18 04:25 Phosphorus 4.10 mg/dL (2.5-4.5) 11/11/18 04:25 Total Bilirubin 0.50 mg/dL (0.1-1.2) 11/07/18 04:11 AST 42 units/L (5-40) H 11/07/18 04:11 ALT 24 units/L (7-56) 11/07/18 04:11 Alkaline Phosphatase 138 units/L (35-129) H 11/07/18 04:11 Total Creatine Kinase 104 units/L (30-135) 11/06/18 06:59 CK-MB (CK-2) 3.2 ng/mL (0.0-4.0) 11/06/18 06:59 CK-MB (CK-2) Rel Index 3.0 (0-4) 11/06/18 06:59 Troponin T 0.289 ng/mL (0.00-0.029) H* 11/06/18 06:59 NT-Pro-B Natriuret Pep > 91138 pg/mL (0-900) H 11/05/18 07:09 Total Protein 5.8 g/dL (6.3-8.2) L 11/07/18 04:11 Albumin 3.3 g/dL (3.9-5) L 11/07/18 04:11 Albumin/Globulin Ratio 1.3 % 11/07/18 04:11 Triglycerides 101 mg/dL (2-149) 11/05/18 07:09 Cholesterol 180 mg/dL (50-199) 11/05/18 07:09 LDL Cholesterol Direct 116 mg/dL (50-130) 11/05/18 07:09 HDL Cholesterol 61 mg/dL (40-59) H 11/05/18 07:09 Cholesterol/HDL Ratio 2.95 % 11/05/18 07:09 Vancomycin Trough 13.1 ug/mL (5.0-20.0) 11/09/18 11:26 Active Medications - Current Medications Current Medications: Generic Name Dose Route Start Last Admin Trade Name Freq PRN Reason Stop Dose Admin Albuterol 2.5 mg 11/05/18 12:00 11/11/18 08:00 Proventil IH 2.5 mg QIDRT CECILIO Administration Albuterol 2.5 mg 11/05/18 12:00 Proventil IH Q4HRT PRN Shortness Of Breath Amlodipine Besylate 10 mg 11/05/18 11:00 11/10/18 10:58 Norvasc PO Not Given QDAY CECILIO Lipase/Protease/Amylase 1 each 11/05/18 11:[address] 10,500 Unit FEEDTUBE PRN PRN For Clogged Feeding Tube Calcitriol 0.5 mcg 11/05/18 11:00 11/10/18 10:14 Rocaltrol PO 0.5 mcg QDAY CECILIO Administration Carvedilol 6.25 mg 11/05/18 11:00 11/10/18 21:23 Coreg PO 6.25 mg BID CECILIO Administration Dextrose 50 ml 11/09/18 11:03 D50w (25gm) Syringe IV PRN PRN Hypoglycemia Epoetin Kristopher 5,000 unit 11/09/18 08:00 Procrit IV CHARI CECILIO Fentanyl 50 mcg 11/06/18 10:00 11/08/18 18:10 Sublimaze IV 50 mcg Q10MIN PRN Administration ANALGESIA Hydrophilic Ointment 1 applic 11/06/18 10:00 Vaseline Lip Therapy TP Q2HR PRN Dry Lips Midazolam HCl 100 mg/ Sodium 100 mls @ 2 mls/hr 11/05/18 08:00 11/06/18 17:10 Chloride IV 0 mg/hr TITR CECILIO 0 mls/hr Titration Protocol 2 MG/HR Fentanyl Citrate 2,000 mcg in 100 mls @ 2.495 mls/hr 11/06/18 10:00 11/11/18 02:30 Fentanyl Drip Premix IV 4 mcg/kg/hr TITR CECILIO 9.979 mls/hr Administration Protocol 1 MCG/KG/HR Norepinephrine 4 mg in 250 mls @ 7.5 mls/hr 11/06/18 19:00 11/11/18 04:45 Levophed Drip 4 Mg/Ns 250 Ml IV 2 mcg/min TITR CECILIO 7.5 mls/hr Titration Protocol 2 MCG/MIN Sodium Chloride 100 mls @ 999 mls/hr 11/07/18 10:30 Nacl 0.9% IV CHARI PRN Hypotension Piperacillin Sod/Tazobactam 50 mls @ 100 mls/hr 11/07/18 22:00 11/09/18 23:33 Sod 0.75 gm/ Sodium Chloride IV Not Given [id number] [facility] Protocol Vancomycin HCl 750 mg/ Sodium 265 mls @ 166.667 mls/hr 11/09/18 22:00 Chloride IV MoWeFr CECILIO Piperacillin Sod/Tazobactam Sod 2.25 gm in 50 mls @ 100 mls/hr 11/08/18 18:00 11/11/18 05:18 Zosyn/Ns 2.25 Gm/50ml IV 100 mls/hr Q8HR CECILIO Administration Metronidazole 500 mg in 100 mls @ 100 mls/hr 11/09/18 14:00 11/11/18 05:18 Flagyl 500 Mg/100 Ml IV 100 mls/hr Q8HR [facility] Administration Protocol Insulin Human Regular 0 units 11/09/18 22:00 11/10/18 21:59 Humulin R SUB-Q Not Given QHS [facility] Protocol Levothyroxine Sodium 125 mcg 11/05/18 11:00 11/11/18 05:19 Synthroid PO 125 mcg DAILY@0600 [facility] Administration Losartan Potassium 50 mg 11/05/18 11:00 11/10/18 10:58 Cozaar PO Not Given QDAY [facility] Midazolam HCl 2 mg 11/05/18 07:28 11/05/18 16:15 Versed IV 2 mg Q10MIN PRN Administration Sedation Multi-Ingred Cream/Lotion/Oil/Oint 1 applic 11/06/18 10:00 Artificial Tears Ophth Oint OU Q4HR PRN Dry Eye(s) Simple Syrup 15 ml 11/05/18 11:27 Simple Syrup FEEDTUBE PRN PRN Hypoglycemia Simple Syrup 30 ml 11/05/18 11:27 Simple Syrup FEEDTUBE PRN PRN Hypoglycemia Sodium Bicarbonate 325 mg 11/05/18 11:27 Sodium Bicarbonate FEEDTUBE PRN PRN For Clogged Feeding Tube Nutrition/Malnutrition Assess - Dietary Evaluation Nutrition/Malnutrition Findings: Nutrition Notes Start: 11/05/18 11:22 Freq: Status: Active Protocol: Document 11/10/18 13:29 BOBBI (Rec: 11/10/18 13:31 [email or web address]) Nutrition Notes Initial or Follow up Brief Note Subjective/Other Information TF infusing at goal rate of 35ml/hr. Percent of energy/protein needs met: 100% energy and pro Nutrition Intervention Follow-Up By: 11/15/18 Additional Comments F/U: stable TF, vent status, wt
[2018-11-11] MEDS: COZAAR PO SCH (10:05)
[2018-11-11] MEDS: ROCALTROL PO SCH (10:09)
[2018-11-11] MEDS: D5W 1,000 ML IV SCH (13:23)
--- NOTE | 2018-11-11 13:43 | Progress Note ---
Assessment and Plan -Acute hypercapnic-hypoxic respiratory failure -Right upper lobe atelectasis, resolved -Acute encephaloapthy( toxic, metabolic) -Pulmonary edema -BNP 3500 -Troponinemia, possible NSTEMI -ESRD on HD -Type 2 DM,poorly controlled -h/o Hypothyroidism Hypernatremia Hyperchloremia Leukocytosis -Continue full MVS -Lung protective strategies -Start low dose Seroquel, discontinue fentanyl infusion -Encephalopathy is probably metabolic with the hypernatremia, uremia, -Wean supplemental oxygen to keep O2 sats >90% -VAP bundle addressed -Daily SAT's & SBT's -Increase free water flushes, hypotonic solution for hypernatremia -daily ABG and CXR PRN -Sedation target for RASS 0 to -1, avoid benzodiazepines -Fentanyl, wean to off -Stress ulcer prophylaxis -VTE prophylaxis -Place NGT/OGT to LIS, keep NPO for the next 24 hours -Nutrition consult for tube feedings -Aspiration precautions, HOB>40 -Accuchecks with glycemic control. Target glucose of 140-180 mg/dL -Continue bronchodilators with pulmonary hygiene per RT -Supportive HD/UF----discussed with [facility] service, will plan for HD tomorrow -Maintenance of sleep -wake cycle PROGNOSIS: GUARDED CONDITION: CRITICAL CODE STATUS: DNAR Extensive discussions with her 2 daughters and family. Options presented were -Hospice -Full aggressive care, DNAR, with an understanding that if she is not weaned off mechanical ventilatory support in the next 10 days, discussions will have to be had about trach/PEG and goals of care. They want full care but DNAR. Paperwork signed I had discussions with renal re HD tomorrow The high probability of a clinically significant, sudden or life-threatening deterioration of the [respiratory,renal, cardiovascular] system(s) required my full and direct attention, intervention and personal management. The aggregate critical care time was [35] minutes without overlap. Time includes spent on; [x] Data Review and interpretation [x] Patient assessment and monitoring of vital signs [x] Documentation [x] Medication orders and management Subjective Date of service: 11/11/18 Principal diagnosis: end-stage renal disease, hypotension Interval history: Patient is seen today for: acute hypoxic-hypercapnic respiratory failure, Pulmonary edema, ESRD on HD, Elevated troponin, Seen and examined at bedside; 24hour events reviewed; nursing and respiratory care staff consulted; no adverse overnight events reported to me; No fevers. No vomiting. Remains on full mechanical ventilatory support, did not tolerate SBT this morning, apneic. She remains on fentanyl infusion. Family at the bedside Objective Vital Signs - 12hr 11/11/18 11/11/18 11/11/18 01:45 02:00 02:15 Temperature Pulse Rate 103 H 99 H 96 H Pulse Rate [ Anterior Bilateral Throughout] Pulse Rate [ From Monitor] Respiratory 16 21 20 Rate Respiratory Rate [Anterior Bilateral Throughout] Blood Pressure 94/45 79/42 O2 Sat by Pulse 100 100 99 Oximetry 11/11/18 11/11/18 11/11/18 02:30 02:45 03:00 Temperature Pulse Rate 88 94 H 95 H Pulse Rate [ Anterior Bilateral Throughout] Pulse Rate [ From Monitor] Respiratory 20 20 17 Rate Respiratory Rate [Anterior Bilateral Throughout] Blood Pressure 120/51 121/46 129/51 O2 Sat by Pulse 100 99 99 Oximetry 11/11/18 11/11/18 11/11/18 03:16 03:30 03:45 Temperature Pulse Rate 91 H 88 72 Pulse Rate [ Anterior Bilateral Throughout] Pulse Rate [ From Monitor] Respiratory 20 20 20 Rate Respiratory Rate [Anterior Bilateral Throughout] Blood Pressure 97/47 102/51 98/47 O2 Sat by Pulse 100 99 100 Oximetry 11/11/18 11/11/18 11/11/18 04:00 04:05 04:15 Temperature 97.4 F L Pulse Rate 84 83 108 H Pulse Rate [ Anterior Bilateral Throughout] Pulse Rate [ 84 From Monitor] Respiratory 21 17 Rate Respiratory Rate [Anterior Bilateral Throughout] Blood Pressure 98/47 127/61 178/65 O2 Sat by Pulse 100 100 100 Oximetry 11/11/18 11/11/18 11/11/18 04:30 04:45 05:00 Temperature Pulse Rate 94 H 94 H 92 H Pulse Rate [ Anterior Bilateral Throughout] Pulse Rate [ From Monitor] Respiratory 15 20 15 Rate Respiratory Rate [Anterior Bilateral Throughout] Blood Pressure 119/54 114/57 127/61 O2 Sat by Pulse 99 100 100 Oximetry 11/11/18 11/11/18 11/11/18 05:16 05:30 05:45 Temperature Pulse Rate 93 H 95 H 97 H Pulse Rate [ Anterior Bilateral Throughout] Pulse Rate [ From Monitor] Respiratory 19 21 17 Rate Respiratory Rate [Anterior Bilateral Throughout] Blood Pressure 109/45 115/50 99/47 O2 Sat by Pulse 100 100 100 Oximetry 11/11/18 11/11/18 11/11/18 06:00 06:15 06:30 Temperature Pulse Rate 94 H 96 H 92 H Pulse Rate [ Anterior Bilateral Throughout] Pulse Rate [ From Monitor] Respiratory 21 14 18 Rate Respiratory Rate [Anterior Bilateral Throughout] Blood Pressure 102/51 107/52 112/51 O2 Sat by Pulse 100 99 100 Oximetry 11/11/18 11/11/18 11/11/18 06:45 07:00 07:15 Temperature Pulse Rate 98 H 101 H 98 H Pulse Rate [ Anterior Bilateral Throughout] Pulse Rate [ From Monitor] Respiratory 19 17 21 Rate Respiratory Rate [Anterior Bilateral Throughout] Blood Pressure 94/44 93/38 82/43 O2 Sat by Pulse 100 100 100 Oximetry 11/11/18 11/11/18 11/11/18 07:30 07:39 07:45 Temperature Pulse Rate 90 91 H 99 H Pulse Rate [ Anterior Bilateral Throughout] Pulse Rate [ From Monitor] Respiratory 21 18 Rate Respiratory Rate [Anterior Bilateral Throughout] Blood Pressure 86/50 116/57 116/57 O2 Sat by Pulse 100 100 100 Oximetry 11/11/18 11/11/18 11/11/18 08:00 08:15 08:30 Temperature 98.6 F Pulse Rate 104 H 100 H 96 H Pulse Rate [ 99 H Anterior Bilateral Throughout] Pulse Rate [ 100 H From Monitor] Respiratory 20 19 17 Rate Respiratory 20 Rate [Anterior Bilateral Throughout] Blood Pressure 125/50 120/51 116/57 O2 Sat by Pulse 99 98 99 Oximetry 11/11/18 11/11/18 11/11/18 08:31 08:45 09:00 Temperature Pulse Rate 95 H 90 Pulse Rate [ 101 H Anterior Bilateral Throughout] Pulse Rate [ From Monitor] Respiratory 18 20 Rate Respiratory 20 Rate [Anterior Bilateral Throughout] Blood Pressure 117/53 114/54 O2 Sat by Pulse 99 99 Oximetry 11/11/18 11/11/18 11/11/18 09:15 09:30 09:45 Temperature Pulse Rate 96 H 91 H 92 H Pulse Rate [ Anterior Bilateral Throughout] Pulse Rate [ From Monitor] Respiratory 12 15 20 Rate Respiratory Rate [Anterior Bilateral Throughout] Blood Pressure 119/59 105/48 108/49 O2 Sat by Pulse 99 99 98 Oximetry 11/11/18 11/11/18 11/11/18 10:00 10:15 10:30 Temperature Pulse Rate 91 H 93 H 94 H Pulse Rate [ Anterior Bilateral Throughout] Pulse Rate [ From Monitor] Respiratory 20 14 15 Rate Respiratory Rate [Anterior Bilateral Throughout] Blood Pressure 104/50 111/57 120/60 O2 Sat by Pulse 98 99 100 Oximetry 11/11/18 11/11/18 11/11/18 10:45 11:00 11:15 Temperature Pulse Rate 94 H 97 H 97 H Pulse Rate [ Anterior Bilateral Throughout] Pulse Rate [ From Monitor] Respiratory 13 17 20 Rate Respiratory Rate [Anterior Bilateral Throughout] Blood Pressure 118/56 120/56 121/58 O2 Sat by Pulse 99 99 100 Oximetry 11/11/18 11/11/18 11/11/18 11:30 11:37 11:40 Temperature Pulse Rate 97 H 94 H Pulse Rate [ 95 H Anterior Bilateral Throughout] Pulse Rate [ From Monitor] Respiratory 20 Rate Respiratory 20 Rate [Anterior Bilateral Throughout] Blood Pressure 132/54 132/54 O2 Sat by Pulse 98 100 Oximetry 11/11/18 11/11/18 11:45 12:00 Temperature 97.2 F L Pulse Rate 96 H 92 H Pulse Rate [ Anterior Bilateral Throughout] Pulse Rate [ 100 H From Monitor] Respiratory 20 20 Rate Respiratory Rate [Anterior Bilateral Throughout] Blood Pressure 134/59 122/34 O2 Sat by Pulse 100 99 Oximetry Constitutional: no acute distress, other (sedated, thin chronically ill looking) Eyes: non-icteric ENT: oropharynx moist, other (ETT in place, 23cm at the lips) Neck: supple, no lymphadenopathy Effort: normal Ascultation: Bilateral: diminished breath sounds, rales, rhonchi Cardiovascular: regular rate and rhythm, other (s1, s2, ) Gastrointestinal: normoactive bowel sounds, soft, non-tender, non-distended, other (no guarding, no hepato-splenomegaly) Integumentary: other (dry scaling) Extremities: no cyanosis, no edema, no ischemia or petechiae Neurologic: other (sedated) Psychiatric: other (sedated) CBC and BMP: 11/10/18 04:37 11/11/18 04:25 ABG, PT/INR, D-dimer: ABG POC ABG pH 7.334 (7.35-7.45) L 11/11/18 04:23 POC ABG pCO2 46.1 (35-45) H 11/11/18 04:23 POC ABG pO2 83 (80-105) 11/11/18 04:23 POC ABG HCO3 24.6 (22-26 mml/L) 11/11/18 04:23 POC ABG Total CO2 26 (23-27mmol/L) 11/11/18 04:23 POC ABG O2 Sat 95 11/11/18 04:23 PT/INR, D-dimer PT 13.2 Sec. (12.2-14.9) 11/05/18 07:09 INR 0.95 (0.87-1.13) 11/05/18 07:09 Abnormal lab findings: Abnormal Labs 11/05/18 11/05/18 11/05/18 07:09 07:09 07:09 WBC 14.7 H RBC 3.42 L Hgb Hct MCV 99 H RDW 20.1 H Lymph % (Auto) Douglas % (Auto) 9.3 H Lymph # Douglas # 1.4 H Eos # 0.5 H Baso # 0.2 H Seg Neutrophils % 70.1 H Seg Neuts % (Manual) Lymphocytes % (Manual) Monocytes % (Manual) Seg Neutrophils # 10.3 H Seg Neutrophils # Man Lymphocytes # (Manual) Monocytes # (Manual) POC ABG pH POC ABG pCO2 POC ABG pO2 Sodium Potassium 6.8 H* Chloride Carbon Dioxide BUN 74 H Creatinine 6.9 H Glucose 226 H POC Glucose 206 H Calcium AST 80 H Alkaline Phosphatase 236 H CK-MB (CK-2) CK-MB (CK-2) Rel Index 8.2 H Troponin T 0.224 H* NT-Pro-B Natriuret Pep > 63080 H Total Protein Albumin HDL Cholesterol 61 H 11/05/18 11/05/18 11/06/18 08:03 19:45 03:29 WBC RBC Hgb Hct MCV RDW Lymph % (Auto) Douglas % (Auto) Lymph # Douglas # Eos # Baso # Seg Neutrophils % Seg Neuts % (Manual) Lymphocytes % (Manual) Monocytes % (Manual) Seg Neutrophils # Seg Neutrophils # Man Lymphocytes # (Manual) Monocytes # (Manual) POC ABG pH 7.612 H POC ABG pCO2 51.2 H 31.3 L POC ABG pO2 167 H 117 H Sodium Potassium Chloride Carbon Dioxide BUN Creatinine Glucose POC Glucose Calcium AST Alkaline Phosphatase CK-MB (CK-2) 5.6 H CK-MB (CK-2) Rel Index 5.2 H Troponin T 0.321 H* D NT-Pro-B Natriuret Pep Total Protein Albumin HDL Cholesterol 11/06/18 11/06/18 11/06/18 06:59 06:59 14:16 WBC RBC Hgb Hct MCV RDW 19.2 H Lymph % (Auto) Douglas % (Auto) Lymph # Douglas # Eos # Baso # Seg Neutrophils % Seg Neuts % (Manual) 82.0 H Lymphocytes % (Manual) 5.0 L Monocytes % (Manual) 13.0 H Seg Neutrophils # Seg Neutrophils # Man 8.5 H Lymphocytes # (Manual) 0.5 L Monocytes # (Manual) 1.4 H POC ABG pH POC ABG pCO2 POC ABG pO2 Sodium Potassium 5.2 H D Chloride Carbon Dioxide BUN 33 H Creatinine 4.4 H Glucose POC Glucose 139 H Calcium AST 52 H Alkaline Phosphatase 170 H CK-MB (CK-2) CK-MB (CK-2) Rel Index Troponin T 0.289 H* NT-Pro-B Natriuret Pep Total Protein Albumin 3.7 L HDL Cholesterol 11/07/18 11/07/18 11/07/18 04:11 04:11 05:39 WBC RBC 3.31 L Hgb Hct MCV RDW 18.9 H Lymph % (Auto) 8.9 L Douglas % (Auto) 14.6 H Lymph # 0.9 L Douglas # 1.5 H Eos # Baso # Seg Neutrophils % 74.7 H Seg Neuts % (Manual) Lymphocytes % (Manual) Monocytes % (Manual) Seg Neutrophils # 7.9 H Seg Neutrophils # Man Lymphocytes # (Manual) Monocytes # (Manual) POC ABG pH 7.550 H POC ABG pCO2 32.6 L POC ABG pO2 63 L Sodium 146 H Potassium Chloride Carbon Dioxide BUN 36 H Creatinine 4.7 H Glucose 109 H POC Glucose Calcium AST 42 H Alkaline Phosphatase 138 H CK-MB (CK-2) CK-MB (CK-2) Rel Index Troponin T NT-Pro-B Natriuret Pep Total Protein 5.8 L Albumin 3.3 L HDL Cholesterol 11/08/18 11/08/18 11/09/18 03:19 04:38 04:56 WBC RBC Hgb Hct MCV RDW Lymph % (Auto) Douglas % (Auto) Lymph # Douglas # Eos # Baso # Seg Neutrophils % Seg Neuts % (Manual) Lymphocytes % (Manual) Monocytes % (Manual) Seg Neutrophils # Seg Neutrophils # Man Lymphocytes # (Manual) Monocytes # (Manual) POC ABG pH 7.468 H 7.301 L POC ABG pCO2 34.3 L 46.3 H POC ABG pO2 132 H 63 L Sodium 148 H Potassium 5.2 H Chloride Carbon Dioxide BUN 50 H Creatinine 6.4 H Glucose POC Glucose Calcium 8.3 L AST Alkaline Phosphatase CK-MB (CK-2) CK-MB (CK-2) Rel Index Troponin T NT-Pro-B Natriuret Pep Total Protein Albumin HDL Cholesterol 11/09/18 11/09/18 11/09/18 11:26 11:26 12:54 WBC 15.0 H RBC 3.33 L Hgb 10.0 L Hct MCV RDW 19.1 H Lymph % (Auto) 5.3 L Douglas % (Auto) Lymph # 0.8 L Douglas # 1.1 H Eos # Baso # Seg Neutrophils % 85.6 H Seg Neuts % (Manual) Lymphocytes % (Manual) Monocytes % (Manual) Seg Neutrophils # 12.8 H Seg Neutrophils # Man Lymphocytes # (Manual) Monocytes # (Manual) POC ABG pH POC ABG pCO2 POC ABG pO2 Sodium 150 H Potassium 5.3 H Chloride 108.4 H Carbon Dioxide 20 L BUN 79 H Creatinine 7.6 H Glucose 111 H POC Glucose 115 H Calcium 7.6 L AST Alkaline Phosphatase CK-MB (CK-2) CK-MB (CK-2) Rel Index Troponin T NT-Pro-B Natriuret Pep Total Protein Albumin HDL Cholesterol 11/10/18 11/10/18 11/10/18 04:24 04:37 04:37 WBC 14.2 H RBC 3.13 L Hgb 9.5 L Hct 29.8 L MCV RDW 19.2 H Lymph % (Auto) 3.9 L Douglas % (Auto) 9.9 H Lymph # 0.5 L Douglas # 1.4 H Eos # Baso # Seg Neutrophils % 83.3 H Seg Neuts % (Manual) Lymphocytes % (Manual) Monocytes % (Manual) Seg Neutrophils # 11.8 H Seg Neutrophils # Man Lymphocytes # (Manual) Monocytes # (Manual) POC ABG pH POC ABG pCO2 POC ABG pO2 Sodium 150 H Potassium Chloride Carbon Dioxide BUN 65 H Creatinine 6.8 H Glucose 111 H POC Glucose 110 H Calcium 8.0 L AST Alkaline Phosphatase CK-MB (CK-2) CK-MB (CK-2) Rel Index Troponin T NT-Pro-B Natriuret Pep Total Protein Albumin HDL Cholesterol 11/10/18 11/10/18 11/10/18 05:51 12:53 16:48 WBC RBC Hgb Hct MCV RDW Lymph % (Auto) Douglas % (Auto) Lymph # Douglas # Eos # Baso # Seg Neutrophils % Seg Neuts % (Manual) Lymphocytes % (Manual) Monocytes % (Manual) Seg Neutrophils # Seg Neutrophils # Man Lymphocytes # (Manual) Monocytes # (Manual) POC ABG pH 7.475 H POC ABG pCO2 POC ABG pO2 67 L Sodium Potassium Chloride Carbon Dioxide BUN Creatinine Glucose POC Glucose 131 H 124 H Calcium AST Alkaline Phosphatase CK-MB (CK-2) CK-MB (CK-2) Rel Index Troponin T NT-Pro-B Natriuret Pep Total Protein Albumin HDL Cholesterol 11/10/18 11/10/18 11/11/18 20:00 23:54 04:23 WBC RBC Hgb Hct MCV RDW Lymph % (Auto) Douglas % (Auto) Lymph # Douglas # Eos # Baso # Seg Neutrophils % Seg Neuts % (Manual) Lymphocytes % (Manual) Monocytes % (Manual) Seg Neutrophils # Seg Neutrophils # Man Lymphocytes # (Manual) Monocytes # (Manual) POC ABG pH 7.334 L POC ABG pCO2 46.1 H POC ABG pO2 Sodium Potassium Chloride Carbon Dioxide BUN Creatinine Glucose POC Glucose 133 H 121 H Calcium AST Alkaline Phosphatase CK-MB (CK-2) CK-MB (CK-2) Rel Index Troponin T NT-Pro-B Natriuret Pep Total Protein Albumin HDL Cholesterol 11/11/18 11/11/18 11/11/18 04:25 05:42 08:27 WBC RBC Hgb Hct MCV RDW Lymph % (Auto) Douglas % (Auto) Lymph # Douglas # Eos # Baso # Seg Neutrophils % Seg Neuts % (Manual) Lymphocytes % (Manual) Monocytes % (Manual) Seg Neutrophils # Seg Neutrophils # Man Lymphocytes # (Manual) Monocytes # (Manual) POC ABG pH POC ABG pCO2 POC ABG pO2 Sodium 157 H Potassium Chloride 111.2 H Carbon Dioxide BUN 81 H Creatinine 7.7 H Glucose 139 H POC Glucose 129 H 122 H Calcium AST Alkaline Phosphatase CK-MB (CK-2) CK-MB (CK-2) Rel Index Troponin T NT-Pro-B Natriuret Pep Total Protein Albumin HDL Cholesterol Chest x-ray: image reviewed Allied health notes reviewed: nursing
--- NOTE | 2018-11-11 15:01 | Progress Note ---
Assessment and Plan - Patient Problems (1) ESRD (end stage renal disease) on dialysis Current Visit: No Status: Chronic Plan to address problem: The patient has not been tolerating dialysis since hospitalization. Treatments have been abbreviated due to hypotension limiting fluid removal. Patient still on Levophed today. FiO2 requirement is not high and potassium is normal. Had a long discussion again with patient's family regarding benefits and risks of dialysis. I'm concerned that her risk is becoming almost prohibitive given the hemodynamic instability. Discussed what patient would've wanted if she could speak now regarding continuing dialysis with her increase in risk. We also discussed the need to consider switching to DO NOT RESUSCITATE status since patient had indicated not too long ago to her daughters that she was tired and s tated if it got to a point where her heart stopped she would like to be left alone. Patient's daughter's and family sill unable to make a decision regarding her resuscitation status and continuing dialysis. For not they would like to continue dialysis. We'll reevaluate patient in the morning and if hemodynamically stable enough, we will attempt dialysis. They understand the benefits and risks (2) Acute and chronic respiratory failure with hypoxia Current Visit: Yes Status: Acute Plan to address problem: Continue ventilator management by primary attending/language instructor. FiO2 35% (3) Hyperkalemia Current Visit: Yes Status: Acute Plan to address problem: Potassium is normal. Follow up in the morning (4) Hypertensive chronic kidney disease with stage 5 chronic kidney disease or end stage renal disease Current Visit: No Status: Acute Plan to address problem: Patient is now hypotensive on Levophed. Wean vasopressors as tolerated (5) Anemia, chronic disease Current Visit: No Status: Chronic Plan to address problem: Continue Erythropoetin on dialysis Subjective Date of service: 11/11/18 Principal diagnosis: end-stage renal disease, hypotension Interval history: Patient seen lying in bed. Intubated and on ventilator. On Levophed at 4 mcg per minute. Family at bedside including 2 daughters. Objective - Exam Narrative Exam: Frail elderly, -[place] female lying in bed intubated on ventilator HEENT: NCAT, endotracheal tube intact Neck: Supple, no venous distention CVS: S1S2 RRR with no murmur, rub or gallop Chest: Clear to auscultation though breath sounds diminished in the lower zones Abdomen: Protuberant, soft, nontender, no organomegaly, bowel sounds are present Extremities:2+ edema Genitourinary: deferred Neuro: Unresponsive on the ventilator - Vital Signs Vital signs: Vital Signs - 12hr 11/11/18 11/11/18 11/11/18 03:00 03:16 03:30 Temperature Pulse Rate 95 H 91 H 88 Pulse Rate [ Anterior Bilateral Throughout] Pulse Rate [ From Monitor] Respiratory 17 20 20 Rate Respiratory Rate [Anterior Bilateral Throughout] Blood Pressure 129/51 97/47 102/51 O2 Sat by Pulse 99 100 99 Oximetry 11/11/18 11/11/18 11/11/18 03:45 04:00 04:05 Temperature 97.4 F L Pulse Rate 72 84 83 Pulse Rate [ Anterior Bilateral Throughout] Pulse Rate [ 84 From Monitor] Respiratory 20 21 Rate Respiratory Rate [Anterior Bilateral Throughout] Blood Pressure 98/47 98/47 127/61 O2 Sat by Pulse 100 100 100 Oximetry 11/11/18 11/11/18 11/11/18 04:15 04:30 04:45 Temperature Pulse Rate 108 H 94 H 94 H Pulse Rate [ Anterior Bilateral Throughout] Pulse Rate [ From Monitor] Respiratory 17 15 20 Rate Respiratory Rate [Anterior Bilateral Throughout] Blood Pressure 178/65 119/54 114/57 O2 Sat by Pulse 100 99 100 Oximetry 11/11/18 11/11/18 11/11/18 05:00 05:16 05:30 Temperature Pulse Rate 92 H 93 H 95 H Pulse Rate [ Anterior Bilateral Throughout] Pulse Rate [ From Monitor] Respiratory 15 19 21 Rate Respiratory Rate [Anterior Bilateral Throughout] Blood Pressure 127/61 109/45 115/50 O2 Sat by Pulse 100 100 100 Oximetry 11/11/18 11/11/18 11/11/18 05:45 06:00 06:15 Temperature Pulse Rate 97 H 94 H 96 H Pulse Rate [ Anterior Bilateral Throughout] Pulse Rate [ From Monitor] Respiratory 17 21 14 Rate Respiratory Rate [Anterior Bilateral Throughout] Blood Pressure 99/47 102/51 107/52 O2 Sat by Pulse 100 100 99 Oximetry 11/11/18 11/11/18 11/11/18 06:30 06:45 07:00 Temperature Pulse Rate 92 H 98 H 101 H Pulse Rate [ Anterior Bilateral Throughout] Pulse Rate [ From Monitor] Respiratory 18 19 17 Rate Respiratory Rate [Anterior Bilateral Throughout] Blood Pressure 112/51 94/44 93/38 O2 Sat by Pulse 100 100 100 Oximetry 11/11/18 11/11/18 11/11/18 07:15 07:30 07:39 Temperature Pulse Rate 98 H 90 91 H Pulse Rate [ Anterior Bilateral Throughout] Pulse Rate [ From Monitor] Respiratory 21 21 Rate Respiratory Rate [Anterior Bilateral Throughout] Blood Pressure 82/43 86/50 116/57 O2 Sat by Pulse 100 100 100 Oximetry 11/11/18 11/11/18 11/11/18 07:45 08:00 08:15 Temperature 98.6 F Pulse Rate 99 H 104 H 100 H Pulse Rate [ 99 H Anterior Bilateral Throughout] Pulse Rate [ 100 H From Monitor] Respiratory 18 20 19 Rate Respiratory 20 Rate [Anterior Bilateral Throughout] Blood Pressure 116/57 125/50 120/51 O2 Sat by Pulse 100 99 98 Oximetry 11/11/18 11/11/18 11/11/18 08:30 08:31 08:45 Temperature Pulse Rate 96 H 95 H Pulse Rate [ 101 H Anterior Bilateral Throughout] Pulse Rate [ From Monitor] Respiratory 17 18 Rate Respiratory 20 Rate [Anterior Bilateral Throughout] Blood Pressure 116/57 117/53 O2 Sat by Pulse 99 99 Oximetry 11/11/18 11/11/18 11/11/18 09:00 09:15 09:30 Temperature Pulse Rate 90 96 H 91 H Pulse Rate [ Anterior Bilateral Throughout] Pulse Rate [ From Monitor] Respiratory 20 12 15 Rate Respiratory Rate [Anterior Bilateral Throughout] Blood Pressure 114/54 119/59 105/48 O2 Sat by Pulse 99 99 99 Oximetry 11/11/18 11/11/18 11/11/18 09:45 10:00 10:15 Temperature Pulse Rate 92 H 91 H 93 H Pulse Rate [ Anterior Bilateral Throughout] Pulse Rate [ From Monitor] Respiratory 20 20 14 Rate Respiratory Rate [Anterior Bilateral Throughout] Blood Pressure 108/49 104/50 111/57 O2 Sat by Pulse 98 98 99 Oximetry 11/11/18 11/11/18 11/11/18 10:30 10:45 11:00 Temperature Pulse Rate 94 H 94 H 97 H Pulse Rate [ Anterior Bilateral Throughout] Pulse Rate [ From Monitor] Respiratory 15 13 17 Rate Respiratory Rate [Anterior Bilateral Throughout] Blood Pressure 120/60 118/56 120/56 O2 Sat by Pulse 100 99 99 Oximetry 11/11/18 11/11/18 11/11/18 11:15 11:30 11:37 Temperature Pulse Rate 97 H 97 H 94 H Pulse Rate [ Anterior Bilateral Throughout] Pulse Rate [ From Monitor] Respiratory 20 20 Rate Respiratory Rate [Anterior Bilateral Throughout] Blood Pressure 121/58 132/54 132/54 O2 Sat by Pulse 100 98 100 Oximetry 11/11/18 11/11/18 11/11/18 11:40 11:45 12:00 Temperature 97.2 F L Pulse Rate 96 H 92 H Pulse Rate [ 95 H Anterior Bilateral Throughout] Pulse Rate [ 100 H From Monitor] Respiratory 20 20 Rate Respiratory 20 Rate [Anterior Bilateral Throughout] Blood Pressure 134/59 122/34 O2 Sat by Pulse 100 99 Oximetry 11/11/18 11/11/18 11/11/18 12:15 12:30 12:45 Temperature Pulse Rate 91 H 92 H 92 H Pulse Rate [ Anterior Bilateral Throughout] Pulse Rate [ From Monitor] Respiratory 21 20 20 Rate Respiratory Rate [Anterior Bilateral Throughout] Blood Pressure 115/43 101/45 107/44 O2 Sat by Pulse 99 99 99 Oximetry 11/11/18 11/11/18 11/11/18 13:00 13:15 13:30 Temperature Pulse Rate 92 H 87 86 Pulse Rate [ Anterior Bilateral Throughout] Pulse Rate [ From Monitor] Respiratory 20 20 20 Rate Respiratory Rate [Anterior Bilateral Throughout] Blood Pressure 94/42 100/49 104/50 O2 Sat by Pulse 99 98 98 Oximetry 11/11/18 11/11/18 13:45 14:00 Temperature Pulse Rate 88 88 Pulse Rate [ Anterior Bilateral Throughout] Pulse Rate [ From Monitor] Respiratory 20 20 Rate Respiratory Rate [Anterior Bilateral Throughout] Blood Pressure 97/45 115/49 O2 Sat by Pulse 98 89 Oximetry - Lab 11/10/18 04:37 11/11/18 04:25 Most recent lab results Calcium 8.9 mg/dL (8.4-10.2) 11/11/18 04:25 Phosphorus 4.10 mg/dL (2.5-4.5) 11/11/18 04:25 Medications & Allergies - Medications Allergies/Adverse Reactions: Allergies meperidine [From Demerol] Allergy (Verified 01/12/18 03:31) Itching Home Medications: Home Medications Medication Instructions Recorded Confirmed Last Taken Type Amlodipine Besylate [Norvasc] 10 mg PO QDAY 01/12/18 06/12/18 Unknown History B Complex 11/Folic/C/Biot/Zinc 1 each PO DAILY 01/12/18 06/12/18 Unknown History [Dialyvite with Zinc Tablet] Calcitriol [Rocaltrol] 0.5 mcg PO QDAY 01/12/18 06/12/18 Unknown History Carvedilol [Coreg] 6.25 mg PO BID 01/12/18 06/12/18 Unknown History Esomeprazole Magnesium [NexIUM] 40 mg PO QDAY 01/12/18 06/12/18 Unknown History Levothyroxine [Synthroid] 125 mcg PO QAM 01/12/18 06/12/18 Unknown History ALBUTEROL Inhaler(NF) 90 mcg INHALATION Q6H PRN 06/12/18 06/12/18 Unknown History Cozaar 50 mg PO DAILY 06/12/18 06/12/18 Unknown History Loperamide [Imodium] 4 mg PO QID PRN 06/12/18 06/12/18 Unknown History Acetaminophen [Acetaminophen TAB] 650 mg PO Q4H PRN #15 tablet 09/24/18 Unknown Rx Active Medications: Generic Name Dose Route Start Last Admin Trade Name Freq PRN Reason Stop Dose Admin Albuterol 2.5 mg 11/05/18 12:00 11/11/18 11:40 Proventil IH 2.5 mg QIDRT CECILIO Administration Albuterol 2.5 mg 11/05/18 12:00 Proventil IH Q4HRT PRN Shortness Of Breath Lipase/Protease/Amylase 1 each 11/05/18 11:[address] 10,500 Unit FEEDTUBE PRN PRN For Clogged Feeding Tube Calcitriol 0.5 mcg 11/05/18 11:00 11/11/18 10:09 Rocaltrol PO 0.5 mcg QDAY CECILIO Administration Dextrose 50 ml 11/09/18 11:03 D50w (25gm) Syringe IV PRN PRN Hypoglycemia Epoetin Kristopher 5,000 unit 11/09/18 08:00 Procrit IV CHARI CECILIO Fentanyl 50 mcg 11/06/18 10:00 11/08/18 18:10 Sublimaze IV 50 mcg Q10MIN PRN Administration ANALGESIA Hydrophilic Ointment 1 applic 11/06/18 10:00 Vaseline Lip Therapy TP Q2HR PRN Dry Lips Midazolam HCl 100 mg/ Sodium 100 mls @ 2 mls/hr 11/05/18 08:00 11/06/18 17:10 Chloride IV 0 mg/hr TITR CECILIO 0 mls/hr Titration Protocol 2 MG/HR Fentanyl Citrate 2,000 mcg in 100 mls @ 2.495 mls/hr 11/06/18 10:00 11/11/18 13:10 Fentanyl Drip Premix IV Infused TITR CECILIO Titration Protocol 1 MCG/KG/HR Norepinephrine 4 mg in 250 mls @ 7.5 mls/hr 11/06/18 19:00 11/11/18 13:11 Levophed Drip 4 Mg/Ns 250 Ml IV 4 mcg/min TITR CECILIO 15 mls/hr Titration Protocol 2 MCG/MIN Sodium Chloride 100 mls @ 999 mls/hr 11/07/18 10:30 Nacl 0.9% IV CHARI PRN Hypotension Piperacillin Sod/Tazobactam 50 mls @ 100 mls/hr 11/07/18 22:00 11/09/18 23:33 Sod 0.75 gm/ Sodium Chloride IV Not Given [id number] [facility] Protocol Vancomycin HCl 750 mg/ Sodium 265 mls @ 166.667 mls/hr 11/09/18 22:00 Chloride IV MoWeFr CECILIO Piperacillin Sod/Tazobactam Sod 2.25 gm in 50 mls @ 100 mls/hr 11/08/18 18:00 11/11/18 13:25 Zosyn/Ns 2.25 Gm/50ml IV 100 mls/hr Q8HR CECILIO Administration Metronidazole 500 mg in 100 mls @ 100 mls/hr 11/09/18 14:00 11/11/18 13:23 Flagyl 500 Mg/100 Ml IV 100 mls/hr Q8HR CECILIO Administration Protocol Dextrose 1,000 mls @ 75 mls/hr 11/11/18 11:00 11/11/18 13:23 D5w IV 75 mls/hr DIRECT CECILIO Administration Insulin Human Regular 0 units 11/09/18 22:00 11/10/18 21:59 Humulin R SUB-Q Not Given QHS [facility] Protocol Levothyroxine Sodium 125 mcg 11/05/18 11:00 11/11/18 05:19 Synthroid PO 125 mcg DAILY@0600 CECILIO Administration Losartan Potassium 50 mg 11/05/18 11:00 11/11/18 10:05 Cozaar PO Not Given QDAY CECILIO Midazolam HCl 2 mg 11/05/18 07:28 11/05/18 16:15 Versed IV 2 mg Q10MIN PRN Administration Sedation Multi-Ingred Cream/Lotion/Oil/Oint 1 applic 11/06/18 10:00 Artificial Tears Ophth Oint OU Q4HR PRN Dry Eye(s) Simple Syrup 15 ml 11/05/18 11:27 Simple Syrup FEEDTUBE PRN PRN Hypoglycemia Simple Syrup 30 ml 11/05/18 11:27 Simple Syrup FEEDTUBE PRN PRN Hypoglycemia Sodium Bicarbonate 325 mg 11/05/18 11:27 Sodium Bicarbonate FEEDTUBE PRN PRN For Clogged Feeding Tube
[2018-11-11] MEDS: HumuLIN R SUB-Q SCH (21:41)
[2018-11-12] MEDS: SIMPLE SYRUP FEEDTUBE PRN (02:45)
--- NOTE | 2018-11-12 02:49 | XRay Report ---
PROCEDURE: XR CHEST 1V AP TECHNIQUE: Single AP chest HISTORY: follow up respiratory failure COMPARISONS: November 11 FINDINGS: Patient is rotated to the left. The cardiac silhouette is not enlarged. There is retrocardiac airspace disease which may represent pneumonia and or atelectasis. Elevation of the left hemidiaphragm. Sharply demarcated opacity in the right lower lung which may represent right lower lobe atelectasis a nd pneumonia. Follow-up PA and lateral radiographs will be helpful in further evaluation of these fin dings. The pulmonary vasculature is within normal limits. There is an NG tube in the stomach. ET tube in satisfactory position proximal to the level of the roberth. IMPRESSION: . Retrocardiac airspace disease which may represent pneumonia and or atelectasis. Sharply demarcated opacity in the right lower lobe which may represent right lower lobe atelectasis a nd pneumonia. Follow-up PA and lateral radiographs will be helpful in further evaluation of these fin dings. This document is electronically signed by Davy Butts MD., November 12 2018 02:47:17 AM ET
[2018-11-12 04:36] LABS: Hematocrit 30.3 % (30.3-42.9); Hemoglobin 9.7 gm/dl (10.1-14.3); Mean Corpuscular HGB Conc 32 % (30-34); Mean Corpuscular Volume 95 fl (79-97); Platelet Count 236 K/mm3 (140-440); Red Blood Count 3.18 M/mm3 (3.65-5.03); Red Cell Distribution Width 19.1 % (13.2-15.2)
[2018-11-12 04:55] LABS: Albumin 2.7 g/dL (3.9-5)
[2018-11-12 05:14] LABS: Calcium 3.3 mg/dL (8.4-10.2)
[2018-11-12] MEDS: SYNTHROID PO SCH (05:36)
[2018-11-12] MEDS: FLAGYL 500 MG/100 ML 500 MG/100 ML BAG IV SCH ×3 (05:36→22:16)
[2018-11-12] MEDS: ZOSYN/NS 2.25 GM/50ML 2.25 GM/50 ML BAG IV SCH ×3 (05:36→22:16)
[2018-11-12 05:40] LABS: Total Cells Counted 100
[2018-11-12 05:41] LABS: Anisocytosis 1+; Platelet Estimate Consistent w Auto
[2018-11-12] MEDS: PROVENTIL IH SCH ×4 (07:48→21:50)
[2018-11-12] MEDS ORDERED: CALCIUM GLUCONATE 1,000 MG in NACL 0.9% 100 ML IV ONE (09:00)
[2018-11-12] MEDS: COZAAR PO SCH (09:33)
[2018-11-12] MEDS: ROCALTROL PO SCH (09:34)
[2018-11-12] MEDS ORDERED: NACL 0.9% 100 ML IV PRN (10:00)
--- NOTE | 2018-11-12 10:01 | Progress Note ---
Assessment and Plan Assessment and plan: --Severe hyperkalemia; potassium 8.4 She'll need stat dialysis. Nephrology following Calcium gluconate IV, Kayexalate and albuterol if needed --Hypernatremia; free water flushes, mild improvement --Septic shock;off evophed Closely monitor, presumably will fade as needed --Acute hypoxic respiratory failure; intubated on vent cont, nebs,antibiotics Pulmonary critical following Wean as tolerated and extubate --Right lower lobe pneumonia/aspiration pneumonia Follow-up chest x-ray today; pneumonia /infiltrates resolved Continue vancomycin and Zosyn, add Flagyl F/u cultures, consider ID evaluation if needed --Sepsis secondary to pneumonia, --Nonspecific elevation of troponin; probably secondary to End-stage renal disease, medical management --Severe hypocalcemia; received calcium gluconate, closely monitor levels Nephrology following --End-stage renal disease; hemodialysis per schedule Nephrology following --History of Hypertension; patient is hypotensive and in shock Hold all the blood pressure medications --Hyperglycemia/type 2 diabetes mellitus. Accu-Chek sliding scale coverage and ADA diet Insulin As Needed, hemoglobin A1c --History of hypothyroidism; resume Synthroid --DVT prophylaxis; heparin renal dose --Tube feeds per protocol Patient is critically ill, with very poor prognosis, Family aware, Patient is DO NOT RESUSCITATE status, but full treatment, Patient's condition. Poor prognosis and treatment plan discussed in detail With the daughter Percy Louise , and son-in-law at the bedside Critical care time 33 minutes History Interval history: Patient seen and examined in ICU this morning medical records reviewed Patient's daughter and son-in-law at the bedside Orally intubated on ventilatory support Mild distress, mild tachycardia, off Levophed her blood pressure is low normal Vital signs noted Hospitalist Physical - Constitutional Vitals: Temp Pulse Resp BP Pulse Ox 97.7 F 117 H 17 124/53 97 11/12/18 04:00 11/12/18 09:33 11/12/18 07:49 11/12/18 09:33 11/12/18 07:45 General appearance: Present: no acute distress, cachectic, disheveled, other (intubated on ventilatory support) - EENT Eyes: Present: PERRL, EOM intact - Neck Neck: Present: supple, normal ROM - Respiratory Respiratory effort: normal Respiratory: bilateral: diminished, rhonchi - Cardiovascular Rhythm: regular Heart Sounds: Present: S1 & S2 - Extremities Extremities: no ischemia, No edema - Abdominal General gastrointestinal: soft, non-tender, non-distended, normal bowel sounds - Integumentary Integumentary: Present: clear, warm - Psychiatric Psychiatric: other (intubated on vent) - Neurologic Neurologic: other (intubated on vent) Results - Labs CBC & Chem 7: 11/12/18 03:39 11/12/18 03:39 Labs: Laboratory Last Values WBC 10.4 K/mm3 (4.5-11.0) 11/12/18 03:39 RBC 3.18 M/mm3 (3.65-5.03) L 11/12/18 03:39 Hgb 9.7 gm/dl (10.1-14.3) L 11/12/18 03:39 Hct 30.3 % (30.3-42.9) 11/12/18 03:39 MCV 95 fl (79-97) 11/12/18 03:39 MCH 30 pg (28-32) 11/12/18 03:39 MCHC 32 % (30-34) 11/12/18 03:39 RDW 19.1 % (13.2-15.2) H 11/12/18 03:39 Plt Count 236 K/mm3 (140-440) 11/12/18 03:39 Lymph % (Auto) 3.9 % (13.4-35.0) L 11/10/18 04:37 [place] % (Auto) [employer] 11/12/18 03:39 Eos % (Auto) 2.5 % (0.0-4.3) 11/10/18 04:37 Baso % (Auto) 0.4 % (0.0-1.8) 11/10/18 04:37 Lymph # 0.5 K/mm3 (1.2-5.4) L 11/10/18 04:37 [place] # 1.4 K/mm3 (0.0-0.8) H 11/10/18 04:37 Eos # 0.4 K/mm3 (0.0-0.4) 11/10/18 04:37 Baso # 0.1 K/mm3 (0.0-0.1) 11/10/18 04:37 Add Manual Diff Complete 11/12/18 03:39 Total Counted 100 11/12/18 03:39 Seg Neutrophils % 83.3 % (40.0-70.0) H 11/10/18 04:37 Seg Neuts % (Manual) 71.0 % (40.0-70.0) H 11/12/18 03:39 Band Neutrophils % 0 % 11/12/18 03:39 Lymphocytes % (Manual) 13.0 % (13.4-35.0) L 11/12/18 03:39 Reactive Lymphs % (Man) 1.0 % 11/12/18 03:39 Monocytes % (Manual) 10.0 % (0.0-7.3) H 11/12/18 03:39 Eosinophils % (Manual) 4.0 % (0.0-4.3) 11/12/18 03:39 Basophils % (Manual) 1.0 % (0.0-1.8) 11/12/18 03:39 Metamyelocytes % 0 % 11/12/18 03:39 Myelocytes % 0 % 11/12/18 03:39 Promyelocytes % 0 % 11/12/18 03:39 Blast Cells % 0 % 11/12/18 03:39 Nucleated RBC % Not Reportable 11/12/18 03:39 Seg Neutrophils # 11.8 K/mm3 (1.8-7.7) H 11/10/18 04:37 Seg Neutrophils # Man 7.4 K/mm3 (1.8-7.7) 11/12/18 03:39 Band Neutrophils # 0.0 K/mm3 11/12/18 03:39 Lymphocytes # (Manual) 1.4 K/mm3 (1.2-5.4) 11/12/18 03:39 Abs React Lymphs (Man) 0.1 K/mm3 11/12/18 03:39 Monocytes # (Manual) 1.0 K/mm3 (0.0-0.8) H 11/12/18 03:39 Eosinophils # (Manual) 0.4 K/mm3 (0.0-0.4) 11/12/18 03:39 Basophils # (Manual) 0.1 K/mm3 (0.0-0.1) 11/12/18 03:39 Metamyelocytes # 0.0 K/mm3 11/12/18 03:39 Myelocytes # 0.0 K/mm3 11/12/18 03:39 Promyelocytes # 0.0 K/mm3 11/12/18 03:39 Blast Cells # 0.0 K/mm3 11/12/18 03:39 WBC Morphology Not Reportable 11/12/18 03:39 Hypersegmented Neuts Not Reportable 11/12/18 03:39 Hyposegmented Neuts Not Reportable 11/12/18 03:39 Hypogranular Neuts Not Reportable 11/12/18 03:39 Smudge Cells Not Reportable 11/12/18 03:39 Toxic Granulation Not Reportable 11/12/18 03:39 Toxic Vacuolation Not Reportable 11/12/18 03:39 Dohle Bodies Not Reportable 11/12/18 03:39 Pelger-Huet Anomaly Not Reportable 11/12/18 03:39 Omar Rods Not Reportable 11/12/18 03:39 Platelet Estimate Consistent w auto 11/12/18 03:39 Clumped Platelets Not Reportable 11/12/18 03:39 Plt Clumps, EDTA Not Reportable 11/12/18 03:39 Large Platelets Not Reportable 11/12/18 03:39 Giant Platelets Not Reportable 11/12/18 03:39 Platelet Satelliting Not Reportable 11/12/18 03:39 Plt Morphology Comment Not Reportable 11/12/18 03:39 RBC Morphology Not Reportable 11/12/18 03:39 Dimorphic RBCs Not Reportable 11/12/18 03:39 Polychromasia Not Reportable 11/12/18 03:39 Hypochromasia Not Reportable 11/12/18 03:39 Poikilocytosis Not Reportable 11/12/18 03:39 Anisocytosis 1+ 11/12/18 03:39 Microcytosis Not Reportable 11/12/18 03:39 Macrocytosis Not Reportable 11/12/18 03:39 Spherocytes Not Reportable 11/12/18 03:39 Pappenheimer Bodies Not Reportable 11/12/18 03:39 Sickle Cells Not Reportable 11/12/18 03:39 Target Cells Not Reportable 11/12/18 03:39 Tear Drop Cells Not Reportable 11/12/18 03:39 Ovalocytes Not Reportable 11/12/18 03:39 Helmet Cells Not Reportable 11/12/18 03:39 [place] Bodies Not Reportable 11/12/18 03:39 [place] Rings Not Reportable 11/12/18 03:39 [place] Cells Not Reportable 11/12/18 03:39 Bite Cells Not Reportable 11/12/18 03:39 Crenated Cell Not Reportable 11/12/18 03:39 Elliptocytes Not Reportable 11/12/18 03:39 Acanthocytes (Spur) Not Reportable 11/12/18 03:39 Rouleaux Not Reportable 11/12/18 03:39 Hemoglobin C Crystals Not Reportable 11/12/18 03:39 Schistocytes Not Reportable 11/12/18 03:39 Malaria parasites Not Reportable 11/12/18 03:39 Evangelista Bodies Not Reportable 11/12/18 03:39 Hem Pathologist Commnt No 11/12/18 03:39 PT 13.2 Sec. (12.2-14.9) 11/05/18 07:09 INR 0.95 (0.87-1.13) 11/05/18 07:09 APTT 27.7 Sec. (24.2-36.6) 11/05/18 07:09 POC ABG pH 7.407 (7.35-7.45) 11/12/18 05:38 POC ABG pCO2 35.5 (35-45) 11/12/18 05:38 POC ABG pO2 150 (80-105) H 11/12/18 05:38 POC ABG HCO3 22.3 (22-26 mml/L) 11/12/18 05:38 POC ABG Total CO2 23 (23-27mmol/L) 11/12/18 05:38 POC ABG O2 Sat 99 11/12/18 05:38 POC ABG Base Excess -2 ((-2) - (+3)mmol/L) 11/12/18 05:38 FiO2 35 % 11/12/18 05:38 Sodium 152 mmol/L (137-145) H 11/12/18 03:39 Potassium 8.4 mmol/L (3.6-5.0) H* D 11/12/18 03:39 Chloride 107.4 mmol/L (98-107) H 11/12/18 03:39 Carbon Dioxide 18 mmol/L (22-30) L 11/12/18 03:39 Anion Gap 35 mmol/L 11/12/18 03:39 BUN 89 mg/dL (7-17) H 11/12/18 03:39 Creatinine 7.9 mg/dL (0.7-1.2) H 11/12/18 03:39 Estimated GFR 6 ml/min 11/12/18 03:39 BUN/Creatinine Ratio 11 % 11/12/18 03:39 Glucose 144 mg/dL (65-100) H 11/12/18 03:39 POC Glucose 137 (70-105) H 11/12/18 08:53 Calcium 3.3 mg/dL (8.4-10.2) L* D 11/12/18 03:39 Phosphorus 4.10 mg/dL (2.5-4.5) 11/11/18 04:25 Total Bilirubin 0.40 mg/dL (0.1-1.2) 11/12/18 03:39 AST 46 units/L (5-40) H 11/12/18 03:39 ALT 30 units/L (7-56) 11/12/18 03:39 Alkaline Phosphatase 131 units/L (35-129) H 11/12/18 03:39 Total Creatine Kinase 104 units/L (30-135) 11/06/18 06:59 CK-MB (CK-2) 3.2 ng/mL (0.0-4.0) 11/06/18 06:59 CK-MB (CK-2) Rel Index 3.0 (0-4) 11/06/18 06:59 Troponin T 0.289 ng/mL (0.00-0.029) H* 11/06/18 06:59 NT-Pro-B Natriuret Pep > 90376 pg/mL (0-900) H 11/05/18 07:09 Total Protein 5.6 g/dL (6.3-8.2) L 11/12/18 03:39 Albumin 2.7 g/dL (3.9-5) L 11/12/18 03:39 Albumin/Globulin Ratio 0.9 % 11/12/18 03:39 Triglycerides 101 mg/dL (2-149) 11/05/18 07:09 Cholesterol 180 mg/dL (50-199) 11/05/18 07:09 LDL Cholesterol Direct 116 mg/dL (50-130) 11/05/18 07:09 HDL Cholesterol 61 mg/dL (40-59) H 11/05/18 07:09 Cholesterol/HDL Ratio 2.95 % 11/05/18 07:09 Vancomycin Trough 11.3 ug/mL (5.0-20.0) 11/11/18 11:26 Active Medications - Current Medications Current Medications: Generic Name Dose Route Start Last Admin Trade Name Freq PRN Reason Stop Dose Admin Albuterol 2.5 mg 11/05/18 12:00 11/12/18 07:48 Proventil IH 2.5 mg QIDRT CECILIO Administration Albuterol 2.5 mg 11/05/18 12:00 Proventil IH Q4HRT PRN Shortness Of Breath Lipase/Protease/Amylase 1 each 11/05/18 11:[address] 10,500 Unit FEEDTUBE PRN PRN For Clogged Feeding Tube Calcitriol 0.5 mcg 11/05/18 11:00 11/12/18 09:34 Rocaltrol PO 0.5 mcg QDAY CECILIO Administration Dextrose 50 ml 11/09/18 11:03 D50w (25gm) Syringe IV PRN PRN Hypoglycemia Epoetin Kristopher 5,000 unit 11/09/18 08:00 Procrit IV CHARI CECILIO Fentanyl 50 mcg 11/06/18 10:00 11/08/18 18:10 Sublimaze IV 50 mcg Q10MIN PRN Administration ANALGESIA Hydrophilic Ointment 1 applic 11/06/18 10:00 Vaseline Lip Therapy TP Q2HR PRN Dry Lips Midazolam HCl 100 mg/ Sodium 100 mls @ 2 mls/hr 11/05/18 08:00 11/06/18 17:10 Chloride IV 0 mg/hr TITR CECILIO 0 mls/hr Titration Protocol 2 MG/HR Fentanyl Citrate 2,000 mcg in 100 mls @ 2.495 mls/hr 11/06/18 10:00 11/11/18 16:15 Fentanyl Drip Premix IV 2 mcg/kg/hr TITR CECILIO 4.99 mls/hr Administration Protocol 1 MCG/KG/HR Norepinephrine 4 mg in 250 mls @ 7.5 mls/hr 11/06/18 19:00 11/11/18 23:15 Levophed Drip 4 Mg/Ns 250 Ml IV 0 mcg/min TITR CECILIO 0 mls/hr Titration Protocol 2 MCG/MIN Piperacillin Sod/Tazobactam 50 mls @ 100 mls/hr 11/07/18 22:00 11/09/18 23:33 Sod 0.75 gm/ Sodium Chloride IV Not Given [id number]@[id number] CECILIO Protocol Vancomycin HCl 750 mg/ Sodium 265 mls @ 166.667 mls/hr 11/09/18 22:00 Chloride IV MoWeFr CECILIO Piperacillin Sod/Tazobactam Sod 2.25 gm in 50 mls @ 100 mls/hr 11/08/18 18:00 11/12/18 05:36 Zosyn/Ns 2.25 Gm/50ml IV 100 mls/hr Q8HR CECILIO Administration Metronidazole 500 mg in 100 mls @ 100 mls/hr 11/09/18 14:00 11/12/18 05:36 Flagyl 500 Mg/100 Ml IV 100 mls/hr Q8HR CECILIO Administration Protocol Dextrose 1,000 mls @ 75 mls/hr 11/11/18 11:00 11/11/18 13:23 D5w IV 75 mls/hr DIRECT CECILIO Administration Sodium Chloride 100 mls @ 999 mls/hr 11/12/18 10:00 Nacl 0.9% IV CHARI PRN Hypotension Insulin Human Regular 0 units 11/09/18 22:00 11/11/18 21:41 Humulin R SUB-Q 2 units QHS CECILIO Administration Protocol Levothyroxine Sodium 125 mcg 11/05/18 11:00 11/12/18 05:36 Synthroid PO 125 mcg DAILY@0600 CECILIO Administration Losartan Potassium 50 mg 11/05/18 11:00 11/12/18 09:33 Cozaar PO Not Given QDAY CECILIO Midazolam HCl 2 mg 11/05/18 07:28 11/05/18 16:15 Versed IV 2 mg Q10MIN PRN Administration Sedation Multi-Ingred Cream/Lotion/Oil/Oint 1 applic 11/06/18 10:00 Artificial Tears Ophth Oint OU Q4HR PRN Dry Eye(s) Quetiapine Fumarate 25 mg 11/11/18 16:00 11/12/18 09:34 Seroquel PO 25 mg BID CECILIO Administration Simple Syrup 15 ml 11/05/18 11:27 Simple Syrup FEEDTUBE PRN PRN Hypoglycemia Simple Syrup 30 ml 11/05/18 11:27 11/12/18 02:45 Simple Syrup FEEDTUBE 30 ml PRN PRN Administration Hypoglycemia Sodium Bicarbonate 325 mg 11/05/18 11:27 Sodium Bicarbonate FEEDTUBE PRN PRN For Clogged Feeding Tube Nutrition/Malnutrition Assess - Dietary Evaluation Nutrition/Malnutrition Findings: Nutrition Notes Start: 11/05/18 11:22 Freq: Status: Active Protocol: Document 11/10/18 13:29 [facility] (Rec: 11/10/18 13:31 [facility] [email or web address] S1) Nutrition Notes Initial or Follow up Brief Note Subjective/Other Information TF infusing at goal rate of 35ml/hr. Percent of energy/protein needs met: 100% energy and pro Nutrition Intervention Follow-Up By: 11/15/18 Additional Comments F/U: stable TF, vent status, wt
[2018-11-12] MEDS: LEVOPHED DRIP 4 MG/NS 250 ML 4 MG/250 ML BAG IV SCH (11:11)
--- NOTE | 2018-11-12 11:32 | Progress Note ---
Assessment and Plan - Patient Problems (1) ESRD (end stage renal disease) on dialysis Current Visit: No Status: Chronic Plan to address problem: The patient has not been tolerating dialysis since hospitalization due to hemodynamic instability. Treatments have been abbreviated due to hypotension limiting fluid removal. We had a long discussio with patient's family regarding benefits and risks of dialysis and overall goals of care. Pt is made DNR. Patient's daughter's and family sill unable to make a decision regarding continuing dialysis. For now they would like to continue dialysis. They understand risks of HD. Will restart levophed during HD to maintain MAP > 65mmhg along with albumin support prn. (2) Acute and chronic respiratory failure with hypoxia Current Visit: Yes Status: Acute Plan to address problem: Continue ventilator management by primary attending/identification clerk. (3) Hyperkalemia Current Visit: Yes Status: Acute Plan to address problem: severe hyperkalemia noted this AM with K >8, will use 1K bath first 2 hours of HD then 2 K bath. albumin support with HD for SBP < 90 mmHg (4) Anemia, chronic disease Current Visit: No Status: Chronic Plan to address problem: Continue Erythropoetin on dialysis (5) Hypertensive chronic kidney disease with stage 5 chronic kidney disease or end stage renal disease Current Visit: No Status: Acute Plan to address problem: Patient is now hypotensive on Levophed as needed to maintain MAP > 65mmHg Subjective Date of service: 11/12/18 Principal diagnosis: end-stage renal disease, hypotension Interval history: pt remains intubated, sedated Objective - Vital Signs Vital signs: Vital Signs - 12hr 11/11/18 11/11/18 11/12/18 23:30 23:45 00:00 Temperature 98.1 F Pulse Rate 106 H 110 H 111 H Pulse Rate [ Anterior Bilateral Throughout] Pulse Rate [ 105 H From Monitor] Respiratory 19 22 21 Rate Respiratory Rate [Anterior Bilateral Throughout] Blood Pressure 103/44 112/46 106/47 O2 Sat by Pulse 99 100 99 Oximetry O2 Sat by Pulse Oximetry [ Anterior Bilateral Throughout] 11/12/18 11/12/18 11/12/18 00:15 00:30 00:45 Temperature Pulse Rate 106 H 107 H 106 H Pulse Rate [ Anterior Bilateral Throughout] Pulse Rate [ From Monitor] Respiratory 22 18 16 Rate Respiratory Rate [Anterior Bilateral Throughout] Blood Pressure 104/49 110/46 114/44 O2 Sat by Pulse 100 100 99 Oximetry O2 Sat by Pulse Oximetry [ Anterior Bilateral Throughout] 11/12/18 11/12/18 11/12/18 00:54 01:00 01:15 Temperature Pulse Rate 109 H 104 H 105 H Pulse Rate [ Anterior Bilateral Throughout] Pulse Rate [ From Monitor] Respiratory 20 19 Rate Respiratory Rate [Anterior Bilateral Throughout] Blood Pressure 114/44 114/44 102/46 O2 Sat by Pulse 99 100 99 Oximetry O2 Sat by Pulse Oximetry [ Anterior Bilateral Throughout] 11/12/18 11/12/18 11/12/18 01:30 01:45 02:00 Temperature Pulse Rate 105 H 108 H 105 H Pulse Rate [ Anterior Bilateral Throughout] Pulse Rate [ From Monitor] Respiratory 15 17 19 Rate Respiratory Rate [Anterior Bilateral Throughout] Blood Pressure 105/47 112/46 112/46 O2 Sat by Pulse 100 100 100 Oximetry O2 Sat by Pulse Oximetry [ Anterior Bilateral Throughout] 11/12/18 11/12/18 11/12/18 02:15 02:30 02:45 Temperature Pulse Rate 112 H 101 H 101 H Pulse Rate [ Anterior Bilateral Throughout] Pulse Rate [ From Monitor] Respiratory 12 20 15 Rate Respiratory Rate [Anterior Bilateral Throughout] Blood Pressure 130/55 110/47 107/46 O2 Sat by Pulse 97 100 100 Oximetry O2 Sat by Pulse Oximetry [ Anterior Bilateral Throughout] 11/12/18 11/12/18 11/12/18 03:00 03:16 03:31 Temperature Pulse Rate 129 H 124 H 125 H Pulse Rate [ Anterior Bilateral Throughout] Pulse Rate [ From Monitor] Respiratory 20 14 14 Rate Respiratory Rate [Anterior Bilateral Throughout] Blood Pressure 175/73 143/61 175/73 O2 Sat by Pulse 76 L Oximetry O2 Sat by Pulse Oximetry [ Anterior Bilateral Throughout] 11/12/18 11/12/18 11/12/18 03:45 04:00 04:15 Temperature 97.7 F Pulse Rate 121 H 116 H 113 H Pulse Rate [ Anterior Bilateral Throughout] Pulse Rate [ 115 H From Monitor] Respiratory 20 15 18 Rate Respiratory Rate [Anterior Bilateral Throughout] Blood Pressure 119/48 122/49 109/43 O2 Sat by Pulse 98 100 100 Oximetry O2 Sat by Pulse Oximetry [ Anterior Bilateral Throughout] 11/12/18 11/12/18 11/12/18 04:30 04:40 04:45 Temperature Pulse Rate 111 H 113 H 109 H Pulse Rate [ Anterior Bilateral Throughout] Pulse Rate [ From Monitor] Respiratory 16 16 Rate Respiratory Rate [Anterior Bilateral Throughout] Blood Pressure 103/44 103/44 101/42 O2 Sat by Pulse 97 100 100 Oximetry O2 Sat by Pulse Oximetry [ Anterior Bilateral Throughout] 11/12/18 11/12/18 11/12/18 05:00 05:15 05:30 Temperature Pulse Rate 108 H 102 H 113 H Pulse Rate [ Anterior Bilateral Throughout] Pulse Rate [ From Monitor] Respiratory 20 18 16 Rate Respiratory Rate [Anterior Bilateral Throughout] Blood Pressure 103/47 123/51 86/50 O2 Sat by Pulse 100 100 Oximetry O2 Sat by Pulse Oximetry [ Anterior Bilateral Throughout] 11/12/18 11/12/18 11/12/18 05:45 06:00 06:15 Temperature Pulse Rate 109 H 112 H 110 H Pulse Rate [ Anterior Bilateral Throughout] Pulse Rate [ From Monitor] Respiratory 17 15 17 Rate Respiratory Rate [Anterior Bilateral Throughout] Blood Pressure 126/49 126/49 122/56 O2 Sat by Pulse 100 100 Oximetry O2 Sat by Pulse Oximetry [ Anterior Bilateral Throughout] 11/12/18 11/12/18 11/12/18 06:30 06:45 07:00 Temperature Pulse Rate 120 H 112 H 114 H Pulse Rate [ Anterior Bilateral Throughout] Pulse Rate [ From Monitor] Respiratory 17 14 19 Rate Respiratory Rate [Anterior Bilateral Throughout] Blood Pressure 132/54 117/46 110/43 O2 Sat by Pulse 100 100 100 Oximetry O2 Sat by Pulse Oximetry [ Anterior Bilateral Throughout] 11/12/18 11/12/18 11/12/18 07:15 07:30 07:42 Temperature Pulse Rate 116 H 115 H 115 H Pulse Rate [ Anterior Bilateral Throughout] Pulse Rate [ From Monitor] Respiratory 17 12 Rate Respiratory Rate [Anterior Bilateral Throughout] Blood Pressure 128/54 132/55 117/53 O2 Sat by Pulse 100 100 100 Oximetry O2 Sat by Pulse Oximetry [ Anterior Bilateral Throughout] 11/12/18 11/12/18 11/12/18 07:45 07:49 08:00 Temperature 97.3 F L Pulse Rate 108 H 115 H Pulse Rate [ 115 H Anterior Bilateral Throughout] Pulse Rate [ 114 H From Monitor] Respiratory 14 16 Rate Respiratory 17 Rate [Anterior Bilateral Throughout] Blood Pressure 114/53 104/53 O2 Sat by Pulse 97 100 Oximetry O2 Sat by Pulse Oximetry [ Anterior Bilateral Throughout] 11/12/18 11/12/18 11/12/18 08:16 08:30 08:45 Temperature Pulse Rate 115 H 116 H 111 H Pulse Rate [ Anterior Bilateral Throughout] Pulse Rate [ From Monitor] Respiratory 24 20 20 Rate Respiratory Rate [Anterior Bilateral Throughout] Blood Pressure 95/50 107/59 122/47 O2 Sat by Pulse 100 Oximetry O2 Sat by Pulse Oximetry [ Anterior Bilateral Throughout] 11/12/18 11/12/18 11/12/18 09:00 09:15 09:30 Temperature Pulse Rate 114 H 109 H 115 H Pulse Rate [ Anterior Bilateral Throughout] Pulse Rate [ From Monitor] Respiratory 20 20 16 Rate Respiratory Rate [Anterior Bilateral Throughout] Blood Pressure 126/51 117/46 124/53 O2 Sat by Pulse 100 100 100 Oximetry O2 Sat by Pulse Oximetry [ Anterior Bilateral Throughout] 11/12/18 11/12/18 11/12/18 09:33 09:46 10:00 Temperature Pulse Rate 117 H 116 H 117 H Pulse Rate [ Anterior Bilateral Throughout] Pulse Rate [ From Monitor] Respiratory 18 17 Rate Respiratory Rate [Anterior Bilateral Throughout] Blood Pressure 124/53 136/52 126/44 O2 Sat by Pulse 100 Oximetry O2 Sat by Pulse Oximetry [ Anterior Bilateral Throughout] 11/12/18 11/12/18 11/12/18 10:15 10:30 10:46 Temperature Pulse Rate 106 H 112 H Pulse Rate [ Anterior Bilateral Throughout] Pulse Rate [ From Monitor] Respiratory 17 20 Rate Respiratory Rate [Anterior Bilateral Throughout] Blood Pressure 156/65 89/43 96/51 O2 Sat by Pulse 100 100 Oximetry O2 Sat by Pulse Oximetry [ Anterior Bilateral Throughout] 11/12/18 11/12/18 11:00 11:15 Temperature 98.7 F Pulse Rate 108 H 120 H Pulse Rate [ Anterior Bilateral Throughout] Pulse Rate [ From Monitor] Respiratory 20 20 Rate Respiratory Rate [Anterior Bilateral Throughout] Blood Pressure 82/34 121/58 O2 Sat by Pulse Oximetry O2 Sat by Pulse 98 Oximetry [ Anterior Bilateral Throughout] - General Appearance General appearance: chronically ill, intubated, frail EENT: ATNC, mucous membranes moist Neck: no JVD Respiratory: Present: Decreased Breath Sounds Cardiology: regular, S1S2 Gastrointestinal: normoactive bowel sounds Integumentary: no rash, other (+ edema ) Neurologic: other (intubated) - Lab 11/12/18 03:39 11/12/18 03:39 Most recent lab results Calcium 3.3 mg/dL (8.4-10.2) L* D 11/12/18 03:39 Phosphorus 4.10 mg/dL (2.5-4.5) 11/11/18 04:25 Medications & Allergies - Medications Allergies/Adverse Reactions: Allergies meperidine [From Demerol] Allergy (Verified 01/12/18 03:31) Itching Home Medications: Home Medications Medication Instructions Recorded Confirmed Last Taken Type Amlodipine Besylate [Norvasc] 10 mg PO QDAY 01/12/18 06/12/18 Unknown History B Complex 11/Folic/C/Biot/Zinc 1 each PO DAILY 01/12/18 06/12/18 Unknown History [Dialyvite with Zinc Tablet] Calcitriol [Rocaltrol] 0.5 mcg PO QDAY 01/12/18 06/12/18 Unknown History Carvedilol [Coreg] 6.25 mg PO BID 01/12/18 06/12/18 Unknown History Esomeprazole Magnesium [NexIUM] 40 mg PO QDAY 01/12/18 06/12/18 Unknown History Levothyroxine [Synthroid] 125 mcg PO QAM 01/12/18 06/12/18 Unknown History ALBUTEROL Inhaler(NF) 90 mcg INHALATION Q6H PRN 06/12/18 06/12/18 Unknown History Cozaar 50 mg PO DAILY 06/12/18 06/12/18 Unknown History Loperamide [Imodium] 4 mg PO QID PRN 06/12/18 06/12/18 Unknown History Acetaminophen [Acetaminophen TAB] 650 mg PO Q4H PRN #15 tablet 09/24/18 Unknown Rx Active Medications: Generic Name Dose Route Start Last Admin Trade Name Freq PRN Reason Stop Dose Admin Albuterol 2.5 mg 11/05/18 12:00 11/12/18 07:48 Proventil IH 2.5 mg QIDRT CECILIO Administration Albuterol 2.5 mg 11/05/18 12:00 Proventil IH Q4HRT PRN Shortness Of Breath Lipase/Protease/Amylase 1 each 11/05/18 11:27 Pancrerosey He 10,500 Unit FEEDTUBE PRN PRN For Clogged Feeding Tube Calcitriol 0.5 mcg 11/05/18 11:00 11/12/18 09:34 Rocaltrol PO 0.5 mcg QDAY CECILIO Administration Dextrose 50 ml 11/09/18 11:03 D50w (25gm) Syringe IV PRN PRN Hypoglycemia Epoetin Kristopher 5,000 unit 11/09/18 08:00 Procrit IV CHARI CECILIO Fentanyl 50 mcg 11/06/18 10:00 11/08/18 18:10 Sublimaze IV 50 mcg Q10MIN PRN Administration ANALGESIA Hydrophilic Ointment 1 applic 11/06/18 10:00 Vaseline Lip Therapy TP Q2HR PRN Dry Lips Fentanyl Citrate 2,000 mcg in 100 mls @ 2.495 mls/hr 11/06/18 10:00 11/11/18 16:15 Fentanyl Drip Premix IV 2 mcg/kg/hr TITR CECILIO 4.99 mls/hr Administration Protocol 1 MCG/KG/HR Norepinephrine 4 mg in 250 mls @ 7.5 mls/hr 11/06/18 19:00 11/12/18 11:16 Levophed Drip 4 Mg/Ns 250 Ml IV 2 mcg/min TITR CECILIO 7.5 mls/hr Titration Protocol 2 MCG/MIN Piperacillin Sod/Tazobactam Sod 2.25 gm in 50 mls @ 100 mls/hr 11/08/18 18:00 11/12/18 05:36 Zosyn/Ns 2.25 Gm/50ml IV 100 mls/hr Q8HR CECILIO Administration Metronidazole 500 mg in 100 mls @ 100 mls/hr 11/09/18 14:00 11/12/18 05:36 Flagyl 500 Mg/100 Ml IV 100 mls/hr Q8HR CECILIO Administration Protocol Dextrose 1,000 mls @ 75 mls/hr 11/11/18 11:00 11/11/18 13:23 D5w IV 75 mls/hr DIRECT CECILIO Administration Sodium Chloride 100 mls @ 999 mls/hr 11/12/18 10:00 Nacl 0.9% IV CHARI PRN Hypotension Insulin Human Regular 0 units 11/09/18 22:00 11/11/18 21:41 Humulin R SUB-Q 2 units QHS CECILIO Administration Protocol Levothyroxine Sodium 125 mcg 11/05/18 11:00 11/12/18 05:36 Synthroid PO 125 mcg DAILY@0600 CECILIO Administration Losartan Potassium 50 mg 11/05/18 11:00 11/12/18 09:33 Cozaar PO Not Given QDAY CECILIO Multi-Ingred Cream/Lotion/Oil/Oint 1 applic 11/06/18 10:00 Artificial Tears Ophth Oint OU Q4HR PRN Dry Eye(s) Quetiapine Fumarate 25 mg 11/11/18 16:00 11/12/18 09:34 Seroquel PO 25 mg BID CECILIO Administration Simple Syrup 15 ml 11/05/18 11:27 Simple Syrup FEEDTUBE PRN PRN Hypoglycemia Simple Syrup 30 ml 11/05/18 11:27 11/12/18 02:45 Simple Syrup FEEDTUBE 30 ml PRN PRN Administration Hypoglycemia Sodium Bicarbonate 325 mg 11/05/18 11:27 Sodium Bicarbonate FEEDTUBE PRN PRN For Clogged Feeding Tube
[2018-11-12] MEDS ORDERED: Vasostrict 20 UNIT in NACL 0.9% 100 ML IV SCH (12:30)
--- NOTE | 2018-11-12 12:30 | Progress Note ---
Assessment and Plan Severe Sepsis with Shock (etiology unclear) Acute hypercapnic-hypoxic respiratory failure Right upper lobe atelectasis, resolved Acute encephaloapthy( toxic, metabolic) Pulmonary edema BNP 3500 Troponinemia, possible NSTEMI ESRD on HD Type 2 DM,poorly controlled h/o Hypothyroidism Hypernatremia Hyperchloremia Leukocytosis - add vasopressin - wean off pressors for MAP > 65 mmHg - pull femoral CVL gwyn once off vasopressors (poor vascular access patient and not PICC candidate) - continue empiric AB's and get CRP level to aid clinical decision making re: normal WBC with hypotension - if CRP significantly elevated will get ID input - repeat BMP stat (re: Serum K+ of 8.4 and to avoid hypokalemia post corrective dialysis) - Continue full MVS but reduced set rate to 12/min - continue Lung protective strategies - continue low dose Seroquel - Encephalopathy is probably metabolic with the hypernatremia, uremia, - Wean supplemental oxygen to keep O2 sats >90% - VAP bundle addressed - Daily SAT's & SBT's - Increase free water flushes, hypotonic solution for hypernatremia - daily ABG with CXR PRN for now - Sedation target for RASS 0 to -1, avoid benzodiazepines - Fentanyl, wean to off - Stress ulcer prophylaxis - VTE prophylaxis - continue enteral nutrition as tolerated - Nutrition consulted for tube feedings (input appreciated) - continue Aspiration precautions, HOB>40 - continue Accuchecks with glycemic control. Target glucose of 140-180 mg/dL - Continue bronchodilators with pulmonary hygiene per RT - Supportive HD/UF - Maintenance of sleep -wake cycle / delirium prevention measures - continue other care per attending / other consultants PROGNOSIS: GUARDED CONDITION: CRITICAL CODE STATUS: DNAR Extensive discussions with her 2 daughters and family earlier and options presented were; - Hospice - Full aggressive care, DNAR, with an understanding that if she is not weaned off mechanical ventilatory support in the next 10 days, discussions will have to be had about trach/PEG and goals of care. They want full care but DNAR. Paperwork signed I had discussions with renal re HD tomorrow The high probability of a clinically significant, sudden or life-threatening deterioration of the [respiratory,renal, cardiovascular] system(s) required my full and direct attention, intervention and personal management. The aggregate critical care time was [35] minutes without overlap. Time includes spent on; [x] Data Review and interpretation [x] Patient assessment and monitoring of vital signs [x] Documentation [x] Medication orders and management Subjective Date of service: 11/12/18 Principal diagnosis: Severe Sepsis with Shock; Ac hypercapnic-hypoxic resp failure; ESRD/dialysi Interval history: Patient is seen today for: Severe Sepsis with Shock (etiology unclear); Acute hypercapnic-hypoxic respiratory failure; Right upper lobe atelectasis, resolved; Acute encephaloapthy( toxic, metabolic); Troponinemia, possible NSTEMI Seen and examined at bedside; 24hour events reviewed; nursing and respiratory care staff consulted; no adverse overnight events reported to me; remains on MVS; AMS is persistent; dialysis ongoing but requiring vasopressor support and on levophed; no emesis or overt aspiration. Objective Vital Signs - 12hr 11/12/18 11/12/18 11/12/18 00:30 00:45 00:54 Temperature Pulse Rate 107 H 106 H 109 H Pulse Rate [ Anterior Bilateral Throughout] Pulse Rate [ From Monitor] Respiratory 18 16 Rate Respiratory Rate [Anterior Bilateral Throughout] Blood Pressure 110/46 114/44 114/44 O2 Sat by Pulse 100 99 99 Oximetry O2 Sat by Pulse Oximetry [ Anterior Bilateral Throughout] 11/12/18 11/12/18 11/12/18 01:00 01:15 01:30 Temperature Pulse Rate 104 H 105 H 105 H Pulse Rate [ Anterior Bilateral Throughout] Pulse Rate [ From Monitor] Respiratory 20 19 15 Rate Respiratory Rate [Anterior Bilateral Throughout] Blood Pressure 114/44 102/46 105/47 O2 Sat by Pulse 100 99 100 Oximetry O2 Sat by Pulse Oximetry [ Anterior Bilateral Throughout] 11/12/18 11/12/18 11/12/18 01:45 02:00 02:15 Temperature Pulse Rate 108 H 105 H 112 H Pulse Rate [ Anterior Bilateral Throughout] Pulse Rate [ From Monitor] Respiratory 17 19 12 Rate Respiratory Rate [Anterior Bilateral Throughout] Blood Pressure 112/46 112/46 130/55 O2 Sat by Pulse 100 100 97 Oximetry O2 Sat by Pulse Oximetry [ Anterior Bilateral Throughout] 11/12/18 11/12/18 11/12/18 02:30 02:45 03:00 Temperature Pulse Rate 101 H 101 H 129 H Pulse Rate [ Anterior Bilateral Throughout] Pulse Rate [ From Monitor] Respiratory 20 15 20 Rate Respiratory Rate [Anterior Bilateral Throughout] Blood Pressure 110/47 107/46 175/73 O2 Sat by Pulse 100 100 76 L Oximetry O2 Sat by Pulse Oximetry [ Anterior Bilateral Throughout] 11/12/18 11/12/18 11/12/18 03:16 03:31 03:45 Temperature Pulse Rate 124 H 125 H 121 H Pulse Rate [ Anterior Bilateral Throughout] Pulse Rate [ From Monitor] Respiratory 14 14 20 Rate Respiratory Rate [Anterior Bilateral Throughout] Blood Pressure 143/61 175/73 119/48 O2 Sat by Pulse 98 Oximetry O2 Sat by Pulse Oximetry [ Anterior Bilateral Throughout] 11/12/18 11/12/18 11/12/18 04:00 04:15 04:30 Temperature 97.7 F Pulse Rate 116 H 113 H 111 H Pulse Rate [ Anterior Bilateral Throughout] Pulse Rate [ 115 H From Monitor] Respiratory 15 18 16 Rate Respiratory Rate [Anterior Bilateral Throughout] Blood Pressure 122/49 109/43 103/44 O2 Sat by Pulse 100 100 97 Oximetry O2 Sat by Pulse Oximetry [ Anterior Bilateral Throughout] 11/12/18 11/12/18 11/12/18 04:40 04:45 05:00 Temperature Pulse Rate 113 H 109 H 108 H Pulse Rate [ Anterior Bilateral Throughout] Pulse Rate [ From Monitor] Respiratory 16 20 Rate Respiratory Rate [Anterior Bilateral Throughout] Blood Pressure 103/44 101/42 103/47 O2 Sat by Pulse 100 100 Oximetry O2 Sat by Pulse Oximetry [ Anterior Bilateral Throughout] 11/12/18 11/12/18 11/12/18 05:15 05:30 05:45 Temperature Pulse Rate 102 H 113 H 109 H Pulse Rate [ Anterior Bilateral Throughout] Pulse Rate [ From Monitor] Respiratory 18 16 17 Rate Respiratory Rate [Anterior Bilateral Throughout] Blood Pressure 123/51 86/50 126/49 O2 Sat by Pulse 100 100 100 Oximetry O2 Sat by Pulse Oximetry [ Anterior Bilateral Throughout] 11/12/18 11/12/18 11/12/18 06:00 06:15 06:30 Temperature Pulse Rate 112 H 110 H 120 H Pulse Rate [ Anterior Bilateral Throughout] Pulse Rate [ From Monitor] Respiratory 15 17 17 Rate Respiratory Rate [Anterior Bilateral Throughout] Blood Pressure 126/49 122/56 132/54 O2 Sat by Pulse 100 100 Oximetry O2 Sat by Pulse Oximetry [ Anterior Bilateral Throughout] 11/12/18 11/12/18 11/12/18 06:45 07:00 07:15 Temperature Pulse Rate 112 H 114 H 116 H Pulse Rate [ Anterior Bilateral Throughout] Pulse Rate [ From Monitor] Respiratory 14 19 17 Rate Respiratory Rate [Anterior Bilateral Throughout] Blood Pressure 117/46 110/43 128/54 O2 Sat by Pulse 100 100 100 Oximetry O2 Sat by Pulse Oximetry [ Anterior Bilateral Throughout] 11/12/18 11/12/18 11/12/18 07:30 07:42 07:45 Temperature Pulse Rate 115 H 115 H 108 H Pulse Rate [ Anterior Bilateral Throughout] Pulse Rate [ From Monitor] Respiratory 12 14 Rate Respiratory Rate [Anterior Bilateral Throughout] Blood Pressure 132/55 117/53 114/53 O2 Sat by Pulse 100 100 97 Oximetry O2 Sat by Pulse Oximetry [ Anterior Bilateral Throughout] 11/12/18 11/12/18 11/12/18 07:49 08:00 08:16 Temperature 97.3 F L Pulse Rate 115 H 115 H Pulse Rate [ 115 H Anterior Bilateral Throughout] Pulse Rate [ 114 H From Monitor] Respiratory 16 24 Rate Respiratory 17 Rate [Anterior Bilateral Throughout] Blood Pressure 104/53 95/50 O2 Sat by Pulse 100 Oximetry O2 Sat by Pulse Oximetry [ Anterior Bilateral Throughout] 11/12/18 11/12/18 11/12/18 08:30 08:45 09:00 Temperature Pulse Rate 116 H 111 H 114 H Pulse Rate [ Anterior Bilateral Throughout] Pulse Rate [ From Monitor] Respiratory 20 20 20 Rate Respiratory Rate [Anterior Bilateral Throughout] Blood Pressure 107/59 122/47 126/51 O2 Sat by Pulse 100 100 Oximetry O2 Sat by Pulse Oximetry [ Anterior Bilateral Throughout] 11/12/18 11/12/18 11/12/18 09:15 09:30 09:33 Temperature Pulse Rate 109 H 115 H 117 H Pulse Rate [ Anterior Bilateral Throughout] Pulse Rate [ From Monitor] Respiratory 20 16 Rate Respiratory Rate [Anterior Bilateral Throughout] Blood Pressure 117/46 124/53 124/53 O2 Sat by Pulse 100 100 Oximetry O2 Sat by Pulse Oximetry [ Anterior Bilateral Throughout] 11/12/18 11/12/18 11/12/18 09:46 10:00 10:15 Temperature Pulse Rate 116 H 117 H Pulse Rate [ Anterior Bilateral Throughout] Pulse Rate [ From Monitor] Respiratory 18 17 Rate Respiratory Rate [Anterior Bilateral Throughout] Blood Pressure 136/52 126/44 156/65 O2 Sat by Pulse 100 100 Oximetry O2 Sat by Pulse Oximetry [ Anterior Bilateral Throughout] 11/12/18 11/12/18 11/12/18 10:30 10:45 10:46 Temperature Pulse Rate 106 H 111 H 112 H Pulse Rate [ Anterior Bilateral Throughout] Pulse Rate [ From Monitor] Respiratory 17 20 Rate Respiratory Rate [Anterior Bilateral Throughout] Blood Pressure 89/43 118/58 96/51 O2 Sat by Pulse 100 Oximetry O2 Sat by Pulse Oximetry [ Anterior Bilateral Throughout] 11/12/18 11/12/18 11/12/18 11:00 11:15 11:30 Temperature 98.7 F Pulse Rate 109 H 114 H 105 H Pulse Rate [ Anterior Bilateral Throughout] Pulse Rate [ From Monitor] Respiratory 20 20 Rate Respiratory Rate [Anterior Bilateral Throughout] Blood Pressure 89/47 121/58 115/52 O2 Sat by Pulse Oximetry O2 Sat by Pulse 98 Oximetry [ Anterior Bilateral Throughout] 11/12/18 11/12/18 11/12/18 11:43 12:00 12:21 Temperature Pulse Rate 110 H 106 H Pulse Rate [ 115 H 112 H Anterior Bilateral Throughout] Pulse Rate [ From Monitor] Respiratory Rate Respiratory 12 12 Rate [Anterior Bilateral Throughout] Blood Pressure 120/59 99/52 O2 Sat by Pulse 100 Oximetry O2 Sat by Pulse Oximetry [ Anterior Bilateral Throughout] Constitutional: appears uncomfortable, other (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, normocephalic with mildly increased respiratory effort at rest) Eyes: non-icteric ENT: oropharynx moist, other (ETT in place, 23cm at the lips) Neck: supple, no lymphadenopathy Effort: normal Ascultation: Bilateral: diminished breath sounds, rales (scant) Percussion: Bilateral: not dull Cardiovascular: regular rate and rhythm, murmur noted (ELEANOR), other (s1, s2, ) Gastrointestinal: normoactive bowel sounds, soft, non-tender, non-distended, other (no guarding, no hepato-splenomegaly) Integumentary: rash, decubitus ulcer (sacral), other (dry scaling) Extremities: no cyanosis, no edema, pulses normal, no ischemia or petechiae Neurologic: non-focal exam (grossly), pupils equal and round, other (unable to assess otherwise) Psychiatric: other (unable to assess otherwise) CBC and BMP: 11/12/18 03:39 11/12/18 14:39 ABG, PT/INR, D-dimer: ABG POC ABG pH 7.407 (7.35-7.45) 11/12/18 05:38 POC ABG pCO2 35.5 (35-45) 11/12/18 05:38 POC ABG pO2 150 (80-105) H 11/12/18 05:38 POC ABG HCO3 22.3 (22-26 mml/L) 11/12/18 05:38 POC ABG Total CO2 23 (23-27mmol/L) 11/12/18 05:38 POC ABG O2 Sat 99 11/12/18 05:38 PT/INR, D-dimer PT 13.2 Sec. (12.2-14.9) 11/05/18 07:09 INR 0.95 (0.87-1.13) 11/05/18 07:09 Abnormal lab findings: Abnormal Labs 11/05/18 11/05/18 11/05/18 07:09 07:09 07:09 WBC 14.7 H RBC 3.42 L Hgb Hct MCV 99 H RDW 20.1 H Lymph % (Auto) [place] % (Auto) 9.3 H Lymph # [place] # 1.4 H Eos # 0.5 H Baso # 0.2 H Seg Neutrophils % 70.1 H Seg Neuts % (Manual) Lymphocytes % (Manual) Monocytes % (Manual) Seg Neutrophils # 10.3 H Seg Neutrophils # Man Lymphocytes # (Manual) Monocytes # (Manual) POC ABG pH POC ABG pCO2 POC ABG pO2 Sodium Potassium 6.8 H* Chloride Carbon Dioxide BUN 74 H Creatinine 6.9 H Glucose 226 H POC Glucose 206 H Calcium AST 80 H Alkaline Phosphatase 236 H CK-MB (CK-2) CK-MB (CK-2) Rel Index 8.2 H Troponin T 0.224 H* NT-Pro-B Natriuret Pep > 54457 H Total Protein Albumin HDL Cholesterol 61 H 11/05/18 11/05/18 11/06/18 08:03 19:45 03:29 WBC RBC Hgb Hct MCV RDW Lymph % (Auto) [place] % (Auto) Lymph # [place] # Eos # Baso # Seg Neutrophils % Seg Neuts % (Manual) Lymphocytes % (Manual) Monocytes % (Manual) Seg Neutrophils # Seg Neutrophils # Man Lymphocytes # (Manual) Monocytes # (Manual) POC ABG pH 7.612 H POC ABG pCO2 51.2 H 31.3 L POC ABG pO2 167 H 117 H Sodium Potassium Chloride Carbon Dioxide BUN Creatinine Glucose POC Glucose Calcium AST Alkaline Phosphatase CK-MB (CK-2) 5.6 H CK-MB (CK-2) Rel Index 5.2 H Troponin T 0.321 H* D NT-Pro-B Natriuret Pep Total Protein Albumin HDL Cholesterol 11/06/18 11/06/18 11/06/18 06:59 06:59 14:16 WBC RBC Hgb Hct MCV RDW 19.2 H Lymph % (Auto) [place] % (Auto) Lymph # [place] # Eos # Baso # Seg Neutrophils % Seg Neuts % (Manual) 82.0 H Lymphocytes % (Manual) 5.0 L Monocytes % (Manual) 13.0 H Seg Neutrophils # Seg Neutrophils # Man 8.5 H Lymphocytes # (Manual) 0.5 L Monocytes # (Manual) 1.4 H POC ABG pH POC ABG pCO2 POC ABG pO2 Sodium Potassium 5.2 H D Chloride Carbon Dioxide BUN 33 H Creatinine 4.4 H Glucose POC Glucose 139 H Calcium AST 52 H Alkaline Phosphatase 170 H CK-MB (CK-2) CK-MB (CK-2) Rel Index Troponin T 0.289 H* NT-Pro-B Natriuret Pep Total Protein Albumin 3.7 L HDL Cholesterol 11/07/18 11/07/18 11/07/18 04:11 04:11 05:39 WBC RBC 3.31 L Hgb Hct MCV RDW 18.9 H Lymph % (Auto) 8.9 L [place] % (Auto) 14.6 H Lymph # 0.9 L [place] # 1.5 H Eos # Baso # Seg Neutrophils % 74.7 H Seg Neuts % (Manual) Lymphocytes % (Manual) Monocytes % (Manual) Seg Neutrophils # 7.9 H Seg Neutrophils # Man Lymphocytes # (Manual) Monocytes # (Manual) POC ABG pH 7.550 H POC ABG pCO2 32.6 L POC ABG pO2 63 L Sodium 146 H Potassium Chloride Carbon Dioxide BUN 36 H Creatinine 4.7 H Glucose 109 H POC Glucose Calcium AST 42 H Alkaline Phosphatase 138 H CK-MB (CK-2) CK-MB (CK-2) Rel Index Troponin T NT-Pro-B Natriuret Pep Total Protein 5.8 L Albumin 3.3 L HDL Cholesterol 04/04/19 04/04/19 04/05/19 03:19 04:38 04:56 WBC RBC Hgb Hct MCV RDW Lymph % (Auto) [place] % (Auto) Lymph # [place] # Eos # Baso # Seg Neutrophils % Seg Neuts % (Manual) Lymphocytes % (Manual) Monocytes % (Manual) Seg Neutrophils # Seg Neutrophils # Man Lymphocytes # (Manual) Monocytes # (Manual) POC ABG pH 7.468 H 7.301 L POC ABG pCO2 34.3 L 46.3 H POC ABG pO2 132 H 63 L Sodium 148 H Potassium 5.2 H Chloride Carbon Dioxide BUN 50 H Creatinine 6.4 H Glucose POC Glucose Calcium 8.3 L AST Alkaline Phosphatase CK-MB (CK-2) CK-MB (CK-2) Rel Index Troponin T NT-Pro-B Natriuret Pep Total Protein Albumin HDL Cholesterol 11/09/18 11/09/18 11/09/18 11:26 11:26 12:54 WBC 15.0 H RBC 3.33 L Hgb 10.0 L Hct MCV RDW 19.1 H Lymph % (Auto) 5.3 L [place] % (Auto) Lymph # 0.8 L [place] # 1.1 H Eos # Baso # Seg Neutrophils % 85.6 H Seg Neuts % (Manual) Lymphocytes % (Manual) Monocytes % (Manual) Seg Neutrophils # 12.8 H Seg Neutrophils # Man Lymphocytes # (Manual) Monocytes # (Manual) POC ABG pH POC ABG pCO2 POC ABG pO2 Sodium 150 H Potassium 5.3 H Chloride 108.4 H Carbon Dioxide 20 L BUN 79 H Creatinine 7.6 H Glucose 111 H POC Glucose 115 H Calcium 7.6 L AST Alkaline Phosphatase CK-MB (CK-2) CK-MB (CK-2) Rel Index Troponin T NT-Pro-B Natriuret Pep Total Protein Albumin HDL Cholesterol 11/10/18 11/10/18 11/10/18 04:24 04:37 04:37 WBC 14.2 H RBC 3.13 L Hgb 9.5 L Hct 29.8 L MCV RDW 19.2 H Lymph % (Auto) 3.9 L [place] % (Auto) 9.9 H Lymph # 0.5 L [place] # 1.4 H Eos # Baso # Seg Neutrophils % 83.3 H Seg Neuts % (Manual) Lymphocytes % (Manual) Monocytes % (Manual) Seg Neutrophils # 11.8 H Seg Neutrophils # Man Lymphocytes # (Manual) Monocytes # (Manual) POC ABG pH POC ABG pCO2 POC ABG pO2 Sodium 150 H Potassium Chloride Carbon Dioxide BUN 65 H Creatinine 6.8 H Glucose 111 H POC Glucose 110 H Calcium 8.0 L AST Alkaline Phosphatase CK-MB (CK-2) CK-MB (CK-2) Rel Index Troponin T NT-Pro-B Natriuret Pep Total Protein Albumin HDL Cholesterol 11/10/18 11/10/18 11/10/18 05:51 12:53 16:48 WBC RBC Hgb Hct MCV RDW Lymph % (Auto) [place] % (Auto) Lymph # [place] # Eos # Baso # Seg Neutrophils % Seg Neuts % (Manual) Lymphocytes % (Manual) Monocytes % (Manual) Seg Neutrophils # Seg Neutrophils # Man Lymphocytes # (Manual) Monocytes # (Manual) POC ABG pH 7.475 H POC ABG pCO2 POC ABG pO2 67 L Sodium Potassium Chloride Carbon Dioxide BUN Creatinine Glucose POC Glucose 131 H 124 H Calcium AST Alkaline Phosphatase CK-MB (CK-2) CK-MB (CK-2) Rel Index Troponin T NT-Pro-B Natriuret Pep Total Protein Albumin HDL Cholesterol 11/10/18 11/10/18 11/11/18 20:00 23:54 04:23 WBC RBC Hgb Hct MCV RDW Lymph % (Auto) [place] % (Auto) Lymph # [place] # Eos # Baso # Seg Neutrophils % Seg Neuts % (Manual) Lymphocytes % (Manual) Monocytes % (Manual) Seg Neutrophils # Seg Neutrophils # Man Lymphocytes # (Manual) Monocytes # (Manual) POC ABG pH 7.334 L POC ABG pCO2 46.1 H POC ABG pO2 Sodium Potassium Chloride Carbon Dioxide BUN Creatinine Glucose POC Glucose 133 H 121 H Calcium AST Alkaline Phosphatase CK-MB (CK-2) CK-MB (CK-2) Rel Index Troponin T NT-Pro-B Natriuret Pep Total Protein Albumin HDL Cholesterol 11/11/18 11/11/18 11/11/18 04:25 05:42 08:27 WBC RBC Hgb Hct MCV RDW Lymph % (Auto) [place] % (Auto) Lymph # [place] # Eos # Baso # Seg Neutrophils % Seg Neuts % (Manual) Lymphocytes % (Manual) Monocytes % (Manual) Seg Neutrophils # Seg Neutrophils # Man Lymphocytes # (Manual) Monocytes # (Manual) POC ABG pH POC ABG pCO2 POC ABG pO2 Sodium 157 H Potassium Chloride 111.2 H Carbon Dioxide BUN 81 H Creatinine 7.7 H Glucose 139 H POC Glucose 129 H 122 H Calcium AST Alkaline Phosphatase CK-MB (CK-2) CK-MB (CK-2) Rel Index Troponin T NT-Pro-B Natriuret Pep Total Protein Albumin HDL Cholesterol 11/11/18 11/11/18 11/12/18 16:51 21:26 02:27 WBC RBC Hgb Hct MCV RDW Lymph % (Auto) [place] % (Auto) Lymph # [place] # Eos # Baso # Seg Neutrophils % Seg Neuts % (Manual) Lymphocytes % (Manual) Monocytes % (Manual) Seg Neutrophils # Seg Neutrophils # Man Lymphocytes # (Manual) Monocytes # (Manual) POC ABG pH POC ABG pCO2 POC ABG pO2 Sodium Potassium Chloride Carbon Dioxide BUN Creatinine Glucose POC Glucose 148 H 156 H 45 L Calcium AST Alkaline Phosphatase CK-MB (CK-2) CK-MB (CK-2) Rel Index Troponin T NT-Pro-B Natriuret Pep Total Protein Albumin HDL Cholesterol 11/12/18 11/12/18 11/12/18 02:29 03:39 03:39 WBC RBC 3.18 L Hgb 9.7 L Hct MCV RDW 19.1 H Lymph % (Auto) [place] % (Auto) Lymph # [place] # Eos # Baso # Seg Neutrophils % Seg Neuts % (Manual) 71.0 H Lymphocytes % (Manual) 13.0 L Monocytes % (Manual) 10.0 H Seg Neutrophils # Seg Neutrophils # Man Lymphocytes # (Manual) Monocytes # (Manual) 1.0 H POC ABG pH POC ABG pCO2 POC ABG pO2 Sodium 152 H Potassium 8.4 H* D Chloride 107.4 H Carbon Dioxide 18 L BUN 89 H Creatinine 7.9 H Glucose 144 H POC Glucose 53 L Calcium 3.3 L* D AST 46 H Alkaline Phosphatase 131 H CK-MB (CK-2) CK-MB (CK-2) Rel Index Troponin T NT-Pro-B Natriuret Pep Total Protein 5.6 L Albumin 2.7 L HDL Cholesterol 11/12/18 11/12/18 11/12/18 05:33 05:38 08:53 WBC RBC Hgb Hct MCV RDW Lymph % (Auto) [place] % (Auto) Lymph # [place] # Eos # Baso # Seg Neutrophils % Seg Neuts % (Manual) Lymphocytes % (Manual) Monocytes % (Manual) Seg Neutrophils # Seg Neutrophils # Man Lymphocytes # (Manual) Monocytes # (Manual) POC ABG pH POC ABG pCO2 POC ABG pO2 150 H Sodium Potassium Chloride Carbon Dioxide BUN Creatinine Glucose POC Glucose 135 H 137 H Calcium AST Alkaline Phosphatase CK-MB (CK-2) CK-MB (CK-2) Rel Index Troponin T NT-Pro-B Natriuret Pep Total Protein Albumin HDL Cholesterol Chest x-ray: image reviewed (RLL small volume atelectasis vs pneumonia; cardi omegaly; ETT in good position) Allied health notes reviewed: nursing
[2018-11-12] MEDS ORDERED: NACL 0.9% 1000 ML 2,000 ML ONE (13:10)
[2018-11-12] MEDS: PROCRIT IV SCH (13:57)
[2018-11-12] MEDS: PEPCID PO SCH (14:52)
[2018-11-12 15:05] LABS: Calcium 8.4 mg/dL (8.4-10.2)
[2018-11-12 15:38] LABS: C-Reactive Protein 42.5 mg/dL (0.00-1.30)
[2018-11-12] MEDS: fentaNYL DRIP Premix 2,000 MCG/100 ML BAG IV SCH (18:44)
[2018-11-12] MEDS: D5W 1,000 ML IV SCH (20:30)
[2018-11-12] MEDS: HEPARIN SUB-Q SCH (22:16)
[2018-11-12] MEDS: HumuLIN R SUB-Q SCH (22:20)
[2018-11-12] MEDS: ARTIFICIAL TEARS OPHTH OINT OU PRN (22:31)
--- NOTE | 2018-11-13 02:00 | XRay Report ---
PROCEDURE: XR CHEST 1V AP TECHNIQUE: Chest radiograph single view. HISTORY: follow up respiratory failure COMPARISONS: November 12, 2018 . FINDINGS: Heart: Normal. Mediastinum/Vessels: Normal. Lungs/Pleural space: No significant change with mild infiltrates/atelectasis in both lower lungs. No effusion or pneumothorax.. Bony thorax: No acute osseous abnormality. Life support devices: The endotracheal tube ends 4 cm above the roberth. A nasogastric tube ends below the hemidiaphragms.. IMPRESSION: No significant change of the mild infiltrate/atelectasis in both lower lungs. No effusio n is noted. The endotracheal tube and nasogastric tube are properly positioned.. This document is electronically signed by Milka Felton DO., November 13 2018 01:57:49 AM ET
[2018-11-13] MEDS: ARTIFICIAL TEARS OPHTH OINT OU PRN ×2 (05:21→21:35)
[2018-11-13] MEDS: ZOSYN/NS 2.25 GM/50ML 2.25 GM/50 ML BAG IV SCH (05:44)
[2018-11-13 07:11] LABS: Hematocrit 26.6 % (30.3-42.9); Hemoglobin 8.6 gm/dl (10.1-14.3); Mean Corpuscular HGB Conc 32 % (30-34); Mean Corpuscular Volume 95 fl (79-97); Platelet Count 231 K/mm3 (140-440); Red Cell Distribution Width 19.1 % (13.2-15.2)
[2018-11-13 07:33] LABS: Calcium 8.2 mg/dL (8.4-10.2)
[2018-11-13] MEDS: PROVENTIL IH SCH ×4 (08:08→19:50)
[2018-11-13] MEDS: SYNTHROID PO SCH (08:12)
[2018-11-13 09:15] LABS: Anisocytosis 1+; Basophils % (Manual) 0 % (0.0-1.8); Myelocytes # (Manual) 0.2 K/mm3; Platelet Estimate Consistent w Auto; Total Cells Counted 100
--- NOTE | 2018-11-13 09:33 | Progress Note ---
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 Target glucose of 140-180 mg/dL -Continue bronchodilators with pulmonary hygiene per RT -Supportive HD/UF -Maintenance of sleep -wake cycle PROGNOSIS: GUARDED CONDITION: CRITICAL CODE STATUS: DNAR Will place on SSBT today PSV8/6 as tolerated. Rest on full support tonight. Goal is to liberate from MVS in the next 24-48 hours if tolerated. Discussed extensively with the daughter and son in law, who participated in the ICU-IDT rounds. The high probability of a clinically significant, sudden or life-threatening deterioration of the [respiratory,renal, cardiovascular] system(s) required my full and direct attention, intervention and personal management. The aggregate critical care time was [35] minutes without overlap. Time includes spent on; [x] Data Review and interpretation [x] Patient assessment and monitoring of vital signs [x] Documentation [x] Medication orders and management Subjective Date of service: 11/13/18 Principal diagnosis: Severe Sepsis with Shock; Ac hypercapnic-hypoxic resp failure; ESRD/dialysi Interval history: Patient is seen today for: acute hypoxic-hypercapnic respiratory failure, Pulmonary edema, ESRD on HD, Elevated troponin, Seen and examined at bedside; 24hour events reviewed; nursing and respiratory care staff consulted; no adverse overnight events reported to me; No fevers. No vomiting. Remains on full mechanical ventilatory support, did not tolerate SBT yesterday Family at the bedside. Fentanyl continuous infusion is off, not on any vasopressors at this time. Required intradialytic vasopressor support. Some spontaneous eye opening Objective Vital Signs - 12hr 11/12/18 11/12/18 11/12/18 21:45 22:00 22:15 Temperature Pulse Rate 115 H 111 H 109 H Pulse Rate [ Anterior Bilateral Throughout] Pulse Rate [ 102 H From Monitor] Respiratory 12 12 12 Rate Respiratory Rate [Anterior Bilateral Throughout] Blood Pressure 101/39 81/40 90/41 O2 Sat by Pulse 99 98 99 Oximetry 11/12/18 11/12/18 11/12/18 22:30 22:45 23:00 Temperature Pulse Rate 109 H 110 H 114 H Pulse Rate [ Anterior Bilateral Throughout] Pulse Rate [ From Monitor] Respiratory 11 L 14 15 Rate Respiratory Rate [Anterior Bilateral Throughout] Blood Pressure 111/36 111/44 99/41 O2 Sat by Pulse 99 96 100 Oximetry 11/12/18 11/12/18 11/12/18 23:15 23:24 23:30 Temperature 98.6 F Pulse Rate 108 H 102 H 102 H Pulse Rate [ Anterior Bilateral Throughout] Pulse Rate [ From Monitor] Respiratory 16 16 17 Rate Respiratory Rate [Anterior Bilateral Throughout] Blood Pressure 105/37 105/37 98/44 O2 Sat by Pulse 99 100 100 Oximetry 11/12/18 11/13/18 11/13/18 23:46 00:00 00:07 Temperature Pulse Rate 92 H 94 H 110 H Pulse Rate [ Anterior Bilateral Throughout] Pulse Rate [ From Monitor] Respiratory 17 18 Rate Respiratory Rate [Anterior Bilateral Throughout] Blood Pressure 117/48 124/43 O2 Sat by Pulse 97 100 99 Oximetry 11/13/18 11/13/18 11/13/18 00:15 00:30 00:45 Temperature Pulse Rate 97 H 119 H 112 H Pulse Rate [ Anterior Bilateral Throughout] Pulse Rate [ From Monitor] Respiratory 16 15 13 Rate Respiratory Rate [Anterior Bilateral Throughout] Blood Pressure 112/43 132/68 118/53 O2 Sat by Pulse 100 98 98 Oximetry 11/13/18 11/13/18 11/13/18 01:00 01:15 01:30 Temperature Pulse Rate 113 H 112 H 107 H Pulse Rate [ Anterior Bilateral Throughout] Pulse Rate [ From Monitor] Respiratory 13 13 12 Rate Respiratory Rate [Anterior Bilateral Throughout] Blood Pressure 126/56 120/55 98/33 O2 Sat by Pulse 100 91 72 L Oximetry 11/13/18 11/13/18 11/13/18 01:45 02:00 02:15 Temperature Pulse Rate 106 H 106 H 106 H Pulse Rate [ Anterior Bilateral Throughout] Pulse Rate [ 102 H From Monitor] Respiratory 12 10 L 12 Rate Respiratory Rate [Anterior Bilateral Throughout] Blood Pressure 100/40 124/53 125/54 O2 Sat by Pulse 82 L 79 L 94 Oximetry 11/13/18 11/13/18 11/13/18 02:30 02:45 03:00 Temperature Pulse Rate 107 H 107 H 106 H Pulse Rate [ Anterior Bilateral Throughout] Pulse Rate [ From Monitor] Respiratory 11 L 12 12 Rate Respiratory Rate [Anterior Bilateral Throughout] Blood Pressure 124/56 131/54 127/52 O2 Sat by Pulse 95 93 89 Oximetry 11/13/18 11/13/18 11/13/18 03:15 03:18 03:30 Temperature 98.8 F Pulse Rate 108 H 108 H Pulse Rate [ Anterior Bilateral Throughout] Pulse Rate [ From Monitor] Respiratory 14 12 Rate Respiratory Rate [Anterior Bilateral Throughout] Blood Pressure 132/57 142/61 O2 Sat by Pulse 85 72 L Oximetry 11/13/18 11/13/18 11/13/18 03:45 04:00 04:15 Temperature Pulse Rate 108 H 109 H 109 H Pulse Rate [ Anterior Bilateral Throughout] Pulse Rate [ From Monitor] Respiratory 12 14 13 Rate Respiratory Rate [Anterior Bilateral Throughout] Blood Pressure 129/56 114/48 111/47 O2 Sat by Pulse 85 74 L 96 Oximetry 11/13/18 11/13/18 11/13/18 04:30 04:45 05:00 Temperature Pulse Rate 108 H 108 H 107 H Pulse Rate [ Anterior Bilateral Throughout] Pulse Rate [ From Monitor] Respiratory 11 L 13 15 Rate Respiratory Rate [Anterior Bilateral Throughout] Blood Pressure 110/48 108/49 108/49 O2 Sat by Pulse 97 96 100 Oximetry 11/13/18 11/13/18 11/13/18 05:15 05:30 05:46 Temperature Pulse Rate 109 H 135 H 124 H Pulse Rate [ Anterior Bilateral Throughout] Pulse Rate [ From Monitor] Respiratory 14 22 16 Rate Respiratory Rate [Anterior Bilateral Throughout] Blood Pressure 107/53 107/53 176/44 O2 Sat by Pulse 94 58 L 64 L Oximetry 11/13/18 11/13/18 11/13/18 05:53 05:55 06:00 Temperature Pulse Rate 124 H 114 H Pulse Rate [ Anterior Bilateral Throughout] Pulse Rate [ 102 H From Monitor] Respiratory 15 Rate Respiratory Rate [Anterior Bilateral Throughout] Blood Pressure 165/42 O2 Sat by Pulse 100 100 Oximetry 11/13/18 11/13/18 11/13/18 06:15 06:30 06:45 Temperature Pulse Rate 120 H 118 H 110 H Pulse Rate [ Anterior Bilateral Throughout] Pulse Rate [ From Monitor] Respiratory 15 15 14 Rate Respiratory Rate [Anterior Bilateral Throughout] Blood Pressure 152/36 150/43 129/53 O2 Sat by Pulse 86 97 100 Oximetry 11/13/18 11/13/18 11/13/18 07:00 07:15 07:30 Temperature Pulse Rate 110 H 112 H 125 H Pulse Rate [ Anterior Bilateral Throughout] Pulse Rate [ From Monitor] Respiratory 14 17 21 Rate Respiratory Rate [Anterior Bilateral Throughout] Blood Pressure 146/52 149/56 149/56 O2 Sat by Pulse 100 92 98 Oximetry 11/13/18 11/13/18 11/13/18 07:45 07:59 08:00 Temperature 99.7 F H Pulse Rate 124 H 126 H 126 H Pulse Rate [ 130 H Anterior Bilateral Throughout] Pulse Rate [ From Monitor] Respiratory 15 13 Rate Respiratory 18 Rate [Anterior Bilateral Throughout] Blood Pressure 172/64 150/55 150/55 O2 Sat by Pulse 97 97 97 Oximetry 11/13/18 11/13/18 11/13/18 08:07 08:16 08:30 Temperature Pulse Rate 128 H 122 H Pulse Rate [ 125 H Anterior Bilateral Throughout] Pulse Rate [ From Monitor] Respiratory 15 12 Rate Respiratory 14 Rate [Anterior Bilateral Throughout] Blood Pressure 157/61 146/53 O2 Sat by Pulse 97 97 Oximetry Constitutional: appears uncomfortable, other (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, normocephalic with mildly increased respiratory effort at rest) Eyes: non-icteric ENT: oropharynx moist, other (ETT in place, 23cm at the lips) Neck: supple, no lymphadenopathy Effort: normal Ascultation: Bilateral: diminished breath sounds, rales (scant), rhonchi Percussion: Bilateral: not dull Cardiovascular: regular rate and rhythm, murmur noted (ELEANOR), other (s1, s2, ) Gastrointestinal: normoactive bowel sounds, soft, non-tender, non-distended, other (no guarding, no hepato-splenomegaly) Integumentary: rash, decubitus ulcer (sacral), other (dry scaling) Extremities: no cyanosis, no edema, pulses normal, no ischemia or petechiae Neurologic: non-focal exam (grossly), pupils equal and round, other (unable to assess otherwise) Psychiatric: other (unable to assess otherwise) CBC and BMP: 11/13/18 05:20 11/13/18 14:51 ABG, PT/INR, D-dimer: ABG POC ABG pH 7.435 (7.35-7.45) 11/13/18 05:52 POC ABG pCO2 42.7 (35-45) 11/13/18 05:52 POC ABG pO2 250 (80-105) H 11/13/18 05:52 POC ABG HCO3 28.6 (22-26 mml/L) 11/13/18 05:52 POC ABG Total CO2 30 (23-27mmol/L) 11/13/18 05:52 POC ABG O2 Sat 100 11/13/18 05:52 PT/INR, D-dimer PT 13.2 Sec. (12.2-14.9) 11/05/18 07:09 INR 0.95 (0.87-1.13) 11/05/18 07:09 Abnormal lab findings: Abnormal Labs 11/05/18 11/05/18 11/05/18 07:09 07:09 07:09 WBC 14.7 H RBC 3.42 L Hgb Hct MCV 99 H RDW 20.1 H Lymph % (Auto) [place] % (Auto) 9.3 H Lymph # [place] # 1.4 H Eos # 0.5 H Baso # 0.2 H Seg Neutrophils % 70.1 H Seg Neuts % (Manual) Lymphocytes % (Manual) Monocytes % (Manual) Eosinophils % (Manual) Seg Neutrophils # 10.3 H Seg Neutrophils # Man Lymphocytes # (Manual) Monocytes # (Manual) Eosinophils # (Manual) POC ABG pH POC ABG pCO2 POC ABG pO2 Sodium Potassium 6.8 H* Chloride Carbon Dioxide BUN 74 H Creatinine 6.9 H Glucose 226 H POC Glucose 206 H Calcium AST 80 H Alkaline Phosphatase 236 H CK-MB (CK-2) CK-MB (CK-2) Rel Index 8.2 H Troponin T 0.224 H* C-Reactive Protein NT-Pro-B Natriuret Pep > 84861 H Total Protein Albumin HDL Cholesterol 61 H 11/05/18 11/05/18 11/06/18 08:03 19:45 03:29 WBC RBC Hgb Hct MCV RDW Lymph % (Auto) [place] % (Auto) Lymph # [place] # Eos # Baso # Seg Neutrophils % Seg Neuts % (Manual) Lymphocytes % (Manual) Monocytes % (Manual) Eosinophils % (Manual) Seg Neutrophils # Seg Neutrophils # Man Lymphocytes # (Manual) Monocytes # (Manual) Eosinophils # (Manual) POC ABG pH 7.612 H POC ABG pCO2 51.2 H 31.3 L POC ABG pO2 167 H 117 H Sodium Potassium Chloride Carbon Dioxide BUN Creatinine Glucose POC Glucose Calcium AST Alkaline Phosphatase CK-MB (CK-2) 5.6 H CK-MB (CK-2) Rel Index 5.2 H Troponin T 0.321 H* D C-Reactive Protein NT-Pro-B Natriuret Pep Total Protein Albumin HDL Cholesterol 11/06/18 11/06/18 11/06/18 06:59 06:59 14:16 WBC RBC Hgb Hct MCV RDW 19.2 H Lymph % (Auto) [place] % (Auto) Lymph # [place] # Eos # Baso # Seg Neutrophils % Seg Neuts % (Manual) 82.0 H Lymphocytes % (Manual) 5.0 L Monocytes % (Manual) 13.0 H Eosinophils % (Manual) Seg Neutrophils # Seg Neutrophils # Man 8.5 H Lymphocytes # (Manual) 0.5 L Monocytes # (Manual) 1.4 H Eosinophils # (Manual) POC ABG pH POC ABG pCO2 POC ABG pO2 Sodium Potassium 5.2 H D Chloride Carbon Dioxide BUN 33 H Creatinine 4.4 H Glucose POC Glucose 139 H Calcium AST 52 H Alkaline Phosphatase 170 H CK-MB (CK-2) CK-MB (CK-2) Rel Index Troponin T 0.289 H* C-Reactive Protein NT-Pro-B Natriuret Pep Total Protein Albumin 3.7 L HDL Cholesterol 11/07/18 11/07/18 11/07/18 04:11 04:11 05:39 WBC RBC 3.31 L Hgb Hct MCV RDW 18.9 H Lymph % (Auto) 8.9 L [place] % (Auto) 14.6 H Lymph # 0.9 L [place] # 1.5 H Eos # Baso # Seg Neutrophils % 74.7 H Seg Neuts % (Manual) Lymphocytes % (Manual) Monocytes % (Manual) Eosinophils % (Manual) Seg Neutrophils # 7.9 H Seg Neutrophils # Man Lymphocytes # (Manual) Monocytes # (Manual) Eosinophils # (Manual) POC ABG pH 7.550 H POC ABG pCO2 32.6 L POC ABG pO2 63 L Sodium 146 H Potassium Chloride Carbon Dioxide BUN 36 H Creatinine 4.7 H Glucose 109 H POC Glucose Calcium AST 42 H Alkaline Phosphatase 138 H CK-MB (CK-2) CK-MB (CK-2) Rel Index Troponin T C-Reactive Protein NT-Pro-B Natriuret Pep Total Protein 5.8 L Albumin 3.3 L HDL Cholesterol 11/08/18 11/08/18 11/09/18 03:19 04:38 04:56 WBC RBC Hgb Hct MCV RDW Lymph % (Auto) [place] % (Auto) Lymph # [place] # Eos # Baso # Seg Neutrophils % Seg Neuts % (Manual) Lymphocytes % (Manual) Monocytes % (Manual) Eosinophils % (Manual) Seg Neutrophils # Seg Neutrophils # Man Lymphocytes # (Manual) Monocytes # (Manual) Eosinophils # (Manual) POC ABG pH 7.468 H 7.301 L POC ABG pCO2 34.3 L 46.3 H POC ABG pO2 132 H 63 L Sodium 148 H Potassium 5.2 H Chloride Carbon Dioxide BUN 50 H Creatinine 6.4 H Glucose POC Glucose Calcium 8.3 L AST Alkaline Phosphatase CK-MB (CK-2) CK-MB (CK-2) Rel Index Troponin T C-Reactive Protein NT-Pro-B Natriuret Pep Total Protein Albumin HDL Cholesterol 11/09/18 11/09/18 11/09/18 11:26 11:26 12:54 WBC 15.0 H RBC 3.33 L Hgb 10.0 L Hct MCV RDW 19.1 H Lymph % (Auto) 5.3 L [place] % (Auto) Lymph # 0.8 L [place] # 1.1 H Eos # Baso # Seg Neutrophils % 85.6 H Seg Neuts % (Manual) Lymphocytes % (Manual) Monocytes % (Manual) Eosinophils % (Manual) Seg Neutrophils # 12.8 H Seg Neutrophils # Man Lymphocytes # (Manual) Monocytes # (Manual) Eosinophils # (Manual) POC ABG pH POC ABG pCO2 POC ABG pO2 Sodium 150 H Potassium 5.3 H Chloride 108.4 H Carbon Dioxide 20 L BUN 79 H Creatinine 7.6 H Glucose 111 H POC Glucose 115 H Calcium 7.6 L AST Alkaline Phosphatase CK-MB (CK-2) CK-MB (CK-2) Rel Index Troponin T C-Reactive Protein NT-Pro-B Natriuret Pep Total Protein Albumin HDL Cholesterol 11/10/18 11/10/18 11/10/18 04:24 04:37 04:37 WBC 14.2 H RBC 3.13 L Hgb 9.5 L Hct 29.8 L MCV RDW 19.2 H Lymph % (Auto) 3.9 L [place] % (Auto) 9.9 H Lymph # 0.5 L [place] # 1.4 H Eos # Baso # Seg Neutrophils % 83.3 H Seg Neuts % (Manual) Lymphocytes % (Manual) Monocytes % (Manual) Eosinophils % (Manual) Seg Neutrophils # 11.8 H Seg Neutrophils # Man Lymphocytes # (Manual) Monocytes # (Manual) Eosinophils # (Manual) POC ABG pH POC ABG pCO2 POC ABG pO2 Sodium 150 H Potassium Chloride Carbon Dioxide BUN 65 H Creatinine 6.8 H Glucose 111 H POC Glucose 110 H Calcium 8.0 L AST Alkaline Phosphatase CK-MB (CK-2) CK-MB (CK-2) Rel Index Troponin T C-Reactive Protein NT-Pro-B Natriuret Pep Total Protein Albumin HDL Cholesterol 11/10/18 11/10/18 11/10/18 05:51 12:53 16:48 WBC RBC Hgb Hct MCV RDW Lymph % (Auto) [place] % (Auto) Lymph # [place] # Eos # Baso # Seg Neutrophils % Seg Neuts % (Manual) Lymphocytes % (Manual) Monocytes % (Manual) Eosinophils % (Manual) Seg Neutrophils # Seg Neutrophils # Man Lymphocytes # (Manual) Monocytes # (Manual) Eosinophils # (Manual) POC ABG pH 7.475 H POC ABG pCO2 POC ABG pO2 67 L Sodium Potassium Chloride Carbon Dioxide BUN Creatinine Glucose POC Glucose 131 H 124 H Calcium AST Alkaline Phosphatase CK-MB (CK-2) CK-MB (CK-2) Rel Index Troponin T C-Reactive Protein NT-Pro-B Natriuret Pep Total Protein Albumin HDL Cholesterol 11/10/18 11/10/18 11/11/18 20:00 23:54 04:23 WBC RBC Hgb Hct MCV RDW Lymph % (Auto) [place] % (Auto) Lymph # [place] # Eos # Baso # Seg Neutrophils % Seg Neuts % (Manual) Lymphocytes % (Manual) Monocytes % (Manual) Eosinophils % (Manual) Seg Neutrophils # Seg Neutrophils # Man Lymphocytes # (Manual) Monocytes # (Manual) Eosinophils # (Manual) POC ABG pH 7.334 L POC ABG pCO2 46.1 H POC ABG pO2 Sodium Potassium Chloride Carbon Dioxide BUN Creatinine Glucose POC Glucose 133 H 121 H Calcium AST Alkaline Phosphatase CK-MB (CK-2) CK-MB (CK-2) Rel Index Troponin T C-Reactive Protein NT-Pro-B Natriuret Pep Total Protein Albumin HDL Cholesterol 11/11/18 11/11/18 11/11/18 04:25 05:42 08:27 WBC RBC Hgb Hct MCV RDW Lymph % (Auto) [place] % (Auto) Lymph # [place] # Eos # Baso # Seg Neutrophils % Seg Neuts % (Manual) Lymphocytes % (Manual) Monocytes % (Manual) Eosinophils % (Manual) Seg Neutrophils # Seg Neutrophils # Man Lymphocytes # (Manual) Monocytes # (Manual) Eosinophils # (Manual) POC ABG pH POC ABG pCO2 POC ABG pO2 Sodium 157 H Potassium Chloride 111.2 H Carbon Dioxide BUN 81 H Creatinine 7.7 H Glucose 139 H POC Glucose 129 H 122 H Calcium AST Alkaline Phosphatase CK-MB (CK-2) CK-MB (CK-2) Rel Index Troponin T C-Reactive Protein NT-Pro-B Natriuret Pep Total Protein Albumin HDL Cholesterol 11/11/18 11/11/18 11/12/18 16:51 21:26 02:27 WBC RBC Hgb Hct MCV RDW Lymph % (Auto) [place] % (Auto) Lymph # [place] # Eos # Baso # Seg Neutrophils % Seg Neuts % (Manual) Lymphocytes % (Manual) Monocytes % (Manual) Eosinophils % (Manual) Seg Neutrophils # Seg Neutrophils # Man Lymphocytes # (Manual) Monocytes # (Manual) Eosinophils # (Manual) POC ABG pH POC ABG pCO2 POC ABG pO2 Sodium Potassium Chloride Carbon Dioxide BUN Creatinine Glucose POC Glucose 148 H 156 H 45 L Calcium AST Alkaline Phosphatase CK-MB (CK-2) CK-MB (CK-2) Rel Index Troponin T C-Reactive Protein NT-Pro-B Natriuret Pep Total Protein Albumin HDL Cholesterol 11/12/18 11/12/18 11/12/18 02:29 03:39 03:39 WBC RBC 3.18 L Hgb 9.7 L Hct MCV RDW 19.1 H Lymph % (Auto) [place] % (Auto) Lymph # [place] # Eos # Baso # Seg Neutrophils % Seg Neuts % (Manual) 71.0 H Lymphocytes % (Manual) 13.0 L Monocytes % (Manual) 10.0 H Eosinophils % (Manual) Seg Neutrophils # Seg Neutrophils # Man Lymphocytes # (Manual) Monocytes # (Manual) 1.0 H Eosinophils # (Manual) POC ABG pH POC ABG pCO2 POC ABG pO2 Sodium 152 H Potassium 8.4 H* D Chloride 107.4 H Carbon Dioxide 18 L BUN 89 H Creatinine 7.9 H Glucose 144 H POC Glucose 53 L Calcium 3.3 L* D AST 46 H Alkaline Phosphatase 131 H CK-MB (CK-2) CK-MB (CK-2) Rel Index Troponin T C-Reactive Protein NT-Pro-B Natriuret Pep Total Protein 5.6 L Albumin 2.7 L HDL Cholesterol 11/12/18 11/12/18 11/12/18 05:33 05:38 08:53 WBC RBC Hgb Hct MCV RDW Lymph % (Auto) [place] % (Auto) Lymph # [place] # Eos # Baso # Seg Neutrophils % Seg Neuts % (Manual) Lymphocytes % (Manual) Monocytes % (Manual) Eosinophils % (Manual) Seg Neutrophils # Seg Neutrophils # Man Lymphocytes # (Manual) Monocytes # (Manual) Eosinophils # (Manual) POC ABG pH POC ABG pCO2 POC ABG pO2 150 H Sodium Potassium Chloride Carbon Dioxide BUN Creatinine Glucose POC Glucose 135 H 137 H Calcium AST Alkaline Phosphatase CK-MB (CK-2) CK-MB (CK-2) Rel Index Troponin T C-Reactive Protein NT-Pro-B Natriuret Pep Total Protein Albumin HDL Cholesterol 11/12/18 11/12/18 11/12/18 13:13 14:39 14:39 WBC RBC Hgb Hct MCV RDW Lymph % (Auto) [place] % (Auto) Lymph # [place] # Eos # Baso # Seg Neutrophils % Seg Neuts % (Manual) Lymphocytes % (Manual) Monocytes % (Manual) Eosinophils % (Manual) Seg Neutrophils # Seg Neutrophils # Man Lymphocytes # (Manual) Monocytes # (Manual) Eosinophils # (Manual) POC ABG pH POC ABG pCO2 POC ABG pO2 Sodium Potassium 2.9 L* D Chloride Carbon Dioxide BUN Creatinine Glucose POC Glucose 152 H Calcium AST Alkaline Phosphatase CK-MB (CK-2) CK-MB (CK-2) Rel Index Troponin T C-Reactive Protein 42.50 H NT-Pro-B Natriuret Pep Total Protein Albumin HDL Cholesterol 11/12/18 11/12/18 11/13/18 19:54 23:46 05:11 WBC RBC Hgb Hct MCV RDW Lymph % (Auto) [place] % (Auto) Lymph # [place] # Eos # Baso # Seg Neutrophils % Seg Neuts % (Manual) Lymphocytes % (Manual) Monocytes % (Manual) Eosinophils % (Manual) Seg Neutrophils # Seg Neutrophils # Man Lymphocytes # (Manual) Monocytes # (Manual) Eosinophils # (Manual) POC ABG pH POC ABG pCO2 POC ABG pO2 Sodium Potassium Chloride Carbon Dioxide BUN Creatinine Glucose POC Glucose 170 H 121 H 49 L Calcium AST Alkaline Phosphatase CK-MB (CK-2) CK-MB (CK-2) Rel Index Troponin T C-Reactive Protein NT-Pro-B Natriuret Pep Total Protein Albumin HDL Cholesterol 11/13/18 11/13/18 11/13/18 05:20 05:20 05:52 WBC RBC 2.80 L Hgb 8.6 L Hct 26.6 L MCV RDW 19.1 H Lymph % (Auto) [place] % (Auto) Lymph # [place] # Eos # Baso # Seg Neutrophils % Seg Neuts % (Manual) Lymphocytes % (Manual) Monocytes % (Manual) 16.0 H Eosinophils % (Manual) 8.0 H Seg Neutrophils # Seg Neutrophils # Man Lymphocytes # (Manual) Monocytes # (Manual) 1.6 H Eosinophils # (Manual) 0.8 H POC ABG pH POC ABG pCO2 POC ABG pO2 250 H Sodium 136 L D Potassium 3.4 L Chloride 92.5 L Carbon Dioxide BUN 37 H Creatinine 3.9 H D Glucose 121 H POC Glucose Calcium 8.2 L AST Alkaline Phosphatase CK-MB (CK-2) CK-MB (CK-2) Rel Index Troponin T C-Reactive Protein NT-Pro-B Natriuret Pep Total Protein Albumin HDL Cholesterol 11/13/18 07:59 WBC RBC Hgb Hct MCV RDW Lymph % (Auto) [place] % (Auto) Lymph # [place] # Eos # Baso # Seg Neutrophils % Seg Neuts % (Manual) Lymphocytes % (Manual) Monocytes % (Manual) Eosinophils % (Manual) Seg Neutrophils # Seg Neutrophils # Man Lymphocytes # (Manual) Monocytes # (Manual) Eosinophils # (Manual) POC ABG pH POC ABG pCO2 POC ABG pO2 Sodium Potassium Chloride Carbon Dioxide BUN Creatinine Glucose POC Glucose 116 H Calcium AST Alkaline Phosphatase CK-MB (CK-2) CK-MB (CK-2) Rel Index Troponin T C-Reactive Protein NT-Pro-B Natriuret Pep Total Protein Albumin HDL Cholesterol Chest x-ray: image reviewed Allied health notes reviewed: nursing
--- NOTE | 2018-11-13 09:45 | Progress Note ---
Assessment and Plan Assessment and plan: --Acute hypoxic respiratory failure; intubated on vent cont, nebs,antibiotics Pulmonary critical following Wean as tolerated and extubate --Septic shock;On pressors Titrate systolic blood pressure still more than 100 Continue antibiotics and supportive care --Severe hyperkalemia; resolved --Hypernatremia; free water flushes, mild improvement --Right lower lobe pneumonia/aspiration pneumonia Follow-up chest x-ray today; pneumonia /infiltrates resolved Continue vancomycin and Zosyn, add Flagyl F/u cultures, consider ID evaluation if needed --Nonspecific elevation of troponin; probably secondary to End-stage renal disease, medical management --Severe hypocalcemia; received calcium gluconate, calcium levels significantly improved --End-stage renal disease; hemodialysis per schedule Nephrology following --Hyperglycemia/type 2 diabetes mellitus. Accu-Chek sliding scale coverage and ADA diet Insulin As Needed, hemoglobin A1c --History of hypothyroidism; resume Synthroid --DVT prophylaxis; heparin renal dose --Tube feeds per protocol Patient is critically ill, with very poor prognosis, Family aware, --DO NOT RESUSCITATE, with full treatment Patient is DO NOT RESUSCITATE status, but full treatment, Patient's condition. Poor prognosis and treatment plan discussed in detail The patient's second daughter and son-in-law at the bedside They want to talk to kitchenhand, case management Dr. Cavazos discussed with them Critical care time 35 minutes History Interval history: Patient seen and examined medical records reviewed Patient remains critically ill,intubated on vent Hypotensive on pressors, Tachycardic No new events reported by the nursing The patient is chronically ill-looking Vital signs reviewed Hospitalist Physical - Constitutional Vitals: Temp Pulse Resp BP Pulse Ox 99.7 F H 122 H 12 146/53 97 11/13/18 08:00 11/13/18 08:30 11/13/18 08:30 11/13/18 08:30 11/13/18 08:30 General appearance: Present: no acute distress, cachectic, disheveled, other (intubated on ventilatory support) - EENT Eyes: Present: PERRL, EOM intact - Neck Neck: Present: supple - Respiratory Respiratory effort: labored Respiratory: bilateral: diminished, rhonchi, negative: rales, wheezing - Cardiovascular Rhythm: regular Heart Sounds: Present: S1 & S2 - Extremities Extremities: no ischemia Extremity abnormal: edema - Abdominal General gastrointestinal: soft, non-tender, non-distended, normal bowel sounds - Integumentary Integumentary: Present: clear, warm - Psychiatric Psychiatric: other (intubated on vent) - Neurologic Neurologic: other (intubated on vent) Results - Labs CBC & Chem 7: 11/13/18 05:20 11/13/18 14:51 Labs: Laboratory Last Values WBC 10.3 K/mm3 (4.5-11.0) 11/13/18 05:20 RBC 2.80 M/mm3 (3.65-5.03) L 11/13/18 05:20 Hgb 8.6 gm/dl (10.1-14.3) L 11/13/18 05:20 Hct 26.6 % (30.3-42.9) L 11/13/18 05:20 MCV 95 fl (79-97) 11/13/18 05:20 MCH 31 pg (28-32) 11/13/18 05:20 MCHC 32 % (30-34) 11/13/18 05:20 RDW 19.1 % (13.2-15.2) H 11/13/18 05:20 Plt Count 231 K/mm3 (140-440) 11/13/18 05:20 Lymph % (Auto) 3.9 % (13.4-35.0) L 11/10/18 04:37 [place] % (Auto) Hydraulic Lift Driver 11/13/18 05:20 Eos % (Auto) 2.5 % (0.0-4.3) 11/10/18 04:37 Baso % (Auto) 0.4 % (0.0-1.8) 11/10/18 04:37 Lymph # 0.5 K/mm3 (1.2-5.4) L 11/10/18 04:37 [place] # 1.4 K/mm3 (0.0-0.8) H 11/10/18 04:37 Eos # 0.4 K/mm3 (0.0-0.4) 11/10/18 04:37 Baso # 0.1 K/mm3 (0.0-0.1) 11/10/18 04:37 Add Manual Diff Complete 11/13/18 05:20 Total Counted 100 11/13/18 05:20 Seg Neutrophils % 83.3 % (40.0-70.0) H 11/10/18 04:37 Seg Neuts % (Manual) 59.0 % (40.0-70.0) 11/13/18 05:20 Band Neutrophils % 0 % 11/13/18 05:20 Lymphocytes % (Manual) 15.0 % (13.4-35.0) 11/13/18 05:20 Reactive Lymphs % (Man) 0 % 11/13/18 05:20 Monocytes % (Manual) 16.0 % (0.0-7.3) H 11/13/18 05:20 Eosinophils % (Manual) 8.0 % (0.0-4.3) H 11/13/18 05:20 Basophils % (Manual) 0 % (0.0-1.8) 11/13/18 05:20 Metamyelocytes % 0 % 11/13/18 05:20 Myelocytes % 2.0 % 11/13/18 05:20 Promyelocytes % 0 % 11/13/18 05:20 Blast Cells % 0 % 11/13/18 05:20 Nucleated RBC % Not Reportable 11/13/18 05:20 Seg Neutrophils # 11.8 K/mm3 (1.8-7.7) H 11/10/18 04:37 Seg Neutrophils # Man 6.1 K/mm3 (1.8-7.7) 11/13/18 05:20 Band Neutrophils # 0.0 K/mm3 11/13/18 05:20 Lymphocytes # (Manual) 1.5 K/mm3 (1.2-5.4) 11/13/18 05:20 Abs React Lymphs (Man) 0.0 K/mm3 11/13/18 05:20 Monocytes # (Manual) 1.6 K/mm3 (0.0-0.8) H 11/13/18 05:20 Eosinophils # (Manual) 0.8 K/mm3 (0.0-0.4) H 11/13/18 05:20 Basophils # (Manual) 0.0 K/mm3 (0.0-0.1) 11/13/18 05:20 Metamyelocytes # 0.0 K/mm3 11/13/18 05:20 Myelocytes # 0.2 K/mm3 11/13/18 05:20 Promyelocytes # 0.0 K/mm3 11/13/18 05:20 Blast Cells # 0.0 K/mm3 11/13/18 05:20 WBC Morphology Not Reportable 11/13/18 05:20 Hypersegmented Neuts Not Reportable 11/13/18 05:20 Hyposegmented Neuts Not Reportable 11/13/18 05:20 Hypogranular Neuts Not Reportable 11/13/18 05:20 Smudge Cells Not Reportable 11/13/18 05:20 Toxic Granulation Not Reportable 11/13/18 05:20 Toxic Vacuolation Not Reportable 11/13/18 05:20 Dohle Bodies Not Reportable 11/13/18 05:20 Pelger-Huet Anomaly Not Reportable 11/13/18 05:20 Omar Rods Not Reportable 11/13/18 05:20 Platelet Estimate Consistent w auto 11/13/18 05:20 Clumped Platelets Not Reportable 11/13/18 05:20 Plt Clumps, EDTA Not Reportable 11/13/18 05:20 Large Platelets Not Reportable 11/13/18 05:20 Giant Platelets Not Reportable 11/13/18 05:20 Platelet Satelliting Not Reportable 11/13/18 05:20 Plt Morphology Comment Not Reportable 11/13/18 05:20 RBC Morphology Not Reportable 11/13/18 05:20 Dimorphic RBCs Not Reportable 11/13/18 05:20 Polychromasia Not Reportable 11/13/18 05:20 Hypochromasia Not Reportable 11/13/18 05:20 Poikilocytosis Not Reportable 11/13/18 05:20 Anisocytosis 1+ 11/13/18 05:20 Microcytosis Not Reportable 11/13/18 05:20 Macrocytosis Not Reportable 11/13/18 05:20 Spherocytes Not Reportable 11/13/18 05:20 Pappenheimer Bodies Not Reportable 11/13/18 05:20 Sickle Cells Not Reportable 11/13/18 05:20 Target Cells Not Reportable 11/13/18 05:20 Tear Drop Cells Not Reportable 11/13/18 05:20 Ovalocytes Not Reportable 11/13/18 05:20 Helmet Cells Not Reportable 11/13/18 05:20 [place] Bodies Not Reportable 11/13/18 05:20 Wright Rings Not Reportable 11/13/18 05:20 Jones Cells Not Reportable 11/13/18 05:20 Bite Cells Not Reportable 11/13/18 05:20 Crenated Cell Not Reportable 11/13/18 05:20 Elliptocytes Not Reportable 11/13/18 05:20 Acanthocytes (Spur) Not Reportable 11/13/18 05:20 Rouleaux Not Reportable 11/13/18 05:20 Hemoglobin C Crystals Not Reportable 11/13/18 05:20 Schistocytes Not Reportable 11/13/18 05:20 Malaria parasites Not Reportable 11/13/18 05:20 Evangelista Bodies Not Reportable 11/13/18 05:20 Hem Pathologist Commnt No 11/13/18 05:20 PT 13.2 Sec. (12.2-14.9) 11/05/18 07:09 INR 0.95 (0.87-1.13) 11/05/18 07:09 APTT 27.7 Sec. (24.2-36.6) 11/05/18 07:09 POC ABG pH 7.435 (7.35-7.45) 11/13/18 05:52 POC ABG pCO2 42.7 (35-45) 11/13/18 05:52 POC ABG pO2 250 (80-105) H 11/13/18 05:52 POC ABG HCO3 28.6 (22-26 mml/L) 11/13/18 05:52 POC ABG Total CO2 30 (23-27mmol/L) 11/13/18 05:52 POC ABG O2 Sat 100 11/13/18 05:52 POC ABG Base Excess 4 ((-2) - (+3)mmol/L) 11/13/18 05:52 FiO2 35 % 11/13/18 05:52 Sodium 136 mmol/L (137-145) L D 11/13/18 05:20 Potassium 3.4 mmol/L (3.6-5.0) L 11/13/18 05:20 Chloride 92.5 mmol/L (98-107) L 11/13/18 05:20 Carbon Dioxide 27 mmol/L (22-30) D 11/13/18 05:20 Anion Gap 20 mmol/L 11/13/18 05:20 BUN 37 mg/dL (7-17) H 11/13/18 05:20 Creatinine 3.9 mg/dL (0.7-1.2) H D 11/13/18 05:20 Estimated GFR 13 ml/min 11/13/18 05:20 BUN/Creatinine Ratio 9 % 11/13/18 05:20 Glucose 121 mg/dL (65-100) H 11/13/18 05:20 POC Glucose 116 (70-105) H 11/13/18 07:59 Calcium 8.2 mg/dL (8.4-10.2) L 11/13/18 05:20 Phosphorus 4.10 mg/dL (2.5-4.5) 11/11/18 04:25 Total Bilirubin 0.40 mg/dL (0.1-1.2) 11/12/18 03:39 AST 46 units/L (5-40) H 11/12/18 03:39 ALT 30 units/L (7-56) 11/12/18 03:39 Alkaline Phosphatase 131 units/L (35-129) H 11/12/18 03:39 Total Creatine Kinase 104 units/L (30-135) 11/06/18 06:59 CK-MB (CK-2) 3.2 ng/mL (0.0-4.0) 11/06/18 06:59 CK-MB (CK-2) Rel Index 3.0 (0-4) 11/06/18 06:59 Troponin T 0.289 ng/mL (0.00-0.029) H* 11/06/18 06:59 C-Reactive Protein 42.50 mg/dL (0.00-1.30) H 11/12/18 14:39 NT-Pro-B Natriuret Pep > 04113 pg/mL (0-900) H 11/05/18 07:09 Total Protein 5.6 g/dL (6.3-8.2) L 11/12/18 03:39 Albumin 2.7 g/dL (3.9-5) L 11/12/18 03:39 Albumin/Globulin Ratio 0.9 % 11/12/18 03:39 Triglycerides 101 mg/dL (2-149) 11/05/18 07:09 Cholesterol 180 mg/dL (50-199) 11/05/18 07:09 LDL Cholesterol Direct 116 mg/dL (50-130) 11/05/18 07:09 HDL Cholesterol 61 mg/dL (40-59) H 11/05/18 07:09 Cholesterol/HDL Ratio 2.95 % 11/05/18 07:09 Vancomycin Trough 11.3 ug/mL (5.0-20.0) 11/11/18 11:26 Active Medications - Current Medications Current Medications: Generic Name Dose Route Start Last Admin Trade Name Freq PRN Reason Stop Dose Admin Albuterol 2.5 mg 11/05/18 12:00 11/13/18 08:08 Proventil IH 2.5 mg QIDRT CECILIO Administration Albuterol 2.5 mg 11/05/18 12:00 Proventil IH Q4HRT PRN Shortness Of Breath Lipase/Protease/Amylase 1 each 11/05/18 11:[address] 10,500 Unit FEEDTUBE PRN PRN For Clogged Feeding Tube Calcitriol 0.5 mcg 11/05/18 11:00 11/12/18 09:34 Rocaltrol PO 0.5 mcg QDAY CECILIO Administration Dextrose 50 ml 11/09/18 11:03 11/13/18 05:15 D50w (25gm) Syringe IV 50 ml PRN PRN Administration Hypoglycemia Epoetin Kristopher 5,000 unit 11/09/18 08:00 11/12/18 13:57 Procrit IV 5,000 unit CHARI CECILIO Administration Famotidine 20 mg 11/12/18 14:00 11/12/18 14:52 Pepcid PO 20 mg DAILY CECILIO Administration Fentanyl 50 mcg 11/06/18 10:00 11/08/18 18:10 Sublimaze IV 50 mcg Q10MIN PRN Administration ANALGESIA Heparin Sodium (Porcine) 5,000 unit 11/12/18 22:00 11/12/18 22:16 Heparin SUB-Q 5,000 unit Q12HR CECILIO Administration Hydrophilic Ointment 1 applic 11/06/18 10:00 Vaseline Lip Therapy TP Q2HR PRN Dry Lips Fentanyl Citrate 2,000 mcg in 100 mls @ 2.495 mls/hr 11/06/18 10:00 11/13/18 07:45 Fentanyl Drip Premix IV 3 mcg/kg/hr TITR CECILIO 7.484 mls/hr Titration Protocol 1 MCG/KG/HR Norepinephrine 4 mg in 250 mls @ 7.5 mls/hr 11/06/18 19:00 11/13/18 03:46 Levophed Drip 4 Mg/Ns 250 Ml IV 0 mcg/min TITR CECILIO 0 mls/hr Titration Protocol 2 MCG/MIN Piperacillin Sod/Tazobactam Sod 2.25 gm in 50 mls @ 100 mls/hr 11/08/18 18:00 11/13/18 05:44 Zosyn/Ns 2.25 Gm/50ml IV 100 mls/hr Q8HR CECILIO Administration Dextrose 1,000 mls @ 75 mls/hr 11/11/18 11:00 11/12/18 20:30 D5w IV 75 mls/hr DIRECT CECILIO Administration Sodium Chloride 100 mls @ 999 mls/hr 11/12/18 10:00 Nacl 0.9% IV CHARI PRN Hypotension Vasopressin 20 unit/ Sodium 101 mls @ 9.09 mls/hr 11/12/18 12:30 11/12/18 12:35 Chloride IV 0.03 units/min TITR CECILIO 9.09 mls/hr Administration Protocol 0.03 UNITS/MIN Insulin Human Regular 0 units 11/09/18 22:00 11/12/18 22:20 Humulin R SUB-Q 2 units QHS CECILIO Administration Protocol Levothyroxine Sodium 125 mcg 11/05/18 11:00 11/13/18 08:12 Synthroid PO 125 mcg DAILY@0600 CECILIO Administration Losartan Potassium 50 mg 11/05/18 11:00 11/12/18 09:33 Cozaar PO Not Given QDAY [facility] Metoprolol Tartrate 12.5 mg 11/13/18 10:00 Lopressor PO BID CECILIO Multi-Ingred Cream/Lotion/Oil/Oint 1 applic 11/06/18 10:00 11/13/18 05:21 Artificial Tears Ophth Oint OU 1 applic Q4HR PRN Administration Dry Eye(s) Quetiapine Fumarate 25 mg 11/11/18 16:00 11/12/18 22:20 Seroquel PO 25 mg BID CECILIO Administration Simple Syrup 15 ml 11/05/18 11:27 Simple Syrup FEEDTUBE PRN PRN Hypoglycemia Simple Syrup 30 ml 11/05/18 11:27 11/12/18 02:45 Simple Syrup FEEDTUBE 30 ml PRN PRN Administration Hypoglycemia Sodium Bicarbonate 325 mg 11/05/18 11:27 Sodium Bicarbonate FEEDTUBE PRN PRN For Clogged Feeding Tube Nutrition/Malnutrition Assess - Dietary Evaluation Nutrition/Malnutrition Findings: Nutrition Notes Start: 11/05/18 11:22 Freq: Status: Active Protocol: Document 11/10/18 13:29 BOBBI (Rec: 11/10/18 13:31 [email or web address] [id number] [email or web address]) Nutrition Notes Initial or Follow up Brief Note Subjective/Other Information TF infusing at goal rate of 35ml/hr. Percent of energy/protein needs met: 100% energy and pro Nutrition Intervention Follow-Up By: 11/15/18 Additional Comments F/U: stable TF, vent status, wt
[2018-11-13] MEDS ORDERED: POTASSIUM CHLORIDE FEEDTUBE ONE (10:00)
[2018-11-13] MEDS: HEPARIN SUB-Q SCH ×2 (10:20→21:35)
[2018-11-13] MEDS: LOPRESSOR PO SCH ×2 (10:21→21:34)
[2018-11-13] MEDS: PEPCID PO SCH (10:21)
[2018-11-13] MEDS: ROCALTROL PO SCH (10:21)
--- NOTE | 2018-11-13 10:44 | Progress Note ---
Assessment and Plan - Patient Problems (1) ESRD (end stage renal disease) on dialysis Current Visit: No Status: Chronic Plan to address problem: The patient has not been tolerating dialysis since hospitalization due to hemodynamic instability. Treatments have been abbreviated due to hypotension limiting fluid removal. We had a long discussio with patient's family regarding benefits and risks of dialysis and overall goals of care. Pt is made DNR. For now family would like to continue dialysis. They understand risks of HD. will cont intermittent HD with vasopressor support as needed to maintain MAP > 65mmhg along with albumin support. (2) Acute and chronic respiratory failure with hypoxia Current Visit: Yes Status: Acute Plan to address problem: Continue ventilator management by primary attending/dietary aid. (3) Hyperkalemia Current Visit: Yes Status: Acute Plan to address problem: K improved after successful HD. (4) Anemia, chronic disease Current Visit: No Status: Chronic Plan to address problem: Continue Erythropoetin on dialysis (5) Hypertensive chronic kidney disease with stage 5 chronic kidney disease or end stage renal disease Current Visit: No Status: Acute Plan to address problem: Patient is now hypotensive on Levophed as needed to maintain MAP > 65mmHg (6) Hypernatremia Current Visit: Yes Status: Acute Plan to address problem: fast correction noted, d/c D5W. recheck Na in 8hours. Subjective Date of service: 11/13/18 Principal diagnosis: Severe Sepsis with Shock; Ac hypercapnic-hypoxic resp failure; ESRD/dialysi Interval history: pt remains intubated, sedated Objective - Vital Signs Vital signs: Vital Signs - 12hr 11/12/18 11/12/18 11/12/18 22:45 23:00 23:15 Temperature 98.6 F Pulse Rate 110 H 114 H 108 H Pulse Rate [ Anterior Bilateral Throughout] Pulse Rate [ From Monitor] Respiratory 14 15 16 Rate Respiratory Rate [Anterior Bilateral Throughout] Blood Pressure 111/44 99/41 105/37 O2 Sat by Pulse 96 100 99 Oximetry 11/12/18 11/12/18 11/12/18 23:24 23:30 23:46 Temperature Pulse Rate 102 H 102 H 92 H Pulse Rate [ Anterior Bilateral Throughout] Pulse Rate [ From Monitor] Respiratory 16 17 17 Rate Respiratory Rate [Anterior Bilateral Throughout] Blood Pressure 105/37 98/44 117/48 O2 Sat by Pulse 100 100 97 Oximetry 11/13/18 11/13/18 11/13/18 00:00 00:07 00:15 Temperature Pulse Rate 94 H 110 H 97 H Pulse Rate [ Anterior Bilateral Throughout] Pulse Rate [ From Monitor] Respiratory 18 16 Rate Respiratory Rate [Anterior Bilateral Throughout] Blood Pressure 124/43 112/43 O2 Sat by Pulse 100 99 100 Oximetry 11/13/18 11/13/18 11/13/18 00:30 00:45 01:00 Temperature Pulse Rate 119 H 112 H 113 H Pulse Rate [ Anterior Bilateral Throughout] Pulse Rate [ From Monitor] Respiratory 15 13 13 Rate Respiratory Rate [Anterior Bilateral Throughout] Blood Pressure 132/68 118/53 126/56 O2 Sat by Pulse 98 98 100 Oximetry 11/13/18 11/13/18 11/13/18 01:15 01:30 01:45 Temperature Pulse Rate 112 H 107 H 106 H Pulse Rate [ Anterior Bilateral Throughout] Pulse Rate [ From Monitor] Respiratory 13 12 12 Rate Respiratory Rate [Anterior Bilateral Throughout] Blood Pressure 120/55 98/33 100/40 O2 Sat by Pulse 91 72 L 82 L Oximetry 11/13/18 11/13/18 11/13/18 02:00 02:15 02:30 Temperature Pulse Rate 106 H 106 H 107 H Pulse Rate [ Anterior Bilateral Throughout] Pulse Rate [ 102 H From Monitor] Respiratory 10 L 12 11 L Rate Respiratory Rate [Anterior Bilateral Throughout] Blood Pressure 124/53 125/54 124/56 O2 Sat by Pulse 79 L 94 95 Oximetry 11/13/18 11/13/18 11/13/18 02:45 03:00 03:15 Temperature Pulse Rate 107 H 106 H 108 H Pulse Rate [ Anterior Bilateral Throughout] Pulse Rate [ From Monitor] Respiratory 12 12 14 Rate Respiratory Rate [Anterior Bilateral Throughout] Blood Pressure 131/54 127/52 132/57 O2 Sat by Pulse 93 89 85 Oximetry 11/13/18 11/13/18 11/13/18 03:18 03:30 03:45 Temperature 98.8 F Pulse Rate 108 H 108 H Pulse Rate [ Anterior Bilateral Throughout] Pulse Rate [ From Monitor] Respiratory 12 12 Rate Respiratory Rate [Anterior Bilateral Throughout] Blood Pressure 142/61 129/56 O2 Sat by Pulse 72 L 85 Oximetry 11/13/18 11/13/18 11/13/18 04:00 04:15 04:30 Temperature Pulse Rate 109 H 109 H 108 H Pulse Rate [ Anterior Bilateral Throughout] Pulse Rate [ From Monitor] Respiratory 14 13 11 L Rate Respiratory Rate [Anterior Bilateral Throughout] Blood Pressure 114/48 111/47 110/48 O2 Sat by Pulse 74 L 96 97 Oximetry 11/13/18 11/13/18 11/13/18 04:45 05:00 05:15 Temperature Pulse Rate 108 H 107 H 109 H Pulse Rate [ Anterior Bilateral Throughout] Pulse Rate [ From Monitor] Respiratory 13 15 14 Rate Respiratory Rate [Anterior Bilateral Throughout] Blood Pressure 108/49 108/49 107/53 O2 Sat by Pulse 96 100 94 Oximetry 11/13/18 11/13/18 11/13/18 05:30 05:46 05:53 Temperature Pulse Rate 135 H 124 H 124 H Pulse Rate [ Anterior Bilateral Throughout] Pulse Rate [ From Monitor] Respiratory 22 16 Rate Respiratory Rate [Anterior Bilateral Throughout] Blood Pressure 107/53 176/44 O2 Sat by Pulse 58 L 64 L 100 Oximetry 11/13/18 11/13/18 11/13/18 05:55 06:00 06:15 Temperature Pulse Rate 114 H 120 H Pulse Rate [ Anterior Bilateral Throughout] Pulse Rate [ 102 H From Monitor] Respiratory 15 15 Rate Respiratory Rate [Anterior Bilateral Throughout] Blood Pressure 165/42 152/36 O2 Sat by Pulse 100 86 Oximetry 11/13/18 11/13/18 11/13/18 06:30 06:45 07:00 Temperature Pulse Rate 118 H 110 H 110 H Pulse Rate [ Anterior Bilateral Throughout] Pulse Rate [ From Monitor] Respiratory 15 14 14 Rate Respiratory Rate [Anterior Bilateral Throughout] Blood Pressure 150/43 129/53 146/52 O2 Sat by Pulse 97 100 100 Oximetry 11/13/18 11/13/18 11/13/18 07:15 07:30 07:45 Temperature Pulse Rate 112 H 125 H 124 H Pulse Rate [ Anterior Bilateral Throughout] Pulse Rate [ From Monitor] Respiratory 17 21 15 Rate Respiratory Rate [Anterior Bilateral Throughout] Blood Pressure 149/56 149/56 172/64 O2 Sat by Pulse 92 98 97 Oximetry 11/13/18 11/13/18 11/13/18 07:59 08:00 08:07 Temperature 99.7 F H Pulse Rate 126 H 126 H Pulse Rate [ 130 H 125 H Anterior Bilateral Throughout] Pulse Rate [ From Monitor] Respiratory 13 Rate Respiratory 18 14 Rate [Anterior Bilateral Throughout] Blood Pressure 150/55 150/55 O2 Sat by Pulse 97 97 Oximetry 11/13/18 11/13/18 11/13/18 08:16 08:30 10:21 Temperature Pulse Rate 128 H 122 H 118 H Pulse Rate [ Anterior Bilateral Throughout] Pulse Rate [ From Monitor] Respiratory 15 12 Rate Respiratory Rate [Anterior Bilateral Throughout] Blood Pressure 157/61 146/53 119/48 O2 Sat by Pulse 97 97 Oximetry - General Appearance General appearance: chronically ill, sedated on ventilator, intubated EENT: ATNC, mucous membranes moist Neck: no JVD Respiratory: Present: Decreased Breath Sounds Cardiology: regular, S1S2 Gastrointestinal: normoactive bowel sounds Integumentary: no rash, other (no edema ) Neurologic: other (on ventilator ) - Lab 11/13/18 05:20 11/13/18 05:20 Most recent lab results Calcium 8.2 mg/dL (8.4-10.2) L 11/13/18 05:20 Phosphorus 4.10 mg/dL (2.5-4.5) 11/11/18 04:25 Medications & Allergies - Medications Allergies/Adverse Reactions: Allergies meperidine [From Demerol] Allergy (Verified 01/12/18 03:31) Itching Home Medications: Home Medications Medication Instructions Recorded Confirmed Last Taken Type Amlodipine Besylate [Norvasc] 10 mg PO QDAY 01/12/18 06/12/18 Unknown History B Complex 11/Folic/C/Biot/Zinc 1 each PO DAILY 01/12/18 06/12/18 Unknown History [Dialyvite with Zinc Tablet] Calcitriol [Rocaltrol] 0.5 mcg PO QDAY 01/12/18 06/12/18 Unknown History Carvedilol [Coreg] 6.25 mg PO BID 01/12/18 06/12/18 Unknown History Esomeprazole Magnesium [NexIUM] 40 mg PO QDAY 01/12/18 06/12/18 Unknown History Levothyroxine [Synthroid] 125 mcg PO QAM 01/12/18 06/12/18 Unknown History ALBUTEROL Inhaler(NF) 90 mcg INHALATION Q6H PRN 06/12/18 06/12/18 Unknown History Cozaar 50 mg PO DAILY 06/12/18 06/12/18 Unknown History Loperamide [Imodium] 4 mg PO QID PRN 06/12/18 06/12/18 Unknown History Acetaminophen [Acetaminophen TAB] 650 mg PO Q4H PRN #15 tablet 09/24/18 Unknown Rx Active Medications: Generic Name Dose Route Start Last Admin Trade Name Freq PRN Reason Stop Dose Admin Albuterol 2.5 mg 11/05/18 12:00 11/13/18 08:08 Proventil IH 2.5 mg QIDRT CECILIO Administration Albuterol 2.5 mg 11/05/18 12:00 Proventil IH Q4HRT PRN Shortness Of Breath Lipase/Protease/Amylase 1 each 11/05/18 11:[address] 10,500 Unit FEEDTUBE PRN PRN For Clogged Feeding Tube Calcitriol 0.5 mcg 11/05/18 11:00 11/13/18 10:21 Rocaltrol PO 0.5 mcg QDAY CECILIO Administration Dextrose 50 ml 11/09/18 11:03 11/13/18 05:15 D50w (25gm) Syringe IV 50 ml PRN PRN Administration Hypoglycemia Epoetin Kristopher 5,000 unit 11/09/18 08:00 11/12/18 13:57 Procrit IV 5,000 unit CHARI CECILIO Administration Famotidine 20 mg 11/12/18 14:00 11/13/18 10:21 Pepcid PO 20 mg DAILY CECILIO Administration Fentanyl 50 mcg 11/06/18 10:00 11/08/18 18:10 Sublimaze IV 50 mcg Q10MIN PRN Administration ANALGESIA Heparin Sodium (Porcine) 5,000 unit 11/12/18 22:00 11/13/18 10:20 Heparin SUB-Q 5,000 unit Q12HR CECILIO Administration Hydrophilic Ointment 1 applic 11/06/18 10:00 Vaseline Lip Therapy TP Q2HR PRN Dry Lips Fentanyl Citrate 2,000 mcg in 100 mls @ 2.495 mls/hr 11/06/18 10:00 11/13/18 07:45 Fentanyl Drip Premix IV 3 mcg/kg/hr TITR CECILIO 7.484 mls/hr Titration Protocol 1 MCG/KG/HR Norepinephrine 4 mg in 250 mls @ 7.5 mls/hr 11/06/18 19:00 11/13/18 03:46 Levophed Drip 4 Mg/Ns 250 Ml IV 0 mcg/min TITR CECILIO 0 mls/hr Titration Protocol 2 MCG/MIN Dextrose 1,000 mls @ 75 mls/hr 11/11/18 11:00 11/12/18 20:30 D5w IV 75 mls/hr DIRECT CECILIO Administration Sodium Chloride 100 mls @ 999 mls/hr 11/12/18 10:00 Nacl 0.9% IV CHARI PRN Hypotension Vasopressin 20 unit/ Sodium 101 mls @ 9.09 mls/hr 11/12/18 12:30 11/12/18 12:35 Chloride IV 0.03 units/min TITR CECILIO 9.09 mls/hr Administration Protocol 0.03 UNITS/MIN Insulin Human Regular 0 units 11/09/18 22:00 11/12/18 22:20 Humulin R SUB-Q 2 units QHS CECILIO Administration Protocol Levothyroxine Sodium 125 mcg 11/05/18 11:00 11/13/18 08:12 Synthroid PO 125 mcg DAILY@0600 CECILIO Administration Losartan Potassium 50 mg 11/05/18 11:00 11/12/18 09:33 Cozaar PO Not Given QDAY CECILIO Metoprolol Tartrate 12.5 mg 11/13/18 10:00 11/13/18 10:21 Lopressor PO 12.5 mg BID CECILIO Administration Multi-Ingred Cream/Lotion/Oil/Oint 1 applic 11/06/18 10:00 11/13/18 05:21 Artificial Tears Ophth Oint OU 1 applic Q4HR PRN Administration Dry Eye(s) Quetiapine Fumarate 25 mg 11/11/18 16:00 11/13/18 10:21 Seroquel PO 25 mg BID CECILIO Administration Simple Syrup 15 ml 11/05/18 11:27 Simple Syrup FEEDTUBE PRN PRN Hypoglycemia Simple Syrup 30 ml 11/05/18 11:27 11/12/18 02:45 Simple Syrup FEEDTUBE 30 ml PRN PRN Administration Hypoglycemia Sodium Bicarbonate 325 mg 11/05/18 11:27 Sodium Bicarbonate FEEDTUBE PRN PRN For Clogged Feeding Tube
[2018-11-13] MEDS: COZAAR PO SCH (12:24)
[2018-11-13] MEDS ORDERED: TYLENOL FEEDTUBE PRN (17:49)
[2018-11-13] MEDS: SUBLIMAZE IV PRN (23:50)
[2018-11-14] MEDS: SYNTHROID PO SCH (06:00)
[2018-11-14] MEDS: HumaLOG SUB-Q SCH ×4 (06:00→18:00)
[2018-11-14] MEDS: PROVENTIL IH SCH ×4 (08:07→20:09)
[2018-11-14] MEDS ORDERED: NACL 0.9% 100 ML IV PRN (08:15)
[2018-11-14] MEDS: LOPRESSOR PO SCH ×2 (09:18→23:22)
[2018-11-14] MEDS: ROCALTROL PO SCH (09:19)
[2018-11-14] MEDS: PEPCID PO SCH (09:20)
[2018-11-14] MEDS: COZAAR PO SCH (09:20)
--- NOTE | 2018-11-14 09:38 | Progress Note ---
Assessment and Plan -Acute hypercapnic-hypoxic respiratory failure -Right upper lobe atelectasis, resolved -Acute encephaloapthy( toxic, metabolic) -Pulmonary edema -BNP 3500 -Troponinemia, possible NSTEMI -ESRD on HD -Type 2 DM,poorly controlled -h/o Hypothyroidism Hypernatremia Hyperchloremia Leukocytosis -PSV 8/6, for 2 hours, get weaning parametes, NIF, RSBI---if acceptable numbers, plan to liberated from mechanical ventilatory support. -Lung protective strategies -Wean supplemental oxygen to keep O2 sats >90% -VAP bundle addressed - ABG and CXR PRN -Stress ulcer prophylaxis -VTE prophylaxis -Hold enteric feedings in anticipation of extubation today. Has OGT in place -Aspiration precautions, HOB>40 -Accuchecks with glycemic control. Target glucose of 140-180 mg/dL -Continue bronchodilators with pulmonary hygiene per RT -Supportive HD/UF -Maintenance of sleep -wake cycle PROGNOSIS: GUARDED CONDITION: CRITICAL CODE STATUS: DNAR Discussed with the daughter who was at the bedside. Discussed with ICU team in IDT rounds. The high probability of a clinically significant, sudden or life-threatening deterioration of the [respiratory,renal, cardiovascular] system(s) required my full and direct attention, intervention and personal management. The aggregate critical care time was [35] minutes without overlap. Time includes spent on; [x] Data Review and interpretation [x] Patient assessment and monitoring of vital signs [x] Documentation [x] Medication orders and management Subjective Date of service: 11/14/18 Principal diagnosis: Severe Sepsis with Shock; Ac hypercapnic-hypoxic resp failure; ESRD/dialysi Interval history: Patient is seen today for: acute hypoxic-hypercapnic respiratory failure, Pulmonary edema, ESRD on HD, Elevated troponin, Seen and examined at bedside; 24hour events reviewed; nursing and respiratory care staff consulted; no adverse overnight events reported to me; No fevers. No vomiting. Remains on full mechanical ventilatory support, tolerated PSV trials yesterday. Currently on PSV 8/6, with tidal volumes of 300, more responsive Off norepinephrine, still has femoral CVC, off fentanyl infusion Family at the bedside Objective Vital Signs - 12hr 11/13/18 11/13/18 11/13/18 21:45 22:00 22:31 Temperature Pulse Rate 114 H 114 H 101 H Pulse Rate [ Anterior Bilateral Throughout] Respiratory 14 13 13 Rate Respiratory Rate [Anterior Bilateral Throughout] Blood Pressure 129/54 117/47 95/36 O2 Sat by Pulse 99 99 100 Oximetry 11/13/18 11/13/18 11/14/18 23:00 23:30 00:00 Temperature 98.6 F Pulse Rate 109 H 109 H 116 H Pulse Rate [ Anterior Bilateral Throughout] Respiratory 17 13 13 Rate Respiratory Rate [Anterior Bilateral Throughout] Blood Pressure 130/55 160/68 197/98 O2 Sat by Pulse 99 100 Oximetry 11/14/18 11/14/18 11/14/18 00:30 01:00 01:15 Temperature Pulse Rate 109 H 107 H 111 H Pulse Rate [ Anterior Bilateral Throughout] Respiratory 14 13 Rate Respiratory Rate [Anterior Bilateral Throughout] Blood Pressure 162/74 159/68 O2 Sat by Pulse 100 100 99 Oximetry 11/14/18 11/14/18 11/14/18 01:30 02:00 02:30 Temperature Pulse Rate 108 H 110 H 111 H Pulse Rate [ Anterior Bilateral Throughout] Respiratory 13 15 13 Rate Respiratory Rate [Anterior Bilateral Throughout] Blood Pressure 157/65 159/68 159/62 O2 Sat by Pulse 100 100 100 Oximetry 11/14/18 11/14/18 11/14/18 03:00 03:30 04:00 Temperature Pulse Rate 113 H 110 H 107 H Pulse Rate [ Anterior Bilateral Throughout] Respiratory 14 16 11 L Rate Respiratory Rate [Anterior Bilateral Throughout] Blood Pressure 162/74 155/71 145/66 O2 Sat by Pulse 75 L 100 100 Oximetry 11/14/18 11/14/18 11/14/18 04:30 05:00 05:15 Temperature Pulse Rate 108 H 108 H 109 H Pulse Rate [ Anterior Bilateral Throughout] Respiratory 13 12 Rate Respiratory Rate [Anterior Bilateral Throughout] Blood Pressure 168/71 161/71 161/71 O2 Sat by Pulse 100 100 100 Oximetry 11/14/18 11/14/18 11/14/18 05:31 06:00 06:30 Temperature Pulse Rate 113 H 109 H 112 H Pulse Rate [ Anterior Bilateral Throughout] Respiratory 16 14 14 Rate Respiratory Rate [Anterior Bilateral Throughout] Blood Pressure 157/88 171/66 173/86 O2 Sat by Pulse 100 100 100 Oximetry 11/14/18 11/14/18 11/14/18 07:00 07:30 08:00 Temperature 100.3 F H Pulse Rate 111 H 109 H 110 H Pulse Rate [ Anterior Bilateral Throughout] Respiratory 13 13 13 Rate Respiratory Rate [Anterior Bilateral Throughout] Blood Pressure 183/70 168/69 164/69 O2 Sat by Pulse 100 100 100 Oximetry 11/14/18 11/14/18 11/14/18 08:09 08:15 08:30 Temperature Pulse Rate 112 H 111 H 111 H Pulse Rate [ 113 H Anterior Bilateral Throughout] Respiratory 12 17 Rate Respiratory 12 Rate [Anterior Bilateral Throughout] Blood Pressure 164/69 162/68 O2 Sat by Pulse 100 100 100 Oximetry 11/14/18 11/14/18 11/14/18 09:00 09:18 09:20 Temperature Pulse Rate 120 H 120 H 121 H Pulse Rate [ Anterior Bilateral Throughout] Respiratory 16 Rate Respiratory Rate [Anterior Bilateral Throughout] Blood Pressure 153/78 153/78 153/78 O2 Sat by Pulse 100 Oximetry 11/14/18 09:30 Temperature Pulse Rate 118 H Pulse Rate [ Anterior Bilateral Throughout] Respiratory 14 Rate Respiratory Rate [Anterior Bilateral Throughout] Blood Pressure 161/77 O2 Sat by Pulse 100 Oximetry Constitutional: appears uncomfortable, other (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, normocephalic normal respiratory effort at rest) Eyes: non-icteric ENT: oropharynx moist, other (ETT in place, 23cm at the lips) Neck: supple, no lymphadenopathy Effort: normal Ascultation: Bilateral: diminished breath sounds, rales (scant), rhonchi Percussion: Bilateral: not dull Cardiovascular: regular rate and rhythm, murmur noted (ELEANOR), other (s1, s2, ) Gastrointestinal: normoactive bowel sounds, soft, non-tender, non-distended, other (no guarding, no hepato-splenomegaly) Integumentary: rash, decubitus ulcer (sacral), other (dry scaling, diffusely) Extremities: no cyanosis, no edema, pulses normal, no ischemia or petechiae Neurologic: non-focal exam (grossly), pupils equal and round, other (squeezes my hand with the left hand, right hemiplegia) CBC and BMP: 11/13/18 05:20 11/13/18 14:51 ABG, PT/INR, D-dimer: ABG POC ABG pH 7.453 (7.35-7.45) H 11/14/18 05:13 POC ABG pCO2 37.2 (35-45) 11/14/18 05:13 POC ABG pO2 137 (80-105) H 11/14/18 05:13 POC ABG HCO3 26.0 (22-26 mml/L) 11/14/18 05:13 POC ABG Total CO2 27 (23-27mmol/L) 11/14/18 05:13 POC ABG O2 Sat 99 11/14/18 05:13 PT/INR, D-dimer PT 13.2 Sec. (12.2-14.9) 11/05/18 07:09 INR 0.95 (0.87-1.13) 11/05/18 07:09 Abnormal lab findings: Abnormal Labs 11/05/18 11/05/18 11/05/18 07:09 07:09 07:09 WBC 14.7 H RBC 3.42 L Hgb Hct MCV 99 H RDW 20.1 H Lymph % (Auto) [place] % (Auto) 9.3 H Lymph # [place] # 1.4 H Eos # 0.5 H Baso # 0.2 H Seg Neutrophils % 70.1 H Seg Neuts % (Manual) Lymphocytes % (Manual) Monocytes % (Manual) Eosinophils % (Manual) Seg Neutrophils # 10.3 H Seg Neutrophils # Man Lymphocytes # (Manual) Monocytes # (Manual) Eosinophils # (Manual) POC ABG pH POC ABG pCO2 POC ABG pO2 Sodium Potassium 6.8 H* Chloride Carbon Dioxide BUN 74 H Creatinine 6.9 H Glucose 226 H POC Glucose 206 H Calcium AST 80 H Alkaline Phosphatase 236 H CK-MB (CK-2) CK-MB (CK-2) Rel Index 8.2 H Troponin T 0.224 H* C-Reactive Protein NT-Pro-B Natriuret Pep > 33763 H Total Protein Albumin HDL Cholesterol 61 H 11/05/18 11/05/18 11/06/18 08:03 19:45 03:29 WBC RBC Hgb Hct MCV RDW Lymph % (Auto) [place] % (Auto) Lymph # [place] # Eos # Baso # Seg Neutrophils % Seg Neuts % (Manual) Lymphocytes % (Manual) Monocytes % (Manual) Eosinophils % (Manual) Seg Neutrophils # Seg Neutrophils # Man Lymphocytes # (Manual) Monocytes # (Manual) Eosinophils # (Manual) POC ABG pH 7.612 H POC ABG pCO2 51.2 H 31.3 L POC ABG pO2 167 H 117 H Sodium Potassium Chloride Carbon Dioxide BUN Creatinine Glucose POC Glucose Calcium AST Alkaline Phosphatase CK-MB (CK-2) 5.6 H CK-MB (CK-2) Rel Index 5.2 H Troponin T 0.321 H* D C-Reactive Protein NT-Pro-B Natriuret Pep Total Protein Albumin HDL Cholesterol 11/06/18 11/06/18 11/06/18 06:59 06:59 14:16 WBC RBC Hgb Hct MCV RDW 19.2 H Lymph % (Auto) [place] % (Auto) Lymph # [place] # Eos # Baso # Seg Neutrophils % Seg Neuts % (Manual) 82.0 H Lymphocytes % (Manual) 5.0 L Monocytes % (Manual) 13.0 H Eosinophils % (Manual) Seg Neutrophils # Seg Neutrophils # Man 8.5 H Lymphocytes # (Manual) 0.5 L Monocytes # (Manual) 1.4 H Eosinophils # (Manual) POC ABG pH POC ABG pCO2 POC ABG pO2 Sodium Potassium 5.2 H D Chloride Carbon Dioxide BUN 33 H Creatinine 4.4 H Glucose POC Glucose 139 H Calcium AST 52 H Alkaline Phosphatase 170 H CK-MB (CK-2) CK-MB (CK-2) Rel Index Troponin T 0.289 H* C-Reactive Protein NT-Pro-B Natriuret Pep Total Protein Albumin 3.7 L HDL Cholesterol 11/07/18 11/07/18 11/07/18 04:11 04:11 05:39 WBC RBC 3.31 L Hgb Hct MCV RDW 18.9 H Lymph % (Auto) 8.9 L [place] % (Auto) 14.6 H Lymph # 0.9 L [place] # 1.5 H Eos # Baso # Seg Neutrophils % 74.7 H Seg Neuts % (Manual) Lymphocytes % (Manual) Monocytes % (Manual) Eosinophils % (Manual) Seg Neutrophils # 7.9 H Seg Neutrophils # Man Lymphocytes # (Manual) Monocytes # (Manual) Eosinophils # (Manual) POC ABG pH 7.550 H POC ABG pCO2 32.6 L POC ABG pO2 63 L Sodium 146 H Potassium Chloride Carbon Dioxide BUN 36 H Creatinine 4.7 H Glucose 109 H POC Glucose Calcium AST 42 H Alkaline Phosphatase 138 H CK-MB (CK-2) CK-MB (CK-2) Rel Index Troponin T C-Reactive Protein NT-Pro-B Natriuret Pep Total Protein 5.8 L Albumin 3.3 L HDL Cholesterol 11/08/18 11/08/18 11/09/18 03:19 04:38 04:56 WBC RBC Hgb Hct MCV RDW Lymph % (Auto) [place] % (Auto) Lymph # [place] # Eos # Baso # Seg Neutrophils % Seg Neuts % (Manual) Lymphocytes % (Manual) Monocytes % (Manual) Eosinophils % (Manual) Seg Neutrophils # Seg Neutrophils # Man Lymphocytes # (Manual) Monocytes # (Manual) Eosinophils # (Manual) POC ABG pH 7.468 H 7.301 L POC ABG pCO2 34.3 L 46.3 H POC ABG pO2 132 H 63 L Sodium 148 H Potassium 5.2 H Chloride Carbon Dioxide BUN 50 H Creatinine 6.4 H Glucose POC Glucose Calcium 8.3 L AST Alkaline Phosphatase CK-MB (CK-2) CK-MB (CK-2) Rel Index Troponin T C-Reactive Protein NT-Pro-B Natriuret Pep Total Protein Albumin HDL Cholesterol 11/09/18 11/09/18 11/09/18 11:26 11:26 12:54 WBC 15.0 H RBC 3.33 L Hgb 10.0 L Hct MCV RDW 19.1 H Lymph % (Auto) 5.3 L [place] % (Auto) Lymph # 0.8 L [place] # 1.1 H Eos # Baso # Seg Neutrophils % 85.6 H Seg Neuts % (Manual) Lymphocytes % (Manual) Monocytes % (Manual) Eosinophils % (Manual) Seg Neutrophils # 12.8 H Seg Neutrophils # Man Lymphocytes # (Manual) Monocytes # (Manual) Eosinophils # (Manual) POC ABG pH POC ABG pCO2 POC ABG pO2 Sodium 150 H Potassium 5.3 H Chloride 108.4 H Carbon Dioxide 20 L BUN 79 H Creatinine 7.6 H Glucose 111 H POC Glucose 115 H Calcium 7.6 L AST Alkaline Phosphatase CK-MB (CK-2) CK-MB (CK-2) Rel Index Troponin T C-Reactive Protein NT-Pro-B Natriuret Pep Total Protein Albumin HDL Cholesterol 11/10/18 11/10/18 11/10/18 04:24 04:37 04:37 WBC 14.2 H RBC 3.13 L Hgb 9.5 L Hct 29.8 L MCV RDW 19.2 H Lymph % (Auto) 3.9 L [place] % (Auto) 9.9 H Lymph # 0.5 L [place] # 1.4 H Eos # Baso # Seg Neutrophils % 83.3 H Seg Neuts % (Manual) Lymphocytes % (Manual) Monocytes % (Manual) Eosinophils % (Manual) Seg Neutrophils # 11.8 H Seg Neutrophils # Man Lymphocytes # (Manual) Monocytes # (Manual) Eosinophils # (Manual) POC ABG pH POC ABG pCO2 POC ABG pO2 Sodium 150 H Potassium Chloride Carbon Dioxide BUN 65 H Creatinine 6.8 H Glucose 111 H POC Glucose 110 H Calcium 8.0 L AST Alkaline Phosphatase CK-MB (CK-2) CK-MB (CK-2) Rel Index Troponin T C-Reactive Protein NT-Pro-B Natriuret Pep Total Protein Albumin HDL Cholesterol 11/10/18 11/10/18 11/10/18 05:51 12:53 16:48 WBC RBC Hgb Hct MCV RDW Lymph % (Auto) [place] % (Auto) Lymph # [place] # Eos # Baso # Seg Neutrophils % Seg Neuts % (Manual) Lymphocytes % (Manual) Monocytes % (Manual) Eosinophils % (Manual) Seg Neutrophils # Seg Neutrophils # Man Lymphocytes # (Manual) Monocytes # (Manual) Eosinophils # (Manual) POC ABG pH 7.475 H POC ABG pCO2 POC ABG pO2 67 L Sodium Potassium Chloride Carbon Dioxide BUN Creatinine Glucose POC Glucose 131 H 124 H Calcium AST Alkaline Phosphatase CK-MB (CK-2) CK-MB (CK-2) Rel Index Troponin T C-Reactive Protein NT-Pro-B Natriuret Pep Total Protein Albumin HDL Cholesterol 11/10/18 11/10/18 11/11/18 20:00 23:54 04:23 WBC RBC Hgb Hct MCV RDW Lymph % (Auto) [place] % (Auto) Lymph # [place] # Eos # Baso # Seg Neutrophils % Seg Neuts % (Manual) Lymphocytes % (Manual) Monocytes % (Manual) Eosinophils % (Manual) Seg Neutrophils # Seg Neutrophils # Man Lymphocytes # (Manual) Monocytes # (Manual) Eosinophils # (Manual) POC ABG pH 7.334 L POC ABG pCO2 46.1 H POC ABG pO2 Sodium Potassium Chloride Carbon Dioxide BUN Creatinine Glucose POC Glucose 133 H 121 H Calcium AST Alkaline Phosphatase CK-MB (CK-2) CK-MB (CK-2) Rel Index Troponin T C-Reactive Protein NT-Pro-B Natriuret Pep Total Protein Albumin HDL Cholesterol 11/11/18 11/11/18 11/11/18 04:25 05:42 08:27 WBC RBC Hgb Hct MCV RDW Lymph % (Auto) [place] % (Auto) Lymph # [place] # Eos # Baso # Seg Neutrophils % Seg Neuts % (Manual) Lymphocytes % (Manual) Monocytes % (Manual) Eosinophils % (Manual) Seg Neutrophils # Seg Neutrophils # Man Lymphocytes # (Manual) Monocytes # (Manual) Eosinophils # (Manual) POC ABG pH POC ABG pCO2 POC ABG pO2 Sodium 157 H Potassium Chloride 111.2 H Carbon Dioxide BUN 81 H Creatinine 7.7 H Glucose 139 H POC Glucose 129 H 122 H Calcium AST Alkaline Phosphatase CK-MB (CK-2) CK-MB (CK-2) Rel Index Troponin T C-Reactive Protein NT-Pro-B Natriuret Pep Total Protein Albumin HDL Cholesterol 11/11/18 11/11/18 11/12/18 16:51 21:26 02:27 WBC RBC Hgb Hct MCV RDW Lymph % (Auto) [place] % (Auto) Lymph # [place] # Eos # Baso # Seg Neutrophils % Seg Neuts % (Manual) Lymphocytes % (Manual) Monocytes % (Manual) Eosinophils % (Manual) Seg Neutrophils # Seg Neutrophils # Man Lymphocytes # (Manual) Monocytes # (Manual) Eosinophils # (Manual) POC ABG pH POC ABG pCO2 POC ABG pO2 Sodium Potassium Chloride Carbon Dioxide BUN Creatinine Glucose POC Glucose 148 H 156 H 45 L Calcium AST Alkaline Phosphatase CK-MB (CK-2) CK-MB (CK-2) Rel Index Troponin T C-Reactive Protein NT-Pro-B Natriuret Pep Total Protein Albumin HDL Cholesterol 11/12/18 11/12/18 11/12/18 02:29 03:39 03:39 WBC RBC 3.18 L Hgb 9.7 L Hct MCV RDW 19.1 H Lymph % (Auto) [place] % (Auto) Lymph # [place] # Eos # Baso # Seg Neutrophils % Seg Neuts % (Manual) 71.0 H Lymphocytes % (Manual) 13.0 L Monocytes % (Manual) 10.0 H Eosinophils % (Manual) Seg Neutrophils # Seg Neutrophils # Man Lymphocytes # (Manual) Monocytes # (Manual) 1.0 H Eosinophils # (Manual) POC ABG pH POC ABG pCO2 POC ABG pO2 Sodium 152 H Potassium 8.4 H* D Chloride 107.4 H Carbon Dioxide 18 L BUN 89 H Creatinine 7.9 H Glucose 144 H POC Glucose 53 L Calcium 3.3 L* D AST 46 H Alkaline Phosphatase 131 H CK-MB (CK-2) CK-MB (CK-2) Rel Index Troponin T C-Reactive Protein NT-Pro-B Natriuret Pep Total Protein 5.6 L Albumin 2.7 L HDL Cholesterol 11/12/18 11/12/18 11/12/18 05:33 05:38 08:53 WBC RBC Hgb Hct MCV RDW Lymph % (Auto) [place] % (Auto) Lymph # [place] # Eos # Baso # Seg Neutrophils % Seg Neuts % (Manual) Lymphocytes % (Manual) Monocytes % (Manual) Eosinophils % (Manual) Seg Neutrophils # Seg Neutrophils # Man Lymphocytes # (Manual) Monocytes # (Manual) Eosinophils # (Manual) POC ABG pH POC ABG pCO2 POC ABG pO2 150 H Sodium Potassium Chloride Carbon Dioxide BUN Creatinine Glucose POC Glucose 135 H 137 H Calcium AST Alkaline Phosphatase CK-MB (CK-2) CK-MB (CK-2) Rel Index Troponin T C-Reactive Protein NT-Pro-B Natriuret Pep Total Protein Albumin HDL Cholesterol 11/12/18 11/12/18 11/12/18 13:13 14:39 14:39 WBC RBC Hgb Hct MCV RDW Lymph % (Auto) [place] % (Auto) Lymph # [place] # Eos # Baso # Seg Neutrophils % Seg Neuts % (Manual) Lymphocytes % (Manual) Monocytes % (Manual) Eosinophils % (Manual) Seg Neutrophils # Seg Neutrophils # Man Lymphocytes # (Manual) Monocytes # (Manual) Eosinophils # (Manual) POC ABG pH POC ABG pCO2 POC ABG pO2 Sodium Potassium 2.9 L* D Chloride Carbon Dioxide BUN Creatinine Glucose POC Glucose 152 H Calcium AST Alkaline Phosphatase CK-MB (CK-2) CK-MB (CK-2) Rel Index Troponin T C-Reactive Protein 42.50 H NT-Pro-B Natriuret Pep Total Protein Albumin HDL Cholesterol 11/12/18 11/12/18 11/13/18 19:54 23:46 05:11 WBC RBC Hgb Hct MCV RDW Lymph % (Auto) [place] % (Auto) Lymph # [place] # Eos # Baso # Seg Neutrophils % Seg Neuts % (Manual) Lymphocytes % (Manual) Monocytes % (Manual) Eosinophils % (Manual) Seg Neutrophils # Seg Neutrophils # Man Lymphocytes # (Manual) Monocytes # (Manual) Eosinophils # (Manual) POC ABG pH POC ABG pCO2 POC ABG pO2 Sodium Potassium Chloride Carbon Dioxide BUN Creatinine Glucose POC Glucose 170 H 121 H 49 L Calcium AST Alkaline Phosphatase CK-MB (CK-2) CK-MB (CK-2) Rel Index Troponin T C-Reactive Protein NT-Pro-B Natriuret Pep Total Protein Albumin HDL Cholesterol 11/13/18 11/13/18 11/13/18 05:20 05:20 05:43 WBC RBC 2.80 L Hgb 8.6 L Hct 26.6 L MCV RDW 19.1 H Lymph % (Auto) [place] % (Auto) Lymph # [place] # Eos # Baso # Seg Neutrophils % Seg Neuts % (Manual) Lymphocytes % (Manual) Monocytes % (Manual) 16.0 H Eosinophils % (Manual) 8.0 H Seg Neutrophils # Seg Neutrophils # Man Lymphocytes # (Manual) Monocytes # (Manual) 1.6 H Eosinophils # (Manual) 0.8 H POC ABG pH POC ABG pCO2 POC ABG pO2 Sodium 136 L D Potassium 3.4 L Chloride 92.5 L Carbon Dioxide BUN 37 H Creatinine 3.9 H D Glucose 121 H POC Glucose 153 H Calcium 8.2 L AST Alkaline Phosphatase CK-MB (CK-2) CK-MB (CK-2) Rel Index Troponin T C-Reactive Protein NT-Pro-B Natriuret Pep Total Protein Albumin HDL Cholesterol 11/13/18 11/13/18 11/13/18 05:52 07:59 12:17 WBC RBC Hgb Hct MCV RDW Lymph % (Auto) [place] % (Auto) Lymph # [place] # Eos # Baso # Seg Neutrophils % Seg Neuts % (Manual) Lymphocytes % (Manual) Monocytes % (Manual) Eosinophils % (Manual) Seg Neutrophils # Seg Neutrophils # Man Lymphocytes # (Manual) Monocytes # (Manual) Eosinophils # (Manual) POC ABG pH POC ABG pCO2 POC ABG pO2 250 H Sodium Potassium Chloride Carbon Dioxide BUN Creatinine Glucose POC Glucose 116 H 160 H Calcium AST Alkaline Phosphatase CK-MB (CK-2) CK-MB (CK-2) Rel Index Troponin T C-Reactive Protein NT-Pro-B Natriuret Pep Total Protein Albumin HDL Cholesterol 11/13/18 11/13/18 11/13/18 14:51 16:29 20:14 WBC RBC Hgb Hct MCV RDW Lymph % (Auto) [place] % (Auto) Lymph # [place] # Eos # Baso # Seg Neutrophils % Seg Neuts % (Manual) Lymphocytes % (Manual) Monocytes % (Manual) Eosinophils % (Manual) Seg Neutrophils # Seg Neutrophils # Man Lymphocytes # (Manual) Monocytes # (Manual) Eosinophils # (Manual) POC ABG pH POC ABG pCO2 POC ABG pO2 Sodium 130 L Potassium Chloride Carbon Dioxide BUN Creatinine Glucose POC Glucose 120 H 141 H Calcium AST Alkaline Phosphatase CK-MB (CK-2) CK-MB (CK-2) Rel Index Troponin T C-Reactive Protein NT-Pro-B Natriuret Pep Total Protein Albumin HDL Cholesterol 11/14/18 11/14/18 11/14/18 00:32 05:13 05:48 WBC RBC Hgb Hct MCV RDW Lymph % (Auto) [place] % (Auto) Lymph # [place] # Eos # Baso # Seg Neutrophils % Seg Neuts % (Manual) Lymphocytes % (Manual) Monocytes % (Manual) Eosinophils % (Manual) Seg Neutrophils # Seg Neutrophils # Man Lymphocytes # (Manual) Monocytes # (Manual) Eosinophils # (Manual) POC ABG pH 7.453 H POC ABG pCO2 POC ABG pO2 137 H Sodium Potassium Chloride Carbon Dioxide BUN Creatinine Glucose POC Glucose 137 H 108 H Calcium AST Alkaline Phosphatase CK-MB (CK-2) CK-MB (CK-2) Rel Index Troponin T C-Reactive Protein NT-Pro-B Natriuret Pep Total Protein Albumin HDL Cholesterol Allied health notes reviewed: nursing
[2018-11-14] MEDS: HEPARIN SUB-Q SCH ×2 (10:00→23:22)
--- NOTE | 2018-11-14 10:08 | Progress Note ---
Assessment and Plan Assessment and plan: --Acute hypoxic respiratory failure; intubated on vent cont, nebs,antibiotics Pulmonary critical following Wean as tolerated and extubate --Septic shock;s/p pressors Continue current management --Severe hyperkalemia; resolved --Hyponatremia:fluid overload,HDper schedule --Right lower lobe pneumonia/aspiration pneumonia Follow-up chest x-ray today; pneumonia /infiltrates resolved Continue vancomycin and Zosyn, add Flagyl F/u cultures, consider ID evaluation if needed --Nonspecific elevation of troponin; probably secondary to End-stage renal disease, medical management --Severe hypocalcemia; received calcium gluconate, calcium levels significantly improved --End-stage renal disease; hemodialysis per schedule Nephrology following --Hyperglycemia/type 2 diabetes mellitus. Accu-Chek sliding scale coverage and ADA diet Insulin As Needed, hemoglobin A1c --History of hypothyroidism; resume Synthroid --DVT prophylaxis; heparin renal dose --Tube feeds per protocol Patient is critically ill, with very poor prognosis, Family aware, --DO NOT RESUSCITATE, with full treatment Patient is DO NOT RESUSCITATE status, but full treatment, Patient's condition. Poor prognosis and treatment plan discussed in detail The patient's second daughter and son-in-law at the bedside They want to talk to supervisor prop making, case management Dr. Cavazos discussed with them Critical care time 35 minutes History Interval history: Patient seen and examined medical records reviewed Remains intubated on ventilatory support Patient is on vasopressin Hospitalist Physical - Constitutional Vitals: Temp Pulse Resp BP Pulse Ox 100.3 F H 118 H 14 161/77 100 11/14/18 08:00 11/14/18 09:30 11/14/18 09:30 11/14/18 09:30 11/14/18 09:30 General appearance: Present: no acute distress, cachectic, disheveled, other (intubated on ventilatory support) - EENT Eyes: Present: PERRL, EOM intact - Neck Neck: Present: supple, normal ROM - Respiratory Respiratory effort: normal Respiratory: bilateral: diminished, rhonchi, negative: rales, wheezing - Cardiovascular Rhythm: regular Heart Sounds: Present: S1 & S2 - Extremities Extremities: no ischemia Extremity abnormal: edema - Abdominal General gastrointestinal: soft, non-tender, non-distended, normal bowel sounds - Integumentary Integumentary: Present: clear, warm - Psychiatric Psychiatric: appropriate mood/affect, cooperative - Neurologic Neurologic: CNII-XII intact, moves all extremities Results - Labs CBC & Chem 7: 11/13/18 05:20 11/13/18 14:51 Labs: Laboratory Last Values WBC 10.3 K/mm3 (4.5-11.0) 11/13/18 05:20 RBC 2.80 M/mm3 (3.65-5.03) L 11/13/18 05:20 Hgb 8.6 gm/dl (10.1-14.3) L 11/13/18 05:20 Hct 26.6 % (30.3-42.9) L 11/13/18 05:20 MCV 95 fl (79-97) 11/13/18 05:20 MCH 31 pg (28-32) 11/13/18 05:20 MCHC 32 % (30-34) 11/13/18 05:20 RDW 19.1 % (13.2-15.2) H 11/13/18 05:20 Plt Count 231 K/mm3 (140-440) 11/13/18 05:20 Lymph % (Auto) 3.9 % (13.4-35.0) L 11/10/18 04:37 [place] % (Auto) It Operations Analyst 11/13/18 05:20 Eos % (Auto) 2.5 % (0.0-4.3) 11/10/18 04:37 Baso % (Auto) 0.4 % (0.0-1.8) 11/10/18 04:37 Lymph # 0.5 K/mm3 (1.2-5.4) L 11/10/18 04:37 [place] # 1.4 K/mm3 (0.0-0.8) H 11/10/18 04:37 Eos # 0.4 K/mm3 (0.0-0.4) 11/10/18 04:37 Baso # 0.1 K/mm3 (0.0-0.1) 11/10/18 04:37 Add Manual Diff Complete 11/13/18 05:20 Total Counted 100 11/13/18 05:20 Seg Neutrophils % 83.3 % (40.0-70.0) H 11/10/18 04:37 Seg Neuts % (Manual) 59.0 % (40.0-70.0) 11/13/18 05:20 Band Neutrophils % 0 % 11/13/18 05:20 Lymphocytes % (Manual) 15.0 % (13.4-35.0) 11/13/18 05:20 Reactive Lymphs % (Man) 0 % 11/13/18 05:20 Monocytes % (Manual) 16.0 % (0.0-7.3) H 11/13/18 05:20 Eosinophils % (Manual) 8.0 % (0.0-4.3) H 11/13/18 05:20 Basophils % (Manual) 0 % (0.0-1.8) 11/13/18 05:20 Metamyelocytes % 0 % 11/13/18 05:20 Myelocytes % 2.0 % 11/13/18 05:20 Promyelocytes % 0 % 11/13/18 05:20 Blast Cells % 0 % 11/13/18 05:20 Nucleated RBC % Not Reportable 11/13/18 05:20 Seg Neutrophils # 11.8 K/mm3 (1.8-7.7) H 11/10/18 04:37 Seg Neutrophils # Man 6.1 K/mm3 (1.8-7.7) 11/13/18 05:20 Band Neutrophils # 0.0 K/mm3 11/13/18 05:20 Lymphocytes # (Manual) 1.5 K/mm3 (1.2-5.4) 11/13/18 05:20 Abs React Lymphs (Man) 0.0 K/mm3 11/13/18 05:20 Monocytes # (Manual) 1.6 K/mm3 (0.0-0.8) H 11/13/18 05:20 Eosinophils # (Manual) 0.8 K/mm3 (0.0-0.4) H 11/13/18 05:20 Basophils # (Manual) 0.0 K/mm3 (0.0-0.1) 11/13/18 05:20 Metamyelocytes # 0.0 K/mm3 11/13/18 05:20 Myelocytes # 0.2 K/mm3 11/13/18 05:20 Promyelocytes # 0.0 K/mm3 11/13/18 05:20 Blast Cells # 0.0 K/mm3 11/13/18 05:20 WBC Morphology Not Reportable 11/13/18 05:20 Hypersegmented Neuts Not Reportable 11/13/18 05:20 Hyposegmented Neuts Not Reportable 11/13/18 05:20 Hypogranular Neuts Not Reportable 11/13/18 05:20 Smudge Cells Not Reportable 11/13/18 05:20 Toxic Granulation Not Reportable 11/13/18 05:20 Toxic Vacuolation Not Reportable 11/13/18 05:20 Dohle Bodies Not Reportable 11/13/18 05:20 Pelger-Huet Anomaly Not Reportable 11/13/18 05:20 Omar Rods Not Reportable 11/13/18 05:20 Platelet Estimate Consistent w auto 11/13/18 05:20 Clumped Platelets Not Reportable 11/13/18 05:20 Plt Clumps, EDTA Not Reportable 11/13/18 05:20 Large Platelets Not Reportable 11/13/18 05:20 Giant Platelets Not Reportable 11/13/18 05:20 Platelet Satelliting Not Reportable 11/13/18 05:20 Plt Morphology Comment Not Reportable 11/13/18 05:20 RBC Morphology Not Reportable 11/13/18 05:20 Dimorphic RBCs Not Reportable 11/13/18 05:20 Polychromasia Not Reportable 11/13/18 05:20 Hypochromasia Not Reportable 11/13/18 05:20 Poikilocytosis Not Reportable 11/13/18 05:20 Anisocytosis 1+ 11/13/18 05:20 Microcytosis Not Reportable 11/13/18 05:20 Macrocytosis Not Reportable 11/13/18 05:20 Spherocytes Not Reportable 11/13/18 05:20 Pappenheimer Bodies Not Reportable 11/13/18 05:20 Sickle Cells Not Reportable 11/13/18 05:20 Target Cells Not Reportable 11/13/18 05:20 Tear Drop Cells Not Reportable 11/13/18 05:20 Ovalocytes Not Reportable 11/13/18 05:20 Helmet Cells Not Reportable 11/13/18 05:20 Espinal-Ucon Bodies Not Reportable 11/13/18 05:20 Hooper Rings Not Reportable 11/13/18 05:20 Towanda Cells Not Reportable 11/13/18 05:20 Bite Cells Not Reportable 11/13/18 05:20 Crenated Cell Not Reportable 11/13/18 05:20 Elliptocytes Not Reportable 11/13/18 05:20 Acanthocytes (Spur) Not Reportable 11/13/18 05:20 Rouleaux Not Reportable 11/13/18 05:20 Hemoglobin C Crystals Not Reportable 11/13/18 05:20 Schistocytes Not Reportable 11/13/18 05:20 Malaria parasites Not Reportable 11/13/18 05:20 Evangelista Bodies Not Reportable 11/13/18 05:20 Hem Pathologist Commnt No 11/13/18 05:20 PT 13.2 Sec. (12.2-14.9) 11/05/18 07:09 INR 0.95 (0.87-1.13) 11/05/18 07:09 APTT 27.7 Sec. (24.2-36.6) 11/05/18 07:09 POC ABG pH 7.453 (7.35-7.45) H 11/14/18 05:13 POC ABG pCO2 37.2 (35-45) 11/14/18 05:13 POC ABG pO2 137 (80-105) H 11/14/18 05:13 POC ABG HCO3 26.0 (22-26 mml/L) 11/14/18 05:13 POC ABG Total CO2 27 (23-27mmol/L) 11/14/18 05:13 POC ABG O2 Sat 99 11/14/18 05:13 POC ABG Base Excess 2 ((-2) - (+3)mmol/L) 11/14/18 05:13 FiO2 30 % 11/14/18 05:13 Sodium 130 mmol/L (137-145) L 11/13/18 14:51 Potassium 3.4 mmol/L (3.6-5.0) L 11/13/18 05:20 Chloride 92.5 mmol/L (98-107) L 11/13/18 05:20 Carbon Dioxide 27 mmol/L (22-30) D 11/13/18 05:20 Anion Gap 20 mmol/L 11/13/18 05:20 BUN 37 mg/dL (7-17) H 11/13/18 05:20 Creatinine 3.9 mg/dL (0.7-1.2) H D 11/13/18 05:20 Estimated GFR 13 ml/min 11/13/18 05:20 BUN/Creatinine Ratio 9 % 11/13/18 05:20 Glucose 121 mg/dL (65-100) H 11/13/18 05:20 POC Glucose 108 (70-105) H 11/14/18 05:48 Calcium 8.2 mg/dL (8.4-10.2) L 11/13/18 05:20 Phosphorus 4.10 mg/dL (2.5-4.5) 11/11/18 04:25 Total Bilirubin 0.40 mg/dL (0.1-1.2) 11/12/18 03:39 AST 46 units/L (5-40) H 11/12/18 03:39 ALT 30 units/L (7-56) 11/12/18 03:39 Alkaline Phosphatase 131 units/L (35-129) H 11/12/18 03:39 Total Creatine Kinase 104 units/L (30-135) 11/06/18 06:59 CK-MB (CK-2) 3.2 ng/mL (0.0-4.0) 11/06/18 06:59 CK-MB (CK-2) Rel Index 3.0 (0-4) 11/06/18 06:59 Troponin T 0.289 ng/mL (0.00-0.029) H* 11/06/18 06:59 C-Reactive Protein 42.50 mg/dL (0.00-1.30) H 11/12/18 14:39 NT-Pro-B Natriuret Pep > 24318 pg/mL (0-900) H 11/05/18 07:09 Total Protein 5.6 g/dL (6.3-8.2) L 11/12/18 03:39 Albumin 2.7 g/dL (3.9-5) L 11/12/18 03:39 Albumin/Globulin Ratio 0.9 % 11/12/18 03:39 Triglycerides 101 mg/dL (2-149) 11/05/18 07:09 Cholesterol 180 mg/dL (50-199) 11/05/18 07:09 LDL Cholesterol Direct 116 mg/dL (50-130) 11/05/18 07:09 HDL Cholesterol 61 mg/dL (40-59) H 11/05/18 07:09 Cholesterol/HDL Ratio 2.95 % 11/05/18 07:09 Vancomycin Trough 11.3 ug/mL (5.0-20.0) 11/11/18 11:26 Active Medications - Current Medications Current Medications: Generic Name Dose Route Start Last Admin Trade Name Freq PRN Reason Stop Dose Admin Acetaminophen 650 mg 11/13/18 17:49 11/13/18 19:09 Tylenol FEEDTUBE 650 mg Q6H PRN Administration Non Cardiac Pain or Temp>100.5 Albuterol 2.5 mg 11/05/18 12:00 11/14/18 08:07 Proventil IH 2.5 mg QIDRT CECILIO Administration Albuterol 2.5 mg 11/05/18 12:00 Proventil IH Q4HRT PRN Shortness Of Breath Lipase/Protease/Amylase 1 each 11/05/18 11:[address] 10,500 Unit FEEDTUBE PRN PRN For Clogged Feeding Tube Calcitriol 0.5 mcg 11/05/18 11:00 11/14/18 09:19 Rocaltrol PO 0.5 mcg QDAY CECILIO Administration Epoetin Kristopher 5,000 unit 11/09/18 08:00 11/12/18 13:57 Procrit IV 5,000 unit CHARI CECILIO Administration Famotidine 20 mg 11/12/18 14:00 11/14/18 09:20 Pepcid PO 20 mg DAILY CECILIO Administration Fentanyl 50 mcg 11/06/18 10:00 11/13/18 23:50 Sublimaze IV 50 mcg Q10MIN PRN Administration ANALGESIA Heparin Sodium (Porcine) 5,000 unit 11/12/18 22:00 11/13/18 21:35 Heparin SUB-Q 5,000 unit Q12HR CECILIO Administration Hydrophilic Ointment 1 applic 11/06/18 10:00 Vaseline Lip Therapy TP Q2HR PRN Dry Lips Fentanyl Citrate 2,000 mcg in 100 mls @ 2.495 mls/hr 11/06/18 10:00 11/13/18 17:24 Fentanyl Drip Premix IV 0 mcg/kg/hr TITR CECILIO 0 mls/hr Titration Protocol 1 MCG/KG/HR Norepinephrine 4 mg in 250 mls @ 7.5 mls/hr 11/06/18 19:00 11/13/18 17:15 Levophed Drip 4 Mg/Ns 250 Ml IV 0 mcg/min TITR CECILIO 0 mls/hr Titration Protocol 2 MCG/MIN Sodium Chloride 100 mls @ 999 mls/hr 11/12/18 10:00 Nacl 0.9% IV CHARI PRN Hypotension Vasopressin 20 unit/ Sodium 101 mls @ 9.09 mls/hr 11/12/18 12:30 11/12/18 12:35 Chloride IV 0.03 units/min TITR CECILIO 9.09 mls/hr Administration Protocol 0.03 UNITS/MIN Sodium Chloride 100 mls @ 999 mls/hr 11/14/18 08:15 Nacl 0.9% IV CHARI PRN Hypotension Insulin Human Lispro 0 unit 11/14/18 00:00 11/14/18 06:00 Humalog SUB-Q Not Given Q6HR [facility] Protocol Levothyroxine Sodium 125 mcg 11/05/18 11:00 11/14/18 06:00 Synthroid PO Not Given DAILY@0600 CECILIO Losartan Potassium 50 mg 11/05/18 11:00 11/14/18 09:20 Cozaar PO 50 mg QDAY CECILIO Administration Metoprolol Tartrate 12.5 mg 11/13/18 10:00 11/14/18 09:18 Lopressor PO 12.5 mg BID CECILIO Administration Multi-Ingred Cream/Lotion/Oil/Oint 1 applic 11/06/18 10:00 11/13/18 21:35 Artificial Tears Ophth Oint OU 1 applic Q4HR PRN Administration Dry Eye(s) Quetiapine Fumarate 25 mg 11/11/18 16:00 11/14/18 09:19 Seroquel PO 25 mg BID CECILIO Administration Simple Syrup 15 ml 11/05/18 11:27 Simple Syrup FEEDTUBE PRN PRN Hypoglycemia Simple Syrup 30 ml 11/05/18 11:27 11/12/18 02:45 Simple Syrup FEEDTUBE 30 ml PRN PRN Administration Hypoglycemia Sodium Bicarbonate 325 mg 11/05/18 11:27 Sodium Bicarbonate FEEDTUBE PRN PRN For Clogged Feeding Tube Nutrition/Malnutrition Assess - Dietary Evaluation Nutrition/Malnutrition Findings: Nutrition Notes Start: 11/05/18 11:22 Freq: Status: Active Protocol: Document 11/10/18 13:29 NHALL (Rec: 11/10/18 13:31 BOBBI [id number]) Nutrition Notes Initial or Follow up Brief Note Subjective/Other Information TF infusing at goal rate of 35ml/hr. Percent of energy/protein needs met: 100% energy and pro Nutrition Intervention Follow-Up By: 11/15/18 Additional Comments F/U: stable TF, vent status, wt
--- NOTE | 2018-11-14 11:12 | Progress Note ---
Assessment and Plan - Patient Problems (1) ESRD (end stage renal disease) on dialysis Current Visit: No Status: Chronic Plan to address problem: will cont intermittent HD on MWF schedule with vasopressor support as needed to maintain MAP > 65mmhg along with albumin support. (2) Acute and chronic respiratory failure with hypoxia Current Visit: Yes Status: Acute Plan to address problem: Continue ventilator management by primary attending/consulting technical director. (3) Hyperkalemia Current Visit: Yes Status: Acute Plan to address problem: K improved after successful HD. (4) Anemia, chronic disease Current Visit: No Status: Chronic Plan to address problem: Continue Erythropoetin on dialysis (5) Hypertensive chronic kidney disease with stage 5 chronic kidney disease or end stage renal disease Current Visit: No Status: Acute Plan to address problem: Patient is now hypotensive on Levophed as needed to maintain MAP > 65mmHg (6) Hypernatremia Current Visit: Yes Status: Acute Plan to address problem: HD today with 140 Na bath. cont to hold D5W. Subjective Date of service: 11/14/18 Principal diagnosis: Severe Sepsis with Shock; Ac hypercapnic-hypoxic resp failure; ESRD/dialysi Interval history: pt remains intubated, sedated. remains off vasopressors Objective - Vital Signs Vital signs: Vital Signs - 12hr 11/13/18 11/14/18 11/14/18 23:30 00:00 00:30 Temperature 98.6 F Pulse Rate 109 H 116 H 109 H Pulse Rate [ Anterior Bilateral Throughout] Respiratory 13 13 14 Rate Respiratory Rate [Anterior Bilateral Throughout] Blood Pressure 160/68 197/98 162/74 O2 Sat by Pulse 100 100 Oximetry 11/14/18 11/14/18 11/14/18 01:00 01:15 01:30 Temperature Pulse Rate 107 H 111 H 108 H Pulse Rate [ Anterior Bilateral Throughout] Respiratory 13 13 Rate Respiratory Rate [Anterior Bilateral Throughout] Blood Pressure 159/68 157/65 O2 Sat by Pulse 100 99 100 Oximetry 11/14/18 11/14/18 11/14/18 02:00 02:30 03:00 Temperature Pulse Rate 110 H 111 H 113 H Pulse Rate [ Anterior Bilateral Throughout] Respiratory 15 13 14 Rate Respiratory Rate [Anterior Bilateral Throughout] Blood Pressure 159/68 159/62 162/74 O2 Sat by Pulse 100 100 75 L Oximetry 11/14/18 11/14/18 11/14/18 03:30 04:00 04:30 Temperature Pulse Rate 110 H 107 H 108 H Pulse Rate [ Anterior Bilateral Throughout] Respiratory 16 11 L 13 Rate Respiratory Rate [Anterior Bilateral Throughout] Blood Pressure 155/71 145/66 168/71 O2 Sat by Pulse 100 100 100 Oximetry 11/14/18 11/14/18 11/14/18 05:00 05:15 05:31 Temperature Pulse Rate 108 H 109 H 113 H Pulse Rate [ Anterior Bilateral Throughout] Respiratory 12 16 Rate Respiratory Rate [Anterior Bilateral Throughout] Blood Pressure 161/71 161/71 157/88 O2 Sat by Pulse 100 100 100 Oximetry 11/14/18 11/14/18 11/14/18 06:00 06:30 07:00 Temperature Pulse Rate 109 H 112 H 111 H Pulse Rate [ Anterior Bilateral Throughout] Respiratory 14 14 13 Rate Respiratory Rate [Anterior Bilateral Throughout] Blood Pressure 171/66 173/86 183/70 O2 Sat by Pulse 100 100 100 Oximetry 11/14/18 11/14/18 11/14/18 07:30 08:00 08:09 Temperature 100.3 F H Pulse Rate 109 H 110 H 112 H Pulse Rate [ 113 H Anterior Bilateral Throughout] Respiratory 13 13 Rate Respiratory 12 Rate [Anterior Bilateral Throughout] Blood Pressure 168/69 164/69 164/69 O2 Sat by Pulse 100 100 100 Oximetry 11/14/18 11/14/18 11/14/18 08:15 08:30 09:00 Temperature Pulse Rate 111 H 111 H 120 H Pulse Rate [ Anterior Bilateral Throughout] Respiratory 12 17 16 Rate Respiratory Rate [Anterior Bilateral Throughout] Blood Pressure 162/68 153/78 O2 Sat by Pulse 100 100 100 Oximetry 11/14/18 11/14/18 11/14/18 09:18 09:20 09:30 Temperature Pulse Rate 120 H 121 H 118 H Pulse Rate [ Anterior Bilateral Throughout] Respiratory 14 Rate Respiratory Rate [Anterior Bilateral Throughout] Blood Pressure 153/78 153/78 161/77 O2 Sat by Pulse 100 Oximetry - General Appearance General appearance: chronically ill, sedated on ventilator, intubated, frail EENT: ATNC, mucous membranes moist Neck: no JVD Respiratory: Present: Decreased Breath Sounds Cardiology: regular, S1S2 Gastrointestinal: normoactive bowel sounds Integumentary: no rash, other (no edema ) Neurologic: other (on vent) - Lab 11/13/18 05:20 11/13/18 14:51 Most recent lab results Calcium 8.2 mg/dL (8.4-10.2) L 11/13/18 05:20 Phosphorus 4.10 mg/dL (2.5-4.5) 11/11/18 04:25 Medications & Allergies - Medications Allergies/Adverse Reactions: Allergies meperidine [From Demerol] Allergy (Verified 01/12/18 03:31) Itching Home Medications: Home Medications Medication Instructions Recorded Confirmed Last Taken Type Amlodipine Besylate [Norvasc] 10 mg PO QDAY 01/12/18 06/12/18 Unknown History B Complex 11//C/Biot/Zinc 1 each PO DAILY 01/12/18 06/12/18 Unknown History [Dialyvite with Zinc Tablet] Calcitriol [Rocaltrol] 0.5 mcg PO QDAY 01/12/18 06/12/18 Unknown History Carvedilol [Coreg] 6.25 mg PO BID 01/12/18 06/12/18 Unknown History Esomeprazole Magnesium [NexIUM] 40 mg PO QDAY 01/12/18 06/12/18 Unknown History Levothyroxine [Synthroid] 125 mcg PO QAM 01/12/18 06/12/18 Unknown History ALBUTEROL Inhaler(NF) 90 mcg INHALATION Q6H PRN 06/12/18 06/12/18 Unknown History Cozaar 50 mg PO DAILY 06/12/18 06/12/18 Unknown History Loperamide [Imodium] 4 mg PO QID PRN 06/12/18 06/12/18 Unknown History Acetaminophen [Acetaminophen TAB] 650 mg PO Q4H PRN #15 tablet 09/24/18 Unknown Rx Active Medications: Generic Name Dose Route Start Last Admin Trade Name Freq PRN Reason Stop Dose Admin Acetaminophen 650 mg 11/13/18 17:49 11/13/18 19:09 Tylenol FEEDTUBE 650 mg Q6H PRN Administration Non Cardiac Pain or Temp>100.5 Albuterol 2.5 mg 11/05/18 12:00 11/14/18 08:07 Proventil IH 2.5 mg QIDRT CECILIO Administration Albuterol 2.5 mg 11/05/18 12:00 Proventil IH Q4HRT PRN Shortness Of Breath Lipase/Protease/Amylase 1 each 11/05/18 11:27 Pancrerosey He 10,500 Unit FEEDTUBE PRN PRN For Clogged Feeding Tube Calcitriol 0.5 mcg 11/05/18 11:00 11/14/18 09:19 Rocaltrol PO 0.5 mcg QDAY CECILIO Administration Epoetin Kristopher 5,000 unit 11/09/18 08:00 11/12/18 13:57 Procrit IV 5,000 unit CHARI CECILIO Administration Famotidine 20 mg 11/12/18 14:00 11/14/18 09:20 Pepcid PO 20 mg DAILY CECILIO Administration Fentanyl 50 mcg 11/06/18 10:00 11/13/18 23:50 Sublimaze IV 50 mcg Q10MIN PRN Administration ANALGESIA Heparin Sodium (Porcine) 5,000 unit 11/12/18 22:00 11/13/18 21:35 Heparin SUB-Q 5,000 unit Q12HR CECILIO Administration Hydrophilic Ointment 1 applic 11/06/18 10:00 Vaseline Lip Therapy TP Q2HR PRN Dry Lips Fentanyl Citrate 2,000 mcg in 100 mls @ 2.495 mls/hr 11/06/18 10:00 11/13/18 17:24 Fentanyl Drip Premix IV 0 mcg/kg/hr TITR CECILIO 0 mls/hr Titration Protocol 1 MCG/KG/HR Norepinephrine 4 mg in 250 mls @ 7.5 mls/hr 11/06/18 19:00 11/13/18 17:15 Levophed Drip 4 Mg/Ns 250 Ml IV 0 mcg/min TITR CECILIO 0 mls/hr Titration Protocol 2 MCG/MIN Sodium Chloride 100 mls @ 999 mls/hr 11/12/18 10:00 Nacl 0.9% IV CHARI PRN Hypotension Vasopressin 20 unit/ Sodium 101 mls @ 9.09 mls/hr 11/12/18 12:30 11/12/18 12:35 Chloride IV 0.03 units/min TITR CECILIO 9.09 mls/hr Administration Protocol 0.03 UNITS/MIN Sodium Chloride 100 mls @ 999 mls/hr 11/14/18 08:15 Nacl 0.9% IV CHARI PRN Hypotension Insulin Human Lispro 0 unit 11/14/18 00:00 11/14/18 06:00 Humalog SUB-Q Not Given Q6HR [facility] Protocol Levothyroxine Sodium 125 mcg 11/05/18 11:00 11/14/18 06:00 Synthroid PO Not Given DAILY@0600 [facility] Losartan Potassium 50 mg 11/05/18 11:00 11/14/18 09:20 Cozaar PO 50 mg QDAY CECILIO Administration Metoprolol Tartrate 12.5 mg 11/13/18 10:00 11/14/18 09:18 Lopressor PO 12.5 mg BID CECILIO Administration Multi-Ingred Cream/Lotion/Oil/Oint 1 applic 11/06/18 10:00 11/13/18 21:35 Artificial Tears Ophth Oint OU 1 applic Q4HR PRN Administration Dry Eye(s) Quetiapine Fumarate 25 mg 11/11/18 16:00 11/14/18 09:19 Seroquel PO 25 mg BID CECILIO Administration Simple Syrup 15 ml 11/05/18 11:27 Simple Syrup FEEDTUBE PRN PRN Hypoglycemia Simple Syrup 30 ml 11/05/18 11:27 11/12/18 02:45 Simple Syrup FEEDTUBE 30 ml PRN PRN Administration Hypoglycemia Sodium Bicarbonate 325 mg 11/05/18 11:27 Sodium Bicarbonate FEEDTUBE PRN PRN For Clogged Feeding Tube
[2018-11-14] MEDS: PROCRIT IV SCH (17:45)
--- NOTE | 2018-11-14 20:21 | XRay Report ---
PROCEDURE: XR ABDOMEN 1V AP TECHNIQUE: KUB was performed HISTORY: NGT - Dubhoff - insertion COMPARISONS: 11/08/2018 FINDINGS: Weighted tip feeding tube has been placed. Tip projects in the region of the mid gastric body. Heart is enlarged. There is bilateral basal consolidation and likely effusion. Aorta is atherosclerotic. IMPRESSION: Weighted tip feeding tube tip appears to be projecting at the level of mid gastric body. Recommend pl acing the patient in right lateral decubitus position and torquing the tube clockwise at the nose whi le standing at the patient's head and facing the patient's feet. Recommend leaving the patient in the right lateral decubitus position for approximately 10 minutes. Repeat KUB afterwards recommended. Bilateral basal consolidation and probable effusion. Enlarged cardiac silhouette. Bilateral interstitial infiltrates. This document is electronically signed by Alma Tian MD., November 14 2018 08:19:07 PM ET
--- NOTE | 2018-11-14 23:19 | XRay Report ---
PROCEDURE: XR ABDOMEN 1V AP TECHNIQUE: Abdominal radiograph, single view. HISTORY: dobhoff COMPARISONS: 11/08/2018 . FINDINGS: Bowel gas pattern: Nonobstructive . Masses or calcifications: None . Bony structures: No significant abnormality . Other: Dobbhoff tube is terminating in the stomach .. An inhomogeneous retrocardiac density is noted in the left lower hemithorax. IMPRESSION: Dobbhoff tube is terminating in the stomach Left retrocardiac density may represent atelectatic versus infiltrative changes. A two-view chest rivas dy is recommended whenever the patient's condition permits.. This document is electronically signed by Sebastian Reina MD., November 14 2018 11:18:09 PM ET
[2018-11-15] MEDS: HumaLOG SUB-Q SCH ×3 (00:04→13:30)
[2018-11-15] MEDS: SIMPLE SYRUP FEEDTUBE PRN (00:33)
[2018-11-15] MEDS: SYNTHROID PO SCH (06:33)
[2018-11-15 07:12] LABS: Hematocrit 27.5 % (30.3-42.9); Hemoglobin 9.1 gm/dl (10.1-14.3); Mean Corpuscular HGB Conc 33 % (30-34); Mean Corpuscular Volume 93 fl (79-97); Platelet Count 251 K/mm3 (140-440); Red Blood Count 2.98 M/mm3 (3.65-5.03); Red Cell Distribution Width 18.7 % (13.2-15.2)
[2018-11-15 07:29] LABS: Calcium 8.8 mg/dL (8.4-10.2)
[2018-11-15] MEDS: PROVENTIL IH SCH ×3 (08:31→19:57)
[2018-11-15 09:36] LABS: Anisocytosis 1+; Basophils % (Manual) 0 % (0.0-1.8); Target Cells Few; Total Cells Counted 100
[2018-11-15] MEDS ORDERED: POTASSIUM CHLORIDE FEEDTUBE ONE (09:46)
[2018-11-15 09:52] LABS: Platelet Estimate Consistent w Auto
--- NOTE | 2018-11-15 09:54 | Progress Note ---
Assessment and Plan Assessment and plan: --Acute hypoxic respiratory failure; extubated cont, nebs,antibiotics Pulmonary critical following Titrate O2 sats to more than 90% --Septic shock;s/p pressors Continue current management --Severe hyperkalemia; resolved --Hyponatremia:fluid overload,HDper schedule --Right lower lobe pneumonia/aspiration pneumonia Follow-up chest x-ray today; pneumonia /infiltrates resolved Continue vancomycin and Zosyn, add Flagyl F/u cultures, consider ID evaluation if needed --Nonspecific elevation of troponin; probably secondary to End-stage renal disease, medical management --Severe hypocalcemia; resolved --End-stage renal disease; hemodialysis per schedule Nephrology following --Hyperglycemia/type 2 diabetes mellitus. Accu-Chek sliding scale coverage and ADA diet Insulin As Needed, hemoglobin A1c --History of hypothyroidism; resume Synthroid --DVT prophylaxis; heparin renal dose --Tube feeds per protocol Patient is critically ill, with very poor prognosis, Family aware, --DO NOT RESUSCITATE, with full treatment Patient is stable to be transferred out of ICU Plan of care reviewed with the patient's nurse Critical care 31 minutes History Interval history: Patient seen and examined medical records reviewed Patient is extubated, on nasal cannula oxygen Alert awake Vital signs reviewed Hospitalist Physical - Constitutional Vitals: Temp Pulse Resp BP Pulse Ox 98.9 F 108 H 19 119/62 100 11/15/18 08:00 11/15/18 08:32 11/15/18 08:32 11/15/18 07:01 11/15/18 08:33 General appearance: Present: no acute distress, cachectic, disheveled - EENT Eyes: Present: PERRL, EOM intact - Neck Neck: Present: supple, normal ROM - Respiratory Respiratory effort: normal Respiratory: bilateral: diminished, rhonchi, negative: rales, wheezing - Cardiovascular Rhythm: regular Heart Sounds: Present: S1 & S2 - Extremities Extremities: no ischemia Extremity abnormal: edema - Abdominal General gastrointestinal: soft, non-tender, non-distended, normal bowel sounds - Integumentary Integumentary: Present: rash (chronic generalized rash) - Psychiatric Psychiatric: cooperative - Neurologic Neurologic: moves all extremities Results - Labs CBC & Chem 7: 11/15/18 07:00 11/15/18 07:00 Labs: Laboratory Last Values WBC 11.6 K/mm3 (4.5-11.0) H 11/15/18 07:00 RBC 2.98 M/mm3 (3.65-5.03) L 11/15/18 07:00 Hgb 9.1 gm/dl (10.1-14.3) L 11/15/18 07:00 Hct 27.5 % (30.3-42.9) L 11/15/18 07:00 MCV 93 fl (79-97) 11/15/18 07:00 MCH 30 pg (28-32) 11/15/18 07:00 MCHC 33 % (30-34) 11/15/18 07:00 RDW 18.7 % (13.2-15.2) H 11/15/18 07:00 Plt Count 251 K/mm3 (140-440) 11/15/18 07:00 Lymph % (Auto) [employer] 11/15/18 07:00 [place] % (Auto) [employer] 11/15/18 07:00 Eos % (Auto) [employer] 11/15/18 07:00 Baso % (Auto) [employer] 11/15/18 07:00 Lymph # [employer] 11/15/18 07:00 [place] # [employer] 11/15/18 07:00 Eos # [employer] 11/15/18 07:00 Baso # [employer] 11/15/18 07:00 Add Manual Diff Complete 11/15/18 07:00 Total Counted 100 11/15/18 07:00 Seg Neutrophils % [employer] 11/15/18 07:00 Seg Neuts % (Manual) 79.0 % (40.0-70.0) H 11/15/18 07:00 Band Neutrophils % 0 % 11/15/18 07:00 Lymphocytes % (Manual) 7.0 % (13.4-35.0) L 11/15/18 07:00 Reactive Lymphs % (Man) 0 % 11/15/18 07:00 Monocytes % (Manual) 10.0 % (0.0-7.3) H 11/15/18 07:00 Eosinophils % (Manual) 3.0 % (0.0-4.3) 11/15/18 07:00 Basophils % (Manual) 0 % (0.0-1.8) 11/15/18 07:00 Metamyelocytes % 1.0 % 11/15/18 07:00 Myelocytes % 0 % 11/15/18 07:00 Promyelocytes % 0 % 11/15/18 07:00 Blast Cells % 0 % 11/15/18 07:00 Nucleated RBC % Not Reportable 11/15/18 07:00 Seg Neutrophils # [employer] 11/15/18 07:00 Seg Neutrophils # Man 9.2 K/mm3 (1.8-7.7) H 11/15/18 07:00 Band Neutrophils # 0.0 K/mm3 11/15/18 07:00 Lymphocytes # (Manual) 0.8 K/mm3 (1.2-5.4) L 11/15/18 07:00 Abs React Lymphs (Man) 0.0 K/mm3 11/15/18 07:00 Monocytes # (Manual) 1.2 K/mm3 (0.0-0.8) H 11/15/18 07:00 Eosinophils # (Manual) 0.3 K/mm3 (0.0-0.4) 11/15/18 07:00 Basophils # (Manual) 0.0 K/mm3 (0.0-0.1) 11/15/18 07:00 Metamyelocytes # 0.1 K/mm3 11/15/18 07:00 Myelocytes # 0.0 K/mm3 11/15/18 07:00 Promyelocytes # 0.0 K/mm3 11/15/18 07:00 Blast Cells # 0.0 K/mm3 11/15/18 07:00 WBC Morphology Not Reportable 11/15/18 07:00 Hypersegmented Neuts Not Reportable 11/15/18 07:00 Hyposegmented Neuts Not Reportable 11/15/18 07:00 Hypogranular Neuts Not Reportable 11/15/18 07:00 Smudge Cells Not Reportable 11/15/18 07:00 Toxic Granulation Not Reportable 11/15/18 07:00 Toxic Vacuolation Not Reportable 11/15/18 07:00 Dohle Bodies Not Reportable 11/15/18 07:00 Pelger-Huet Anomaly Not Reportable 11/15/18 07:00 Omar Rods Not Reportable 11/15/18 07:00 Platelet Estimate Consistent w auto 11/15/18 07:00 Clumped Platelets Not Reportable 11/15/18 07:00 Plt Clumps, EDTA Not Reportable 11/15/18 07:00 Large Platelets Not Reportable 11/15/18 07:00 Giant Platelets Not Reportable 11/15/18 07:00 Platelet Satelliting Not Reportable 11/15/18 07:00 Plt Morphology Comment Not Reportable 11/15/18 07:00 RBC Morphology Not Reportable 11/15/18 07:00 Dimorphic RBCs Not Reportable 11/15/18 07:00 Polychromasia Not Reportable 11/15/18 07:00 Hypochromasia Not Reportable 11/15/18 07:00 Poikilocytosis Not Reportable 11/15/18 07:00 Anisocytosis 1+ 11/15/18 07:00 Microcytosis Not Reportable 11/15/18 07:00 Macrocytosis Not Reportable 11/15/18 07:00 Spherocytes Not Reportable 11/15/18 07:00 Pappenheimer Bodies Not Reportable 11/15/18 07:00 Sickle Cells Not Reportable 11/15/18 07:00 Target Cells Few 11/15/18 07:00 Tear Drop Cells Not Reportable 11/15/18 07:00 Ovalocytes Not Reportable 11/15/18 07:00 Helmet Cells Not Reportable 11/15/18 07:00 Espinal-Conconully Bodies Not Reportable 11/15/18 07:00 [place] Rings Not Reportable 11/15/18 07:00 Mackenzie Cells Not Reportable 11/15/18 07:00 Bite Cells Not Reportable 11/15/18 07:00 Crenated Cell Not Reportable 11/15/18 07:00 Elliptocytes Not Reportable 11/15/18 07:00 Acanthocytes (Spur) Not Reportable 11/15/18 07:00 Rouleaux Not Reportable 11/15/18 07:00 Hemoglobin C Crystals Not Reportable 11/15/18 07:00 Schistocytes Not Reportable 11/15/18 07:00 Malaria parasites Not Reportable 11/15/18 07:00 Evangelista Bodies Not Reportable 11/15/18 07:00 Hem Pathologist Commnt No 11/15/18 07:00 PT 13.2 Sec. (12.2-14.9) 11/05/18 07:09 INR 0.95 (0.87-1.13) 11/05/18 07:09 APTT 27.7 Sec. (24.2-36.6) 11/05/18 07:09 POC ABG pH 7.452 (7.35-7.45) H 11/14/18 11:19 POC ABG pCO2 36.5 (35-45) 11/14/18 11: POC ABG pO2 129 (80-105) H 11/14/18 11:19 POC ABG HCO3 25.5 (22-26 mml/L) 11/14/18 11: POC ABG Total CO2 27 (23-27mmol/L) 11/14/18 11: POC ABG O2 Sat 99 11/14/18 11: POC ABG Base Excess 2 ((-2) - (+3)mmol/L) 11/14/18 11: FiO2 30 % 11/14/18 11: Sodium 139 mmol/L (137-145) D 11/15/18 07:00 Potassium 3.5 mmol/L (3.6-5.0) L 11/15/18 07:00 Chloride 98.3 mmol/L (98-107) 11/15/18 07:00 Carbon Dioxide 28 mmol/L (22-30) 11/15/18 07:00 Anion Gap 16 mmol/L 11/15/18 07:00 BUN 29 mg/dL (7-17) H 11/15/18 07:00 Creatinine 3.7 mg/dL (0.7-1.2) H 11/15/18 07:00 Estimated GFR 14 ml/min 11/15/18 07:00 BUN/Creatinine Ratio 8 % 11/15/18 07:00 Glucose 130 mg/dL (65-100) H 11/15/18 07:00 POC Glucose 143 (70-105) H 11/15/18 05:22 Calcium 8.8 mg/dL (8.4-10.2) 11/15/18 07:00 Phosphorus 4.10 mg/dL (2.5-4.5) 11/11/18 04:25 Total Bilirubin 0.40 mg/dL (0.1-1.2) 11/12/18 03:39 AST 46 units/L (5-40) H 11/12/18 03:39 ALT 30 units/L (7-56) 11/12/18 03:39 Alkaline Phosphatase 131 units/L (35-129) H 11/12/18 03:39 Total Creatine Kinase 104 units/L (30-135) 11/06/18 06:59 CK-MB (CK-2) 3.2 ng/mL (0.0-4.0) 11/06/18 06:59 CK-MB (CK-2) Rel Index 3.0 (0-4) 11/06/18 06:59 Troponin T 0.289 ng/mL (0.00-0.029) H* 11/06/18 06:59 C-Reactive Protein 42.50 mg/dL (0.00-1.30) H 11/12/18 14:39 NT-Pro-B Natriuret Pep > 37498 pg/mL (0-900) H 11/05/18 07:09 Total Protein 5.6 g/dL (6.3-8.2) L 11/12/18 03:39 Albumin 2.7 g/dL (3.9-5) L 11/12/18 03:39 Albumin/Globulin Ratio 0.9 % 11/12/18 03:39 Triglycerides 101 mg/dL (2-149) 11/05/18 07:09 Cholesterol 180 mg/dL (50-199) 11/05/18 07:09 LDL Cholesterol Direct 116 mg/dL (50-130) 11/05/18 07:09 HDL Cholesterol 61 mg/dL (40-59) H 11/05/18 07:09 Cholesterol/HDL Ratio 2.95 % 11/05/18 07:09 Vancomycin Trough 11.3 ug/mL (5.0-20.0) 11/11/18 11:26 Active Medications - Current Medications Current Medications: Generic Name Dose Route Start Last Admin Trade Name Freq PRN Reason Stop Dose Admin Acetaminophen 650 mg 11/13/18 17:49 11/13/18 19:09 Tylenol FEEDTUBE 650 mg Q6H PRN Administration Non Cardiac Pain or Temp>100.5 Albuterol 2.5 mg 11/05/18 12:00 Proventil IH Q4HRT PRN Shortness Of Breath Albuterol 2.5 mg 11/14/18 20:00 11/15/18 08:31 Proventil IH 2.5 mg TIDRT CECILIO Administration Lipase/Protease/Amylase 1 each 11/05/18 11:[address] 10,500 Unit FEEDTUBE PRN PRN For Clogged Feeding Tube Calcitriol 0.5 mcg 11/05/18 11:00 11/14/18 09:19 Rocaltrol PO 0.5 mcg QDAY CECILIO Administration Epoetin Kristopher 5,000 unit 11/09/18 08:00 11/14/18 17:45 Procrit IV 5,000 unit CHARI [facility] Administration Famotidine 20 mg 11/12/18 14:00 11/14/18 09:20 Pepcid PO 20 mg DAILY CECILIO Administration Fentanyl 50 mcg 11/06/18 10:00 11/13/18 23:50 Sublimaze IV 50 mcg Q10MIN PRN Administration ANALGESIA Heparin Sodium (Porcine) 5,000 unit 11/12/18 22:00 11/14/18 23:22 Heparin SUB-Q 5,000 unit Q12HR [facility] Administration Hydrophilic Ointment 1 applic 11/06/18 10:00 Vaseline Lip Therapy TP Q2HR PRN Dry Lips Fentanyl Citrate 2,000 mcg in 100 mls @ 2.495 mls/hr 11/06/18 10:00 11/13/18 17:24 Fentanyl Drip Premix IV 0 mcg/kg/hr TITR CECILIO 0 mls/hr Titration Protocol 1 MCG/KG/HR Norepinephrine 4 mg in 250 mls @ 7.5 mls/hr 11/06/18 19:00 11/13/18 17:15 Levophed Drip 4 Mg/Ns 250 Ml IV 0 mcg/min TITR CECILIO 0 mls/hr Titration Protocol 2 MCG/MIN Vasopressin 20 unit/ Sodium 101 mls @ 9.09 mls/hr 11/12/18 12:30 11/12/18 12:35 Chloride IV 0.03 units/min TITR CECILIO 9.09 mls/hr Administration Protocol 0.03 UNITS/MIN Sodium Chloride 100 mls @ 999 mls/hr 11/14/18 08:15 Nacl 0.9% IV CHARI PRN Hypotension Insulin Human Lispro 0 unit 11/14/18 00:00 11/15/18 05:20 Humalog SUB-Q Not Given Q6HR [facility] Protocol Levothyroxine Sodium 125 mcg 11/05/18 11:00 11/15/18 06:33 Synthroid PO 125 mcg DAILY@0600 CECILIO Administration Losartan Potassium 50 mg 11/05/18 11:00 11/14/18 09:20 Cozaar PO 50 mg QDAY CECILIO Administration Metoprolol Tartrate 12.5 mg 11/13/18 10:00 11/14/18 23:22 Lopressor PO 12.5 mg BID CECILIO Administration Multi-Ingred Cream/Lotion/Oil/Oint 1 applic 11/06/18 10:00 11/13/18 21:35 Artificial Tears Ophth Oint OU 1 applic Q4HR PRN Administration Dry Eye(s) Potassium Chloride 20 meq 11/15/18 09:46 Potassium Chloride FEEDTUBE 11/15/18 09:47 ONCE ONE Quetiapine Fumarate 25 mg 11/11/18 16:00 11/14/18 23:23 Seroquel PO 25 mg BID CECILIO Administration Simple Syrup 15 ml 11/05/18 11:27 Simple Syrup FEEDTUBE PRN PRN Hypoglycemia Simple Syrup 30 ml 11/05/18 11:27 11/15/18 00:33 Simple Syrup FEEDTUBE 30 ml PRN PRN Administration Hypoglycemia Sodium Bicarbonate 325 mg 11/05/18 11:27 Sodium Bicarbonate FEEDTUBE PRN PRN For Clogged Feeding Tube Nutrition/Malnutrition Assess - Dietary Evaluation Nutrition/Malnutrition Findings: Nutrition Notes Start: 11/05/18 11:22 Freq: Status: Active Protocol: Document 11/10/18 13:29 BOBBI (Rec: 11/10/18 13:31 [id number]) Nutrition Notes Initial or Follow up Brief Note Subjective/Other Information TF infusing at goal rate of 35ml/hr. Percent of energy/protein needs met: 100% energy and pro Nutrition Intervention Follow-Up By: 11/15/18 Additional Comments F/U: stable TF, vent status, wt
[2018-11-15] MEDS: PEPCID PO SCH (09:56)
[2018-11-15] MEDS: LOPRESSOR PO SCH (09:56)
--- NOTE | 2018-11-15 09:56 | Progress Note ---
Assessment and Plan -Acute hypercapnic-hypoxic respiratory failure s/p extubation -Right upper lobe atelectasis, resolved -Acute encephaloapthy( toxic, metabolic) -Pulmonary edema -BNP 3500 -Troponinemia, possible NSTEMI -ESRD on HD -Type 2 DM,poorly controlled -h/o Hypothyroidism Hypernatremia Hyperchloremia Leukocytosis -Wean supplemental oxygen to keep O2 sats >90% -VAP bundle addressed - ABG and CXR PRN -Stress ulcer prophylaxis -VTE prophylaxis -Aspiration precautions, HOB>40 -Accuchecks with glycemic control. Target glucose of 140-180 mg/dL -Continue bronchodilators with pulmonary hygiene per RT -Supportive HD/UF -Maintenance of sleep -wake cycle -PT/OT -Discharge planning PROGNOSIS: GUARDED CONDITION: FAIR CODE STATUS: DNAR Subjective Date of service: 11/15/18 Principal diagnosis: Severe Sepsis with Shock; Ac hypercapnic-hypoxic resp failure; ESRD/dialysi Interval history: Patient is seen today for: acute hypoxic-hypercapnic respiratory failure, Pulmonary edema, ESRD on HD, Elevated troponin, Seen and examined at bedside; 24hour events reviewed; nursing and respiratory care staff consulted; no adverse overnight events reported to me; No fevers. No vomiting., awake and alert Family at the bedside Objective Vital Signs - 12hr 11/14/18 11/14/18 11/14/18 22:00 23:00 23:22 Temperature Pulse Rate 116 H 113 H 118 H Pulse Rate [ Anterior Bilateral Throughout] Respiratory 21 20 Rate Respiratory Rate [Anterior Bilateral Throughout] Blood Pressure 169/70 147/66 133/70 O2 Sat by Pulse 100 100 Oximetry 11/15/18 11/15/18 11/15/18 00:00 01:00 02:00 Temperature 100.0 F H Pulse Rate 108 H 100 H 103 H Pulse Rate [ Anterior Bilateral Throughout] Respiratory 41 H 20 19 Rate Respiratory Rate [Anterior Bilateral Throughout] Blood Pressure 137/62 132/51 127/58 O2 Sat by Pulse 100 99 100 Oximetry 11/15/18 11/15/18 11/15/18 03:00 03:55 04:00 Temperature 99.6 F Pulse Rate 108 H 109 H Pulse Rate [ Anterior Bilateral Throughout] Respiratory 21 21 Rate Respiratory Rate [Anterior Bilateral Throughout] Blood Pressure 123/60 160/58 O2 Sat by Pulse 100 100 Oximetry 11/15/18 11/15/18 11/15/18 05:01 06:00 07:01 Temperature Pulse Rate 112 H 109 H 111 H Pulse Rate [ Anterior Bilateral Throughout] Respiratory 21 21 20 Rate Respiratory Rate [Anterior Bilateral Throughout] Blood Pressure 131/60 141/62 119/62 O2 Sat by Pulse 100 100 100 Oximetry 11/15/18 11/15/18 11/15/18 08:00 08:32 08:33 Temperature 98.9 F Pulse Rate Pulse Rate [ 108 H 108 H Anterior Bilateral Throughout] Respiratory Rate Respiratory 20 19 Rate [Anterior Bilateral Throughout] Blood Pressure O2 Sat by Pulse 100 Oximetry Constitutional: no acute distress, other (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, normocephalic normal respiratory effort at rest) Eyes: non-icteric ENT: oropharynx moist Neck: supple, no lymphadenopathy Effort: normal Ascultation: Bilateral: diminished breath sounds, rales (scant), rhonchi Percussion: Bilateral: not dull Cardiovascular: regular rate and rhythm, murmur noted (ELEANOR), other (s1, s2, ) Gastrointestinal: normoactive bowel sounds, soft, non-tender, non-distended, other (no guarding, no hepato-splenomegaly) Integumentary: rash, decubitus ulcer (sacral), other (dry scaling, diffusely) Extremities: no cyanosis, no edema, pulses normal, no ischemia or petechiae Neurologic: normal mental status, non-focal exam (grossly), pupils equal and round, other (squeezes my hand with the left hand, right hemiplegia) Psychiatric: mood appropriate, affect normal CBC and BMP: 11/16/18 07:56 11/16/18 07:56 ABG, PT/INR, D-dimer: ABG POC ABG pH 7.452 (7.35-7.45) H 11/14/18 11:19 POC ABG pCO2 36.5 (35-45) 11/14/18 11:19 POC ABG pO2 129 (80-105) H 11/14/18 11:19 POC ABG HCO3 25.5 (22-26 mml/L) 11/14/18 11:19 POC ABG Total CO2 27 (23-27mmol/L) 11/14/18 11:19 POC ABG O2 Sat 99 11/14/18 11:19 PT/INR, D-dimer PT 13.2 Sec. (12.2-14.9) 11/05/18 07:09 INR 0.95 (0.87-1.13) 11/05/18 07:09 Abnormal lab findings: Abnormal Labs 11/05/18 11/05/18 11/05/18 07:09 07:09 07:09 WBC 14.7 H RBC 3.42 L Hgb Hct MCV 99 H RDW 20.1 H Lymph % (Auto) [place] % (Auto) 9.3 H Lymph # [place] # 1.4 H Eos # 0.5 H Baso # 0.2 H Seg Neutrophils % 70.1 H Seg Neuts % (Manual) Lymphocytes % (Manual) Monocytes % (Manual) Eosinophils % (Manual) Seg Neutrophils # 10.3 H Seg Neutrophils # Man Lymphocytes # (Manual) Monocytes # (Manual) Eosinophils # (Manual) POC ABG pH POC ABG pCO2 POC ABG pO2 Sodium Potassium 6.8 H* Chloride Carbon Dioxide BUN 74 H Creatinine 6.9 H Glucose 226 H POC Glucose 206 H Calcium AST 80 H Alkaline Phosphatase 236 H CK-MB (CK-2) CK-MB (CK-2) Rel Index 8.2 H Troponin T 0.224 H* C-Reactive Protein NT-Pro-B Natriuret Pep > 58018 H Total Protein Albumin HDL Cholesterol 61 H 11/05/18 11/05/18 11/06/18 08:03 19:45 03:29 WBC RBC Hgb Hct MCV RDW Lymph % (Auto) [place] % (Auto) Lymph # [place] # Eos # Baso # Seg Neutrophils % Seg Neuts % (Manual) Lymphocytes % (Manual) Monocytes % (Manual) Eosinophils % (Manual) Seg Neutrophils # Seg Neutrophils # Man Lymphocytes # (Manual) Monocytes # (Manual) Eosinophils # (Manual) POC ABG pH 7.612 H POC ABG pCO2 51.2 H 31.3 L POC ABG pO2 167 H 117 H Sodium Potassium Chloride Carbon Dioxide BUN Creatinine Glucose POC Glucose Calcium AST Alkaline Phosphatase CK-MB (CK-2) 5.6 H CK-MB (CK-2) Rel Index 5.2 H Troponin T 0.321 H* D C-Reactive Protein NT-Pro-B Natriuret Pep Total Protein Albumin HDL Cholesterol 11/06/18 11/06/18 11/06/18 06:59 06:59 14:16 WBC RBC Hgb Hct MCV RDW 19.2 H Lymph % (Auto) [place] % (Auto) Lymph # [place] # Eos # Baso # Seg Neutrophils % Seg Neuts % (Manual) 82.0 H Lymphocytes % (Manual) 5.0 L Monocytes % (Manual) 13.0 H Eosinophils % (Manual) Seg Neutrophils # Seg Neutrophils # Man 8.5 H Lymphocytes # (Manual) 0.5 L Monocytes # (Manual) 1.4 H Eosinophils # (Manual) POC ABG pH POC ABG pCO2 POC ABG pO2 Sodium Potassium 5.2 H D Chloride Carbon Dioxide BUN 33 H Creatinine 4.4 H Glucose POC Glucose 139 H Calcium AST 52 H Alkaline Phosphatase 170 H CK-MB (CK-2) CK-MB (CK-2) Rel Index Troponin T 0.289 H* C-Reactive Protein NT-Pro-B Natriuret Pep Total Protein Albumin 3.7 L HDL Cholesterol 11/07/18 11/07/18 11/07/18 04:11 04:11 05:39 WBC RBC 3.31 L Hgb Hct MCV RDW 18.9 H Lymph % (Auto) 8.9 L [place] % (Auto) 14.6 H Lymph # 0.9 L [place] # 1.5 H Eos # Baso # Seg Neutrophils % 74.7 H Seg Neuts % (Manual) Lymphocytes % (Manual) Monocytes % (Manual) Eosinophils % (Manual) Seg Neutrophils # 7.9 H Seg Neutrophils # Man Lymphocytes # (Manual) Monocytes # (Manual) Eosinophils # (Manual) POC ABG pH 7.550 H POC ABG pCO2 32.6 L POC ABG pO2 63 L Sodium 146 H Potassium Chloride Carbon Dioxide BUN 36 H Creatinine 4.7 H Glucose 109 H POC Glucose Calcium AST 42 H Alkaline Phosphatase 138 H CK-MB (CK-2) CK-MB (CK-2) Rel Index Troponin T C-Reactive Protein NT-Pro-B Natriuret Pep Total Protein 5.8 L Albumin 3.3 L HDL Cholesterol 11/08/18 11/08/18 11/09/18 03:19 04:38 04:56 WBC RBC Hgb Hct MCV RDW Lymph % (Auto) [place] % (Auto) Lymph # [place] # Eos # Baso # Seg Neutrophils % Seg Neuts % (Manual) Lymphocytes % (Manual) Monocytes % (Manual) Eosinophils % (Manual) Seg Neutrophils # Seg Neutrophils # Man Lymphocytes # (Manual) Monocytes # (Manual) Eosinophils # (Manual) POC ABG pH 7.468 H 7.301 L POC ABG pCO2 34.3 L 46.3 H POC ABG pO2 132 H 63 L Sodium 148 H Potassium 5.2 H Chloride Carbon Dioxide BUN 50 H Creatinine 6.4 H Glucose POC Glucose Calcium 8.3 L AST Alkaline Phosphatase CK-MB (CK-2) CK-MB (CK-2) Rel Index Troponin T C-Reactive Protein NT-Pro-B Natriuret Pep Total Protein Albumin HDL Cholesterol 11/09/18 11/09/18 11/09/18 11:26 11:26 12:54 WBC 15.0 H RBC 3.33 L Hgb 10.0 L Hct MCV RDW 19.1 H Lymph % (Auto) 5.3 L [place] % (Auto) Lymph # 0.8 L [place] # 1.1 H Eos # Baso # Seg Neutrophils % 85.6 H Seg Neuts % (Manual) Lymphocytes % (Manual) Monocytes % (Manual) Eosinophils % (Manual) Seg Neutrophils # 12.8 H Seg Neutrophils # Man Lymphocytes # (Manual) Monocytes # (Manual) Eosinophils # (Manual) POC ABG pH POC ABG pCO2 POC ABG pO2 Sodium 150 H Potassium 5.3 H Chloride 108.4 H Carbon Dioxide 20 L BUN 79 H Creatinine 7.6 H Glucose 111 H POC Glucose 115 H Calcium 7.6 L AST Alkaline Phosphatase CK-MB (CK-2) CK-MB (CK-2) Rel Index Troponin T C-Reactive Protein NT-Pro-B Natriuret Pep Total Protein Albumin HDL Cholesterol 11/10/18 11/10/18 11/10/18 04:24 04:37 04:37 WBC 14.2 H RBC 3.13 L Hgb 9.5 L Hct 29.8 L MCV RDW 19.2 H Lymph % (Auto) 3.9 L [place] % (Auto) 9.9 H Lymph # 0.5 L [place] # 1.4 H Eos # Baso # Seg Neutrophils % 83.3 H Seg Neuts % (Manual) Lymphocytes % (Manual) Monocytes % (Manual) Eosinophils % (Manual) Seg Neutrophils # 11.8 H Seg Neutrophils # Man Lymphocytes # (Manual) Monocytes # (Manual) Eosinophils # (Manual) POC ABG pH POC ABG pCO2 POC ABG pO2 Sodium 150 H Potassium Chloride Carbon Dioxide BUN 65 H Creatinine 6.8 H Glucose 111 H POC Glucose 110 H Calcium 8.0 L AST Alkaline Phosphatase CK-MB (CK-2) CK-MB (CK-2) Rel Index Troponin T C-Reactive Protein NT-Pro-B Natriuret Pep Total Protein Albumin HDL Cholesterol 11/10/18 11/10/18 11/10/18 05:51 12:53 16:48 WBC RBC Hgb Hct MCV RDW Lymph % (Auto) [place] % (Auto) Lymph # [place] # Eos # Baso # Seg Neutrophils % Seg Neuts % (Manual) Lymphocytes % (Manual) Monocytes % (Manual) Eosinophils % (Manual) Seg Neutrophils # Seg Neutrophils # Man Lymphocytes # (Manual) Monocytes # (Manual) Eosinophils # (Manual) POC ABG pH 7.475 H POC ABG pCO2 POC ABG pO2 67 L Sodium Potassium Chloride Carbon Dioxide BUN Creatinine Glucose POC Glucose 131 H 124 H Calcium AST Alkaline Phosphatase CK-MB (CK-2) CK-MB (CK-2) Rel Index Troponin T C-Reactive Protein NT-Pro-B Natriuret Pep Total Protein Albumin HDL Cholesterol 11/10/18 11/10/18 11/11/18 20:00 23:54 04:23 WBC RBC Hgb Hct MCV RDW Lymph % (Auto) [place] % (Auto) Lymph # [place] # Eos # Baso # Seg Neutrophils % Seg Neuts % (Manual) Lymphocytes % (Manual) Monocytes % (Manual) Eosinophils % (Manual) Seg Neutrophils # Seg Neutrophils # Man Lymphocytes # (Manual) Monocytes # (Manual) Eosinophils # (Manual) POC ABG pH 7.334 L POC ABG pCO2 46.1 H POC ABG pO2 Sodium Potassium Chloride Carbon Dioxide BUN Creatinine Glucose POC Glucose 133 H 121 H Calcium AST Alkaline Phosphatase CK-MB (CK-2) CK-MB (CK-2) Rel Index Troponin T C-Reactive Protein NT-Pro-B Natriuret Pep Total Protein Albumin HDL Cholesterol 11/11/18 11/11/18 11/11/18 04:25 05:42 08:27 WBC RBC Hgb Hct MCV RDW Lymph % (Auto) [place] % (Auto) Lymph # [place] # Eos # Baso # Seg Neutrophils % Seg Neuts % (Manual) Lymphocytes % (Manual) Monocytes % (Manual) Eosinophils % (Manual) Seg Neutrophils # Seg Neutrophils # Man Lymphocytes # (Manual) Monocytes # (Manual) Eosinophils # (Manual) POC ABG pH POC ABG pCO2 POC ABG pO2 Sodium 157 H Potassium Chloride 111.2 H Carbon Dioxide BUN 81 H Creatinine 7.7 H Glucose 139 H POC Glucose 129 H 122 H Calcium AST Alkaline Phosphatase CK-MB (CK-2) CK-MB (CK-2) Rel Index Troponin T C-Reactive Protein NT-Pro-B Natriuret Pep Total Protein Albumin HDL Cholesterol 11/11/18 11/11/18 11/12/18 16:51 21:26 02:27 WBC RBC Hgb Hct MCV RDW Lymph % (Auto) [place] % (Auto) Lymph # [place] # Eos # Baso # Seg Neutrophils % Seg Neuts % (Manual) Lymphocytes % (Manual) Monocytes % (Manual) Eosinophils % (Manual) Seg Neutrophils # Seg Neutrophils # Man Lymphocytes # (Manual) Monocytes # (Manual) Eosinophils # (Manual) POC ABG pH POC ABG pCO2 POC ABG pO2 Sodium Potassium Chloride Carbon Dioxide BUN Creatinine Glucose POC Glucose 148 H 156 H 45 L Calcium AST Alkaline Phosphatase CK-MB (CK-2) CK-MB (CK-2) Rel Index Troponin T C-Reactive Protein NT-Pro-B Natriuret Pep Total Protein Albumin HDL Cholesterol 11/12/18 11/12/18 11/12/18 02:29 03:39 03:39 WBC RBC 3.18 L Hgb 9.7 L Hct MCV RDW 19.1 H Lymph % (Auto) [place] % (Auto) Lymph # [place] # Eos # Baso # Seg Neutrophils % Seg Neuts % (Manual) 71.0 H Lymphocytes % (Manual) 13.0 L Monocytes % (Manual) 10.0 H Eosinophils % (Manual) Seg Neutrophils # Seg Neutrophils # Man Lymphocytes # (Manual) Monocytes # (Manual) 1.0 H Eosinophils # (Manual) POC ABG pH POC ABG pCO2 POC ABG pO2 Sodium 152 H Potassium 8.4 H* D Chloride 107.4 H Carbon Dioxide 18 L BUN 89 H Creatinine 7.9 H Glucose 144 H POC Glucose 53 L Calcium 3.3 L* D AST 46 H Alkaline Phosphatase 131 H CK-MB (CK-2) CK-MB (CK-2) Rel Index Troponin T C-Reactive Protein NT-Pro-B Natriuret Pep Total Protein 5.6 L Albumin 2.7 L HDL Cholesterol 11/12/18 11/12/18 11/12/18 05:33 05:38 08:53 WBC RBC Hgb Hct MCV RDW Lymph % (Auto) [place] % (Auto) Lymph # [place] # Eos # Baso # Seg Neutrophils % Seg Neuts % (Manual) Lymphocytes % (Manual) Monocytes % (Manual) Eosinophils % (Manual) Seg Neutrophils # Seg Neutrophils # Man Lymphocytes # (Manual) Monocytes # (Manual) Eosinophils # (Manual) POC ABG pH POC ABG pCO2 POC ABG pO2 150 H Sodium Potassium Chloride Carbon Dioxide BUN Creatinine Glucose POC Glucose 135 H 137 H Calcium AST Alkaline Phosphatase CK-MB (CK-2) CK-MB (CK-2) Rel Index Troponin T C-Reactive Protein NT-Pro-B Natriuret Pep Total Protein Albumin HDL Cholesterol 11/12/18 11/12/18 11/12/18 13:13 14:39 14:39 WBC RBC Hgb Hct MCV RDW Lymph % (Auto) [place] % (Auto) Lymph # [place] # Eos # Baso # Seg Neutrophils % Seg Neuts % (Manual) Lymphocytes % (Manual) Monocytes % (Manual) Eosinophils % (Manual) Seg Neutrophils # Seg Neutrophils # Man Lymphocytes # (Manual) Monocytes # (Manual) Eosinophils # (Manual) POC ABG pH POC ABG pCO2 POC ABG pO2 Sodium Potassium 2.9 L* D Chloride Carbon Dioxide BUN Creatinine Glucose POC Glucose 152 H Calcium AST Alkaline Phosphatase CK-MB (CK-2) CK-MB (CK-2) Rel Index Troponin T C-Reactive Protein 42.50 H NT-Pro-B Natriuret Pep Total Protein Albumin HDL Cholesterol 11/12/18 11/12/18 11/13/18 19:54 23:46 05:11 WBC RBC Hgb Hct MCV RDW Lymph % (Auto) [place] % (Auto) Lymph # [place] # Eos # Baso # Seg Neutrophils % Seg Neuts % (Manual) Lymphocytes % (Manual) Monocytes % (Manual) Eosinophils % (Manual) Seg Neutrophils # Seg Neutrophils # Man Lymphocytes # (Manual) Monocytes # (Manual) Eosinophils # (Manual) POC ABG pH POC ABG pCO2 POC ABG pO2 Sodium Potassium Chloride Carbon Dioxide BUN Creatinine Glucose POC Glucose 170 H 121 H 49 L Calcium AST Alkaline Phosphatase CK-MB (CK-2) CK-MB (CK-2) Rel Index Troponin T C-Reactive Protein NT-Pro-B Natriuret Pep Total Protein Albumin HDL Cholesterol 11/13/18 11/13/18 11/13/18 05:20 05:20 05:43 WBC RBC 2.80 L Hgb 8.6 L Hct 26.6 L MCV RDW 19.1 H Lymph % (Auto) [place] % (Auto) Lymph # [place] # Eos # Baso # Seg Neutrophils % Seg Neuts % (Manual) Lymphocytes % (Manual) Monocytes % (Manual) 16.0 H Eosinophils % (Manual) 8.0 H Seg Neutrophils # Seg Neutrophils # Man Lymphocytes # (Manual) Monocytes # (Manual) 1.6 H Eosinophils # (Manual) 0.8 H POC ABG pH POC ABG pCO2 POC ABG pO2 Sodium 136 L D Potassium 3.4 L Chloride 92.5 L Carbon Dioxide BUN 37 H Creatinine 3.9 H D Glucose 121 H POC Glucose 153 H Calcium 8.2 L AST Alkaline Phosphatase CK-MB (CK-2) CK-MB (CK-2) Rel Index Troponin T C-Reactive Protein NT-Pro-B Natriuret Pep Total Protein Albumin HDL Cholesterol 11/13/18 11/13/18 11/13/18 05:52 07:59 12:17 WBC RBC Hgb Hct MCV RDW Lymph % (Auto) [place] % (Auto) Lymph # [place] # Eos # Baso # Seg Neutrophils % Seg Neuts % (Manual) Lymphocytes % (Manual) Monocytes % (Manual) Eosinophils % (Manual) Seg Neutrophils # Seg Neutrophils # Man Lymphocytes # (Manual) Monocytes # (Manual) Eosinophils # (Manual) POC ABG pH POC ABG pCO2 POC ABG pO2 250 H Sodium Potassium Chloride Carbon Dioxide BUN Creatinine Glucose POC Glucose 116 H 160 H Calcium AST Alkaline Phosphatase CK-MB (CK-2) CK-MB (CK-2) Rel Index Troponin T C-Reactive Protein NT-Pro-B Natriuret Pep Total Protein Albumin HDL Cholesterol 11/13/18 11/13/18 11/13/18 14:51 16:29 20:14 WBC RBC Hgb Hct MCV RDW Lymph % (Auto) [place] % (Auto) Lymph # [place] # Eos # Baso # Seg Neutrophils % Seg Neuts % (Manual) Lymphocytes % (Manual) Monocytes % (Manual) Eosinophils % (Manual) Seg Neutrophils # Seg Neutrophils # Man Lymphocytes # (Manual) Monocytes # (Manual) Eosinophils # (Manual) POC ABG pH POC ABG pCO2 POC ABG pO2 Sodium 130 L Potassium Chloride Carbon Dioxide BUN Creatinine Glucose POC Glucose 120 H 141 H Calcium AST Alkaline Phosphatase CK-MB (CK-2) CK-MB (CK-2) Rel Index Troponin T C-Reactive Protein NT-Pro-B Natriuret Pep Total Protein Albumin HDL Cholesterol 11/14/18 11/14/18 11/14/18 00:32 05:13 05:48 WBC RBC Hgb Hct MCV RDW Lymph % (Auto) [place] % (Auto) Lymph # [place] # Eos # Baso # Seg Neutrophils % Seg Neuts % (Manual) Lymphocytes % (Manual) Monocytes % (Manual) Eosinophils % (Manual) Seg Neutrophils # Seg Neutrophils # Man Lymphocytes # (Manual) Monocytes # (Manual) Eosinophils # (Manual) POC ABG pH 7.453 H POC ABG pCO2 POC ABG pO2 137 H Sodium Potassium Chloride Carbon Dioxide BUN Creatinine Glucose POC Glucose 137 H 108 H Calcium AST Alkaline Phosphatase CK-MB (CK-2) CK-MB (CK-2) Rel Index Troponin T C-Reactive Protein NT-Pro-B Natriuret Pep Total Protein Albumin HDL Cholesterol 11/14/18 11/14/18 11/14/18 11:19 18:04 23:35 WBC RBC Hgb Hct MCV RDW Lymph % (Auto) [place] % (Auto) Lymph # [place] # Eos # Baso # Seg Neutrophils % Seg Neuts % (Manual) Lymphocytes % (Manual) Monocytes % (Manual) Eosinophils % (Manual) Seg Neutrophils # Seg Neutrophils # Man Lymphocytes # (Manual) Monocytes # (Manual) Eosinophils # (Manual) POC ABG pH 7.452 H POC ABG pCO2 POC ABG pO2 129 H Sodium Potassium Chloride Carbon Dioxide BUN Creatinine Glucose POC Glucose 153 H 61 L Calcium AST Alkaline Phosphatase CK-MB (CK-2) CK-MB (CK-2) Rel Index Troponin T C-Reactive Protein NT-Pro-B Natriuret Pep Total Protein Albumin HDL Cholesterol 11/15/18 11/15/18 11/15/18 05:22 07:00 07:00 WBC 11.6 H RBC 2.98 L Hgb 9.1 L Hct 27.5 L MCV RDW 18.7 H Lymph % (Auto) [place] % (Auto) Lymph # [place] # Eos # Baso # Seg Neutrophils % Seg Neuts % (Manual) 79.0 H Lymphocytes % (Manual) 7.0 L Monocytes % (Manual) 10.0 H Eosinophils % (Manual) Seg Neutrophils # Seg Neutrophils # Man 9.2 H Lymphocytes # (Manual) 0.8 L Monocytes # (Manual) 1.2 H Eosinophils # (Manual) POC ABG pH POC ABG pCO2 POC ABG pO2 Sodium Potassium 3.5 L Chloride Carbon Dioxide BUN 29 H Creatinine 3.7 H Glucose 130 H POC Glucose 143 H Calcium AST Alkaline Phosphatase CK-MB (CK-2) CK-MB (CK-2) Rel Index Troponin T C-Reactive Protein NT-Pro-B Natriuret Pep Total Protein Albumin HDL Cholesterol Chest x-ray: image reviewed Allied health notes reviewed: nursing
[2018-11-15] MEDS: ROCALTROL PO SCH (09:57)
[2018-11-15] MEDS: HEPARIN SUB-Q SCH (09:57)
[2018-11-15] MEDS: COZAAR PO SCH (09:57)
[2018-11-15] MEDS: SUBLIMAZE IV PRN (10:41)
--- NOTE | 2018-11-15 16:58 | Progress Note ---
Assessment and Plan - Patient Problems (1) ESRD (end stage renal disease) on dialysis Current Visit: No Status: Chronic Plan to address problem: cont intermittent HD on MWF schedule with vasopressor support as needed to maintain MAP > 65mmhg along with albumin support. (2) Acute and chronic respiratory failure with hypoxia Current Visit: Yes Status: Acute Plan to address problem: Continue ventilator management by primary attending/business systems analyst. (3) Hyperkalemia Current Visit: Yes Status: Acute Plan to address problem: K improved after successful HD. (4) Anemia, chronic disease Current Visit: No Status: Chronic Plan to address problem: Continue Erythropoetin on dialysis (5) Hypertensive chronic kidney disease with stage 5 chronic kidney disease or end stage renal disease Current Visit: No Status: Acute Plan to address problem: Patient is now hypotensive on Levophed as needed to maintain MAP > 65mmHg (6) Hypernatremia Current Visit: Yes Status: Acute Plan to address problem: resolved Subjective Date of service: 11/15/18 Principal diagnosis: Severe Sepsis with Shock; Ac hypercapnic-hypoxic resp failure; ESRD/dialysi Interval history: pt s/p extubation in no acute respiratory distress Objective - Vital Signs Vital signs: Vital Signs - 12hr 11/15/18 11/15/18 11/15/18 05:01 06:00 07:01 Temperature Pulse Rate 112 H 109 H 111 H Pulse Rate [ Anterior Bilateral Throughout] Respiratory 21 21 20 Rate Respiratory Rate [Anterior Bilateral Throughout] Blood Pressure 131/60 141/62 119/62 O2 Sat by Pulse 100 100 100 Oximetry 11/15/18 11/15/18 11/15/18 08:00 08:32 08:33 Temperature 98.9 F Pulse Rate 108 H Pulse Rate [ 108 H 108 H Anterior Bilateral Throughout] Respiratory 20 Rate Respiratory 20 19 Rate [Anterior Bilateral Throughout] Blood Pressure 126/57 O2 Sat by Pulse 100 100 Oximetry 11/15/18 11/15/18 11/15/18 09:01 09:56 10:00 Temperature Pulse Rate 115 H 115 H 115 H Pulse Rate [ Anterior Bilateral Throughout] Respiratory 20 21 Rate Respiratory Rate [Anterior Bilateral Throughout] Blood Pressure 136/58 112/55 121/50 O2 Sat by Pulse 100 99 Oximetry 11/15/18 11/15/18 11/15/18 11:00 12:00 13:00 Temperature 98.7 F Pulse Rate 108 H 107 H 113 H Pulse Rate [ Anterior Bilateral Throughout] Respiratory 20 18 21 Rate Respiratory Rate [Anterior Bilateral Throughout] Blood Pressure 117/54 110/51 122/33 O2 Sat by Pulse 100 100 99 Oximetry 11/15/18 14:00 Temperature Pulse Rate 110 H Pulse Rate [ Anterior Bilateral Throughout] Respiratory 16 Rate Respiratory Rate [Anterior Bilateral Throughout] Blood Pressure 124/58 O2 Sat by Pulse 97 Oximetry - General Appearance General appearance: appears stated age, chronically ill, frail EENT: ATNC, PERRL, mucous membranes moist Neck: no JVD Respiratory: Present: Decreased Breath Sounds Cardiology: regular, S1S2 Gastrointestinal: normoactive bowel sounds Integumentary: no rash, other (no edema ) Neurologic: no focal deficit, alert and oriented x3, strength 5/5, CN 3-12 intact Psychiatric: mood/affect appropriate, cooperative - Lab 11/15/18 07:00 11/15/18 07:00 Most recent lab results Calcium 8.8 mg/dL (8.4-10.2) 11/15/18 07:00 Phosphorus 4.10 mg/dL (2.5-4.5) 11/11/18 04:25 Medications & Allergies - Medications Allergies/Adverse Reactions: Allergies meperidine [From Demerol] Allergy (Verified 01/12/18 03:31) Itching Home Medications: Home Medications Medication Instructions Recorded Confirmed Last Taken Type Amlodipine Besylate [Norvasc] 10 mg PO QDAY 01/12/18 06/12/18 Unknown History B Complex 11/Folic/C/Biot/Zinc 1 each PO DAILY 01/12/18 06/12/18 Unknown History [Dialyvite with Zinc Tablet] Calcitriol [Rocaltrol] 0.5 mcg PO QDAY 01/12/18 06/12/18 Unknown History Carvedilol [Coreg] 6.25 mg PO BID 01/12/18 06/12/18 Unknown History Esomeprazole Magnesium [NexIUM] 40 mg PO QDAY 01/12/18 06/12/18 Unknown History Levothyroxine [Synthroid] 125 mcg PO QAM 01/12/18 06/12/18 Unknown History ALBUTEROL Inhaler(NF) 90 mcg INHALATION Q6H PRN 06/12/18 06/12/18 Unknown History Cozaar 50 mg PO DAILY 06/12/18 06/12/18 Unknown History Loperamide [Imodium] 4 mg PO QID PRN 06/12/18 06/12/18 Unknown History Acetaminophen [Acetaminophen TAB] 650 mg PO Q4H PRN #15 tablet 09/24/18 Unknown Rx Active Medications: Generic Name Dose Route Start Last Admin Trade Name Freq PRN Reason Stop Dose Admin Acetaminophen 650 mg 11/13/18 17:49 11/13/18 19:09 Tylenol FEEDTUBE 650 mg Q6H PRN Administration Non Cardiac Pain or Temp>100.5 Albuterol 2.5 mg 11/05/18 12:00 Proventil IH Q4HRT PRN Shortness Of Breath Albuterol 2.5 mg 11/14/18 20:00 11/15/18 08:31 Proventil IH 2.5 mg TIDRT CECILIO Administration Lipase/Protease/Amylase 1 each 11/05/18 11:[address] 10,500 Unit FEEDTUBE PRN PRN For Clogged Feeding Tube Calcitriol 0.5 mcg 11/05/18 11:00 11/15/18 09:57 Rocaltrol PO 0.5 mcg QDAY CECILIO Administration Epoetin Kristopher 5,000 unit 11/09/18 08:00 11/14/18 17:45 Procrit IV 5,000 unit CHARI CECILIO Administration Famotidine 20 mg 11/12/18 14:00 11/15/18 09:56 Pepcid PO 20 mg DAILY CECILIO Administration Heparin Sodium (Porcine) 5,000 unit 11/12/18 22:00 11/15/18 09:57 Heparin SUB-Q 5,000 unit Q12HR CECILIO Administration Hydrophilic Ointment 1 applic 11/06/18 10:00 Vaseline Lip Therapy TP Q2HR PRN Dry Lips Norepinephrine 4 mg in 250 mls @ 7.5 mls/hr 11/06/18 19:00 11/13/18 17:15 Levophed Drip 4 Mg/Ns 250 Ml IV 0 mcg/min TITR CECILIO 0 mls/hr Titration Protocol 2 MCG/MIN Vasopressin 20 unit/ Sodium 101 mls @ 9.09 mls/hr 11/12/18 12:30 11/12/18 12:35 Chloride IV 0.03 units/min TITR CECILIO 9.09 mls/hr Administration Protocol 0.03 UNITS/MIN Sodium Chloride 100 mls @ 999 mls/hr 11/14/18 08:15 Nacl 0.9% IV CHARI PRN Hypotension Insulin Human Lispro 0 unit 11/14/18 00:00 11/15/18 13:30 Humalog SUB-Q 2 unit Q6HR CECILIO Administration Protocol Levothyroxine Sodium 125 mcg 11/05/18 11:00 11/15/18 06:33 Synthroid PO 125 mcg DAILY@0600 CECILIO Administration Losartan Potassium 50 mg 11/05/18 11:00 11/15/18 09:57 Cozaar PO 50 mg QDAY CECILIO Administration Metoprolol Tartrate 12.5 mg 11/13/18 10:00 11/15/18 09:56 Lopressor PO 12.5 mg BID CECILIO Administration Multi-Ingred Cream/Lotion/Oil/Oint 1 applic 11/06/18 10:00 11/13/18 21:35 Artificial Tears Ophth Oint OU 1 applic Q4HR PRN Administration Dry Eye(s) Quetiapine Fumarate 25 mg 11/11/18 16:00 11/15/18 09:57 Seroquel PO 25 mg BID CECILIO Administration Simple Syrup 15 ml 11/05/18 11:27 Simple Syrup FEEDTUBE PRN PRN Hypoglycemia Simple Syrup 30 ml 11/05/18 11:27 11/15/18 00:33 Simple Syrup FEEDTUBE 30 ml PRN PRN Administration Hypoglycemia Sodium Bicarbonate 325 mg 11/05/18 11:27 Sodium Bicarbonate FEEDTUBE PRN PRN For Clogged Feeding Tube
--- NOTE | 2018-11-16 02:33 | XRay Report ---
PROCEDURE: XR ABDOMEN 1V AP TECHNIQUE: AP/oblique projections of the upper abdomen were obtained. HISTORY: Dobbhoff placement. COMPARISONS: Abdominal radiographs dated November 14, 2018. FINDINGS: Bowel gas pattern: Nonobstructive. Tubes/lines: A Dobbhoff feeding tube is present within the stomach. Lower thorax: Left basilar opacities possible hiatal hernia. Vascularity: Advanced, multifocal atherosclerotic vascular disease. IMPRESSION: Dobbhoff feeding tube is present within the stomach. This document is electronically signed by Michael Hoffman DO., November 16 2018 02:31:08 AM ET
[2018-11-16 08:30] VITALS: BP 153/71
[2018-11-16 08:36] LABS: Hematocrit 31.7 % (30.3-42.9); Hemoglobin 10.2 gm/dl (10.1-14.3); Mean Corpuscular HGB Conc 32 % (30-34); Mean Corpuscular Volume 94 fl (79-97); Platelet Count 235 K/mm3 (140-440); Red Blood Count 3.38 M/mm3 (3.65-5.03); Red Cell Distribution Width 19.3 % (13.2-15.2)
[2018-11-16] MEDS: PROVENTIL IH SCH (08:39)
[2018-11-16 10:16] LABS: Band Neutrophils # (Manual) 0.1 K/mm3; Basophils % (Manual) 0 % (0.0-1.8); Total Cells Counted 100
[2018-11-16 10:18] LABS: Anisocytosis 1+; Ovalocytes Few; Platelet Estimate Cons; Poikilocytosis 1+
--- NOTE | 2018-11-16 12:37 | Discharge Summary ---
Providers - Providers Date of Admission: 11/05/18 08:45 Date of discharge: 11/16/18 Attending physician: AIDA TANG 11/05/18 08:42 Consult to Physician [CONS] Urgent Comment: Dr. Villalobos notified @ 08:41- [facility] Consulting Provider: JASON VILLALOBOS Physician Instructions: Reason For Exam: hyperkalemia, respiratory failure 11/05/18 09:55 Consult to Physician [CONS] Routine Comment: Dr. Armando saw pt @ 12:38- [facility] Consulting Provider: DC ARMANDO Physician Instructions: Reason For Exam: Ac Resp failure /intubated/ Cr Care consult 11/05/18 10:00 Consult to Dietitian/Nutrition [CONS] Routine Physician Instructions: Assess nutrtn needs, initiate, modify, manage TF Reason For Exam: Reason for Consult: Write/Manage Tube Feeding Reason for Consult: Write/Manage Tube Feeding 11/05/18 18:50 Consult to Wound/ET Nurse [CONS] Routine Reason For Exam: wound eval; left foot 11/06/18 09:47 Consult to Dietitian/Nutrition [CONS] Routine Physician Instructions: Reason For Exam: Reason for Consult: Evaluate nutritional intake 11/09/18 11:01 Consult to Dietitian/Nutrition [CONS] Routine Physician Instructions: Reason For Exam: Reason for Consult: Write/Manage Tube Feeding 11/09/18 11:02 Physical Therapy Evaluation and Treat [CONS] Routine Comment: Reason For Exam: deconditioning 11/09/18 13:42 Consult to Dietitian/Nutrition [CONS] Routine Physician Instructions: Assess nutrtn needs, initiate, modify, manage TF Reason For Exam: Reason for Consult: Write/Manage Tube Feeding Reason for Consult: Write/Manage Tube Feeding 11/14/18 19:10 Consult to PICC Line RN [CONS] Routine Reason For Exam: poor venous access Type Line:: Midline 11/15/18 11:41 Speech Therapy Evaluation and Treat [CONS] Routine Reason For Exam: swallow evaln Primary care physician: [employer] Hospitalization Reason for admission: worsening shortness of breath/acute respiratory failure Condition: Serious Pertinent studies: Multiple Chest x-rays Multiple Abdominal x-rays Procedures: Intubation mechanical ventilation, extubation, hemodialysis per schedule Hospital course: 83-year-old -[place] female patient with significant history of end- stage renal disease on hemodialysis hypertension dyslipidemia hypothyroidism went to her usual dialysis today and she suddenly developed severe respiratory distress with hypoxia. Dialysis was canceled and patient was brought to the emergency room. Noted to be hypoxic in severe distress, promptly intubated placed on ventilatory support Patient also has severe hyperkalemia, admitted to ICU, received stat hemodialysis Evaluated by nephrology, pulmonary critical, medications optimized Gradually weaned and extubated, transferred to medical floor This morning patient's family wanted to sign AGAINST MEDICAL ADVICE and take her To her regular hospital ,where all her primary physicians are available For further evaluation and management. I was told by the nurse that they have set up an ambulance to transfer the patient. I have not seen the patient today, patient was taken out of the hospital against Medical advice[AMA] before I rounded this morning I talked to next of kin the daughter Ms.Belinda Louise she reports that all the family members are in agreement with this decision. Final diagnosis: --Acute hypoxic respiratory failure; s/p Intubation and extubation on nebs,antibiotics Pulmonary critical following Titrate O2 sats to more than 90% --Septic shock;s/p pressors Continue current management --Severe hyperkalemia; resolved --Hyponatremia:fluid overload,HDper schedule --Right lower lobe pneumonia/aspiration pneumonia Follow-up chest x-ray today; pneumonia /infiltrates resolved Continue vancomycin and Zosyn, add Flagyl F/u cultures, consider ID evaluation if needed --Nonspecific elevation of troponin; probably secondary to End-stage renal disease, medical management --Severe hypocalcemia; resolved --End-stage renal disease; hemodialysis per schedule Nephrology following --Hyperglycemia/type 2 diabetes mellitus. Accu-Chek sliding scale coverage and ADA diet Insulin As Needed, hemoglobin A1c --History of hypothyroidism; resume Synthroid --DVT prophylaxis; heparin renal dose --Tube feeds per protocol --DO NOT RESUSCITATE, with full treatment Patient was critically ill with poor prognosis Disposition: DC-[id number] LEFT AGAINST MED ADVICE Time spent for discharge: 32 min Core Measure Documentation - Palliative Care Palliative Care/ Comfort Measures: Not Applicable - Core Measures Any of the following diagnoses?: none Exam - Physical Exam Narrative exam: Left AMA - Constitutional Vitals: Temp Pulse Resp BP Pulse Ox 99.3 F 114 H 20 153/71 97 11/16/18 08:08 11/16/18 08:50 11/16/18 08:50 11/16/18 08:08 11/16/18 08:32 Plan Additional Instructions: Patient left AMA [patient's family signed out the patient out of the hospital AMA] Follow up with: PRIMARY CARE, [Primary Care Provider] - 3-5 Days
== END 2018-11-16 09:50 | disposition left against medical advice (07) | DRG 870 ==
LOC: ED 06:43 → CC1 08:45 → 2B-ACE 11-15 15:48
PROVIDERS: ADMIT Internal Medicine; ATTEND Internal Medicine
PROC: 0BH17EZ Insertion of Endotracheal Airway into Trachea, Via Natural or Artificial Opening (ICD-10-PCS; principal; 2018-11-05)
PROC: 5A1955Z Respiratory Ventilation, Greater than 96 Consecutive Hours (ICD-10-PCS; 2018-11-05)
PROC: 4A033R1 Measurement of Arterial Saturation, Peripheral, Percutaneous Approach (ICD-10-PCS; 2018-11-05)
PROC: 5A1D70Z Performance of Urinary Filtration, Intermittent, Less than 6 Hours Per Day (ICD-10-PCS; 2018-11-05)
PROC: 3E0234Z Introduction of Serum, Toxoid and Vaccine into Muscle, Percutaneous Approach (ICD-10-PCS; 2018-11-06)
PROC: 5A1D70Z Performance of Urinary Filtration, Intermittent, Less than 6 Hours Per Day (ICD-10-PCS; 2018-11-06)
PROC: 06HM33Z Insertion of Infusion Device into Right Femoral Vein, Percutaneous Approach (ICD-10-PCS; 2018-11-06)
PROC: B54BZZA Ultrasonography of Right Lower Extremity Veins, Guidance (ICD-10-PCS; 2018-11-06)
PROC: 5A1D70Z Performance of Urinary Filtration, Intermittent, Less than 6 Hours Per Day (ICD-10-PCS; 2018-11-07)
PROC: 5A1D70Z Performance of Urinary Filtration, Intermittent, Less than 6 Hours Per Day (ICD-10-PCS; 2018-11-09)
PROC: 5A1D70Z Performance of Urinary Filtration, Intermittent, Less than 6 Hours Per Day (ICD-10-PCS; 2018-11-12)
PROC: 0BP1XDZ Removal of Intraluminal Device from Trachea, External Approach (ICD-10-PCS; 2018-11-14)
PROC: 5A1D70Z Performance of Urinary Filtration, Intermittent, Less than 6 Hours Per Day (ICD-10-PCS; 2018-11-14)
DX: A41.9 Sepsis, unspecified organism (principal); R65.21 Severe sepsis with septic shock; N18.6 End stage renal disease; J69.0 Pneumonitis due to inhalation of food and vomit; J96.21 Acute and chronic respiratory failure with hypoxia; J96.22 Acute and chronic respiratory failure with hypercapnia; G92 Toxic encephalopathy; E87.1 Hypo-osmolality and hyponatremia; I12.0 Hypertensive chronic kidney disease with stage 5 chronic kidney disease or end stage renal disease; N25.81 Secondary hyperparathyroidism of renal origin; J98.11 Atelectasis; E87.0 Hyperosmolality and hypernatremia; Z23 Encounter for immunization; Z66 Do not resuscitate; Z53.21 Procedure and treatment not carried out due to patient leaving prior to being seen by health care provider; E87.5 Hyperkalemia; E11.65 Type 2 diabetes mellitus with hyperglycemia; M17.0 Bilateral primary osteoarthritis of knee; E03.9 Hypothyroidism, unspecified; D63.8 Anemia in other chronic diseases classified elsewhere; I27.20 Pulmonary hypertension, unspecified; E11.22 Type 2 diabetes mellitus with diabetic chronic kidney disease; Z96.653 Presence of artificial knee joint, bilateral; Z99.2 Dependence on renal dialysis
CPT/HCPCS: 36415; 36600; 71045; 74018; 80048; 80053; 80061; 80202; 82310; 82550; 82553; 82803; 82962; 83880; 84100; 84132; 84295; 84484; 85007; 85025; 85610; 85730; 86140; 87040; 87070; 87205; 90686; 90732; 93005; 93010; 94002; 94003; 94640; 94760; 96365; 96367; 96375; G0378; J0610; J0885; J1644; J1815; J2250; J2543; J3010; J3370; J7030; J7050; J7070